=== PATIENT | female | born 1940 | race Caucasian/White ===

== ENCOUNTER 2020-09-01 09:44 | Outpatient (REF) | payer MEDICARE, OTHER, SELFPAY ==
[2020-09-01 10:15] LABS: MANUAL DIFF FLAG NO
[2020-09-01 10:22] LABS: Basophils Absolute Auto 0.1 X10*3/uL (0.0-0.2); Basophils Percent Auto 0.8 % (0-2); Eosinophils Absolute Auto 0.4 X10*3/uL (0.0-0.4); Eosinophils Percent Auto 5.5 % (0-4); Hematocrit 34.3 % (37-47); Hemoglobin 11.2 g/dl (12.0-16.0); Imm Gran Abs Auto 0.02 X10*3/uL (0.00-0.03); Imm Gran Pct Auto 0.3 % (0.0-0.4); Lymphocytes Absolute Auto 1.5 X10*3/uL (1.2-4.9); Lymphocytes Percent Auto 22.4 % (20-40); Mean Corpuscular HGB Conc 32.7 g/dl (31.0-35.0); Mean Corpuscular Hemoglobin 27.2 pg (27.0-33.0); Mean Corpuscular Volume 83.3 fL (80-98); Mean Platelet Volume 8.4 fL (9.4-12.3); Monocytes Absolute Auto 0.5 X10*3/uL (0.1-1.2); Monocytes Percent Auto 7.4 % (2-11); Neutrophils Absolute Auto 4.2 X10*3/uL (2.0-8.3); Neutrophils Percent Auto 63.6 % (45-73); Platelet Count 355 X10*3/uL (160-400); Red Blood Count 4.12 X10*6/uL (4.20-5.50); Red Cell Distribution Width 15.2 % (11.0-16.0); White Blood Count 6.6 X10*3/uL (4.8-10.8)
[2020-09-01 11:02] LABS: Alanine Aminotransferase 15 U/L (0-31); Albumin Level 4.1 g/dL (3.5-5.0); Alkaline Phosphatase 86 U/L (39-117); Anion Gap 11 (12-20); Aspartate Amino Transferase 22 U/L (5-31); Bilirubin Total 0.4 mg/dL (0.0-1.0); Blood Urea Nitrogen 10 mg/dL (9-16); Calcium 9.4 mg/dL (8.4-10.2); Carbon Dioxide 28 mmol/L (22-29); Chloride 104 mmol/L (96-108); Cholesterol 226 mg/dL; Estimated Glomerular Filt Rate > 60; Glucose Random 94 mg/dL (60-115); HDL Cholesterol 83 mg/dL; LDL Cholesterol Calculated 129 mg/dl; Potassium 4.4 mmol/L (3.3-5.1); Sodium 139 mmol/L (135-145); Total Protein 7.1 g/dL (6.5-8.0); Triglycerides 72 mg/dL
[2020-09-01 11:25] LABS: Free T4 (Free Thyroxine) 1.38 ng/dL (0.71-1.85); Thyroid Stimulating Hormone 0.22 uIU/mL (0.32-4.0); Vitamin D 25-OH Total 29.5 ng/mL (>30)
[2020-09-01 11:35] LABS: Vitamin B12 409 pg/mL (200-900)
== END 2020-09-01 09:45 | disposition home or self-care (01) ==
LOC: HO.LAB 09:44
PROVIDERS: PCP Internal Medicine; Visit Provider Internal Medicine
DX: E78.00 Pure hypercholesterolemia, unspecified (principal); E03.9 Hypothyroidism, unspecified; E53.8 Deficiency of other specified B group vitamins
CPT/HCPCS: 36415; 80053; 80061; 82306; 82607; 82746; 84439; 84443; 85025

== ENCOUNTER 2020-09-12 13:00 | Outpatient (REF) | payer MEDICARE, OTHER, SELFPAY ==
--- NOTE | ~2020-09-12 | XR_ITS ---
EXAMINATION: XR CHEST CLINICAL INFORMATION: Bronchiectasis. COMPARISON: None TECHNIQUE: 2 views of the chest were obtained. FINDINGS: The lungs are well-expanded and clear of acute pneumonic process. There is patchy linear scarring in the right middle lobe. There is bilateral apical pleural thickening and parenchymal scarring. Heart size and pulmonary vascularity is normal. There is mild dextroscoliosis. XR/XR chest 2V IMPRESSION: Unremarkable chest exam. No change in mild dextroscoliosis of dorsal spine.
== END 2020-09-12 13:01 | disposition home or self-care (01) ==
LOC: HO.XRAY 13:00
PROVIDERS: PCP Internal Medicine; Visit Provider Internal Medicine
DX: J47.9 Bronchiectasis, uncomplicated (principal)
CPT/HCPCS: 71046

== ENCOUNTER 2020-09-16 10:59 | Outpatient (REF) | payer MEDICARE, OTHER, SELFPAY ==
--- NOTE | ~2020-09-16 | MM_ITS ---
EXAMINATION: MM SCREENING DIGITAL BREAST TOMOSYNTHESIS, BILATERAL CLINICAL INFORMATION: Screening. Asymptomatic. The lifetime risk of breast cancer based on the Tyrer-Cuzick Model is 2%. COMPARISON: Mammography: 05/04/2019, 04/03/2018, 02/21/2017, 01/02/2016, 11/22/2014, 10/05/2013 TECHNIQUE: Digital breast tomosynthesis is performed in both the craniocaudal and mediolateral oblique views along with computer-aided detection (CAD). Synthesized 2D images are generated from the tomosynthesis. FINDINGS: There are scattered areas of fibroglandular density (ACR BI-RADS breast composition Category b). The right breast shows no developing density or interval mass or architectural abnormality. There are scattered bilateral benign predominantly dermal calcifications as well as some arterial calcifications again seen. The left MLO view has nodular asymmetry mid breast along posterior nipple line, possibly shifting fibroglandular tissue, more conspicuous on current exam. There is some chronic minor asymmetry mid outer left breast on CC view similar to prior studies which may represent the same area. Patient will be recalled for additional imaging. Remainder of left breast unremarkable. MM/MM tomosynthesis screening BI IMPRESSION: 1. Left: Asymmetric density mid breast on MLO view. 2. Right: No mammographic evidence of malignancy. ASSESSMENT: BI-RADS 0: Incomplete - Need Additional Imaging Evaluation RECOMMENDATION: 1. Additional views of the left breast (3D spot MLO; 3D ML; 3D rolled CC). 2. Targeted ultrasound if warranted after review of the additional views. 3. Radiology department staff will contact the patient for additional imaging. This patient's information was entered into a reminder system with a target due date for their next mammogram.
== END 2020-09-16 11:00 | disposition home or self-care (01) ==
LOC: HO.MAMMO 10:59
PROVIDERS: PCP Internal Medicine; Visit Provider Internal Medicine
DX: Z12.31 Encounter for screening mammogram for malignant neoplasm of breast (principal)
CPT/HCPCS: 77063; 77067

== ENCOUNTER 2020-10-06 13:29 | Outpatient (REF) | payer MEDICARE, OTHER, SELFPAY ==
--- NOTE | ~2020-10-06 | MM_ITS ---
EXAMINATION: MM DIAGNOSTIC DIGITAL BREAST TOMOSYNTHESIS, LEFT CLINICAL INFORMATION: Recall from screening for small asymmetric density MLO view near posterior nipple line. No known family history breast cancer. TC score 2%. COMPARISON: Mammography: 09/16/2020, 05/04/2019, 04/03/2018, 02/21/2017, 01/02/2016 TECHNIQUE: Digital breast tomosynthesis is performed. 2D images are generated from the tomosynthesis. The following views are obtained: Rolled CC x2, ML, spot MLO x2. FINDINGS: There are scattered areas of fibroglandular density (ACR BI-RADS breast composition Category b). The additional views show no persistent asymmetric density. There is no mass or architectural abnormality. Results are discussed with the patient at time of visit. MM/MM tomosynthesis added views L IMPRESSION: Additional views show no persistent asymmetric density. No significant changes from prior exams. ASSESSMENT: BI-RADS 2: Benign RECOMMENDATION: Routine annual mammography screening. This patient's information was entered into a reminder system with a target due date for their next mammogram.
== END 2020-10-06 13:30 | disposition home or self-care (01) ==
LOC: HO.MAMMO 13:29
PROVIDERS: Visit Provider Internal Medicine
DX: N64.89 Other specified disorders of breast (principal)
CPT/HCPCS: 77061; 77065

== ENCOUNTER → 2020-10-12 10:46 | Outpatient (BNVA) | payer MEDICARE, OTHER, SELFPAY | PROVIDERS: PCP Internal Medicine; Visit Provider Internal Medicine | DX: J47.9 Bronchiectasis, uncomplicated (principal); J44.9 Chronic obstructive pulmonary disease, unspecified | CPT/HCPCS: 99212 ==

== ENCOUNTER 2020-11-17 11:06 | Outpatient (REF) | payer MEDICARE, OTHER, SELFPAY ==
[2020-11-17 12:35] LABS: Free T4 (Free Thyroxine) 1.56 ng/dL (0.71-1.85); Thyroid Stimulating Hormone 0.04 uIU/mL (0.32-4.0)
== END 2020-11-17 11:07 | disposition home or self-care (01) ==
LOC: HO.LAB 11:06
PROVIDERS: PCP Internal Medicine; Visit Provider Internal Medicine
DX: E03.9 Hypothyroidism, unspecified (principal)
CPT/HCPCS: 36415; 84439; 84443

== ENCOUNTER 2020-12-08 13:28 | Outpatient (REF) | payer MEDICARE, OTHER, SELFPAY ==
--- NOTE | ~2020-12-08 | MM_ITS ---
EXAMINATION: BONE DENSITOMETRY CLINICAL INDICATION: Other specified disorders of bone density and structure. COMPARISON: Baseline BD dated 01/08/2008. TECHNIQUE: Using a amSTATZ DXA System (software version: 13.1) manufactured by [employer], dual-energy x-ray absorptiometry was performed of the lumbar spine and left hip. The images are of good technical quality. Summary results are attached. FINDINGS: AP SPINE L1-L4: There is levo curvature lumbar spine and associated multilevel degenerative changes which may cause overestimation of the lumbar bone mineral density. Current: BMD 1.010 g/cm2, Z-score 0.6, T-score -1.4, osteopenia, 8.4% increase from baseline (<5% change is not significant). Baseline: BMD 0.932 g/cm2. LEFT FEMUR, NECK: Current: BMD 0.629 g/cm2, Z-score -0.7, T-score -2.9, osteoporosis. Baseline: BMD 0.810 g/cm2. LEFT FEMUR, TOTAL: Current: BMD 0.665 g/cm2, Z-score -0.6, T-score -2.7, osteoporosis, 27.0% decrease from baseline (<5% change is not significant). Baseline: BMD 0.911 g/cm2. IDENTIFIED RISK FACTORS: Height loss, menopause, hysterectomy, bilateral oophorectomy. HISTORY OF FRACTURE: None listed. MEDICATIONS: Calcium supplements or multivitamin, vitamin D. MM/XR DEXA axial skeleton IMPRESSION: 1. DIAGNOSIS: Osteoporosis based on the lowest T-score value of -2.9 in the femoral neck applying World Health Organization criteria. 2. 10-YEAR FRACTURE RISK PREDICTION, FRAX: Major osteoporotic fracture (clinical spine, forearm, hip or shoulder) 23.1%. Hip fracture 9.5%. 3. Treatment Recommendations: NOF guidelines recommend consideration for treatment in postmenopausal women and men age 50 and older presenting with the following: -A hip or vertebral (clinical or morphometric) fracture. -T-score less than or equal to -2.5 at the femoral neck or spine after appropriate evaluation to exclude secondary causes. -Low bone mass at the hip or spine and a 10-year fracture probability by FRAX of greater than or equal to 3% for hip fracture or greater than or equal to 20% for major osteoporotic fracture based on the [place] adapted WHO algorithm. 4. Other Recommendations: All treatment decisions require clinical judgment and consideration of individual patient factors, including patient preferences, comorbidities, previous drug use, risk factors not captured in the FRAX model (e.g. frailty, falls, vitamin D deficiency, increased bone turnover, interval significant decline in bone density) and possible under or overestimation of fracture risk by FRAX. Additional medical evaluation for secondary cause of low bone mineral density may be appropriate. FUTURE SCAN RECOMMENDATION: People with diagnosed cases of osteoporosis or at high risk for fracture should have regular bone mineral density tests. For patients eligible for Medicare, routine testing is allowed once every 2 years. The testing frequency can be increased to one year for patients who have rapidly progressing disease, those who are receiving or discontinuing medical therapy to restore bone mass, or have additional risk factors.
== END 2020-12-08 13:29 | disposition home or self-care (01) ==
LOC: HO.MAMMO 13:28
PROVIDERS: Visit Provider Internal Medicine
DX: M85.80 Other specified disorders of bone density and structure, unspecified site (principal); Z78.0 Asymptomatic menopausal state; R29.890 Loss of height; Z90.710 Acquired absence of both cervix and uterus; Z90.722 Acquired absence of ovaries, bilateral
CPT/HCPCS: 77080

== ENCOUNTER 2020-12-23 16:24 | Emergency (ER) | payer MEDICARE, OTHER, SELFPAY ==
--- NOTE | ~2020-12-23 | CT_ITS ---
EXAMINATION: CT ANGIOGRAM OF THE CHEST WITH AND WITHOUT CONTRAST (CT PULMONARY ANGIOGRAM FOR PE) CLINICAL INFORMATION: Reason for Exam pt c ongoing sob and dry cough hx of uterine cancer ? pe COMPARISON: CT chest October 04, 2015 TECHNIQUE: Prior to contrast administration, noncontrast localization images were obtained. Subsequently, multidetector volumetric imaging was performed from the thoracic inlet to below the diaphragms following the administration of 57 mL Omnipaque 350 intravenous contrast. No contrast reaction reported Sagittal, coronal, and MIP oblique sagittal reformatted images were obtained on the CT workstation, uploaded to PACS, and reviewed. This CT examination was performed using dose optimization techniques as appropriate, variously including the following: *Automated exposure control *Adjustment of mA and/or kV according to patient size (this includes techniques or standardized protocols for targeted exams where dose is matched to indication/reason for exam; i.e. extremities or head) *Use of iterative reconstruction technique Total exam dose-length product 194 mGy-cm FINDINGS: QUALITY OF STUDY/CONTRAST BOLUS: Satisfactory. PULMONARY ARTERIES: No central or segmental pulmonary emboli. THORACIC AORTA: No aneurysm or dissection. LUNG: There is bronchiectasis at the medial right middle lobe. There is patchy parenchymal airspace opacities at the medial segment of right middle lobe related to the bronchiectasis. Airspace opacities in the right middle lobe are more extensive on the current study than the prior CAT scan of October 04, 2015 Minor bronchiectasis in the lingula. Small groundglass airspace opacity at the posterior left lower lobe. This is smaller than a previously seen airspace opacity in this region on the CAT scan of October 04, 2015. PLEURA: No pleural effusion or pneumothorax. MEDIASTINUM: Normal heart size. No pericardial effusion. No hilar or mediastinal lymphadenopathy. No evidence of septal bowing or right heart strain. CHEST WALL/AXILLA: No axillary or internal mammary lymphadenopathy. OSSEOUS STRUCTURES: No acute or suspicious osseous abnormality. UPPER ABDOMEN: Hypodensity in the left renal pelvis could be due to parapelvic cysts versus hydronephrosis. This is similar to CAT scan of the chest October 04, 2015. No reflux of contrast into the hepatic veins to suggest elevated right heart pressures. CT/CT angio chest PE protocol IMPRESSION: 1. No evidence of pulmonary embolism. 2. Bronchiectasis of middle lobe and lingula. Patchy parenchymal airspace disease in the right middle lobe associated with bronchiectasis. This parenchymal airspace opacity is chronic. There is slightly worse than the prior study of October 04, 2015. VTE: negative
--- NOTE | ~2020-12-23 | US_ITS ---
EXAMINATION: US EXTRACRANIAL CAROTID DUPLEX, BILATERAL CLINICAL INFORMATION: 80-year-old female with history of uterine carcinoma, dizziness and headache. Evaluate carotid circulation. COMPARISON: None TECHNIQUE: Real-time ultrasound and Doppler techniques (integrating B-mode 2-D vascular images, Doppler spectral analysis and color-flow Doppler imaging) were utilized to interrogate the extracranial carotid arteries, the vertebral arteries and proximal subclavian arteries bilaterally. The degree of stenosis is determined by criteria similar to NASCET. FINDINGS: Right Side: No significant findings. No appreciable atherosclerotic plaque in the bifurcation or proximal ICA region. The common carotid artery PSV proximally is 69 cm/s and distally 53 cm/s. The proximal internal carotid artery velocities are 47 cm/s systolic and 13 cm/s diastolic. The proximal external carotid artery PSV is 56 cm/s. The vertebral artery shows normal antegrade flow, peak velocity of 48 cm/s. The subclavian artery waveforms are normal. Left Side: No significant findings. No appreciable atherosclerotic plaque in the bifurcation or proximal ICA region. The common carotid artery PSV proximally is 60 cm/s and distally 46 cm/s. The proximal internal carotid artery velocities are 40 cm/s systolic and 15 cm/s diastolic. The proximal external carotid artery PSV is 36 cm/s. The vertebral artery normal antegrade flow, peak velocity of 37 cm/s. The subclavian artery waveforms are normal. US/US carotid duplex BI IMPRESSION: Normal antegrade flow is detected within the lateral carotid and vertebral arteries. No evidence of a hemodynamically significant stenosis.
[2020-12-23 16:42] VITALS: BP 175/95; PULSE 85; RESP 16; TEMP 35.9; O2SAT 98; BMI 23.6
[2020-12-23 16:53] LABS: MANUAL DIFF FLAG NO
[2020-12-23 17:00] LABS: Basophils Absolute Auto 0.1 X10*3/uL (0.0-0.2); Basophils Percent Auto 0.6 % (0-2); Eosinophils Absolute Auto 0.3 X10*3/uL (0.0-0.4); Hematocrit 32.2 % (37-47); Hemoglobin 10.7 g/dl (12.0-16.0); Imm Gran Abs Auto 0.03 X10*3/uL (0.00-0.03); Imm Gran Pct Auto 0.4 % (0.0-0.4); Lymphocytes Absolute Auto 1.9 X10*3/uL (1.2-4.9); Lymphocytes Percent Auto 23.9 % (20-40); Mean Corpuscular HGB Conc 33.2 g/dl (31.0-35.0); Mean Corpuscular Hemoglobin 27.2 pg (27.0-33.0); Mean Corpuscular Volume 81.9 fL (80-98); Mean Platelet Volume 8.3 fL (9.4-12.3); Monocytes Absolute Auto 0.6 X10*3/uL (0.1-1.2); Monocytes Percent Auto 6.8 % (2-11); Neutrophils Absolute Auto 5.2 X10*3/uL (2.0-8.3); Neutrophils Percent Auto 64.3 % (45-73); Platelet Count 336 X10*3/uL (160-400); Red Blood Count 3.93 X10*6/uL (4.20-5.50); Red Cell Distribution Width 14.7 % (11.0-16.0); White Blood Count 8.1 X10*3/uL (4.8-10.8)
[2020-12-23 17:23] LABS: COVID-19 Test Negative (Negative); IDNOW Serial# 08D9AD1C
[2020-12-23 17:39] LABS: Troponin-I High Sensitivity < 3.5 ng/L (<3.5-17.0)
[2020-12-23 17:41] LABS: Alanine Aminotransferase 13 U/L (0-31); Albumin Level 4.1 g/dL (3.5-5.0); Alkaline Phosphatase 78 U/L (39-117); Anion Gap 13 (12-20); Aspartate Amino Transferase 21 U/L (5-31); Bilirubin Total 0.3 mg/dL (0.0-1.0); Blood Urea Nitrogen 12 mg/dL (9-16); Calcium 9.4 mg/dL (8.4-10.2); Carbon Dioxide 22 mmol/L (22-29); Chloride 102 mmol/L (96-108); Creatinine Clr Calc Pharmacy 49.4; Estimated Glomerular Filt Rate > 60; Glucose Random 90 mg/dL (60-115); Potassium 4.4 mmol/L (3.3-5.1); Sodium 133 mmol/L (135-145); Total Protein 6.8 g/dL (6.5-8.0)
[2020-12-23 19:04] VITALS: BP 187/87; PULSE 59; RESP 12; TEMP 36.6; O2SAT 96
[2020-12-23 20:23] LABS: B Type Natriuretic Peptide 35 pg/mL (<100)
[2020-12-23] MEDS: iohexoL 350 MG/ML 100 ML INFUS..BTL IV (20:50)
--- NOTE | 2020-12-23 21:19 | ED.GENADULT ---
HPI - General Adult General Chief complaint: General Medical Stated complaint: sob, headache Time Seen by Provider: 12/23/20 18:59 Source: patient and family (Son and [id number] at bedside) Mode of arrival: ambulatory Limitations: no limitations History of Present Illness HPI narrative: 80-year-old female with history of hypothyroidism, hypercholesterolemia, pernicious anemia on B12 shots, bronchiectasis /COPD being followed by Dr. Rm and Dr. Villeda presenting to the ED with complaints of acute on chronic shortness of breath with associated chest tightness and a nonproductive cough over the past few days worse today. Reports that she normally always has a cough and shortness of breath although within the past week it has been worse with associated chest tightness. She reports that Dr. Rm center in for a CT scan of her chest to evaluate for pneumonia or any other acute processes. She also reports that he scheduled her a carotid bilateral ultrasound and she reported that he asked her to ask us to obtain the carotid bilateral ultrasound while she was here in the emergency department. She is currently on ProAir for her bronchiectasis and mild obstructive problem. She denies any fevers, chills, dizziness, nausea/vomiting, dyspnea on exertion, orthopnea, edema, abdominal pain, back pain, lower extremity edema, calf tenderness, palpitations, recent travel or sick contacts or any other symptoms complaints or concerns at this time. Related Data Home Medications Medication Instructions Recorded Confirmed albuterol sulfate 90 mcg/actuation 2 puff INHALATION Q4-6H PRN 04/28/20 12/01/20 aerosol inhaler (ProAir HFA) calcium citrate 315 mg 1 tab PO BID 04/28/20 12/01/20 calcium-vitamin D3 6.25 mcg (250 unit) tablet (Citracal + Vitamin D Maximum) fluticasone propionate 50 2 spray INTRANASAL DAILY 04/28/20 12/01/20 mcg/actuation nasal spray,suspension levothyroxine 150 mcg tablet See Rx Instructions PO .COMPLEX 11/17/20 12/01/20 (Synthroid) Previous Rx's Medication Instructions Recorded cyanocobalamin (vitamin B-12) 1,000 mcg IM Q4W 90 Days #3 vial 05/18/20 1,000 mcg/mL injection solution doxycycline hyclate 100 mg tablet 100 mg PO BID 10 Days #20 tab 07/30/21 guaifenesin 100 mg/5 mL oral liquid 200 mg PO Q4H PRN #473 ml 12/23/20 lorazepam 1 mg tablet (Ativan) 0.5 mg PO TID PRN #10 tab 12/23/20 Allergies Allergy/AdvReac Type Severity Reaction Status Date / Time codeine [CODEINE] Allergy Unknown GI UPSET Verified 12/01/20 08:39 levofloxacin [From LEVAQUIN] Allergy Unknown STOMACH Verified 12/01/20 08:39 UPSET pneumococcal vaccine Allergy Unknown unknown Verified 12/01/20 08:39 shellfish derived Allergy Unknown RASH Verified 12/01/20 08:39 [SHELLFISH DERIVED] Review of Systems Review of Systems: Constitutional : No Weight loss, No Fever, No Chills, No Night Sweats, No Fatigue, No Malaise ENT/Mouth : No Hearing loss, No Ear Pain, No Nasal Congestion, No Sinus Pain, No Hoarseness, No sore throat, No Rhinorrhea, No Swallowing Difficulty Eyes: No Eye Pain, No Swelling, No Redness, No Foreign Body, No Discharge, No Vision Changes Cardiovascular : Positive chest tightness with shortness of breath, no Dyspnea on Exertion, No Orthopnea, No Edema, No extremity swelling, No Palpitations Respiratory : Positive Cough, No Sputum, No Wheezing Gastrointestinal : No Nausea, No Vomiting, No Diarrhea, No abdominal Pain, NoHematochezia, No Melena Genitourinary : No irregular bleeding, No Dysuria, No Urinary Frequency, No Hematuria,No Urinary Incontinence, No Urgency, No Flank Pain, No Urinary Flow Changes, NoHesitancy Musculoskeletal : No joint pain, No Myalgias, No Joint Swelling Skin : No Skin Lesions, No rash Neuro : No Weakness, No Numbness, No Paresthesias, No Loss of Consciousness, NoDizziness, No Headache Psych : No Anxiety/Panic, No Depression, No SI/HI/AH/VH Heme/Lymph: No Bruising, No Bleeding,No Lymphadenopathy Endocrine : No Polyuria, No Polydipsia, No Temperature Intolerance Yes all other systems are reviewed and are negative [facility] Past Medical History Attestation statement: The following information was validated with the patient. Medical History Bronchiectasis COPD (chronic obstructive pulmonary disease) Hypercholesterolemia Hypothyroid Lumbar degenerative disc disease Peripheral neuropathy Pernicious anemia Pulmonary nodule Uterine cancer Vitamin D deficiency Surgical History History of appendectomy History of lumpectomy of right breast History of total abdominal hysterectomy and bilateral salpingo-oophorectomy Family History Family History Father CVD (cardiovascular disease) Mother Cancer Social History Social History Alcohol intake: current Alcohol intake frequency: holidays/special occasions only Patient Tobacco Use Status: Never used Tobacco Advance Directives: No Advance Directives Information Provided: Yes Physical Exam Vital Signs: Vital Signs: Last Vital Signs Temp 97.8 F 12/23/20 19:04 Pulse 59 12/23/20 19:04 Resp 12 12/23/20 19:04 BP 187/87 H 12/23/20 19:04 Pulse Ox 96 12/23/20 19:04 Body Mass Index 23.6 vital signs have been reviewed as normal and appeared to be correct. Blood pressure hypertensive 175/95 Heart rate normal. Respiration rate normal. Temperature normal. Oxygen saturation normal. Appearance: Alert. Oriented X3. No acute distress. Head: Normal external exam. Normocephalic. Atraumatic. Eyes: PERRLA. EOMI. Conjunctiva and sclera normal. Eyelids normal. ENT: EAC normal. TM's Normal. Pharynx normal. Uvula midline. Moist mucous membranes. No trismus noted. No drooling noted. No muffled voice noted. Neck: Normal inspection. Neck supple. FROM. No adenopathy. Thyroid Normal. No meningeal signs. No neck mass noted. CVS: Normal heart rate and rhythm. Heart sound normal. Pulses normal throughout. No murmurs/rales/gallops. Respiratory: No respiratory distress. Painless inspiration. Breath sounds normal. No wheezes/rales/rhonchi noted. Chest nontender. No accessory muscle usage noted or decreased air movement noted. Abdomen: Soft and nontender. Bowel sounds normal in all 4 quadrants. No distention noted. No organomegaly noted. No visible injury noted. Back: Full range of motion noted. No rashes/lesion/induration/fluctuance or signs of infection noted. Skin: Skin warm and dry. Normal skin color. Normal skin turgor. No rashes/lesions/lacerations noted. Extremities: No lower extremity edema. No calf tenderness is noted. exhibit normal range of motion. Extremities nontender. Neuro: Oriented X 3. No motor deficit. No sensory deficit. Reflexes normal. Normal steady gait. No focal neuro deficits noted. Vascular: + radial pulses/+ 2 distal pedal pulses/+2 dorsalis pedis b/l. Normal cap refill. No cyanosis noted to upper extremity nails and lower extremity toes nails. Course Course Course Narrative: 80-year-old female with history of hypothyroidism, hypercholesterolemia, pernicious anemia on B12 shots, bronchiectasis /COPD being followed by Dr. Rm and Dr. Villeda presenting to the ED with complaints of acute on chronic shortness of breath with associated chest tightness and a nonproductive cough over the past few days worse today. Reports that she normally always has a cough and shortness of breath although within the past week it has been worse with associated chest tightness. She reports that Dr. Rm center in for a CT scan of her chest to evaluate for pneumonia or any other acute processes. She also reports that he scheduled her a carotid bilateral ultrasound and she reported that he asked her to ask us to obtain the carotid bilateral ultrasound while she was here in the emergency department. She is currently on ProAir for her bronchiectasis and mild obstructive problem. Labs obtained in patient with a mild baseline anemia similar when compared to prior. Sodium 133. Otherwise all other labs within normal limits. Negative troponin. Negative COVID. For PE although revealed bronchiectasis of middle lobe no acute processes were noted. Bilateral carotid ultrasounds negative for any acute processes. Therefore I gave the patient and her daughter in-law copy of her results and instructed her to follow up with her doctor Dr. Rm and will DC home with a short course of anxiety medication per the daughter in laws request with cough medicine and antibiotics and instructions to return if any new or worsening symptoms. Patient and daughter at bedside understand and agreed this plan. Medical Decision Making Medical Records Medical records reviewed: Yes I reviewed the patient's medical records. Lab Data Lab results reviewed: Yes I reviewed the patient's lab results. Result diagrams: 12/23/20 16:47 12/23/20 16:47 Labs: Lab Results 12/23/20 12/23/2021 Range/Units 16:47 16:47 16:47 WBC 8.1 (4.8-10.8) X10*3/uL RBC 3.93 L (4.20-5.50) X10*6/uL Hgb 10.7 L (12.0-16.0) g/dl Hct 32.2 L (37-47) % MCV 81.9 (80-98) fL MCH 27.2 (27.0-33.0) pg MCHC 33.2 (31.0-35.0) g/dl RDW 14.7 (11.0-16.0) % Plt Count 336 (160-400) X10*3/uL MPV 8.3 L (9.4-12.3) fL Immature Gran % (Auto) 0.4 (0.0-0.4) % Neut % (Auto) 64.3 (45-73) % Lymph % (Auto) 23.9 (20-40) % [place] % (Auto) 6.8 (2-11) % Eos % (Auto) 4.0 (0-4) % Baso % (Auto) 0.6 (0-2) % Lymph # (Auto) 1.9 (1.2-4.9) X10*3/uL [place] # (Auto) 0.6 (0.1-1.2) X10*3/uL Eos # (Auto) 0.3 (0.0-0.4) X10*3/uL Baso # (Auto) 0.1 (0.0-0.2) X10*3/uL Abs Immat Gran (auto) 0.03 (0.00-0.03) X10*3/uL Absolute Neuts (auto) 5.2 (2.0-8.3) X10*3/uL Absolute Nucleated RBC 0.000 (0.0-0.012) X10*3/uL Nucleated RBC % (auto) 0.0 (0.0-0.2) /100WBC Sodium 133 L (135-145) mmol/L Potassium 4.4 (3.3-5.1) mmol/L Chloride 102 (96-108) mmol/L Carbon Dioxide 22 (22-29) mmol/L Anion Gap 13 (12-20) BUN 12 (9-16) mg/dL Creatinine 0.73 (0.5-1.4) mg/dL Estim Creat Clear Calc 49.4 Estimated GFR > 60 Random Glucose 90 (60-115) mg/dL Calcium 9.4 (8.4-10.2) mg/dL Total Bilirubin 0.3 (0.0-1.0) mg/dL AST 21 (5-31) U/L ALT 13 (0-31) U/L Alkaline Phosphatase 78 (39-117) U/L Troponin I High Sens (<3.5-17.0) ng/L B-Natriuretic Peptide (<100) pg/mL Total Protein 6.8 (6.5-8.0) g/dL Albumin 4.1 (3.5-5.0) g/dL COVID-19 (ALEJANDRA) Negative (Negative) COVID-19 Clin Com See Note 12/23/20 Range/Units 16:47 WBC (4.8-10.8) X10*3/uL RBC (4.20-5.50) X10*6/uL Hgb (12.0-16.0) g/dl Hct (37-47) % MCV (80-98) fL MCH (27.0-33.0) pg MCHC (31.0-35.0) g/dl RDW (11.0-16.0) % Plt Count (160-400) X10*3/uL MPV (9.4-12.3) fL Immature Gran % (Auto) (0.0-0.4) % Neut % (Auto) (45-73) % Lymph % (Auto) (20-40) % [place] % (Auto) (2-11) % Eos % (Auto) (0-4) % Baso % (Auto) (0-2) % Lymph # (Auto) (1.2-4.9) X10*3/uL [place] # (Auto) (0.1-1.2) X10*3/uL Eos # (Auto) (0.0-0.4) X10*3/uL Baso # (Auto) (0.0-0.2) X10*3/uL Abs Immat Gran (auto) (0.00-0.03) X10*3/uL Absolute Neuts (auto) (2.0-8.3) X10*3/uL Absolute Nucleated RBC (0.0-0.012) X10*3/uL Nucleated RBC % (auto) (0.0-0.2) /100WBC Sodium (135-145) mmol/L Potassium (3.3-5.1) mmol/L Chloride (96-108) mmol/L Carbon Dioxide (22-29) mmol/L Anion Gap (12-20) BUN (9-16) mg/dL Creatinine (0.5-1.4) mg/dL Estim Creat Clear Calc Estimated GFR Random Glucose (60-115) mg/dL Calcium (8.4-10.2) mg/dL Total Bilirubin (0.0-1.0) mg/dL AST (5-31) U/L ALT (0-31) U/L Alkaline Phosphatase (39-117) U/L Troponin I High Sens < 3.5 (<3.5-17.0) ng/L B-Natriuretic Peptide 35 (<100) pg/mL Total Protein (6.5-8.0) g/dL Albumin (3.5-5.0) g/dL COVID-19 (ALEJANDRA) (Negative) COVID-19 Clin Com Imaging Data Carotid duplex study: Attestation: I personally reviewed and interpreted this imaging study as follows: Radiologist's impression: FINDINGS: Right Side: No significant findings. No appreciable atherosclerotic plaque in the bifurcation or proximal ICA region. The common carotid artery PSV proximally is 69 cm/s and distally 53 cm/s. The proximal internal carotid artery velocities are 47 cm/s systolic and 13 cm/s diastolic. The proximal external carotid artery PSV is 56 cm/s. The vertebral artery shows normal antegrade flow, peak velocity of 48 cm/s. The subclavian artery waveforms are normal. Left Side: No significant findings. No appreciable atherosclerotic plaque in the bifurcation or proximal ICA region. The common carotid artery PSV proximally is 60 cm/s and distally 46 cm/s. The proximal internal carotid artery velocities are 40 cm/s systolic and 15 cm/s diastolic. The proximal external carotid artery PSV is 36 cm/s. The vertebral artery normal antegrade flow, peak velocity of 37 cm/s. The subclavian artery waveforms are normal. US/US carotid duplex BI IMPRESSION: Normal antegrade flow is detected within the lateral carotid and vertebral arteries. No evidence of a hemodynamically significant stenosis. CT of chest for PE: Attestation: I personally reviewed and interpreted this imaging study as follows: Radiologist's impression: FINDINGS: QUALITY OF STUDY/CONTRAST BOLUS: Satisfactory. PULMONARY ARTERIES: No central or segmental pulmonary emboli.? THORACIC AORTA: No aneurysm or dissection. LUNG: There is bronchiectasis at the medial right middle lobe. There is patchy parenchymal airspace opacities at the medial segment of right middle lobe related to the bronchiectasis. Airspace opacities in the right middle lobe are more extensive on the current study than the prior CAT scan of October 04, 2015 Minor bronchiectasis in the lingula. Small groundglass airspace opacity at the posterior left lower lobe. This is smaller than a previously seen airspace opacity in this region on the CAT scan of October 04, 2015. PLEURA: No pleural effusion or pneumothorax. MEDIASTINUM: Normal heart size.? No pericardial effusion.? No hilar or mediastinal lymphadenopathy.? No evidence of septal bowing or right heart strain. CHEST WALL/AXILLA: No axillary or internal mammary lymphadenopathy. OSSEOUS STRUCTURES: No acute or suspicious osseous abnormality.? UPPER ABDOMEN: Hypodensity in the left renal pelvis could be due to parapelvic cysts versus hydronephrosis. This is similar to CAT scan of the chest October 04, 2015.? No reflux of contrast into the hepatic veins to suggest elevated right heart pressures. CT/CT angio chest PE protocol IMPRESSION: ? 1. No evidence of pulmonary embolism. 2. Bronchiectasis of middle lobe and lingula. Patchy parenchymal airspace disease in the right middle lobe associated with bronchiectasis. This parenchymal airspace opacity is chronic. There is slightly worse than the prior study of October 04, 2015. ? VTE: negative Critical Care Time Critical Care Time Critical Care Time: Yes Total Critical Care Time: 60 Attestation: I personally attest to this time spent taking care of the patient Discharge Plan Discharge Clinical Impression: Bronchiectasis Patient Disposition: Home, Self-Care Instructions: Bronchiectasis (ED) Prescriptions: New lorazepam [Ativan] 1 mg tablet 0.5 mg PO TID PRN (Reason: anxiety) Qty: 10 RF: 0 doxycycline hyclate 100 mg tablet 100 mg PO BID 10 Days Qty: 20 RF: 0 guaifenesin 100 mg/5 mL liquid 200 mg PO Q4H PRN (Reason: cough) Qty: 473 RF: 0 No Action cyanocobalamin (vitamin B-12) 1,000 mcg/mL solution 1,000 mcg IM Q4W 90 Days Qty: 3 RF: 3 levothyroxine [Synthroid] 150 mcg tablet See Rx Instructions PO .COMPLEX RF: 0 fluticasone propionate 50 mcg/actuation spray,suspension 2 spray intranasal DAILY RF: 0 calcium citrate-vitamin D3 [Citracal + D Maximum] 315 mg-6.25 mcg (250 unit) tablet 1 tab PO BID RF: 0 albuterol sulfate [ProAir HFA] 90 mcg/actuation HFA aerosol inhaler 2 puff inhalation Q4-6H PRNRF: 0 Referrals: Po,Feli Woods MD [Primary Care Provider] - 2 days Print Language: Guine[place]
== END 2020-12-23 23:41 | disposition home or self-care (01) ==
PROVIDERS: Physician Assistant Medical; Emergency Provider Emergency Medicine Emergency Medical Services; PCP Internal Medicine
DX: J47.9 Bronchiectasis, uncomplicated (principal); R07.9 Chest pain, unspecified; R06.02 Shortness of breath; R42 Dizziness and giddiness; R51.9 Headache, unspecified; Z20.822 Contact with and (suspected) exposure to COVID-19; F41.9 Anxiety disorder, unspecified; J44.9 Chronic obstructive pulmonary disease, unspecified; Z85.42 Personal history of malignant neoplasm of other parts of uterus
CPT/HCPCS: 36415; 71275; 80053; 83880; 84484; 85025; 87635; 93880; 99284; 99291; Q9967

== ENCOUNTER 2021-01-27 11:16 | Outpatient (REF) | payer MEDICARE, OTHER, SELFPAY ==
--- NOTE | ~2021-01-27 | XR_ITS ---
EXAMINATION: XR SINUSES CLINICAL INFORMATION: Chronic sinusitis COMPARISON: Sinus radiographs 01/20/2020 TECHNIQUE: 3 views of the sinuses were obtained. FINDINGS: Paranasal sinuses appear clear without air-fluid levels. No fractures are identified. No radiodense foreign bodies. XR/XR sinus <3V IMPRESSION: Unremarkable examination.
== END 2021-01-27 11:17 | disposition home or self-care (01) ==
LOC: HO.XRAY 11:16
PROVIDERS: PCP Internal Medicine; Visit Provider Internal Medicine
DX: J32.9 Chronic sinusitis, unspecified (principal)
CPT/HCPCS: 70210

== ENCOUNTER 2021-02-14 13:24 | Outpatient (REF) | payer MEDICARE, OTHER, SELFPAY ==
[2021-02-14 13:58] LABS: MANUAL DIFF FLAG NO
[2021-02-14 14:04] LABS: Basophils Absolute Auto 0.1 X10*3/uL (0.0-0.2); Basophils Percent Auto 0.9 % (0-2); Eosinophils Absolute Auto 0.6 X10*3/uL (0.0-0.4); Eosinophils Percent Auto 7.4 % (0-4); Hematocrit 35.6 % (37-47); Hemoglobin 11.4 g/dl (12.0-16.0); Imm Gran Abs Auto 0.02 X10*3/uL (0.00-0.03); Imm Gran Pct Auto 0.2 % (0.0-0.4); Immature Retic Fraction 6.3 % (3.0-15.9); Lymphocytes Absolute Auto 1.4 X10*3/uL (1.2-4.9); Mean Corpuscular Hemoglobin 27.3 pg (27.0-33.0); Mean Corpuscular Volume 85.4 fL (80-98); Mean Platelet Volume 8.6 fL (9.4-12.3); Monocytes Absolute Auto 0.6 X10*3/uL (0.1-1.2); Monocytes Percent Auto 7.4 % (2-11); Neutrophils Absolute Auto 5.3 X10*3/uL (2.0-8.3); Neutrophils Percent Auto 66.1 % (45-73); Platelet Count 356 X10*3/uL (160-400); Red Blood Count 4.17 X10*6/uL (4.20-5.50); Red Cell Distribution Width 14.9 % (11.0-16.0); Retic HGB Equivalent 33.4 pg (30.0-35.0); Reticulocyte Percent 0.8 % (0.5-1.8); Reticulocytes Absolute 0.031 X10*6/uL (0.026-0.095)
[2021-02-14 14:36] LABS: Alanine Aminotransferase 22 U/L (0-31); Albumin Level 4.2 g/dL (3.5-5.0); Alkaline Phosphatase 88 U/L (39-117); Anion Gap 12 (12-20); Aspartate Amino Transferase 29 U/L (5-31); Bilirubin Total 0.3 mg/dL (0.0-1.0); Blood Urea Nitrogen 10 mg/dL (9-16); Carbon Dioxide 26 mmol/L (22-29); Chloride 104 mmol/L (96-108); Estimated Glomerular Filt Rate > 60; Glucose Random 91 mg/dL (60-115); Iron 51 mcg/dL (30-160); Percent Iron Saturation 12 % (15-50); Potassium 5.2 mmol/L (3.3-5.1); Sodium 137 mmol/L (135-145); Total Iron Binding Capacity 433 mcg/dL (228-428); Unsaturated Iron Binding 382 ug/dL
[2021-02-14 14:45] LABS: Erythrocyte Sedimentation Rate 23 MM/HR (0-20)
[2021-02-14 14:56] LABS: Ferritin 14 ng/mL (10-250); Free T4 (Free Thyroxine) 1.36 ng/dL (0.71-1.85); Thyroid Stimulating Hormone 0.06 uIU/mL (0.32-4.0)
[2021-02-14 15:10] LABS: Folate 6.6 ng/mL (> or = 4.0); Vitamin B12 333 pg/mL (200-900)
== END 2021-02-14 13:25 | disposition home or self-care (01) ==
LOC: HO.LAB 13:24
PROVIDERS: PCP Internal Medicine; Visit Provider Internal Medicine
DX: D51.0 Vitamin B12 deficiency anemia due to intrinsic factor deficiency (principal); R51.9 Headache, unspecified; E03.9 Hypothyroidism, unspecified
CPT/HCPCS: 36415; 80053; 82607; 82728; 82746; 83540; 84439; 84443; 85025; 85045; 85652

== ENCOUNTER 2021-02-16 13:49 | Outpatient (REF) | payer MEDICARE, OTHER, SELFPAY ==
--- NOTE | ~2021-02-16 | XR_ITS ---
EXAMINATION: XR SKULL CLINICAL INFORMATION: Acquired deformity of the head. COMPARISON: None TECHNIQUE: 4 views of the skull were obtained. FINDINGS: There is no visible calvarial abnormality or fracture. The paranasal sinuses and mastoid air cells are well-aerated. The soft tissues are normal. XR/XR skull <4V IMPRESSION: Unremarkable skull and 4 views.
== END 2021-02-16 13:50 | disposition home or self-care (01) ==
LOC: HO.XRAY 13:49
PROVIDERS: PCP Internal Medicine; Visit Provider Internal Medicine
DX: M95.2 Other acquired deformity of head (principal)
CPT/HCPCS: 70250

== ENCOUNTER 2021-04-14 14:56 | Outpatient (REF) | payer MEDICARE, OTHER, SELFPAY ==
[2021-04-14 15:57] LABS: Free T4 (Free Thyroxine) 1.25 ng/dL (0.71-1.85); Thyroid Stimulating Hormone 0.35 uIU/mL (0.32-4.0)
[2021-04-14 17:54] LABS: Appearance Urine CLEAR; Color Urine YELLOW; Glucose Urine UA NEG (NEG); Leukocyte Esterase Urine TRACE (NEG); Nitrite Urine NEG (NEG); PH 6.5 (5.0-8.0); Specific Gravity - Urine <= 1.005 (1.005-1.025); UACC Culture Trigger YES; Urine Blood NEG (NEG); Urine Ketones NEG (NEG); Urine Protein NEG (NEG-TRACE)
[2021-04-14 18:04] LABS: RBC Urine 0-2 /HPF (0); WBC Urine 0-2 /HPF (0-4)
[2021-04-14 18:05] LABS: Bacteria Urine TRACE /LPF; Squamous Epithelial Cell Urine TRACE /LPF
== END 2021-04-14 14:57 | disposition home or self-care (01) ==
LOC: HO.LAB 14:56
PROVIDERS: PCP Internal Medicine; Visit Provider Internal Medicine
DX: E03.9 Hypothyroidism, unspecified (principal)
CPT/HCPCS: 36415; 81001; 84439; 84443; 87086

== ENCOUNTER 2021-07-06 14:27 | Outpatient (REF) | payer MEDICARE, OTHER, SELFPAY ==
--- NOTE | ~2021-07-06 | XR_ITS ---
EXAMINATION: XR THORACIC SPINE CLINICAL INFORMATION: Unspecified chest pain COMPARISON: None TECHNIQUE: Frontal and lateral radiographs were obtained of the dorsal spine. FINDINGS: Thoracolumbar scoliosis is present, convex right at approximately T8-T9 and convex left at approximately L2. Vertebral body height is preserved. Multilevel mild spondylotic and degenerative changes are evident in the dorsal spine and in the lower cervical spine, extending from C3 through C7. There are no suspicious bone lesions. Mild generalized demineralization is noted. XR/XR thoracic spine 3V IMPRESSION: 1. Thoracolumbar scoliosis. 2. Degenerative changes in the cervical and thoracic spine commensurate with age. 3. Mild generalized demineralization. 4. No detected compression fracture deformity.
--- NOTE | ~2021-07-06 | XR_ITS ---
EXAMINATION: XR CHEST CLINICAL INFORMATION: Chest pain COMPARISON: Previous chest x-ray August 2020 and chest CTA 2020 TECHNIQUE: 2 views of the chest were obtained. FINDINGS: The cardiac and mediastinal contours are stable. There is right apical pleural thickening. There are increased markings in the right middle lobe that appear unchanged probably related to chronic bronchiectasis and consolidation. The lungs are otherwise clear. There is no pleural effusion or pneumothorax. There is a thoracolumbar scoliosis and degenerative changes of the spine. There is an old sternal fracture. XR/XR chest 2V IMPRESSION: Chronic bronchiectasis and consolidation in the right middle lobe unchanged from previous exams.
== END 2021-07-06 14:28 | disposition home or self-care (01) ==
LOC: HO.XRAY 14:27
PROVIDERS: PCP Internal Medicine; Visit Provider Internal Medicine
DX: R07.9 Chest pain, unspecified (principal); J43.1 Panlobular emphysema; J47.9 Bronchiectasis, uncomplicated
CPT/HCPCS: 71046; 72072; 99212

== ENCOUNTER 2021-08-16 12:10 | Outpatient (REF) | payer MEDICARE, OTHER, SELFPAY ==
--- NOTE | ~2021-08-16 | XR_ITS ---
EXAMINATION: XR SINUSES CLINICAL INFORMATION: Nasal congestion. COMPARISON: None TECHNIQUE: 3 views of the sinuses were obtained. FINDINGS: Paranasal sinuses appear clear without air-fluid levels. No fractures are identified. No radiodense foreign bodies. XR/XR sinus <3V IMPRESSION: Unremarkable sinus examination.
[2021-08-16 12:27] LABS: MANUAL DIFF FLAG NO
[2021-08-16 12:59] LABS: Basophils Absolute Auto 0.1 X10*3/uL (0.0-0.2); Basophils Percent Auto 0.6 % (0-2); Eosinophils Absolute Auto 0.4 X10*3/uL (0.0-0.4); Eosinophils Percent Auto 5.2 % (0-4); Hematocrit 35.1 % (37.0-47.0); Hemoglobin 11.1 g/dl (12.0-16.0); Imm Gran Abs Auto 0.02 X10*3/uL (0.00-0.03); Imm Gran Pct Auto 0.3 % (0.0-0.4); Lymphocytes Absolute Auto 1.3 X10*3/uL (1.2-4.9); Lymphocytes Percent Auto 16.5 % (20-40); Mean Corpuscular HGB Conc 31.6 g/dl (31.0-35.0); Mean Corpuscular Hemoglobin 26.6 pg (27.0-33.0); Mean Platelet Volume 8.6 fL (9.4-12.3); Monocytes Absolute Auto 0.6 X10*3/uL (0.1-1.2); Monocytes Percent Auto 7.3 % (2-11); Neutrophils Absolute Auto 5.6 x10*3/uL (2.0-8.3); Neutrophils Percent Auto 70.1 % (45-73); Platelet Count 375 X10*3/uL (160-400); Red Blood Count 4.18 X10*6/uL (4.20-5.50); Red Cell Distribution Width 15.4 % (11.0-16.0)
[2021-08-16 13:21] LABS: Erythrocyte Sedimentation Rate 10 MM/HR (0-20)
[2021-08-16 13:54] LABS: Alanine Aminotransferase 17 U/L (0-31); Albumin Level 4.1 g/dL (3.5-5.0); Alkaline Phosphatase 93 U/L (39-117); Anion Gap 15 (12-20); Aspartate Amino Transferase 25 U/L (5-31); Bilirubin Total 0.6 mg/dL (0.0-1.0); Blood Urea Nitrogen 9 mg/dL (9-16); C Reactive Protein 0.83 mg/dL (< or = 0.50); Calcium 9.8 mg/dL (8.4-10.2); Carbon Dioxide 25 mmol/L (22-29); Chloride 105 mmol/L (96-108); Estimated Glomerular Filt Rate > 60; Glucose Random 86 mg/dL (60-115); Potassium 4.7 mmol/L (3.3-5.1); Sodium 140 mmol/L (135-145); Total Protein 7.1 g/dL (6.5-8.0)
[2021-08-16 14:02] LABS: Free T4 (Free Thyroxine) 1.34 ng/dL (0.71-1.85); Thyroid Stimulating Hormone 0.19 uIU/mL (0.32-4.0)
[2021-08-16 14:18] LABS: Folate 10.2 ng/mL (> or = 4.0); Vitamin B12 316 pg/mL (200-900)
[2021-08-17 15:33] LABS: Vitamin D 25-OH Total 35.6 ng/mL (>30)
== END 2021-08-16 12:11 | disposition home or self-care (01) ==
LOC: HO.XRAY 12:10
PROVIDERS: PCP Internal Medicine; Visit Provider Internal Medicine
DX: R09.81 Nasal congestion (principal); E03.9 Hypothyroidism, unspecified; D51.0 Vitamin B12 deficiency anemia due to intrinsic factor deficiency; L21.9 Seborrheic dermatitis, unspecified; E78.00 Pure hypercholesterolemia, unspecified
CPT/HCPCS: 36415; 70210; 80053; 82306; 82607; 82746; 84439; 84443; 85025; 85652; 86140

== ENCOUNTER 2021-09-18 15:13 | Outpatient (REF) | payer MEDICARE, OTHER, SELFPAY ==
[2021-09-18 17:03] LABS: Cholesterol 228 mg/dL; HDL Cholesterol 83 mg/dL; LDL Cholesterol Calculated 126 mg/dl; Triglycerides 97 mg/dL
[2021-09-18 17:14] LABS: Free T4 (Free Thyroxine) 1.28 ng/dL (0.71-1.85); Thyroid Stimulating Hormone 0.46 uIU/mL (0.32-4.0)
[2021-09-18 17:25] LABS: Appearance Urine CLEAR; Color Urine YELLOW; Glucose Urine UA NEG (NEG); Leukocyte Esterase Urine NEG (NEG); Nitrite Urine NEG (NEG); Specific Gravity - Urine <= 1.005 (1.005-1.025); Urine Blood NEG (NEG); Urine Ketones NEG (NEG); Urine Protein NEG (NEG-TRACE)
== END 2021-09-18 15:14 | disposition home or self-care (01) ==
LOC: HO.LAB 15:13
PROVIDERS: PCP Internal Medicine; Visit Provider Internal Medicine
DX: E03.9 Hypothyroidism, unspecified (principal); E78.00 Pure hypercholesterolemia, unspecified; R30.0 Dysuria
CPT/HCPCS: 36415; 80061; 81003; 84439; 84443

== ENCOUNTER 2021-10-03 09:06 | Outpatient (REF) | payer MEDICARE, OTHER, SELFPAY ==
--- NOTE | ~2021-10-03 | CT_ITS ---
EXAMINATION: CT SINUS WITHOUT CONTRAST CLINICAL INFORMATION: Nasal congestion. COMPARISON: None TECHNIQUE: Axial 2 mm thin and reformatted 2 mm thin sagittal and coronal images of sinuses were obtained. This CT examination was performed using dose optimization techniques as appropriate, variously including the following: *Automated exposure control *Adjustment of mA and/or kV according to patient size (this includes techniques or standardized protocols for targeted exams where dose is matched to indication/reason for exam; i.e. extremities or head) *Use of iterative reconstruction technique DLP: 89 mGy-cm FINDINGS: FRONTAL SINUSES AND DRAINAGE PATHWAYS: Normal. MAXILLARY SINUSES AND DRAINAGE PATHWAYS: Normal. The infundibula are patent. ETHMOID SINUSES: Normal. The ethmoid roofs are symmetric, with olfactory fossa depth of 0.4 cm on the right and 0.4 cm on the left. SPHENOID SINUSES AND DRAINAGE PATHWAYS: There is mucoperiosteal thickening right sphenoid sinus. The sphenoid ostia are patent. The carotid canals are covered by bone. NASAL CAVITY/NASOPHARYNX: The nasal cavity is clear. There is no nasal septal deviation/spurring. The nasopharynx is symmetric. ADDITIONAL RELEVANT FINDINGS: No periapical disease is seen. The TMJs articulate normally. The orbits and skull base soft tissues are unremarkable. The middle ear cavities and mastoid air cells are clear. Limited evaluation demonstrates no acute intracranial findings. CT/CT sinus wo con IMPRESSION: Mild mucoperiosteal thickening right sinus. Rest of paranasal sinuses are well aerated and clear. The drainage pathways are widely patent.
== END 2021-10-03 09:07 | disposition home or self-care (01) ==
LOC: HO.CT 09:06
PROVIDERS: PCP Internal Medicine; Visit Provider Internal Medicine
DX: R09.81 Nasal congestion (principal)
CPT/HCPCS: 70486

== ENCOUNTER → 2021-10-31 13:28 | Outpatient (BNVA) | payer MEDICARE, OTHER, SELFPAY | PROVIDERS: PCP Internal Medicine; Visit Provider Internal Medicine | DX: J43.1 Panlobular emphysema (principal); R07.9 Chest pain, unspecified | CPT/HCPCS: 99212 ==

== ENCOUNTER 2021-11-29 10:45 | Outpatient (REF) | payer MEDICARE, OTHER, SELFPAY ==
[2021-11-29 10:55] LABS: MANUAL DIFF FLAG NO
[2021-11-29 11:57] LABS: Basophils Absolute Auto 0.1 X10*3/uL (0.0-0.2); Basophils Percent Auto 0.7 % (0-2); Eosinophils Absolute Auto 0.4 X10*3/uL (0.0-0.4); Eosinophils Percent Auto 5.8 % (0-4); Hematocrit 35.4 % (37.0-47.0); Hemoglobin 11.1 g/dl (12.0-16.0); Imm Gran Abs Auto 0.02 X10*3/uL (0.00-0.03); Imm Gran Pct Auto 0.3 % (0.0-0.4); Immature Retic Fraction 7.7 % (3.0-15.9); Lymphocytes Absolute Auto 1.6 X10*3/uL (1.2-4.9); Mean Corpuscular HGB Conc 31.4 g/dl (31.0-35.0); Mean Corpuscular Hemoglobin 26.1 pg (27.0-33.0); Mean Corpuscular Volume 83.3 fL (80.0-98.0); Mean Platelet Volume 8.8 fL (9.4-12.3); Monocytes Absolute Auto 0.6 X10*3/uL (0.1-1.2); Monocytes Percent Auto 8.9 % (2-11); Neutrophils Absolute Auto 4.4 x10*3/uL (2.0-8.3); Neutrophils Percent Auto 62.3 % (45-73); Platelet Count 389 X10*3/uL (160-400); Red Blood Count 4.25 X10*6/uL (4.20-5.50); Red Cell Distribution Width 15.4 % (11.0-16.0); Retic HGB Equivalent 32.5 pg (30.0-35.0); Reticulocyte Percent 0.8 % (0.5-1.8); Reticulocytes Absolute 0.033 X10*6/uL (0.026-0.095); White Blood Count 7.1 X10*3/uL (4.8-10.8)
[2021-11-29 12:36] LABS: Ferritin 10 ng/mL (10-250); Thyroid Stimulating Hormone 0.18 uIU/mL (0.32-4.0); Vitamin D 25-OH Total 33.8 ng/mL (>30)
[2021-11-29 12:55] LABS: Alanine Aminotransferase 15 U/L (0-31); Albumin Level 4.2 g/dL (3.5-5.0); Alkaline Phosphatase 86 U/L (39-117); Anion Gap 13 (12-20); Aspartate Amino Transferase 26 U/L (5-31); Bilirubin Total 0.4 mg/dL (0.0-1.0); Blood Urea Nitrogen 7 mg/dL (9-16); Calcium 9.3 mg/dL (8.4-10.2); Carbon Dioxide 24 mmol/L (22-29); Chloride 105 mmol/L (96-108); Cholesterol 226 mg/dL; Estimated Glomerular Filt Rate > 60; Glucose Random 89 mg/dL (60-115); HDL Cholesterol 84 mg/dL; Iron 29 mcg/dL (30-160); LDL Cholesterol Calculated 131 mg/dl; Percent Iron Saturation 7 % (15-50); Potassium 4.7 mmol/L (3.3-5.1); Sodium 137 mmol/L (135-145); Total Iron Binding Capacity 405 mcg/dL (228-428); Total Protein 7.1 g/dL (6.5-8.0); Triglycerides 58 mg/dL; Unsaturated Iron Binding 376 ug/dL
[2021-11-29 13:57] LABS: Folate 12.7 ng/mL (> or = 4.0); Vitamin B12 324 pg/mL (200-900)
== END 2021-11-29 10:46 | disposition home or self-care (01) ==
LOC: HO.LAB 10:45
PROVIDERS: PCP Internal Medicine; Visit Provider Internal Medicine
DX: E78.00 Pure hypercholesterolemia, unspecified (principal); E03.9 Hypothyroidism, unspecified; D64.9 Anemia, unspecified; M81.0 Age-related osteoporosis without current pathological fracture
CPT/HCPCS: 36415; 80053; 80061; 82306; 82607; 82728; 82746; 83540; 84439; 84443; 85025; 85045

== ENCOUNTER 2021-12-28 14:20 | Outpatient (REF) | payer MEDICARE, OTHER, SELFPAY ==
[2021-12-28 14:34] LABS: MANUAL DIFF FLAG NO
[2021-12-28 14:45] LABS: Basophils Absolute Auto 0.1 X10*3/uL (0.0-0.2); Basophils Percent Auto 0.8 % (0-2); Eosinophils Absolute Auto 0.5 X10*3/uL (0.0-0.4); Eosinophils Percent Auto 5.7 % (0-4); Hematocrit 35.4 % (37.0-47.0); Hemoglobin 11.3 g/dl (12.0-16.0); Imm Gran Abs Auto 0.03 X10*3/uL (0.00-0.03); Imm Gran Pct Auto 0.3 % (0.0-0.4); Lymphocytes Absolute Auto 1.8 X10*3/uL (1.2-4.9); Lymphocytes Percent Auto 21.3 % (20-40); Mean Corpuscular HGB Conc 31.9 g/dl (31.0-35.0); Mean Corpuscular Hemoglobin 26.6 pg (27.0-33.0); Mean Corpuscular Volume 83.3 fL (80.0-98.0); Mean Platelet Volume 8.4 fL (9.4-12.3); Monocytes Absolute Auto 0.6 X10*3/uL (0.1-1.2); Monocytes Percent Auto 6.7 % (2-11); Neutrophils Absolute Auto 5.6 x10*3/uL (2.0-8.3); Neutrophils Percent Auto 65.2 % (45-73); Platelet Count 366 X10*3/uL (160-400); Red Blood Count 4.25 X10*6/uL (4.20-5.50); Red Cell Distribution Width 16.1 % (11.0-16.0); Retic HGB Equivalent 35.4 pg (30.0-35.0); Reticulocytes Absolute 0.043 X10*6/uL (0.026-0.095); White Blood Count 8.7 X10*3/uL (4.8-10.8)
[2021-12-28 15:07] LABS: Iron 96 mcg/dL (30-160); Percent Iron Saturation 24 % (15-50); Total Iron Binding Capacity 401 mcg/dL (228-428); Unsaturated Iron Binding 305 ug/dL
[2021-12-28 15:28] LABS: Ferritin 21 ng/mL (10-250); Free T4 (Free Thyroxine) 1.47 ng/dL (0.71-1.85); Thyroid Stimulating Hormone 0.19 uIU/mL (0.32-4.0)
[2022-01-02 01:16] LABS: Zinc 67 mcg/dL (60-130)
== END 2021-12-28 14:21 | disposition home or self-care (01) ==
LOC: HO.LAB 14:20
PROVIDERS: PCP Internal Medicine; Visit Provider Internal Medicine
DX: D64.9 Anemia, unspecified (principal); E03.9 Hypothyroidism, unspecified; D51.0 Vitamin B12 deficiency anemia due to intrinsic factor deficiency
CPT/HCPCS: 36415; 82728; 83540; 84439; 84443; 84630; 85025; 85045

== ENCOUNTER 2022-01-03 12:06 | Outpatient (REF) | payer MEDICARE, OTHER, SELFPAY ==
--- NOTE | ~2022-01-03 | XR_ITS ---
EXAMINATION: XR CHEST CLINICAL INFORMATION: Bronchiectasis. COMPARISON: Chest x-ray 07/06/2021 TECHNIQUE: 2 views of the chest were obtained. FINDINGS: The lungs are well-expanded without acute pneumonic process. There is right apical pleural thickening. The heart size and pulmonary vascularity is normal. There is mild dextroscoliosis dorsal spine. No lytic or sclerotic process seen.. XR/XR chest 2V IMPRESSION: Right apical pleural thickening stable to previous study 07/06/2021.
== END 2022-01-03 12:07 | disposition home or self-care (01) ==
LOC: HO.XRAY 12:06
PROVIDERS: PCP Internal Medicine; Visit Provider Internal Medicine
DX: J47.9 Bronchiectasis, uncomplicated (principal)
CPT/HCPCS: 71046

== ENCOUNTER 2022-02-13 14:36 | Outpatient (REF) | payer MEDICARE, OTHER, SELFPAY ==
[2022-02-13 16:06] LABS: Free T4 (Free Thyroxine) 1.28 ng/dL (0.71-1.85); Thyroid Stimulating Hormone 0.85 uIU/mL (0.32-4.0)
[2022-02-13 16:19] LABS: Folate 10.6 ng/mL (> or = 4.0); Vitamin B12 370 pg/mL (200-900)
== END 2022-02-13 14:37 | disposition home or self-care (01) ==
LOC: HO.LAB 14:36
PROVIDERS: PCP Internal Medicine; Visit Provider Internal Medicine
DX: D51.0 Vitamin B12 deficiency anemia due to intrinsic factor deficiency (principal); E03.9 Hypothyroidism, unspecified
CPT/HCPCS: 36415; 82607; 82746; 84439; 84443

== ENCOUNTER 2022-02-23 15:09 | Outpatient (REF) | payer MEDICARE, OTHER, SELFPAY ==
[2022-02-23 15:50] LABS: Binax Internal Control QC Valid; Binax Now Covid-19 Ag Negative (Negative)
== END 2022-02-23 15:10 | disposition home or self-care (01) ==
LOC: HO.HMGCLDS 15:09
PROVIDERS: PCP Internal Medicine
DX: Z20.822 Contact with and (suspected) exposure to COVID-19 (principal); J06.9 Acute upper respiratory infection, unspecified
CPT/HCPCS: 87811; C9803

== ENCOUNTER 2022-03-20 13:20 | Outpatient (REF) | payer MEDICARE, OTHER, SELFPAY ==
--- NOTE | ~2022-03-20 | XR_ITS ---
EXAMINATION: XR CHEST CLINICAL INFORMATION: Shortness of breath COMPARISON: Previous chest x-ray most recent December [address] November 2020 TECHNIQUE: 2 views of the chest were obtained. FINDINGS: The cardiac and mediastinal contours are stable. There are increased markings at both lung bases questionable bronchiectasis and small infiltrates. There is right apical pleural thickening that is unchanged. There is no pleural effusion or pneumothorax. There is an old healed sternal fracture. There are degenerative changes of the spine. XR/XR chest 2V IMPRESSION: Increased markings at the lung bases questionable for bronchiectasis and small infiltrates. Some of these changes may be chronic.
== END 2022-03-20 13:21 | disposition home or self-care (01) ==
LOC: HO.XRAY 13:20
PROVIDERS: PCP Internal Medicine; Visit Provider Internal Medicine
DX: R06.02 Shortness of breath (principal)
CPT/HCPCS: 71046

== ENCOUNTER 2022-04-11 14:34 | Outpatient (REF) | payer MEDICARE, OTHER, SELFPAY ==
--- NOTE | ~2022-04-11 | XR_ITS ---
EXAMINATION: XR CHEST CLINICAL INFORMATION: Bronchiectasis COMPARISON: None TECHNIQUE: 2 views of the chest were obtained. FINDINGS: Lungs are well-expanded with patchy opacity right middle lobe consistent infiltrate. Rest lungs are clear there is mild right apical pleural thickening. No pleural effusion seen heart size and perivascular is normal. There is mild dextroscoliosis dorsal spine. XR/XR chest 2V IMPRESSION: Right middle lobe infiltrate. Right apical pleural thickening.
== END 2022-04-11 14:35 | disposition home or self-care (01) ==
LOC: HO.XRAY 14:34
PROVIDERS: PCP Internal Medicine; Visit Provider Internal Medicine
DX: J47.9 Bronchiectasis, uncomplicated (principal)
CPT/HCPCS: 71046

== ENCOUNTER 2022-04-27 13:57 | Outpatient (REF) | payer MEDICARE, OTHER, SELFPAY ==
--- NOTE | ~2022-04-27 | XR_ITS ---
EXAMINATION: XR CHEST CLINICAL INFORMATION: Pneumonia COMPARISON: 04/11/2022 TECHNIQUE: 2 views of the chest were obtained. FINDINGS: Improving aeration within the middle lobe with minimal streaky opacity remaining. Left basilar streaky opacity unchanged, likely pleural-parenchymal scarring or subsegmental atelectasis. No pleural effusion or pneumothorax. Normal heart size and pulmonary vascularity. No acute osseous abnormalities. XR/XR chest 2V IMPRESSION: Improving aeration within the middle lobe with minimal streaky opacity remaining.
[2022-04-27 15:46] LABS: Free T4 (Free Thyroxine) 1.31 ng/dL (0.71-1.85); Thyroid Stimulating Hormone 2.32 uIU/mL (0.32-4.0)
== END 2022-04-27 13:58 | disposition home or self-care (01) ==
LOC: HO.LAB 13:57
PROVIDERS: PCP Internal Medicine; Visit Provider Internal Medicine
DX: E03.9 Hypothyroidism, unspecified (principal); J18.9 Pneumonia, unspecified organism
CPT/HCPCS: 36415; 71046; 84439; 84443

== ENCOUNTER 2022-05-29 10:28 | Outpatient (REF) | payer MEDICARE, OTHER, SELFPAY ==
--- NOTE | ~2022-05-29 | XR_ITS ---
EXAMINATION: XR CHEST CLINICAL INFORMATION: Pneumonia. COMPARISON: Chest radiograph 04/27/2022. TECHNIQUE: 2 views of the chest were obtained. FINDINGS: Stable appearance of the cardiomediastinal silhouette. Similar mild residual haziness in the right middle lobe when compared to 04/27/2022, decreased when compared to 04/11/2022. Stable subtle interstitial thickening in the inferior left lower lobe when compared to 04/27/2022 and 04/11/2022 but decreased when compared to 03/20/2022. No new focal airspace opacities. Unchanged right apical subpleural thickening across several prior studies. No pneumothorax or pleural effusion. No acute osseous abnormalities. XR/XR chest 2V IMPRESSION: 1. No new focal airspace opacities. 2. There continues to be residual haziness in the right middle lobe and interstitial opacities in the inferior left lower lobe, decreased however compared to examinations from March and February 2022. Continued follow-up is recommended to ensure resolution, also correlation with a chest CT could be obtained if not entirely resolve with time.
[2022-05-29 10:48] LABS: MANUAL DIFF FLAG NO
[2022-05-29 11:44] LABS: Basophils Absolute Auto 0.1 X10*3/uL (0.0-0.2); Basophils Percent Auto 0.7 % (0-2); Eosinophils Absolute Auto 0.4 X10*3/uL (0.0-0.4); Eosinophils Percent Auto 4.7 % (0-4); Hematocrit 36.1 % (37.0-47.0); Imm Gran Abs Auto 0.02 X10*3/uL (0.00-0.03); Imm Gran Pct Auto 0.2 % (0.0-0.4); Lymphocytes Absolute Auto 1.6 X10*3/uL (1.2-4.9); Lymphocytes Percent Auto 18.4 % (20-40); Mean Corpuscular HGB Conc 33.2 g/dl (31.0-35.0); Mean Corpuscular Hemoglobin 29.6 pg (27.0-33.0); Mean Corpuscular Volume 88.9 fL (80.0-98.0); Mean Platelet Volume 8.6 fL (9.4-12.3); Monocytes Absolute Auto 0.6 X10*3/uL (0.1-1.2); Monocytes Percent Auto 7.2 % (2-11); Neutrophils Absolute Auto 5.9 x10*3/uL (2.0-8.3); Neutrophils Percent Auto 68.8 % (45-73); Platelet Count 371 X10*3/uL (160-400); Red Blood Count 4.06 X10*6/uL (4.20-5.50); Red Cell Distribution Width 14.4 % (11.0-16.0); White Blood Count 8.6 X10*3/uL (4.8-10.8)
[2022-05-29 13:15] LABS: Alanine Aminotransferase 16 U/L (0-31); Albumin Level 4.1 g/dL (3.5-5.0); Alkaline Phosphatase 95 U/L (39-117); Anion Gap 11 (12-20); Aspartate Amino Transferase 27 U/L (5-31); Bilirubin Total 0.4 mg/dL (0.0-1.0); Blood Urea Nitrogen 8 mg/dL (9-16); Calcium 9.7 mg/dL (8.4-10.2); Carbon Dioxide 27 mmol/L (22-29); Chloride 103 mmol/L (96-108); Estimated Glomerular Filt Rate > 60; Glucose Random 87 mg/dL (60-115); Potassium 4.8 mmol/L (3.3-5.1); Sodium 136 mmol/L (135-145); Total Protein 6.9 g/dL (6.5-8.0)
[2022-05-29 13:40] LABS: Free T4 (Free Thyroxine) 1.24 ng/dL (0.71-1.85); Thyroid Stimulating Hormone 3.53 uIU/mL (0.32-4.0)
== END 2022-05-29 10:29 | disposition home or self-care (01) ==
LOC: HO.LAB 10:28
PROVIDERS: PCP Internal Medicine; Visit Provider Internal Medicine
DX: J18.9 Pneumonia, unspecified organism (principal)
CPT/HCPCS: 36415; 71046; 80053; 84439; 84443; 85025

== ENCOUNTER 2022-06-12 14:02 | Outpatient (REF) | payer MEDICARE, OTHER, SELFPAY ==
[2022-06-12 16:47] LABS: Blood Urea Nitrogen 10 mg/dL (9-16); Estimated Glomerular Filt Rate > 60
[2022-06-12 17:02] LABS: Free T4 (Free Thyroxine) 1.13 ng/dL (0.71-1.85)
== END 2022-06-12 14:03 | disposition home or self-care (01) ==
LOC: HO.LAB 14:02
PROVIDERS: PCP Internal Medicine; Visit Provider Internal Medicine
DX: J18.9 Pneumonia, unspecified organism (principal)
CPT/HCPCS: 36415; 82565; 84439; 84520

== ENCOUNTER 2022-06-18 15:07 | Outpatient (REF) | payer MEDICARE, OTHER, SELFPAY ==
--- NOTE | ~2022-06-18 | CT_ITS ---
EXAMINATION: CT CHEST WITH CONTRAST CLINICAL INFORMATION: Pneumonia. COMPARISON: Chest x-ray 05/29/2022. TECHNIQUE: Multidetector volumetric CT imaging of the chest was obtained after the administration of 50 mL of Omnipaque 350 intravenous contrast without immediate adverse reactions. Axial MIP volume rendering provided. Sagittal and coronal reformatted images were obtained. This CT examination was performed using dose optimization techniques as appropriate, variously including the following: *Automated exposure control *Adjustment of mA and/or kV according to patient size (this includes techniques or standardized protocols for targeted exams where dose is matched to indication/reason for exam; i.e. extremities or head) *Use of iterative reconstruction technique DLP: 98 mGy-cm. FINDINGS: WHITE SHOE RAGGER: 98. LUNGS: The lungs are well-expanded with patchy air opacity left lower lobe anterobasal segment, lingula and right middle lobe with mild bronchiectasis and air bronchograms in the right middle lobe. There is a small 7 mm nodule left lower lobe anterobasal segment image 173/7. There is a patchy opacity seen right lower lobe as well. There are 2 mm subpleural nodules right lower lobe axial image 137/7, 3 mm nodule left lower lobe axial image 176/7. 1 mm calcification is seen in the right lower lobe. MEDIASTINUM: Heart size and great vessels are normal caliber. Thyroid lobes are symmetrical and normal. Central trachea and the bronchi are widely patent. There are punctate lymph node calcifications right suprahilar region. No abnormal size mediastinal or hilar lymph nodes visualized. There is no pericardial effusion. No coronary artery calcifications visualized. Small to moderate-sized hiatal hernia. PLEURA: There is no pleural effusion. No pleural mass or thickening. AXILLA: No lymphadenopathy. UPPER ABDOMEN: Visualized liver, spleen, pancreas and bilateral adrenal glands are unremarkable. OSSEOUS STRUCTURES: No aggressive lytic or sclerotic process seen. There is a T9-T10 posterior calcified disc/enthesophyte complex. Degenerative disc changes with sclerosis seen at C5-C6 and C6-C7 disc levels. There is deformity of mid sternum likely from old healed fracture. CT/CT chest w IV con IMPRESSION: Right middle lobe, lingular and anterior basal left lower lobe chronic infiltrates/atelectasis with bronchiectasis. Some patchy infiltrate is also seen in the posterior segment of right lower lobe. A few scattered pulmonary nodules and a calcification as described above. The largest nodule is 7 mm. Recommend follow-up chest CT in 3-6 months. Fleischner guidelines were followed.
[2022-06-18] MEDS: iohexoL 350 MG/ML 100 ML INFUS..BTL IV (15:42)
== END 2022-06-18 15:08 | disposition home or self-care (01) ==
LOC: HO.CT 15:07
PROVIDERS: PCP Internal Medicine; Visit Provider Internal Medicine
DX: J18.9 Pneumonia, unspecified organism (principal)
CPT/HCPCS: 71260; Q9967

== ENCOUNTER 2022-08-30 13:46 | Outpatient (REF) | payer MEDICARE, OTHER, SELFPAY ==
--- NOTE | ~2022-08-30 | XR_ITS ---
EXAMINATION: XR CHEST CLINICAL INFORMATION: J18.9 - Pneumonia, unspecified organism COMPARISON: Chest radiographs 05/29/2022, 04/27/2022, CT chest 06/18/2022, 12/23/2020 TECHNIQUE: 2 views of the chest were obtained. FINDINGS: Cardiopulmonary appearance appears similar to prior imaging. Again, there is stable patchy opacity coarsening bronchovascular markings anterior medial right middle lobe. There is stable pleural-parenchymal scarring right apex and some accentuated subpleural reticular markings left base. No interval airspace consolidation or groundglass opacity or air bronchograms. No effusion. The heart is normal in size. The vascularity is normal. The hilar and mediastinal contours and bony structures are similar to prior studies. XR/XR chest 2V IMPRESSION: No significant changes in cardiopulmonary appearance from prior study.
== END 2022-08-30 13:47 | disposition home or self-care (01) ==
LOC: HO.XRAY 13:46
PROVIDERS: PCP Internal Medicine; Visit Provider Internal Medicine
DX: J18.9 Pneumonia, unspecified organism (principal)
CPT/HCPCS: 71046

== ENCOUNTER 2022-09-14 11:08 | Outpatient (REF) | payer MEDICARE, OTHER, SELFPAY ==
--- NOTE | ~2022-09-14 | XR_ITS ---
EXAMINATION: XR ABDOMEN COMPLETE CLINICAL INDICATION: Left lower quadrant pain COMPARISON: None available. TECHNIQUE: 2 of the abdomen. FINDINGS: There are no dilated loops of bowel or air-fluid levels to suggest obstruction. There is no free air. No suspicious calcifications. Atherosclerotic disease. Scoliosis and degenerative changes of the spine. XR/XR abdomen 3V IMPRESSION: Unremarkable examination.
[2022-09-14 12:23] LABS: Hematocrit 39.3 % (37.0-47.0); Hemoglobin 12.5 g/dl (12.0-16.0); Mean Corpuscular HGB Conc 31.8 g/dl (31.0-35.0); Mean Corpuscular Hemoglobin 28.3 pg (27.0-33.0); Mean Corpuscular Volume 89.1 fL (80.0-98.0); Mean Platelet Volume 8.7 fL (9.4-12.3); Platelet Count 441 X10*3/uL (160-400); Red Blood Count 4.41 X10*6/uL (4.20-5.50); Red Cell Distribution Width 13.4 % (11.0-16.0); White Blood Count 13.1 X10*3/uL (4.8-10.8)
[2022-09-14 12:26] LABS: Appearance Urine Clear; Color Urine Yellow; Glucose Urine UA Negative (Negative); Leukocyte Esterase Urine Trace (Negative); Nitrite Urine Negative (Negative); Specific Gravity - Urine <= 1.005 (1.005-1.025); UMIC TRIGGER UACC YES; Urine Blood Negative (Negative); Urine Ketones Negative (Negative); Urine Protein Negative (Neg-Trace)
[2022-09-14 12:31] LABS: Bacteria Urine None Seen (None Seen); Hyaline Casts Urine 0-2 /LPF (0-2); RBC Urine 0-2 /HPF (0-2); Squamous Epithelial Cell Urine 0-2 /HPF (0-2); WBC Urine 0-5 /HPF (0-5)
[2022-09-14 12:53] LABS: Alanine Aminotransferase 11 U/L (0-31); Albumin Level 4.4 g/dL (3.5-5.0); Alkaline Phosphatase 80 U/L (39-117); Anion Gap 14 (12-20); Aspartate Amino Transferase 18 U/L (5-31); Bilirubin Direct 0.2 mg/dL (0.0-0.5); Bilirubin Total 0.6 mg/dL (0.0-1.0); Blood Urea Nitrogen 9 mg/dL (9-16); Calcium 9.8 mg/dL (8.4-10.2); Carbon Dioxide 26 mmol/L (22-29); Chloride 100 mmol/L (96-108); Estimated Glomerular Filt Rate > 60; Glucose Random 79 mg/dL (60-115); Potassium 4.6 mmol/L (3.3-5.1); Sodium 135 mmol/L (135-145); Total Protein 7.1 g/dL (6.5-8.0)
== END 2022-09-14 11:09 | disposition home or self-care (01) ==
LOC: HO.XRAY 11:08
PROVIDERS: PCP Internal Medicine; Visit Provider Physician Assistant
DX: R10.32 Left lower quadrant pain (principal); J18.9 Pneumonia, unspecified organism
CPT/HCPCS: 36415; 74021; 80048; 80076; 81001; 85027

== ENCOUNTER 2022-12-06 09:59 | Outpatient (AMB) | payer MEDICARE, OTHER, SELFPAY ==
[2022-12-06 10:04] VITALS: BP 122/88; PULSE 63; O2SAT 98; BMI 21.9
--- NOTE | 2022-12-06 10:04 | AM.OFFVISMDC ---
Intake Vital Signs 12/06/22 10:04 Height 5 ft 2 in Weight 120 lb BMI 21.9 BP 122/88 Blood Pressure Location Lt brachial Position Sitting Pulse 63 Pulse Source Pulse Oximeter Temp Source Skin Pulse Oximetry (%) 98 Oxygen Delivery Method Room Air Intake Visit Reasons: SAWV Allergies codeine [CODEINE] Allergy (Unknown, Verified 12/06/22 10:20) GI UPSET levofloxacin [From LEVAQUIN] Allergy (Unknown, Verified 12/06/22 10:20) STOMACH UPSET pneumococcal vaccine Allergy (Unknown, Verified 12/06/22 10:20) unknown shellfish derived [SHELLFISH DERIVED] Allergy (Unknown, Verified 12/06/22 10:20) RASH Medication List - Last Reconciled 12/06/22 by ARON Laboy albuterol sulfate 90 mcg/actuation (ProAir HFA) 2 puffs inhalation Q4-6H PRN amitriptyline 10 mg PO BEDTIME benzonatate 200 mg PO TID PRN bisacodyl (Dulcolax (bisacodyl)) 5 mg PO BEDTIME 2 days budesonide-formoterol 160-4.5 mcg/actuation (Symbicort) 2 puffs inhalation Q12H calcium citrate-vitamin D3 315 mg-6.25 mcg (250 unit) (Citracal + Vitamin D Maximum) 1 tab PO BID clotrimazole-betamethasone 1-0.05 % 1 appl topical BID 2 weeks cyanocobalamin (vitamin B-12) 1,000 mcg IM Q4W 90 days fexofenadine ([facility]) 180 mg PO DAILY guaifenesin ER (Mucinex) 600 mg PO BID 6 days iron,carbonyl-vitamin C 65 mg iron- 125 mg (Vitron-C) 1 tab PO BID lorazepam (Ativan) 0.5 mg (1/2 x 1 mg) PO TID PRN Synthroid (levothyroxine) 100 mcg PO DAILY 90 days NS Fall Risk Assessment Fall risk assessment: No Falls in past year Date Fall Risk Assessed: 12/06/22 HPI SAWV HPI Details Patient is an 82-year-old female who presents today for subsequent wellness visit. Patient of Dr. Rm. Today we discussed patient's need for mammogram and bone density screening. Patient would like to hold off on tetanus vaccine. [place] of care was reviewed with the patient and she was provided with a screening schedule. Patient has a healthcare proxy in place, she was encouraged to provide office with a copy, and she was provided with a MOLST form. [facility] Medical History Bronchiectasis Chest pain COPD (chronic obstructive pulmonary disease) Hypercholesterolemia Hypothyroid Lumbar degenerative disc disease Peripheral neuropathy Pernicious anemia Pulmonary nodule Uterine cancer Viral upper respiratory tract infection with cough Vitamin D deficiency Surgical History History of appendectomy History of lumpectomy of right breast History of total abdominal hysterectomy and bilateral salpingo-oophorectomy Family History Father CVD (cardiovascular disease) Mother Cancer Social History Housing: House Alcohol intake: never Patient Tobacco Use Status: Never used Tobacco e-Cigarette/Vaping Use: Never Used Second Hand Smoke Exposure: No service: No Current occupational status: unemployed Cognitive needs: No Hearing needs: No Vision needs: Yes (reading glasses) Questionnaire Medicare Wellness Checkup What is your age?: 80 or older What gender do you identify with?: female During the past 4 weeks, how much have you been bothered by emotional problems such as feeling anxious, depressed, irritable, sad or downhearted, and blue?: not at all During the past 4 weeks, has your physical & emotional health limited your social activities with family, friends, neighbors, or groups?: not at all During the past 4 weeks, how much bodily pain have you generally had?: no pain During the past 4 weeks, was someone available to help you if you needed & wanted help?: yes, as much as I wanted During the past 4 weeks, what was the hardest physical activity you could do for at least 2 minutes?: light Can you get to places out of walking distance without help? (For eg., can you travel alone on buses, taxis or drive your car?): Yes Can you go shopping for groceries or clothes without someone's help?: Yes Can you prepare your own meals?: Yes Can you do your housework without help?: Yes Because of any health problems, do you need the help of another person with your personal care needs such as eating, bathing, dressing or getting around the house?: No Can you handle your own money without help?: Yes During the past 4 weeks, how would you rate your health in general?: fair During the past 4 weeks how have things been going for you?: good & bad parts about equal Are you having difficulties driving your car?: no Do you always fasten your seat belt when you are in a car?: yes, usually During past 4 weeks, have you been bothered by the following: never: Falling or dizzy when standing up, Sexual problems?, Trouble eating well?, Teeth or denture problems? and Problems using the telephone? and seldom: Tiredness or fatigue? Have you fallen 2 or more times in the past year?: No Are you afraid of falling?: No Are you a smoker?: no During the past 4 weeks, how many drinks of wine, beer, or other alcoholic beverages did you have?: no alcohol at all Do you exercise for about 20 minutes 3 or more times a week?: yes, some of the time (has been feeling weak ) Have you been given information to help with the following?: yes: Hazards in your house that might hurt you? and yes: Keeping track of your medications? How often do you have trouble taking medicines the way you have been told to take them?: I always take medicine as prescribed What is your race?: White Mini Mental State Exam (MMSE) Orientation What is the (year) (season) (date) (day) (month)?: year, season, date, day and month Score Score: 5 Activity of Daily Living Bathing - sponge bath, tub bath or shower: receives no assistance (gets in/out by self, if usual bathing means Dressing - getting clothes from closets & drawers, including inner/outer garments & fasteners.: gets clothes & gets completely dressed without help Toileting - going to the 'toilet room' for urine/bowel elimination & cleaning self/arranging clothes: goes to toilet room, cleans self, arranges clothes without help Transfer: moves in & out of bed and chair without help (may use support object) Continence: controls urination/bowel movements completely by self Feeding: feeds self without help Total Score: 0 Information obtained from: patient Using telephone: independent Traveling: independent Shopping: independent Preparing meals: independent Housework: independent Taking medicine: independent Managing money: independent PHQ-9 Over the last 2 weeks, how often have you been bothered by any of the following problems? 1. Little interest or pleasure in doing things: not at all 2. Feeling down, depressed, or hopeless: not at all 3. Trouble falling or staying asleep, or sleeping too much: not at all 4. Feeling tired or having little energy: not at all 5. Poor appetite or overeating: not at all 6. Feeling bad about yourself - or that you are a failure or have let yourself or your family down: not at all 7. Trouble concentrating on things, such as reading the newspaper or watching television: not at all 8. Moving or speaking so slowly that other people could have noticed. Or the opposite - being so fidgety or restless that you have been moving around a lot more than usual: not at all 9. Thoughts that you would be better off or of hurting yourself in some way: not at all Total score: 0 Depression Screening Interpretation: Negative 76693 - PHQ-9 Billing: Yes Source: Developed by Drs. Lobo Lopez, Nima Serrano and colleagues, with an educational kourtney from [employer]. DANIEL-7 AMB Questionnaire DANIEL-7 Date DANIEL - 7 assessed: 12/06/22 Feeling nervous, anxious, or on edge: 0 = Not at all Not being able to stop or control worryin = Not at all Worrying too much about different things: 0 = Not at all Trouble relaxin = Not at all Being so restless that it is hard to sit still: 0 = Not at all Becoming easily annoyed or irritable: 0 = Not at all Feeling afraid as if something awful might happen: 0 = Not at all Total DANIEL-7 score (0-4 normal; 5-9 mild; 10-14 moderate; 15-21 severe): 0 Source: Developed by Drs. Lobo Lopez, Nima Serrano and colleagues, with an educational kourtney from [employer]. DANIEL-7 Assessment Billing DANIEL-7 Assessment Tool: DANIEL-7 Assessment 65345 AUDIT C Alcohol Use Questionnaire (AUDIT-C) 1. How often do you have a drink containing alcohol?: Never 3. How often do you have six or more drinks on one occasion?: Never Total Score: 0 Score Reviewed/Action Taken: No Thrive Questionnaire Date Thrive assessed: 07/09/22 Physical Exam Vital Signs: Last Vital Signs Pulse 63 12/06/22 10:04 BP 122/88 12/06/22 10:04 Pulse Ox 98 12/06/22 10:04 Oxygen Delivery Method Room Air 12/06/22 10:04 BMI result Body Mass Index 21.9 Const General: cooperative and no acute distress Orientation/consciousness: patient oriented x3 HEENT Other: Whisper test: fail Neuro Other: Balance: Normal Get up and walk: unable to Romberg: negative Tandem gait: able to General: patient oriented x3 Assessment & Plan Assessment & Plan (1) Screening for breast cancer: Code(s): Z12.39 - Encounter for other screening for malignant neoplasm of breast (2) Post-menopausal: Code(s): Z78.0 - Asymptomatic menopausal state (3) Encounter for subsequent annual wellness visit (AWV) in Medicare patient: Code(s): Z00.00 - Encounter for general adult medical examination without abnormal findings (4) COPD (chronic obstructive pulmonary disease): Comment: HAS VERY MILD DEGREE OF OBSTRUCTIVE AIRWAY DISORDER, PER LAST PFT IN 2009. DISCUSSED ABOUT HAVING A NEW PFT BUT USUAL SHE SAYS , NO FOR REPEAT PFT . CLINICALLY SHE HAS VERY MILD OBSTRUCTIVE AIRWAY DISORDER. TX : PROAIR 1 OR 2 PUFFS Q.6 HOURS P.R.N.. MAY USE MUCINEX 400 MG BID PRN , IF SHE FEELS THAT THERE IS SOME MUCUS DEEP IN CHEST Code(s): J44.9 - Chronic obstructive pulmonary disease, unspecified Qualifiers: COPD type: emphysema Emphysema type: panlobular Qualified Code(s): J43.1 - Panlobular emphysema Plan: Continue current treatment Continue to follow-up with Dr. Villeda (5) Bronchiectasis: Comment: MILD, CHRONIC BRONCHIECTASIS IN RT MIDDLE LOBE AND LINGULA . MAY NEED A COURSE OF Z-BATSHEVA , PRN FOR RESP. INFECTION . Code(s): J47.9 - Bronchiectasis, uncomplicated Qualifiers: Bronchiectasis type: uncomplicated Qualified Code(s): J47.9 - Bronchiectasis, uncomplicated Plan: Same as above (6) Hypercholesterolemia: Code(s): E78.00 - Pure hypercholesterolemia, unspecified Plan: Low-cholesterol diet (7) Hypothyroid: Code(s): E03.9 - Hypothyroidism, unspecified Qualifiers: Hypothyroidism type: acquired Qualified Code(s): E03.9 - Hypothyroidism, unspecified Plan: On levothyroxine 100 mcg daily Orders: Orders XR DEXA axial skeleton Today Z78.0 - Asymptomatic menopausal state MM tomosynthesis screening BI Today Z12.31 - Encounter for screening mammogram for malignant neoplasm of breast, Z12.39 - Encounter for other screening for malignant neoplasm of breast Quality Reporting (2019) Fall Risk Screening ([facility] 139) Last assessed Fall Risk: 12/06/22 Fall risk assessment: No Falls in past year Depression/Bipolar (159/160/161/177) PHQ-9: Total score: 0 Coding Level of Care Code Medicare Subsequent (G0439) Diagnoses Screening for breast cancer Z12.39 Post-menopausal Z78.0 Encounter for subsequent annual wellness visit (AWV) in Medicare patient Z00.00 COPD (chronic obstructive pulmonary disease) J43.1 COPD type: emphysema Emphysema type: panlobular Bronchiectasis J47.9 Bronchiectasis type: uncomplicated Hypercholesterolemia E78.00 Hypothyroid E03.9 Hypothyroidism type: acquired CPT Codes Advance Care Planning - Time spent: 1-15 minutes, not on file ([id number]) Additional Codes DANIEL-7 Assessment Billing - DANIEL-7 Assessment Tool: DANIEL-7 Assessment [id number] ([id number]) Advance Care Planning Advance Care Planning discussion: Exists, not on file Date of discussion: 12/06/22 Who was present: pt and care center manager Forms completed: None Time spent: 1-15 minutes, not on file Actual minutes spent: 3 Did not discuss due to Cultural/Spiritual beliefs: No
== END 2022-12-06 10:43 | disposition home or self-care (01) ==
PROVIDERS: Visit Provider Nurse Practitioner Family
DX: Z00.00 Encounter for general adult medical examination without abnormal findings (principal); J43.1 Panlobular emphysema; J47.9 Bronchiectasis, uncomplicated; E03.9 Hypothyroidism, unspecified; Z12.39 Encounter for other screening for malignant neoplasm of breast; Z78.0 Asymptomatic menopausal state; E78.00 Pure hypercholesterolemia, unspecified; Z71.89 Other specified counseling
CPT/HCPCS: 1124F; G0439

== ENCOUNTER 2022-12-06 10:58 | Outpatient (REF) | payer MEDICARE, OTHER, SELFPAY ==
--- NOTE | ~2022-12-06 | XR_ITS ---
EXAMINATION: XR CHEST CLINICAL INFORMATION: Bronchiectasis, uncomplicated. COMPARISON: Chest radiograph 08/30/2022, CT chest 06/18/2022. TECHNIQUE: 2 views of the chest were obtained. FINDINGS: Heart and pulmonary vessels appear normal. There is no evidence of CHF. Right apical pleural-parenchymal scarring is seen. Increased lung markings along the right heart border and in the lingula represent the bronchiectatic changes better seen on the 06/18/2022 CT scan. Rounded opacity in the left costophrenic angle laterally is unchanged from the prior CT scan (prior CT 7:173) and may represent fluid-filled bronchus. No acute consolidations or pleural effusions are seen. XR/XR chest 2V IMPRESSION: No acute intrathoracic disease. Chronic findings, as described above.
[2022-12-06 11:22] LABS: MANUAL DIFF FLAG NO
[2022-12-06 12:08] LABS: Basophils Absolute Auto 0.1 X10*3/uL (0.0-0.2); Basophils Percent Auto 0.7 % (0-2); Eosinophils Absolute Auto 0.3 X10*3/uL (0.0-0.4); Hematocrit 36.1 % (37.0-47.0); Hemoglobin 11.7 g/dl (12.0-16.0); Imm Gran Abs Auto 0.03 X10*3/uL (0.00-0.03); Imm Gran Pct Auto 0.4 % (0.0-0.4); Immature Retic Fraction 2.8 % (3.0-15.9); Lymphocytes Absolute Auto 1.2 X10*3/uL (1.2-4.9); Lymphocytes Percent Auto 16.1 % (20-40); Mean Corpuscular HGB Conc 32.4 g/dl (31.0-35.0); Mean Corpuscular Hemoglobin 28.4 pg (27.0-33.0); Mean Corpuscular Volume 87.6 fL (80.0-98.0); Mean Platelet Volume 8.6 fL (9.4-12.3); Monocytes Absolute Auto 0.6 X10*3/uL (0.1-1.2); Monocytes Percent Auto 7.9 % (2-11); Neutrophils Absolute Auto 5.2 x10*3/uL (2.0-8.3); Neutrophils Percent Auto 70.9 % (45-73); Platelet Count 361 X10*3/uL (160-400); Red Blood Count 4.12 X10*6/uL (4.20-5.50); Red Cell Distribution Width 13.8 % (11.0-16.0); Retic HGB Equivalent 33.8 pg (30.0-35.0); Reticulocyte Percent 0.6 % (0.5-1.8); Reticulocytes Absolute 0.026 X10*6/uL (0.026-0.095); White Blood Count 7.3 X10*3/uL (4.8-10.8)
[2022-12-06 12:53] LABS: Cholesterol 224 mg/dL; HDL Cholesterol 70 mg/dL; Iron 63 mcg/dL (30-160); LDL Cholesterol Calculated 138 mg/dl; Percent Iron Saturation 21 % (15-50); Total Iron Binding Capacity 294 mcg/dL (228-428); Triglycerides 81 mg/dL; Unsaturated Iron Binding 231 ug/dL
[2022-12-06 13:01] LABS: Ferritin 24 ng/mL (10-250); Free T4 (Free Thyroxine) 1.35 ng/dL (0.71-1.85); Thyroid Stimulating Hormone 0.11 uIU/mL (0.32-4.0)
[2022-12-06 13:06] LABS: Folate 7.5 ng/mL (> or = 4.0); Vitamin B12 437 pg/mL (200-900)
== END 2022-12-06 10:59 | disposition home or self-care (01) ==
LOC: HO.LAB 10:58
PROVIDERS: PCP Internal Medicine; Visit Provider Internal Medicine
DX: E03.9 Hypothyroidism, unspecified (principal); E78.00 Pure hypercholesterolemia, unspecified; J47.9 Bronchiectasis, uncomplicated; D64.9 Anemia, unspecified
CPT/HCPCS: 36415; 71046; 80061; 82306; 82607; 82728; 82746; 83540; 84439; 84443; 85025; 85045

== ENCOUNTER 2022-12-11 12:32 | Outpatient (AMB) | payer MEDICARE, OTHER, SELFPAY ==
--- NOTE | 2022-12-11 12:37 | MHC.PC.OV ---
Vital Signs 12/11/22 12:38 Height 5 ft 2 in Weight 121 lb BMI 22.1 BP 140/78 H Blood Pressure Location Lt brachial Position Sitting Pulse 77 Pulse Source Pulse Oximeter Pulse Oximetry (%) 98 Oxygen Delivery Method Room Air Intake Visit Reasons: COPD Allergies codeine [CODEINE] Allergy (Unknown, Verified 12/11/22 12:41) GI UPSET levofloxacin [From LEVAQUIN] Allergy (Unknown, Verified 12/11/22 12:41) STOMACH UPSET pneumococcal vaccine Allergy (Unknown, Verified 12/11/22 12:41) unknown shellfish derived [SHELLFISH DERIVED] Allergy (Unknown, Verified 12/11/22 12:41) RASH Tobacco use date assessed: 10/08/22 Fall risk assessment: No Falls in past year Last assessed Fall Risk: 12/11/22 Dental Screening Dental Screen Date: 12/11/22 Did you have a dental visit in the last 12 months?: Yes Did you have a dental problem in the last 6 months where you did not have access to dental care?: No Was dental information given to patient?: Patient has dentist HPI COPD HPI Details 82-year-old female with history of bronchiectasis pernicious anemia hypercholesterolemia hypothyroidism last seen in September 2022 patient was advised blood work. Patient was seen by the nurse practitioner for annual visit in November 2022 bone density in mammogram requested. Patient is feeling better now 2 months ago - was feeling sick (fuzzy) now better. [facility] Medical History (Updated 12/11/22 @ 12:49 by Feli Rm MD) Breast asymmetry Bronchiectasis Chest pain Colonoscopy refused COPD (chronic obstructive pulmonary disease) Encounter for subsequent annual wellness visit (AWV) in Medicare patient Headache Hypercholesterolemia Hypothyroid Lumbar degenerative disc disease Peripheral neuropathy Pernicious anemia Pneumonia Post-menopausal Pulmonary nodule Recurrent sinus infections Screening for breast cancer SOB (shortness of breath) Uterine cancer Viral upper respiratory tract infection with cough Vitamin D deficiency Surgical History History of appendectomy History of lumpectomy of right breast History of total abdominal hysterectomy and bilateral salpingo-oophorectomy Family History Father CVD (cardiovascular disease) Mother Cancer Social History Housing: House Alcohol intake: never Patient Tobacco Use Status: Never used Tobacco e-Cigarette/Vaping Use: Never Used Second Hand Smoke Exposure: No service: No Current occupational status: unemployed Cognitive needs: No Hearing needs: No Vision needs: Yes (reading glasses) Questionnaire PHQ-9 Over the last 2 weeks, how often have you been bothered by any of the following problems? 1. Little interest or pleasure in doing things: not at all 2. Feeling down, depressed, or hopeless: not at all 3. Trouble falling or staying asleep, or sleeping too much: not at all 4. Feeling tired or having little energy: not at all 5. Poor appetite or overeating: not at all 6. Feeling bad about yourself - or that you are a failure or have let yourself or your family down: not at all 7. Trouble concentrating on things, such as reading the newspaper or watching television: not at all 8. Moving or speaking so slowly that other people could have noticed. Or the opposite - being so fidgety or restless that you have been moving around a lot more than usual: not at all 9. Thoughts that you would be better off or of hurting yourself in some way: not at all Total score: 0 Depression Screening Interpretation: Negative [id number] - PHQ-9 Billing: Yes Source: Developed by Drs. Lobo Lopez, Nima Serrano and colleagues, with an educational kourtney from [employer]. Thrive Questionnaire Date Thrive assessed: 07/09/22 AUDIT C Alcohol Use Questionnaire (AUDIT-C) 1. How often do you have a drink containing alcohol?: Never 3. How often do you have six or more drinks on one occasion?: Never Total Score: 0 Score Reviewed/Action Taken: No DANIEL-7 AMB Questionnaire DANIEL-7 Date DANIEL - 7 assessed: 12/06/22 Source: Developed by Drs. Lobo Lopez, Nima Serrano and colleagues, with an educational kourtney from [employer]. Physical exam (Primary Care) Vital Signs: Oxygen Delivery Method Room Air 12/11/22 12:38 Tobacco/Smoking Status: Tobacco use Status Tobacco use date assessed 10/08/22 10/08/22 10:10 Patient Tobacco Use Status Never used Tobacco 10/08/22 10:10 e-Cigarette/Vaping Use Never Used 10/08/22 10:10 Depression Screening Interpretation: Negative Thrive Assessment: Date of Thrive Assessment Date Thrive assessed 07/09/22 12/06/22 10:14 Const General: alert; No acute distress Eyes Conjunctivae: conjunctivae normal Resp Auscultation: clear to auscultation bilaterally Cardio Rate: regular rate Rhythm: regular rhythm GI Inspection: Yes normal to inspection Extrem General: Yes normal to inspection and No edema Assessment and Plan Assessment & Plan (1) COPD (chronic obstructive pulmonary disease): Comment: HAS VERY MILD DEGREE OF OBSTRUCTIVE AIRWAY DISORDER, PER LAST PFT IN 2009. DISCUSSED ABOUT HAVING A NEW PFT BUT USUAL SHE SAYS , NO FOR REPEAT PFT . CLINICALLY SHE HAS VERY MILD OBSTRUCTIVE AIRWAY DISORDER. TX : PROAIR 1 OR 2 PUFFS Q.6 HOURS P.R.N.. MAY USE MUCINEX 400 MG BID PRN , IF SHE FEELS THAT THERE IS SOME MUCUS DEEP IN CHEST Code(s): J44.9 - Chronic obstructive pulmonary disease, unspecified Qualifiers: COPD type: emphysema Emphysema type: panlobular Qualified Code(s): J43.1 - Panlobular emphysema Plan: Continue with present inhalers (2) Bronchiectasis: Comment: MILD, CHRONIC BRONCHIECTASIS IN RT MIDDLE LOBE AND LINGULA . MAY NEED A COURSE OF Z-BATSHEVA , PRN FOR RESP. INFECTION . Code(s): J47.9 - Bronchiectasis, uncomplicated Qualifiers: Bronchiectasis type: uncomplicated Qualified Code(s): J47.9 - Bronchiectasis, uncomplicated Plan: Continue with present medication and treat p.r.n. (3) Pernicious anemia: Code(s): D51.0 - Vitamin B12 deficiency anemia due to intrinsic factor deficiency Plan: Continue with vitamin B12 injections (4) Hypercholesterolemia: Code(s): E78.00 - Pure hypercholesterolemia, unspecified Plan: Avoid fried foods, chicken skin, eggs, butter margarine, pastries and meat. Be it pork or beef they have a lot of cholesterol LDL goal of less than 130 and triglyceride of less than 150 (5) Hypothyroid: Code(s): E03.9 - Hypothyroidism, unspecified Qualifiers: Hypothyroidism type: acquired Qualified Code(s): E03.9 - Hypothyroidism, unspecified Plan: Continue with thyroid medication (6) Generalized anxiety disorder: Code(s): F41.1 - Generalized anxiety disorder Plan: Continue with therapy. (7) Osteoporosis: Comment: November 2020 Code(s): M81.0 - Age-related osteoporosis without current pathological fracture Orders: Orders XR DEXA axial skeleton Today M81.0 - Age-related osteoporosis without current pathological fracture Complete Blood Count Auto Diff 6 Weeks D51.0 - Vitamin B12 deficiency anemia due to intrinsic factor deficiency Coding Level of Care Code Est Pt Level 4 (40735) Diagnoses COPD (chronic obstructive pulmonary disease) J43.1 COPD type: emphysema Emphysema type: panlobular Bronchiectasis J47.9 Bronchiectasis type: uncomplicated Pernicious anemia D51.0 Hypercholesterolemia E78.00 Hypothyroid E03.9 Hypothyroidism type: acquired Generalized anxiety disorder F41.1 Osteoporosis M81.0
[2022-12-11 12:38] VITALS: BP 140/78; PULSE 77; O2SAT 98; BMI 22.1
== END 2022-12-11 13:37 | disposition home or self-care (01) ==
PROVIDERS: Visit Provider Internal Medicine
DX: J43.1 Panlobular emphysema (principal); J47.9 Bronchiectasis, uncomplicated; F41.1 Generalized anxiety disorder; E03.9 Hypothyroidism, unspecified; D51.0 Vitamin B12 deficiency anemia due to intrinsic factor deficiency; E78.00 Pure hypercholesterolemia, unspecified; M81.0 Age-related osteoporosis without current pathological fracture
CPT/HCPCS: 99214

== ENCOUNTER 2022-12-28 13:25 | Outpatient (AMB) | payer MEDICARE, OTHER, SELFPAY ==
--- NOTE | 2022-12-28 13:28 | AM.OFFVISNUR ---
Intake Intake Visit Reasons: B12 Allergies codeine [CODEINE] Allergy (Unknown, Verified 12/11/22 12:41) GI UPSET levofloxacin [From LEVAQUIN] Allergy (Unknown, Verified 12/11/22 12:41) STOMACH UPSET pneumococcal vaccine Allergy (Unknown, Verified 12/11/22 12:41) unknown shellfish derived [SHELLFISH DERIVED] Allergy (Unknown, Verified 12/11/22 12:41) RASH Office Meds cyanocobalamin (vitamin B-12) Performing Provider: Feli Rm MD Administered by: Aileen Kwon RN on 12/28/22 13:37 Dose Route Admin Location Lot Number Expiration Date [facility] [employer] 1,000 mcg IM left deltoid [id number] 05/25/25 [id number] [place] Coding Diagnoses Assessment & Plan Assessment & Plan Orders: Orders AMB Vitamin B12 Injection Patient Supplied Today E53.8 - Deficiency of other specified B group vitamins
== END 2022-12-28 13:35 | disposition home or self-care (01) ==
PROVIDERS: PCP Internal Medicine; Visit Provider Internal Medicine
DX: E53.8 Deficiency of other specified B group vitamins (principal)
CPT/HCPCS: 96372; J3420

== ENCOUNTER → 2023-01-01 14:30 | Outpatient (BNV) | payer MEDICARE, OTHER, SELFPAY | PROVIDERS: PCP Internal Medicine; Visit Provider Radiology Diagnostic Radiology | DX: M81.0 Age-related osteoporosis without current pathological fracture (principal) | CPT/HCPCS: 77080 ==

== ENCOUNTER 2023-01-01 14:39 | Outpatient (REF) | payer MEDICARE, OTHER, SELFPAY ==
--- NOTE | ~2023-01-01 | MM_ITS ---
EXAMINATION: BONE DENSITOMETRY CLINICAL INDICATION: Osteoporosis. COMPARISON: Previous BD dated 12/08/2020 and baseline BD dated 01/08/2008. TECHNIQUE: Using a fluid Operations DXA System (software version: 13.1) manufactured by [employer], dual-energy x-ray absorptiometry was performed of the lumbar spine and left hip. The images are of good technical quality. Summary results are attached. FINDINGS: LEFT FEMUR, NECK: Current: BMD 0.554 g/cm2, Z-score -1.0, T-score -3.5, osteoporosis. Prior: BMD 0.629 g/cm2. Baseline: BMD 0.810 g/cm2. LEFT FEMUR, TOTAL: Current: BMD 0.584 g/cm2, Z-score -1.0, T-score -3.4, osteoporosis, 12.2% decrease from previous, 35.9% decrease from baseline (<5% change is not significant). Prior: BMD 0.665 g/cm2. Baseline: BMD 0.911 g/cm2. AP SPINE L1-L4: Current: BMD 0.816 g/cm2, Z-score -0.8, T-score -3.0, osteoporosis, 19.2% decrease from previous, 12.4% decrease from baseline (<5% change is not significant). Prior: BMD 1.010 g/cm2. Baseline: BMD 0.932 g/cm2. IDENTIFIED RISK FACTORS: Menopause, height loss, hysterectomy, bilateral oophorectomy. HISTORY OF FRACTURE: None listed. MEDICATIONS: Calcium, vitamin D. MM/XR DEXA axial skeleton IMPRESSION: 1. DIAGNOSIS: Osteoporosis based on the lowest T-score value of -3.5 in the lumbar spine applying World Health Organization criteria. 2. 10-YEAR FRACTURE RISK PREDICTION, FRAX: According to the guidelines, FRAX calculation should only be performed on patients in the osteopenia bone density category. Therefore, FRAX was not performed on this patient. 3. Treatment Recommendations: NOF guidelines recommend consideration for treatment in postmenopausal women and men age 50 and older presenting with the following: -A hip or vertebral (clinical or morphometric) fracture. -T-score less than or equal to -2.5 at the femoral neck or spine after appropriate evaluation to exclude secondary causes. -Low bone mass at the hip or spine and a 10-year fracture probability by FRAX of greater than or equal to 3% for hip fracture or greater than or equal to 20% for major osteoporotic fracture based on the [place] adapted WHO algorithm. 4. Other Recommendations: All treatment decisions require clinical judgment and consideration of individual patient factors, including patient preferences, comorbidities, previous drug use, risk factors not captured in the FRAX model (e.g. frailty, falls, vitamin D deficiency, increased bone turnover, interval significant decline in bone density) and possible under or overestimation of fracture risk by FRAX. Additional medical evaluation for secondary cause of low bone mineral density may be appropriate. FUTURE SCAN RECOMMENDATION: People with diagnosed cases of osteoporosis or at high risk for fracture should have regular bone mineral density tests. For patients eligible for Medicare, routine testing is allowed once every 2 years. The testing frequency can be increased to one year for patients who have rapidly progressing disease, those who are receiving or discontinuing medical therapy to restore bone mass, or have additional risk factors.
== END 2023-01-01 14:40 | disposition home or self-care (01) ==
LOC: HO.MAMMO 14:39
PROVIDERS: PCP Internal Medicine; Visit Provider Internal Medicine
DX: Z13.820 Encounter for screening for osteoporosis (principal); Z78.0 Asymptomatic menopausal state; M81.0 Age-related osteoporosis without current pathological fracture
CPT/HCPCS: 77080

== ENCOUNTER 2023-01-24 13:49 | Outpatient (REF) | payer MEDICARE, OTHER, SELFPAY ==
--- NOTE | ~2023-01-24 | XR_ITS ---
EXAMINATION: XR CHEST CLINICAL INFORMATION: Panlobular emphysema COMPARISON: 12/06/2022 and previous; chest CT 06/18/2022 TECHNIQUE: 2 views of the chest were obtained. FINDINGS: The chest is mildly distorted by thoracolumbar scoliosis. The lungs are well expanded and clear of acute opacity. Mild chronic reticulonodular opacity in the medial right lower lung and lateral left lung base appear unchanged. There is no active pleural disease. The mediastinum is stable. There is no vascular congestion. XR/XR chest 2V IMPRESSION: Mild stable chronic opacities in the lower lungs. No acute abnormality or significant change.
== END 2023-01-24 13:50 | disposition home or self-care (01) ==
LOC: HO.XRAY 13:49
PROVIDERS: PCP Internal Medicine; Visit Provider Internal Medicine
DX: J43.1 Panlobular emphysema (principal)
CPT/HCPCS: 71046

== ENCOUNTER 2023-01-29 13:04 | Outpatient (AMB) | payer MEDICARE, OTHER, SELFPAY ==
--- NOTE | 2023-01-29 13:12 | AM.OFFVISNUR ---
Intake Intake Visit Reasons: B-12 Allergies codeine [CODEINE] Allergy (Unknown, Verified 12/11/22 12:41) GI UPSET levofloxacin [From LEVAQUIN] Allergy (Unknown, Verified 12/11/22 12:41) STOMACH UPSET pneumococcal vaccine Allergy (Unknown, Verified 12/11/22 12:41) unknown shellfish derived [SHELLFISH DERIVED] Allergy (Unknown, Verified 12/11/22 12:41) RASH Office Meds cyanocobalamin (vitamin B-12) Performing Provider: Feli Rm MD Administered by: Edita Cha RN on 01/29/23 13:12 Dose Route Admin Location Lot Number Expiration Date [facility] Emt/Dispatcher 1,000 mcg IM left deltoid [id number] 02/24/24 50286-427-65 JOSIAS PHARMACEUT Coding Diagnoses Assessment & Plan Assessment & Plan Orders: Orders AMB Vitamin B12 Injection Patient Supplied Today E53.8 - Deficiency of other specified B group vitamins
== END 2023-01-29 13:18 | disposition home or self-care (01) ==
PROVIDERS: PCP Internal Medicine; Visit Provider Internal Medicine
DX: E53.8 Deficiency of other specified B group vitamins (principal)
CPT/HCPCS: 96372; J3420

== ENCOUNTER 2023-02-27 12:49 | Outpatient (AMB) | payer MEDICARE, OTHER, SELFPAY ==
--- NOTE | 2023-02-27 12:59 | AM.OFFVISNUR ---
Intake Intake Visit Reasons: B-12 Allergies codeine [CODEINE] Allergy (Unknown, Verified 12/11/22 12:41) GI UPSET levofloxacin [From LEVAQUIN] Allergy (Unknown, Verified 12/11/22 12:41) STOMACH UPSET pneumococcal vaccine Allergy (Unknown, Verified 12/11/22 12:41) unknown shellfish derived [SHELLFISH DERIVED] Allergy (Unknown, Verified 12/11/22 12:41) RASH Coding Assessment & Plan Assessment & Plan Orders: Orders AMB Vitamin B12 Injection Patient Supplied Today D51.9 - Vitamin B12 deficiency anemia, unspecified Medications: New cyanocobalamin (vitamin B-12) 1,000 mcg IM ONCE 1 mL 0RF D51.9 - Vitamin B12 deficiency anemia, unspecified
--- NOTE | 2023-02-27 13:06 | AM.OFFVISNUR ---
Intake Intake Visit Reasons: B-12 Allergies codeine [CODEINE] Allergy (Unknown, Verified 12/11/22 12:41) GI UPSET levofloxacin [From LEVAQUIN] Allergy (Unknown, Verified 12/11/22 12:41) STOMACH UPSET pneumococcal vaccine Allergy (Unknown, Verified 12/11/22 12:41) unknown shellfish derived [SHELLFISH DERIVED] Allergy (Unknown, Verified 12/11/22 12:41) RASH Office Meds cyanocobalamin (vitamin B-12) 1,000 mcg/mL injection solution Performing Provider: Feli Rm MD Performing Location: [facility] Administered by: Aileen Kwon RN on 02/27/23 13:06 Dose Route Admin Location Dispensed Lot Number Expiration Date [facility] Evs Attendant 1,000 mcg IM left deltoid 1 mL [id number] 01/28/24 33551-707-51 JOSIAS PHARMACEUT Coding Assessment & Plan Assessment & Plan Orders: Orders AMB Vitamin B12 Injection Patient Supplied Today D51.9 - Vitamin B12 deficiency anemia, unspecified
== END 2023-02-27 13:13 | disposition home or self-care (01) ==
PROVIDERS: PCP Internal Medicine; Visit Provider Internal Medicine
DX: D51.9 Vitamin B12 deficiency anemia, unspecified (principal)
CPT/HCPCS: 96372; J3420

== ENCOUNTER 2023-02-27 13:21 | Outpatient (REF) | payer MEDICARE, OTHER, SELFPAY ==
[2023-02-27 13:37] LABS: MANUAL DIFF FLAG NO
[2023-02-27 13:50] LABS: Basophils Absolute Auto 0.1 X10*3/uL (0.0-0.2); Basophils Percent Auto 0.6 % (0-2); Eosinophils Absolute Auto 0.2 X10*3/uL (0.0-0.4); Eosinophils Percent Auto 2.7 % (0-4); Hematocrit 35.7 % (37.0-47.0); Hemoglobin 11.7 g/dl (12.0-16.0); Imm Gran Abs Auto 0.03 X10*3/uL (0.00-0.03); Imm Gran Pct Auto 0.4 % (0.0-0.4); Lymphocytes Absolute Auto 1.3 X10*3/uL (1.2-4.9); Lymphocytes Percent Auto 15.7 % (20-40); Mean Corpuscular HGB Conc 32.8 g/dl (31.0-35.0); Mean Corpuscular Volume 88.4 fL (80.0-98.0); Mean Platelet Volume 8.4 fL (9.4-12.3); Monocytes Absolute Auto 0.5 X10*3/uL (0.1-1.2); Monocytes Percent Auto 6.5 % (2-11); Neutrophils Absolute Auto 6.2 x10*3/uL (2.0-8.3); Neutrophils Percent Auto 74.1 % (45-73); Platelet Count 392 X10*3/uL (160-400); Red Blood Count 4.04 X10*6/uL (4.20-5.50); Red Cell Distribution Width 13.9 % (11.0-16.0); White Blood Count 8.4 X10*3/uL (4.8-10.8)
[2023-02-27 14:51] LABS: Free T4 (Free Thyroxine) 1.16 ng/dL (0.71-1.85); Thyroid Stimulating Hormone 0.39 uIU/mL (0.32-4.0)
== END 2023-02-27 13:22 | disposition home or self-care (01) ==
LOC: HO.LAB 13:21
PROVIDERS: PCP Internal Medicine; Visit Provider Internal Medicine
DX: D51.0 Vitamin B12 deficiency anemia due to intrinsic factor deficiency (principal); E03.9 Hypothyroidism, unspecified
CPT/HCPCS: 36415; 84439; 84443; 85025

== ENCOUNTER 2023-03-22 12:59 | Outpatient (AMB) | payer MEDICARE, OTHER, SELFPAY ==
--- NOTE | 2023-03-22 12:59 | A.OFFPC_ITS ---
Vital Signs 03/22/23 13:00 Height 5 ft 2 in Weight 52.617 kg BMI 21.2 BP 144/88 H Blood Pressure Location Lt brachial Position Sitting Pulse 74 Pulse Source Pulse Oximeter Pulse Oximetry (%) 95 Oxygen Delivery Method Room Air Intake Visit Reasons: 3 month f/u Allergies codeine [CODEINE] Allergy (Unknown, Verified 03/22/23 13:00) GI UPSET levofloxacin [From LEVAQUIN] Allergy (Unknown, Verified 03/22/23 13:00) STOMACH UPSET pneumococcal vaccine Allergy (Unknown, Verified 03/22/23 13:00) unknown shellfish derived [SHELLFISH DERIVED] Allergy (Unknown, Verified 03/22/23 13:00) RASH Tobacco use date assessed: 10/08/22 Fall risk assessment: No Falls in past year Last assessed Fall Risk: 03/22/23 Dental Screening Dental Screen Date: 03/22/23 Did you have a dental visit in the last 12 months?: Yes Did you have a dental problem in the last 6 months where you did not have access to dental care?: No Was dental information given to patient?: Patient has dentist HPI 3 month f/u HPI Details 82-year-old female with a 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 Noted weight loss. Complete blood work was done in November 2022 mild abnormality in the TSH repeat test is normal [facility] Medical History (Updated 03/22/23 @ 13:12 by Feli Rm MD) Screening for breast cancer Post-menopausal Pneumonia Viral upper respiratory tract infection with cough Encounter for subsequent annual wellness visit (AWV) in Medicare patient Chest pain SOB (shortness of breath) Headache Colonoscopy refused COPD (chronic obstructive pulmonary disease) Recurrent sinus infections Breast asymmetry Uterine cancer Bronchiectasis Pernicious anemia Peripheral neuropathy Lumbar degenerative disc disease Hypercholesterolemia Vitamin D deficiency Pulmonary nodule Hypothyroid Surgical History History of total abdominal hysterectomy and bilateral salpingo-oophorectomy History of lumpectomy of right breast History of appendectomy Family History Father CVD (cardiovascular disease) Mother Cancer Social History Housing: House Alcohol intake: never Patient Tobacco Use Status: Never used Tobacco e-Cigarette/Vaping Use: Never Used Second Hand Smoke Exposure: No service: No Current occupational status: unemployed Cognitive needs: No Hearing needs: No Vision needs: Yes (reading glasses) Questionnaire PHQ-9 Over the last 2 weeks, how often have you been bothered by any of the following problems? 1. Little interest or pleasure in doing things: not at all 2. Feeling down, depressed, or hopeless: not at all 3. Trouble falling or staying asleep, or sleeping too much: not at all 4. Feeling tired or having little energy: not at all 5. Poor appetite or overeating: not at all 6. Feeling bad about yourself - or that you are a failure or have let yourself or your family down: not at all 7. Trouble concentrating on things, such as reading the newspaper or watching television: not at all 8. Moving or speaking so slowly that other people could have noticed. Or the opposite - being so fidgety or restless that you have been moving around a lot more than usual: not at all 9. Thoughts that you would be better off or of hurting yourself in some way: not at all Total score: 0 Depression Screening Interpretation: Negative Depression Screening Done: Yes 51877 - PHQ-9 Billing: Yes Source: Developed by Drs. Lobo Lopez, Nima Serrano and colleagues, with an educational kourtney from [employer]. Thrive Questionnaire Date Thrive assessed: 07/09/22 AUDIT C Alcohol Use Questionnaire (AUDIT-C) 1. How often do you have a drink containing alcohol?: Never 3. How often do you have six or more drinks on one occasion?: Never Total Score: 0 Score Reviewed/Action Taken: No DANIEL-7 AMB Questionnaire DANIEL-7 Date DANIEL - 7 assessed: 12/06/22 Source: Developed by Drs. Lobo Lopez, Nima Serrano and colleagues, with an educational kourtney from [employer]. Physical exam (Primary Care) Vital Signs: Last Vital Signs Pulse 74 03/22/23 13:00 BP 144/88 H 03/22/23 13:00 Pulse Ox 95 03/22/23 13:00 Oxygen Delivery Method Room Air 03/22/23 13:00 BMI result Body Mass Index 21.2 Tobacco/Smoking Status: Tobacco use Status Tobacco use date assessed 10/08/22 03/22/23 13:03 Patient Tobacco Use Status Never used Tobacco 03/22/23 13:03 e-Cigarette/Vaping Use Never Used 03/22/23 13:03 PHQ-9: PHQ-9 Score PHQ-9: Total score 0 03/22/23 13:12 Depression Screening Interpretation: Negative Thrive Assessment: Date of Thrive Assessment Date Thrive assessed 07/09/22 03/22/23 13:03 Const General: alert; No acute distress Eyes Conjunctivae: conjunctivae normal Resp Auscultation: clear to auscultation bilaterally Cardio Rate: regular rate Rhythm: regular rhythm GI Inspection: Yes normal to inspection Extrem General: Yes normal to inspection and No edema Office Procedures Flu Questionnaire Does the patient have a severe egg allergy?: No Does the patient have severe life threatening allergies?: No Does the patient have a fever or illness today?: No Has the patient ever had Guillain-[place] Syndrome?: No Has the patient ever had any past reaction to a flu shot?: No Immunizations flu vacc [id number] 6mos up(PF) 60 mcg(15 mcgx4)/0.5 mL IM syringe Performing Provider: Feli Rm MD Performing Location: [facility] Administered by: Laurita Almonte CMA on 03/22/23 13:26 Dose Route Admin Location Dispensed Lot Number Expiration Date [facility] Mechanism Inspector 0.5 mL IM Left Deltoid 0.5 mL [id number] 11/24/23 25886-951-61 Collarity VIS Given Date VIS Provided VIS Publication Date 03/22/23 Single Vaccine 20 Eligibility Eligibility Date Funding Source Not [facility] Eligible 03/22/23 Private Assessment and Plan Assessment & Plan (1) Blood pressure elevated without history of HTN: Code(s): R03.0 - Elevated blood-pressure reading, without diagnosis of hypertension Plan: Continue to monitor (2) Osteoporosis: Comment: November Code(s): M81.0 - Age-related osteoporosis without current pathological fracture Plan: Discussed about calcium and vitamin and medications that since went in the bone (3) COPD (chronic obstructive pulmonary disease): Comment: HAS VERY MILD DEGREE OF OBSTRUCTIVE AIRWAY DISORDER, PER LAST PFT IN 2009. DISCUSSED ABOUT HAVING A NEW PFT BUT USUAL SHE SAYS , NO FOR REPEAT PFT . CLINICALLY SHE HAS VERY MILD OBSTRUCTIVE AIRWAY DISORDER. TX : PROAIR 1 OR 2 PUFFS Q.6 HOURS P.R.N.. MAY USE MUCINEX 400 MG BID PRN , IF SHE FEELS THAT THERE IS SOME MUCUS DEEP IN CHEST Code(s): J44.9 - Chronic obstructive pulmonary disease, unspecified Qualifiers: COPD type: emphysema Emphysema type: panlobular Qualified Code(s): J43.1 - Panlobular emphysema Plan: Continue with a inhaler (4) Bronchiectasis: Comment: MILD, CHRONIC BRONCHIECTASIS IN RT MIDDLE LOBE AND LINGULA . MAY NEED A COURSE OF Z-BATSHEVA , PRN FOR RESP. INFECTION . Code(s): J47.9 - Bronchiectasis, uncomplicated Qualifiers: Bronchiectasis type: uncomplicated Qualified Code(s): J47.9 - Bronchiectasis, uncomplicated Plan: Continue to monitor (5) Pernicious anemia: Code(s): D51.0 - Vitamin B12 deficiency anemia due to intrinsic factor deficiency Plan: Continuing with vitamin B12 injection (6) Hypercholesterolemia: Code(s): E78.00 - Pure hypercholesterolemia, unspecified Plan: Avoid fried foods, chicken skin, eggs, butter margarine, pastries and meat. Be it pork or beef they have a lot of cholesterol LDL goal of less than 130 and LDL goal of less than 150 (7) Hypothyroid: Code(s): E03.9 - Hypothyroidism, unspecified Qualifiers: Hypothyroidism type: acquired Qualified Code(s): E03.9 - Hypothyroidism, unspecified Plan: Continue with thyroid medication 100 mcg once a day Orders: Orders Influenza [id number] Immunization Today Z23 - Encounter for immunization Coding Level of Care Code Est Pt Level 4 (15759) Diagnoses Blood pressure elevated without history of HTN R03.0 Osteoporosis M81.0 Panlobular emphysema J43.1 COPD type: emphysema Emphysema type: panlobular Bronchiectasis without complication J47.9 Bronchiectasis type: uncomplicated Pernicious anemia D51.0 Hypercholesterolemia E78.00 Acquired hypothyroidism E03.9 Hypothyroidism type: acquired
[2023-03-22 13:00] VITALS: BP 144/88; PULSE 74; O2SAT 95; BMI 21.2
== END 2023-03-22 13:36 | disposition home or self-care (01) ==
PROVIDERS: PCP Internal Medicine; Visit Provider Internal Medicine
DX: R03.0 Elevated blood-pressure reading, without diagnosis of hypertension (principal); M81.0 Age-related osteoporosis without current pathological fracture; J43.1 Panlobular emphysema; J47.9 Bronchiectasis, uncomplicated; D51.0 Vitamin B12 deficiency anemia due to intrinsic factor deficiency; E78.00 Pure hypercholesterolemia, unspecified; E03.9 Hypothyroidism, unspecified; Z23 Encounter for immunization
CPT/HCPCS: 90471; 90686; 99214

== ENCOUNTER 2023-04-01 13:28 | Outpatient (AMB) | payer MEDICARE, OTHER, SELFPAY ==
--- NOTE | 2023-04-01 13:38 | AM.OFFVISNUR ---
Intake Intake Visit Reasons: B-12 Allergies codeine [CODEINE] Allergy (Unknown, Verified 03/22/23 13:00) GI UPSET levofloxacin [From LEVAQUIN] Allergy (Unknown, Verified 03/22/23 13:00) STOMACH UPSET pneumococcal vaccine Allergy (Unknown, Verified 03/22/23 13:00) unknown shellfish derived [SHELLFISH DERIVED] Allergy (Unknown, Verified 03/22/23 13:00) RASH Office Meds cyanocobalamin (vitamin B-12) 1,000 mcg/mL injection solution Performing Provider: Feli Rm MD Performing Location: [facility] Administered by: Aileen Kwon RN on 04/01/23 13:38 Dose Route Admin Location Dispensed Lot Number Expiration Date [facility] Manager Military 1,000 mcg IM 1 mL [id number] 02/24/24 04632-179-50 JOSIAS PHARMACEUT Coding Assessment & Plan Assessment & Plan Orders: Orders AMB Vitamin B12 Injection Patient Supplied Today D51.9 - Vitamin B12 deficiency anemia, unspecified
== END 2023-04-01 13:38 | disposition home or self-care (01) ==
PROVIDERS: PCP Internal Medicine; Visit Provider Internal Medicine
DX: D51.9 Vitamin B12 deficiency anemia, unspecified (principal)
CPT/HCPCS: 96372; J3420

== ENCOUNTER 2023-05-02 13:16 | Outpatient (AMB) | payer MEDICARE, OTHER, SELFPAY ==
--- NOTE | 2023-05-02 13:18 | AM.OFFVISNUR ---
Intake Intake Visit Reasons: vitamin B12 injection Allergies codeine [CODEINE] Allergy (Unknown, Verified 03/22/23 13:00) GI UPSET levofloxacin [From LEVAQUIN] Allergy (Unknown, Verified 03/22/23 13:00) STOMACH UPSET pneumococcal vaccine Allergy (Unknown, Verified 03/22/23 13:00) unknown shellfish derived [SHELLFISH DERIVED] Allergy (Unknown, Verified 03/22/23 13:00) RASH Office Meds cyanocobalamin (vitamin B-12) 1,000 mcg/mL injection solution Performing Provider: Feli Rm MD Performing Location: [facility] Administered by: Aileen Kwon RN on 05/02/23 13:24 Dose Route Admin Location Dispensed Lot Number Expiration Date [facility] Administrative Program Specialist 1,000 mcg IM left deltoid 1 mL [id number] 11/23/24 02898-468-96 JOSIAS PHARMACEUT Coding Assessment & Plan Assessment & Plan Orders: Orders AMB Vitamin B12 Injection Patient Supplied Today D51.9 - Vitamin B12 deficiency anemia, unspecified
== END 2023-05-02 13:25 | disposition home or self-care (01) ==
PROVIDERS: PCP Internal Medicine; Visit Provider Internal Medicine
DX: D51.9 Vitamin B12 deficiency anemia, unspecified (principal)
CPT/HCPCS: 96372; J3420

== ENCOUNTER 2023-05-31 13:22 | Outpatient (AMB) | payer MEDICARE, OTHER, SELFPAY ==
--- NOTE | 2023-05-31 13:38 | AM.OFFVISNUR ---
Intake Intake Visit Reasons: B12 Allergies codeine [CODEINE] Allergy (Unknown, Verified 03/22/23 13:00) GI UPSET levofloxacin [From LEVAQUIN] Allergy (Unknown, Verified 03/22/23 13:00) STOMACH UPSET pneumococcal vaccine Allergy (Unknown, Verified 03/22/23 13:00) unknown shellfish derived [SHELLFISH DERIVED] Allergy (Unknown, Verified 03/22/23 13:00) RASH Office Meds cyanocobalamin (vitamin B-12) 1,000 mcg/mL injection solution Performing Provider: Feli Rm MD Performing Location: [facility] Administered by: Edita Cha RN on 05/31/23 13:38 Dose Route Admin Location Dispensed Lot Number Expiration Date [facility] Drawer Maker 1,000 mcg IM left deltoid 1 mL [id number] 11/23/24 10531-318-05 JOSIAS PHARMACEUT Coding Assessment & Plan Assessment & Plan Orders: Orders AMB Vitamin B12 Injection Patient Supplied Today E53.8 - Deficiency of other specified B group vitamins
== END 2023-05-31 13:36 | disposition home or self-care (01) ==
PROVIDERS: PCP Internal Medicine; Visit Provider Internal Medicine
DX: E53.8 Deficiency of other specified B group vitamins (principal)
CPT/HCPCS: 96372; J3420

== ENCOUNTER 2023-07-01 13:29 | Outpatient (AMB) | payer MEDICARE, OTHER, SELFPAY ==
--- NOTE | 2023-07-01 13:38 | AM.OFFVISNUR ---
Intake Intake Visit Reasons: b12 Allergies codeine [CODEINE] Allergy (Unknown, Verified 03/22/23 13:00) GI UPSET levofloxacin [From LEVAQUIN] Allergy (Unknown, Verified 03/22/23 13:00) STOMACH UPSET pneumococcal vaccine Allergy (Unknown, Verified 03/22/23 13:00) unknown shellfish derived [SHELLFISH DERIVED] Allergy (Unknown, Verified 03/22/23 13:00) RASH Office Meds cyanocobalamin (vitamin B-12) 1,000 mcg/mL injection solution Performing Provider: Feli mR MD Performing Location: [facility] Administered by: Edita Cha RN on 07/01/23 13:38 Dose Route Admin Location Dispensed Lot Number Expiration Date [facility] Proposal Manager Writer 1,000 mcg IM left deltoid 1 mL [id number] 11/23/24 57196-864-05 JOSIAS PHARMACEUT Coding Assessment & Plan Assessment & Plan Orders: Orders AMB Vitamin B12 Injection Patient Supplied Today E53.8 - Deficiency of other specified B group vitamins
== END 2023-07-01 13:50 | disposition home or self-care (01) ==
PROVIDERS: PCP Internal Medicine; Visit Provider Internal Medicine
DX: E53.8 Deficiency of other specified B group vitamins (principal)
CPT/HCPCS: 96372; J3420

== ENCOUNTER 2023-07-19 15:50 | Outpatient (AMB) | payer MEDICARE, OTHER, SELFPAY ==
[2023-07-19 15:54] VITALS: BP 142/86; PULSE 61; O2SAT 96; BMI 21.4
--- NOTE | 2023-07-19 15:54 | MHC.PC.OV ---
Vital Signs 07/19/23 15:54 Height 5 ft 2 in Weight 117 lb 0.6 oz BMI 21.4 BP 142/86 H Blood Pressure Location Lt brachial Position Sitting Pulse 61 Pulse Source Pulse Oximeter Pulse Oximetry (%) 96 Oxygen Delivery Method Room Air Intake Visit Reasons: 3 month follow up Intake Note: Patient is here to follow up on 3 months Certified Medical Technician Assistant Required: No Allergies codeine [CODEINE] Allergy (Unknown, Verified 07/19/23 16:00) GI UPSET levofloxacin [From LEVAQUIN] Allergy (Unknown, Verified 07/19/23 16:00) STOMACH UPSET pneumococcal vaccine Allergy (Unknown, Verified 07/19/23 16:00) unknown shellfish derived [SHELLFISH DERIVED] Allergy (Unknown, Verified 07/19/23 16:00) RASH Medication List - Last Reconciled 07/19/23 by Feli Rm MD albuterol sulfate 90 mcg/actuation (ProAir HFA) 2 puffs inhalation Q4-6H PRN amitriptyline 10 mg PO BEDTIME azithromycin (Zithromax) For 250 mg dose pack: take 500 mg today (day 1), then 250 mg for 4 days (days 2-5) PO bisacodyl (Dulcolax (bisacodyl)) 5 mg PO BEDTIME 2 days budesonide-formoterol 160-4.5 mcg/actuation (Symbicort) 2 puffs inhalation Q12H calcium citrate-vitamin D3 315 mg-6.25 mcg (250 unit) (Citracal + Vitamin D Maximum) 1 tab PO BID clotrimazole-betamethasone 1-0.05 % 1 appl topical BID 2 weeks cyanocobalamin (vitamin B-12) 1,000 mcg IM Q4W 90 days fexofenadine ([facility]) 180 mg PO DAILY iron,carbonyl-vitamin C 65 mg iron- 125 mg (Vitron-C) 1 tab PO BID lorazepam (Ativan) 0.5 mg (1/2 x 1 mg) PO TID PRN Synthroid (levothyroxine) 100 mcg PO DAILY 90 days NS Tobacco use date assessed: 07/19/23 Fall risk assessment: No Falls in past year Last assessed Fall Risk: 07/19/23 Dental Screening Dental Screen Date: 07/19/23 HPI 3 month follow up HPI Details 82-year-old female with a history of bronchiectasis COPD osteoporosis pernicious anemia with hypercholesterolemia and hypothyroid last seen in February 2023. Patient's bone density is up-to-date December 2022.. feels sick this time, no fevers, this has been going on for 1 week. , mild sore throat, no nasal congestion , no ear pain. [facility] Medical History (Updated 03/22/23 @ 13:12 by Feli Rm MD) Screening for breast cancer Post-menopausal Pneumonia Viral upper respiratory tract infection with cough Encounter for subsequent annual wellness visit (AWV) in Medicare patient Chest pain SOB (shortness of breath) Headache Colonoscopy refused COPD (chronic obstructive pulmonary disease) Recurrent sinus infections Breast asymmetry Uterine cancer Bronchiectasis Pernicious anemia Peripheral neuropathy Lumbar degenerative disc disease Hypercholesterolemia Vitamin D deficiency Pulmonary nodule Hypothyroid Surgical History History of total abdominal hysterectomy and bilateral salpingo-oophorectomy History of lumpectomy of right breast History of appendectomy Family History Father CVD (cardiovascular disease) Mother Cancer Social History Housing: House Alcohol intake: never Patient Tobacco Use Status: Never used Tobacco e-Cigarette/Vaping Use: Never Used Second Hand Smoke Exposure: No service: No Current occupational status: unemployed Cognitive needs: No Hearing needs: No Vision needs: Yes (reading glasses) Questionnaire PHQ-9 Over the last 2 weeks, how often have you been bothered by any of the following problems? 1. Little interest or pleasure in doing things: not at all 2. Feeling down, depressed, or hopeless: not at all 3. Trouble falling or staying asleep, or sleeping too much: not at all 4. Feeling tired or having little energy: not at all 5. Poor appetite or overeating: not at all 6. Feeling bad about yourself - or that you are a failure or have let yourself or your family down: not at all 7. Trouble concentrating on things, such as reading the newspaper or watching television: not at all 8. Moving or speaking so slowly that other people could have noticed. Or the opposite - being so fidgety or restless that you have been moving around a lot more than usual: not at all 9. Thoughts that you would be better off or of hurting yourself in some way: not at all Total score: 0 Depression Screening Interpretation: Negative Depression Screening Done: Yes 63750 - PHQ-9 Billing: Yes Source: Developed by Drs. Lobo Lopez, Lucie Mckinley, Nima Holland and colleagues, with an educational kourtney from [employer]. Thrive Questionnaire Date Thrive assessed: 07/19/23 AUDIT C Alcohol Use Questionnaire (AUDIT-C) 1. How often do you have a drink containing alcohol?: Never 3. How often do you have six or more drinks on one occasion?: Never Total Score: 0 Score Reviewed/Action Taken: No DANIEL-7 AMB Questionnaire DANIEL-7 Date DANIEL - 7 assessed: 07/19/23 Source: Developed by Drs. Lobo Lopez, Lucie Mckinley, Nima Holland and colleagues, with an educational kourtney from [employer]. Physical exam (Primary Care) Vital Signs: Last Vital Signs Pulse 61 07/19/23 15:54 BP 142/86 H 07/19/23 15:54 Pulse Ox 96 07/19/23 15:54 Oxygen Delivery Method Room Air 07/19/23 15:54 BMI result Body Mass Index 21.4 Tobacco/Smoking Status: Tobacco use Status Tobacco use date assessed 07/19/23 07/19/23 15:55 Patient Tobacco Use Status Never used Tobacco 07/19/23 15:55 e-Cigarette/Vaping Use Never Used 07/19/23 15:55 PHQ-9: PHQ-9 Score PHQ-9: Total score 0 07/19/23 15:55 Depression Screening Interpretation: Negative Thrive Assessment: Date of Thrive Assessment Date Thrive assessed 07/19/23 07/19/23 15:55 Const General: alert; No acute distress Eyes Conjunctivae: conjunctivae normal Resp Auscultation: clear to auscultation bilaterally Cardio Rate: regular rate Rhythm: regular rhythm GI Inspection: Yes normal to inspection Extrem General: Yes normal to inspection and No edema Assessment and Plan Assessment & Plan (1) Hypothyroid: Code(s): E03.9 - Hypothyroidism, unspecified Qualifiers: Hypothyroidism type: acquired Qualified Code(s): E03.9 - Hypothyroidism, unspecified Plan: Continue with present thyroid medication 100 mcg once a day (2) Hypercholesterolemia: Code(s): E78.00 - Pure hypercholesterolemia, unspecified Plan: Avoid fried foods, chicken skin, eggs, butter margarine, pastries and meat. Be it pork or beef they have a lot of cholesterol LDL goal of less than 130 and triglyceride of less than 150 diet controlled (3) Pernicious anemia: Code(s): D51.0 - Vitamin B12 deficiency anemia due to intrinsic factor deficiency Plan: Patient comes in for vitamin B12 injections (4) Bronchiectasis: Comment: MILD, CHRONIC BRONCHIECTASIS IN RT MIDDLE LOBE AND LINGULA . MAY NEED A COURSE OF Z-BATSHEVA , PRN FOR RESP. INFECTION . Code(s): J47.9 - Bronchiectasis, uncomplicated Qualifiers: Bronchiectasis type: uncomplicated Qualified Code(s): J47.9 - Bronchiectasis, uncomplicated Plan: Continue with the inhalers Symbicort and albuterol (5) COPD (chronic obstructive pulmonary disease): Comment: HAS VERY MILD DEGREE OF OBSTRUCTIVE AIRWAY DISORDER, PER LAST PFT IN 2009. DISCUSSED ABOUT HAVING A NEW PFT BUT USUAL SHE SAYS , NO FOR REPEAT PFT . CLINICALLY SHE HAS VERY MILD OBSTRUCTIVE AIRWAY DISORDER. TX : PROAIR 1 OR 2 PUFFS Q.6 HOURS P.R.N.. MAY USE MUCINEX 400 MG BID PRN , IF SHE FEELS THAT THERE IS SOME MUCUS DEEP IN CHEST Code(s): J44.9 - Chronic obstructive pulmonary disease, unspecified Qualifiers: COPD type: emphysema Emphysema type: panlobular Qualified Code(s): J43.1 - Panlobular emphysema Plan: Continue with the inhalers albuterol and Symbicort. (6) Generalized anxiety disorder: Code(s): F41.1 - Generalized anxiety disorder Plan: Continue with amitriptyline and lorazepam as needed. Orders: Orders Free T4 (Free Thyroxine) 4 Months E78.00 - Pure hypercholesterolemia, unspecified Lipid Panel 4 Months E78.00 - Pure hypercholesterolemia, unspecified Vitamin B12 and Folate 4 Months E78.00 - Pure hypercholesterolemia, unspecified Thyroid Stimulating Hormone 4 Months E78.00 - Pure hypercholesterolemia, unspecified Complete Blood Count Auto Diff 4 Months E78.00 - Pure hypercholesterolemia, unspecified Comprehensive Met. Panel 4 Months E78.00 - Pure hypercholesterolemia, unspecified Vitamin D 25-OH Total 4 Months E78.00 - Pure hypercholesterolemia, unspecified Medications: New azithromycin (Zithromax) For 250 mg dose pack: take 500 mg today (day 1), then 250 mg for 4 days (days 2-5) PO 6 tabs 0RF J47.9 - Bronchiectasis, uncomplicated Coding Level of Care Code Est Pt Level 4 (48174) Diagnoses Acquired hypothyroidism E03.9 Hypothyroidism type: acquired Hypercholesterolemia E78.00 Pernicious anemia D51.0 Bronchiectasis without complication J47.9 Bronchiectasis type: uncomplicated Panlobular emphysema J43.1 COPD type: emphysema Emphysema type: panlobular Generalized anxiety disorder F41.1
== END 2023-07-19 16:31 | disposition home or self-care (01) ==
LOC: HO.HMGH 15:52
PROVIDERS: PCP Internal Medicine; Visit Provider Internal Medicine
DX: E03.9 Hypothyroidism, unspecified (principal); J47.9 Bronchiectasis, uncomplicated; J43.1 Panlobular emphysema; D51.0 Vitamin B12 deficiency anemia due to intrinsic factor deficiency; E78.00 Pure hypercholesterolemia, unspecified; F41.1 Generalized anxiety disorder
CPT/HCPCS: 99214

== ENCOUNTER 2023-08-01 13:29 | Outpatient (AMB) | payer MEDICARE, OTHER, SELFPAY ==
--- NOTE | 2023-08-01 13:40 | AM.OFFVISNUR ---
Intake Intake Visit Reasons: b-12 Allergies codeine [CODEINE] Allergy (Unknown, Verified 07/19/23 16:00) GI UPSET levofloxacin [From LEVAQUIN] Allergy (Unknown, Verified 07/19/23 16:00) STOMACH UPSET pneumococcal vaccine Allergy (Unknown, Verified 07/19/23 16:00) unknown shellfish derived [SHELLFISH DERIVED] Allergy (Unknown, Verified 07/19/23 16:00) RASH Office Meds cyanocobalamin (vitamin B-12) 1,000 mcg/mL injection solution Performing Provider: Feli Rm MD Performing Location: [facility] Administered by: Carlo Martinez RN on 08/01/23 13:35 Dose Route Admin Location Dispensed Lot Number Expiration Date [facility] Consulting Technical Director 1,000 mcg IM left deltoid 1 mL [id number] 11/24/24 [id number] JOSIAS PHARMACEUT Comments: patient consented for b12 injection and tolerated well. Coding Assessment & Plan Assessment & Plan Orders: Orders AMB Vitamin B12 Injection Patient Supplied Today E53.8 - Deficiency of other specified B group vitamins
== END 2023-08-01 13:39 | disposition home or self-care (01) ==
PROVIDERS: PCP Internal Medicine; Visit Provider Internal Medicine
DX: E53.8 Deficiency of other specified B group vitamins (principal)
CPT/HCPCS: 96372; J3420

== ENCOUNTER 2023-08-09 08:24 | Outpatient (AMB) | payer MEDICARE, OTHER, SELFPAY ==
[2023-08-09 08:26] VITALS: BP 154/98; PULSE 84; O2SAT 95; BMI 21.2
--- NOTE | 2023-08-09 08:26 | MHC.PC.OV ---
Vital Signs 08/09/23 08:26 Height 5 ft 2 in Weight 116 lb BMI 21.2 BP 154/98 H Blood Pressure Location Lt brachial Position Sitting Pulse 84 Pulse Source Pulse Oximeter Pulse Oximetry (%) 95 Oxygen Delivery Method Room Air Intake Visit Reasons: Per Dr Rm Allergies codeine [CODEINE] Allergy (Unknown, Verified 08/09/23 08:27) GI UPSET levofloxacin [From LEVAQUIN] Allergy (Unknown, Verified 08/09/23 08:27) STOMACH UPSET pneumococcal vaccine Allergy (Unknown, Verified 08/09/23 08:27) unknown shellfish derived [SHELLFISH DERIVED] Allergy (Unknown, Verified 08/09/23 08:27) RASH Tobacco use date assessed: 07/19/23 Fall risk assessment: No Falls in past year Dental Screening Dental Screen Date: 08/09/23 Did you have a dental visit in the last 12 months?: Yes Did you have a dental problem in the last 6 months where you did not have access to dental care?: No Was dental information given to patient?: Patient has dentist HPI Per Dr Rm HPI Details 82-year-old female with bronchiectasis COPD generalized anxiety disorder hypothyroidism hypercholesterolemia and pernicious anemia last seen in June 2023 through Telehealth. Patient comes in for follow-up. Bone density up-to-date. has been prescrtibed antibiotic recently but states 1/2 better but for the BP states high number advised blood pressure medication but patient was hesitant [facility] Medical History (Updated 08/09/23 @ 08:48 by Feli Rm MD) Screening for breast cancer Post-menopausal Pneumonia Viral upper respiratory tract infection with cough Encounter for subsequent annual wellness visit (AWV) in Medicare patient Chest pain SOB (shortness of breath) Headache Colonoscopy refused COPD (chronic obstructive pulmonary disease) Recurrent sinus infections Breast asymmetry Uterine cancer Bronchiectasis Pernicious anemia Peripheral neuropathy Lumbar degenerative disc disease Hypercholesterolemia Vitamin D deficiency Pulmonary nodule Hypothyroid Surgical History History of total abdominal hysterectomy and bilateral salpingo-oophorectomy History of lumpectomy of right breast History of appendectomy Family History Father CVD (cardiovascular disease) Mother Cancer Social History Housing: House Alcohol intake: never Patient Tobacco Use Status: Never used Tobacco e-Cigarette/Vaping Use: Never Used Second Hand Smoke Exposure: No service: No Current occupational status: unemployed Cognitive needs: No Hearing needs: No Vision needs: Yes (reading glasses) Questionnaire PHQ-9 Over the last 2 weeks, how often have you been bothered by any of the following problems? 1. Little interest or pleasure in doing things: not at all 2. Feeling down, depressed, or hopeless: not at all 3. Trouble falling or staying asleep, or sleeping too much: not at all 4. Feeling tired or having little energy: not at all 5. Poor appetite or overeating: not at all 6. Feeling bad about yourself - or that you are a failure or have let yourself or your family down: not at all 7. Trouble concentrating on things, such as reading the newspaper or watching television: not at all 8. Moving or speaking so slowly that other people could have noticed. Or the opposite - being so fidgety or restless that you have been moving around a lot more than usual: not at all 9. Thoughts that you would be better off or of hurting yourself in some way: not at all Total score: 0 Depression Screening Interpretation: Negative Depression Screening Done: Yes 02334 - PHQ-9 Billing: Yes Source: Developed by Drs. Lobo Lopez, Lucie Mckinley, Nima Holland and colleagues, with an educational kourtney from [employer]. Thrive Questionnaire Date Thrive assessed: 07/19/23 AUDIT C Alcohol Use Questionnaire (AUDIT-C) 1. How often do you have a drink containing alcohol?: Never 3. How often do you have six or more drinks on one occasion?: Never Total Score: 0 Score Reviewed/Action Taken: No DANIEL-7 AMB Questionnaire DANIEL-7 Date DANIEL - 7 assessed: 07/19/23 Source: Developed by Drs. Lobo Lopez, Nima Serrano and colleagues, with an educational kourtney from [employer]. Physical exam (Primary Care) Vital Signs: Last Vital Signs Pulse 84 08/09/23 08:26 BP 154/98 H 08/09/23 08:26 Pulse Ox 95 08/09/23 08:26 Oxygen Delivery Method Room Air 08/09/23 08:26 BMI result Body Mass Index 21.2 Tobacco/Smoking Status: Tobacco use Status Tobacco use date assessed 07/19/23 08/09/23 08:26 Patient Tobacco Use Status Never used Tobacco 08/09/23 08:26 e-Cigarette/Vaping Use Never Used 08/09/23 08:26 PHQ-9: PHQ-9 Score PHQ-9: Total score 0 08/09/23 08:39 Depression Screening Interpretation: Negative Thrive Assessment: Date of Thrive Assessment Date Thrive assessed 07/19/23 08/09/23 08:26 Const General: alert; No acute distress Eyes Conjunctivae: conjunctivae normal Resp Auscultation: clear to auscultation bilaterally Cardio Rate: regular rate Rhythm: regular rhythm GI Inspection: Yes normal to inspection Extrem General: Yes normal to inspection and No edema Assessment and Plan Assessment & Plan (1) Bronchiectasis: Comment: MILD, CHRONIC BRONCHIECTASIS IN RT MIDDLE LOBE AND [place]A . MAY NEED A COURSE OF Z-BATSHEVA , PRN FOR RESP. INFECTION . Code(s): J47.9 - Bronchiectasis, uncomplicated Qualifiers: Bronchiectasis type: uncomplicated Qualified Code(s): J47.9 - Bronchiectasis, uncomplicated Plan: Patient has been treated with a couple of antibiotics already and not feeling better. Will do chest x-ray as well as blood work. (2) Hypercholesterolemia: Code(s): E78.00 - Pure hypercholesterolemia, unspecified Plan: Avoid fried foods, chicken skin, eggs, butter margarine, pastries and meat. Be it pork or beef they have a lot of cholesterol LDL goal of less than 130 and triglyceride of less than 150 (3) Pernicious anemia: Code(s): D51.0 - Vitamin B12 deficiency anemia due to intrinsic factor deficiency Plan: Patient continues to receive the vitamin B12 (4) COPD (chronic obstructive pulmonary disease): Comment: HAS VERY MILD DEGREE OF OBSTRUCTIVE AIRWAY DISORDER, PER LAST PFT IN 2009. DISCUSSED ABOUT HAVING A NEW PFT BUT USUAL SHE SAYS , NO FOR REPEAT PFT . CLINICALLY SHE HAS VERY MILD OBSTRUCTIVE AIRWAY DISORDER. TX : PROAIR 1 OR 2 PUFFS Q.6 HOURS P.R.N.. MAY USE MUCINEX 400 MG BID PRN , IF SHE FEELS THAT THERE IS SOME MUCUS DEEP IN CHEST Code(s): J44.9 - Chronic obstructive pulmonary disease, unspecified Qualifiers: COPD type: emphysema Emphysema type: panlobular Qualified Code(s): J43.1 - Panlobular emphysema Plan: Continue with the inhaler Symbicort and albuterol (5) Generalized anxiety disorder: Code(s): F41.1 - Generalized anxiety disorder Plan: Continue with present medication (6) Blood pressure elevated without history of HTN: Code(s): R03.0 - Elevated blood-pressure reading, without diagnosis of hypertension Plan: Advised to continue monitoring blood pressure. (7) Hypothyroid: Code(s): E03.9 - Hypothyroidism, unspecified Qualifiers: Hypothyroidism type: acquired Qualified Code(s): E03.9 - Hypothyroidism, unspecified Plan: February 2023 last test (8) Hypertension: Code(s): I10 - Essential (primary) hypertension Plan: PAtient is hesitant with BP med so advised to monitor the BP Orders: Orders XR chest 2V Today J47.9 - Bronchiectasis, uncomplicated Complete Blood Count Auto Diff Today J47.9 - Bronchiectasis, uncomplicated Free T4 (Free Thyroxine) Today J47.9 - Bronchiectasis, uncomplicated Vitamin B12 and Folate Today J47.9 - Bronchiectasis, uncomplicated UA CC w/rflx Micro + Cult Today J47.9 - Bronchiectasis, uncomplicated, R30.0 - Dysuria Comprehensive Met. Panel Today J47.9 - Bronchiectasis, uncomplicated Thyroid Stimulating Hormone Today J47.9 - Bronchiectasis, uncomplicated Ferritin Today J47.9 - Bronchiectasis, uncomplicated IRON PROFILE Today J47.9 - Bronchiectasis, uncomplicated Reticulocyte Count Today J47.9 - Bronchiectasis, uncomplicated Coding Level of Care Code Est Pt Level 4 (07162) Diagnoses Bronchiectasis without complication J47.9 Bronchiectasis type: uncomplicated Hypercholesterolemia E78.00 Pernicious anemia D51.0 Panlobular emphysema J43.1 COPD type: emphysema Emphysema type: panlobular Generalized anxiety disorder F41.1 Blood pressure elevated without history of HTN R03.0 Acquired hypothyroidism E03.9 Hypothyroidism type: acquired Hypertension I10
== END 2023-08-09 09:46 | disposition home or self-care (01) ==
PROVIDERS: PCP Internal Medicine; Visit Provider Internal Medicine
DX: J47.9 Bronchiectasis, uncomplicated (principal); E78.00 Pure hypercholesterolemia, unspecified; D51.0 Vitamin B12 deficiency anemia due to intrinsic factor deficiency; J43.1 Panlobular emphysema; F41.1 Generalized anxiety disorder; R03.0 Elevated blood-pressure reading, without diagnosis of hypertension; E03.9 Hypothyroidism, unspecified; I10 Essential (primary) hypertension; R30.0 Dysuria
CPT/HCPCS: 81003; 99214

== ENCOUNTER 2023-08-09 09:05 | Outpatient (REF) | payer MEDICARE, OTHER, SELFPAY ==
--- NOTE | ~2023-08-09 | XR_ITS ---
EXAMINATION: XR CHEST CLINICAL INFORMATION: Bronchiectasis, uncomplicated. COMPARISON: 01/24/2023 and 12/06/2022 chest radiographs. TECHNIQUE: 2 views of the chest were obtained. FINDINGS: Dextroscoliosis of the thoracic spine with multilevel degenerative changes. Redemonstration of right apical pleural thickening. Lungs are well expanded. Redemonstration of mild chronic reticular nodular opacities predominantly in the medial lower right lung and lower left lung. Stable cardiomediastinal silhouette. Mild degenerative changes in the thoracic spine. No significant pleural effusion. XR/XR chest 2V IMPRESSION: Redemonstration of chronic reticular nodular opacities predominantly in the medial lower right lung and lower left lung.
[2023-08-09 09:32] LABS: MANUAL DIFF FLAG NO
[2023-08-09 10:05] LABS: Basophils Percent Auto 0.5 % (0-2); Eosinophils Absolute Auto 0.3 X10*3/uL (0.0-0.4); Eosinophils Percent Auto 3.3 % (0-4); Hematocrit 37.7 % (37.0-47.0); Hemoglobin 12.3 g/dl (12.0-16.0); Imm Gran Abs Auto 0.03 X10*3/uL (0.00-0.03); Imm Gran Pct Auto 0.4 % (0.0-0.4); Immature Retic Fraction 3.4 % (3.0-15.9); Lymphocytes Absolute Auto 1.2 X10*3/uL (1.2-4.9); Lymphocytes Percent Auto 15.2 % (20-40); Mean Corpuscular HGB Conc 32.6 g/dl (31.0-35.0); Mean Corpuscular Hemoglobin 27.7 pg (27.0-33.0); Mean Corpuscular Volume 84.9 fL (80.0-98.0); Mean Platelet Volume 8.5 fL (9.4-12.3); Monocytes Absolute Auto 0.6 X10*3/uL (0.1-1.2); Monocytes Percent Auto 7.4 % (2-11); Neutrophils Absolute Auto 5.9 x10*3/uL (2.0-8.3); Neutrophils Percent Auto 73.2 % (45-73); Platelet Count 381 X10*3/uL (160-400); Red Blood Count 4.44 X10*6/uL (4.20-5.50); Red Cell Distribution Width 14.9 % (11.0-16.0); Retic HGB Equivalent 33.3 pg (30.0-35.0); Reticulocyte Percent 0.7 % (0.5-1.8); Reticulocytes Absolute 0.031 X10*6/uL (0.026-0.095)
[2023-08-09 10:48] LABS: Alanine Aminotransferase 12 U/L (0-31); Alkaline Phosphatase 95 U/L (39-117); Anion Gap 13 (12-20); Aspartate Amino Transferase 21 U/L (5-31); Bilirubin Total 0.6 mg/dL (0.0-1.0); Blood Urea Nitrogen 14 mg/dL (9-16); Calcium 9.7 mg/dL (8.4-10.2); Carbon Dioxide 26 mmol/L (22-29); Chloride 103 mmol/L (96-108); Estimated Glomerular Filt Rate > 60; Glucose Random 91 mg/dL (60-115); Iron 114 mcg/dL (30-160); Percent Iron Saturation 39 % (15-50); Potassium 4.7 mmol/L (3.3-5.1); Sodium 137 mmol/L (135-145); Total Iron Binding Capacity 295 mcg/dL (228-428); Total Protein 7.3 g/dL (6.5-8.0); Unsaturated Iron Binding 181 ug/dL
[2023-08-09 11:08] LABS: Ferritin 28 ng/mL (10-250); Free T4 (Free Thyroxine) 1.36 ng/dL (0.71-1.85); Thyroid Stimulating Hormone 1.08 uIU/mL (0.32-4.0)
[2023-08-09 11:13] LABS: Folate 7.6 ng/mL (> or = 4.0); Vitamin B12 838 pg/mL (200-900)
[2023-08-09 17:12] LABS: Appearance Urine Clear; Color Urine Yellow; Glucose Urine UA Negative (Negative); Leukocyte Esterase Urine Large (3+) (Negative); Nitrite Urine Negative (Negative); Specific Gravity - Urine 1.015 (1.005-1.025); UMIC TRIGGER UACC YES; Urine Blood Negative (Negative); Urine Ketones Negative (Negative); Urine Protein Negative (Neg-Trace)
[2023-08-09 17:37] LABS: Bacteria Urine 1+ (None Seen); Hyaline Casts Urine 0-2 /LPF (0-2); RBC Urine 0-2 /HPF (0-2); UACC Culture Trigger YES; WBC Urine 21-50 /HPF (0-5)
== END 2023-08-09 09:06 | disposition home or self-care (01) ==
LOC: HO.XRAY 09:05
PROVIDERS: PCP Internal Medicine; Visit Provider Internal Medicine
DX: J47.9 Bronchiectasis, uncomplicated (principal); R30.0 Dysuria
CPT/HCPCS: 36415; 71046; 80053; 81001; 82607; 82728; 82746; 83540; 84439; 84443; 85025; 85045; 87086

== ENCOUNTER 2023-09-02 13:24 | Outpatient (AMB) | payer MEDICARE, OTHER, SELFPAY ==
--- NOTE | 2023-09-02 13:52 | AM.OFFVISNUR ---
Intake Intake Visit Reasons: B12 Shot Allergies codeine [CODEINE] Allergy (Unknown, Verified 08/09/23 08:27) GI UPSET levofloxacin [From LEVAQUIN] Allergy (Unknown, Verified 08/09/23 08:27) STOMACH UPSET pneumococcal vaccine Allergy (Unknown, Verified 08/09/23 08:27) unknown shellfish derived [SHELLFISH DERIVED] Allergy (Unknown, Verified 08/09/23 08:27) RASH Office Meds cyanocobalamin (vitamin B-12) 1,000 mcg/mL injection solution Performing Provider: Feli Rm MD Performing Location: [facility] Administered by: Carlo Martinez RN on 09/02/23 13:50 Dose Route Admin Location Dispensed Lot Number Expiration Date [facility] [employer] 1,000 mcg IM left deltoid 1 mL [id number] 11/24/24 [id number] JOSIAS PHARMACEUT Comments: consented for b12 and tolerated well. Coding Assessment & Plan Assessment & Plan Orders: Orders AMB Vitamin B12 Injection Patient Supplied Today E53.8 - Deficiency of other specified B group vitamins Medications: New cyanocobalamin (vitamin B-12) 1,000 mcg IM ONCE 1 mL 0RF E53.8 - Deficiency of other specified B group vitamins
== END 2023-09-02 13:52 | disposition home or self-care (01) ==
PROVIDERS: PCP Internal Medicine; Visit Provider Internal Medicine
DX: E53.8 Deficiency of other specified B group vitamins (principal)
CPT/HCPCS: 96372; J3420

== ENCOUNTER 2023-09-06 14:09 | Outpatient (AMB) | payer MEDICARE, OTHER, SELFPAY ==
[2023-09-06 14:13] VITALS: BP 144/76; PULSE 58; O2SAT 98; BMI 21.6
--- NOTE | 2023-09-06 14:13 | A.OFFPC_ITS ---
Vital Signs 09/06/23 14:13 Height 5 ft 2 in Weight 118 lb 0.2 oz BMI 21.6 BP 144/76 H Blood Pressure Location Lt brachial Position Sitting Pulse 58 Pulse Source Pulse Oximeter Pulse Oximetry (%) 98 Oxygen Delivery Method Room Air Intake Visit Reasons: Chest Pain, SOB Intake Note: pt states chest pain and SOB [id number] Allergies codeine [CODEINE] Allergy (Unknown, Verified 09/06/23 14:19) GI UPSET levofloxacin [From LEVAQUIN] Allergy (Unknown, Verified 09/06/23 14:19) STOMACH UPSET pneumococcal vaccine Allergy (Unknown, Verified 09/06/23 14:19) unknown shellfish derived [SHELLFISH DERIVED] Allergy (Unknown, Verified 09/06/23 14:19) RASH Medication List - Last Reconciled 09/06/23 by Feli Rm MD albuterol sulfate 90 mcg/actuation (ProAir HFA) 2 puffs inhalation Q4-6H PRN amitriptyline 10 mg PO BEDTIME bisacodyl (Dulcolax (bisacodyl)) 5 mg PO BEDTIME 2 days budesonide-formoterol 160-4.5 mcg/actuation (Symbicort) 2 puffs inhalation Q12H calcium citrate-vitamin D3 315 mg-6.25 mcg (250 unit) (Citracal + Vitamin D Maximum) 1 tab PO BID clotrimazole-betamethasone 1-0.05 % 1 appl topical BID 2 weeks cyanocobalamin (vitamin B-12) 1,000 mcg IM Q4W 90 days fexofenadine ([facility]) 180 mg PO DAILY iron,carbonyl-vitamin C 65 mg iron- 125 mg (Vitron-C) 1 tab PO BID lorazepam (Ativan) 0.5 mg (1/2 x 1 mg) PO TID PRN Synthroid (levothyroxine) 100 mcg PO DAILY 90 days NS Tobacco use date assessed: 09/06/23 Fall risk assessment: No Falls in past year Last assessed Fall Risk: 09/06/23 Dental Screening Dental Screen Date: 08/09/23 HPI Chest Pain, SOB HPI Details 82-year-old female with a history of bro nchiectasis hypercholesterolemia hypothyroid hypertension COPD generalized anxiety disorder last seen in July 2023. Concern about the elevated blood pressure. check BP st home states good. cough - having problem. chest pain same as pressing - discussed about cardiac pain [facility] Medical History (Updated 09/06/23 @ 14:31 by Feli Rm MD) Blood pressure elevated without history of HTN Screening for breast cancer Post-menopausal Pneumonia Viral upper respiratory tract infection with cough Encounter for subsequent annual wellness visit (AWV) in Medicare patient Chest pain SOB (shortness of breath) Headache Colonoscopy refused COPD (chronic obstructive pulmonary disease) Recurrent sinus infections Breast asymmetry Uterine cancer Bronchiectasis Pernicious anemia Peripheral neuropathy Lumbar degenerative disc disease Hypercholesterolemia Vitamin D deficiency Pulmonary nodule Hypothyroid Surgical History History of total abdominal hysterectomy and bilateral salpingo-oophorectomy History of lumpectomy of right breast History of appendectomy Family History Father CVD (cardiovascular disease) Mother Cancer Social History Housing: House Alcohol intake: never Patient Tobacco Use Status: Never used Tobacco e-Cigarette/Vaping Use: Never Used Second Hand Smoke Exposure: No service: No Current occupational status: unemployed Cognitive needs: No Hearing needs: No Vision needs: Yes (reading glasses) Questionnaire Thrive Questionnaire Date Thrive assessed: 07/19/23 AUDIT C Alcohol Use Questionnaire (AUDIT-C) 1. How often do you have a drink containing alcohol?: Never 3. How often do you have six or more drinks on one occasion?: Never Total Score: 0 Score Reviewed/Action Taken: No DANIEL-7 AMB Questionnaire DANIEL-7 Date DANIEL - 7 assessed: 07/19/23 Source: Developed by Drs. Lobo Lopez, Lucie Mckinley, Nima Holland and colleagues, with an educational kourtney from [employer]. Physical exam (Primary Care) Vital Signs: Last Vital Signs Pulse 58 09/06/23 14:13 BP 144/76 H 09/06/23 14:13 Pulse Ox 98 09/06/23 14:13 Oxygen Delivery Method Room Air 09/06/23 14:13 BMI result Body Mass Index 21.6 Tobacco/Smoking Status: Tobacco use Status Tobacco use date assessed 09/06/23 09/06/23 14:23 Patient Tobacco Use Status Never used Tobacco 09/06/23 14:15 e-Cigarette/Vaping Use Never Used 09/06/23 14:15 Thrive Assessment: Date of Thrive Assessment Date Thrive assessed 07/19/23 09/06/23 14:15 Const General: alert; No acute distress Eyes Conjunctivae: conjunctivae normal Resp Auscultation: clear to auscultation bilaterally Cardio Rate: regular rate Rhythm: regular rhythm GI Inspection: Yes normal to inspection Extrem General: Yes normal to inspection and No edema Assessment and Plan Assessment & Plan (1) Hypertension: Code(s): I10 - Essential (primary) hypertension Plan: Continue to monitor blood pressure, declined medication (2) Bronchiectasis: Comment: MILD, CHRONIC BRONCHIECTASIS IN RT MIDDLE LOBE AND LINGULA . MAY NEED A COURSE OF Z-BATSHEVA , PRN FOR RESP. INFECTION . Code(s): J47.9 - Bronchiectasis, uncomplicated Qualifiers: Bronchiectasis type: uncomplicated Qualified Code(s): J47.9 - Bronchiectasis, uncomplicated Plan: stable right now (3) Costochondritis: Code(s): M94.0 - Chondrocostal junction syndrome [Tietze] Plan: reasurance (4) Hypothyroid: Code(s): E03.9 - Hypothyroidism, unspecified Qualifiers: Hypothyroidism type: acquired Qualified Code(s): E03.9 - Hypothyroidism, unspecified Plan: continue with med Orders: Orders Free T4 (Free Thyroxine) 3 Months E03.9 - Hypothyroidism, unspecified Thyroid Stimulating Hormone 3 Months E03.9 - Hypothyroidism, unspecified Vitamin B12 and Folate 3 Months E03.9 - Hypothyroidism, unspecified Complete Blood Count Auto Diff 3 Months E03.9 - Hypothyroidism, unspecified Comprehensive Met. Panel 3 Months E03.9 - Hypothyroidism, unspecified Lipid Panel 3 Months E03.9 - Hypothyroidism, unspecified, E78.00 - Pure hypercholesterolemia, unspecified Vitamin D 25-OH Total 3 Months E03.9 - Hypothyroidism, unspecified Medications: Refilled Synthroid (levothyroxine) 100 mcg PO DAILY 90 days 90 tabs 2RF NS Coding Level of Care Code Est Pt Level 4 (77683) Diagnoses Hypertension I10 Bronchiectasis without complication J47.9 Bronchiectasis type: uncomplicated Costochondritis M94.0 Acquired hypothyroidism E03.9 Hypothyroidism type: acquired
== END 2023-09-06 16:23 | disposition home or self-care (01) ==
PROVIDERS: PCP Internal Medicine; Visit Provider Internal Medicine
DX: I10 Essential (primary) hypertension (principal); J47.9 Bronchiectasis, uncomplicated; M94.0 Chondrocostal junction syndrome [Tietze]; E03.9 Hypothyroidism, unspecified
CPT/HCPCS: 99214

== ENCOUNTER 2023-09-30 11:30 | Outpatient (AMB) | payer MEDICARE, OTHER, SELFPAY ==
--- NOTE | 2023-09-30 11:51 | AM.OFFVISNUR ---
Intake Intake Visit Reasons: b12 Allergies codeine [CODEINE] Allergy (Unknown, Verified 09/06/23 14:19) GI UPSET levofloxacin [From LEVAQUIN] Allergy (Unknown, Verified 09/06/23 14:19) STOMACH UPSET pneumococcal vaccine Allergy (Unknown, Verified 09/06/23 14:19) unknown shellfish derived [SHELLFISH DERIVED] Allergy (Unknown, Verified 09/06/23 14:19) RASH Office Meds cyanocobalamin (vitamin B-12) 1,000 mcg/mL injection solution Performing Provider: Feli Rm MD Performing Location: [facility] Administered by: Rena Plunkett RN on 09/30/23 11:57 Dose Route Admin Location Dispensed Lot Number Expiration Date 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
== END 2023-09-30 12:02 | disposition home or self-care (01) ==
LOC: HO.HMGH 11:30
PROVIDERS: PCP Internal Medicine; Visit Provider Internal Medicine
DX: E53.8 Deficiency of other specified B group vitamins (principal)
CPT/HCPCS: 96372; J3420

== ENCOUNTER 2023-10-08 16:33 | Outpatient (AMB) | payer MEDICARE, OTHER, SELFPAY ==
[2023-10-08 16:37] VITALS: BP 144/80; PULSE 71; O2SAT 96; BMI 21.8
--- NOTE | 2023-10-08 16:37 | MHC.PC.OV ---
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: No Allergies codeine [CODEINE] Allergy (Unknown, Verified 09/06/23 14:19) GI UPSET levofloxacin [From LEVAQUIN] Allergy (Unknown, Verified 09/06/23 14:19) STOMACH UPSET pneumococcal vaccine Allergy (Unknown, Verified 09/06/23 14:19) unknown shellfish derived [SHELLFISH DERIVED] Allergy (Unknown, Verified 09/06/23 14:19) RASH Medication List - Last Reconciled 10/08/23 by Feli Rm MD albuterol sulfate 90 mcg/actuation (ProAir HFA) 2 puffs inhalation Q4-6H PRN amitriptyline 10 mg PO BEDTIME azithromycin (Zithromax) For 250 mg dose pack: take 500 mg today (day 1), then 250 mg for 4 days (days 2-5) PO bisacodyl (Dulcolax (bisacodyl)) 5 mg PO BEDTIME 2 days budesonide-formoterol 160-4.5 mcg/actuation (Symbicort) 2 puffs inhalation Q12H calcium citrate-vitamin D3 315 mg-6.25 mcg (250 unit) (Citracal + Vitamin D Maximum) 1 tab PO BID clotrimazole-betamethasone 1-0.05 % 1 appl topical BID 2 weeks cyanocobalamin (vitamin B-12) 1,000 mcg IM Q4W 90 days fexofenadine ([facility]) 180 mg PO DAILY iron,carbonyl-vitamin C 65 mg iron- 125 mg (Vitron-C) 1 tab PO BID lorazepam (Ativan) 0.5 mg (1/2 x 1 mg) PO TID PRN Synthroid (levothyroxine) 100 mcg PO DAILY 90 days NS Tobacco use date assessed: 10/08/23 Fall risk assessment: No Falls in past year Dental Screening Dental Screen Date: 08/09/23 HPI Cold Symptoms, Weak, SOB HPI Details 83-year-old female with hypertension bronchiectasis hypothyroidism last seen in August 2023. woke this am congested and ould not breath takes matty everyday , chills, occ productive. BP has been 100- 138/ 70 and OH 60= Qd BP [facility] Medical History (Updated 09/06/23 @ 14:31 by Feli Rm MD) Blood pressure elevated without history of HTN Screening for breast cancer Post-menopausal Pneumonia Viral upper respiratory tract infection with cough Encounter for subsequent annual wellness visit (AWV) in Medicare patient Chest pain SOB (shortness of breath) Headache Colonoscopy refused COPD (chronic obstructive pulmonary disease) Recurrent sinus infections Breast asymmetry Uterine cancer Bronchiectasis Pernicious anemia Peripheral neuropathy Lumbar degenerative disc disease Hypercholesterolemia Vitamin D deficiency Pulmonary nodule Hypothyroid Surgical History History of total abdominal hysterectomy and bilateral salpingo-oophorectomy History of lumpectomy of right breast History of appendectomy Family History Father CVD (cardiovascular disease) Mother Cancer Social History Housing: House Alcohol intake: never Patient Tobacco Use Status: Never used Tobacco e-Cigarette/Vaping Use: Never Used Second Hand Smoke Exposure: No service: No Current occupational status: unemployed Cognitive needs: No Hearing needs: No Vision needs: Yes (reading glasses) Questionnaire Thrive Questionnaire Date Thrive assessed: 07/19/23 DANIEL-7 AMB Questionnaire DANIEL-7 Date DANIEL - 7 assessed: 07/19/23 Source: Developed by Drs. Lobo Lopez, Lucie Mckinley, Nima Holland and colleagues, with an educational kourtney from [employer]. Physical exam (Primary Care) Vital Signs: Last Vital Signs Pulse 71 10/08/23 16:37 BP 144/80 H 10/08/23 16:37 Pulse Ox 96 10/08/23 16:37 Oxygen Delivery Method Room Air 10/08/23 16:37 BMI result Body Mass Index 21.8 Tobacco/Smoking Status: Tobacco use Status Tobacco use date assessed 10/08/23 10/08/23 16:39 Patient Tobacco Use Status Never used Tobacco 10/08/23 16:37 e-Cigarette/Vaping Use Never Used 10/08/23 16:37 Thrive Assessment: Date of Thrive Assessment Date Thrive assessed 07/19/23 10/08/23 16:37 Const General: alert; No acute distress Eyes Conjunctivae: conjunctivae normal Resp Auscultation: clear to auscultation bilaterally Cardio Rate: regular rate Rhythm: regular rhythm GI Inspection: Yes normal to inspection Extrem General: Yes normal to inspection and No edema Assessment and Plan Assessment & Plan (1) COPD (chronic obstructive pulmonary disease): Comment: HAS VERY MILD DEGREE OF OBSTRUCTIVE AIRWAY DISORDER, PER LAST PFT IN 2009. DISCUSSED ABOUT HAVING A NEW PFT BUT USUAL SHE SAYS , NO FOR REPEAT PFT . CLINICALLY SHE HAS VERY MILD OBSTRUCTIVE AIRWAY DISORDER. TX : PROAIR 1 OR 2 PUFFS Q.6 HOURS P.R.N.. MAY USE MUCINEX 400 MG BID PRN , IF SHE FEELS THAT THERE IS SOME MUCUS DEEP IN CHEST Code(s): J44.9 - Chronic obstructive pulmonary disease, unspecified Qualifiers: COPD type: emphysema Emphysema type: panlobular Qualified Code(s): J43.1 - Panlobular emphysema Plan: continue with inhalers. (2) Bronchiectasis: Comment: MILD, CHRONIC BRONCHIECTASIS IN RT MIDDLE LOBE AND LINGULA . MAY NEED A COURSE OF Z-BATSHEVA , PRN FOR RESP. INFECTION . Code(s): J47.9 - Bronchiectasis, uncomplicated Qualifiers: Bronchiectasis type: uncomplicated Qualified Code(s): J47.9 - Bronchiectasis, uncomplicated Plan: Continue with the inhalers and discussed about rinsing mouth after using the Symbicort. Antibiotic prescription sent in (3) Hypertension: Code(s): I10 - Essential (primary) hypertension Plan: Patient presently has no blood pressure medication in the blood pressure at home has been good. Medications: New azithromycin (Zithromax) For 250 mg dose pack: take 500 mg today (day 1), then 250 mg for 4 days (days 2-5) PO 6 tabs 0RF J47.9 - Bronchiectasis, uncomplicated Coding Level of Care Code Est Pt Level 4 (71517) Diagnoses Panlobular emphysema J43.1 COPD type: emphysema Emphysema type: panlobular Bronchiectasis without complication J47.9 Bronchiectasis type: uncomplicated Hypertension I10
== END 2023-10-08 17:37 | disposition home or self-care (01) ==
PROVIDERS: PCP Internal Medicine; Visit Provider Internal Medicine
DX: J43.1 Panlobular emphysema (principal); J47.9 Bronchiectasis, uncomplicated; I10 Essential (primary) hypertension
CPT/HCPCS: 99214

== ENCOUNTER 2023-10-31 13:23 | Outpatient (AMB) | payer MEDICARE, OTHER, SELFPAY ==
--- NOTE | 2023-10-31 13:25 | AM.OFFVISNUR ---
Intake Intake Visit Reasons: b12 Allergies codeine [CODEINE] Allergy (Unknown, Verified 09/06/23 14:19) GI UPSET levofloxacin [From LEVAQUIN] Allergy (Unknown, Verified 09/06/23 14:19) STOMACH UPSET pneumococcal vaccine Allergy (Unknown, Verified 09/06/23 14:19) unknown shellfish derived [SHELLFISH DERIVED] Allergy (Unknown, Verified 09/06/23 14:19) RASH Office Meds cyanocobalamin (vitamin B-12) 1,000 mcg/mL injection solution Performing Provider: Feli Rm MD Performing Location: [facility] Administered by: Margareth Hallman RN on 10/31/23 13:25 Dose Route Admin Location Dispensed Lot Number Expiration Date NDC Customer Services Coordinator 1,000 mcg IM 1 mL [id number] 02/21/25 25852-991-58 [employer] Coding Assessment & Plan Assessment & Plan Orders: Orders AMB Vitamin B12 Injection Patient Supplied Today E53.8 - Deficiency of other specified B group vitamins Medications: New cyanocobalamin (vitamin B-12) 1,000 mcg IM ONCE 1 mL 0RF E53.8 - Deficiency of other specified B group vitamins
== END 2023-10-31 13:45 | disposition home or self-care (01) ==
PROVIDERS: PCP Internal Medicine; Visit Provider Internal Medicine
DX: E53.8 Deficiency of other specified B group vitamins (principal)
CPT/HCPCS: 96372; J3420

== ENCOUNTER 2023-11-29 13:14 | Outpatient (AMB) | payer MEDICARE, OTHER, SELFPAY ==
--- NOTE | 2023-11-29 13:36 | AM.OFFVISNUR ---
Intake Visit Reasons: b12 Allergies codeine [CODEINE] Allergy (Unknown, Verified 09/06/23 14:19) GI UPSET levofloxacin [From LEVAQUIN] Allergy (Unknown, Verified 09/06/23 14:19) STOMACH UPSET pneumococcal vaccine Allergy (Unknown, Verified 09/06/23 14:19) unknown shellfish derived [SHELLFISH DERIVED] Allergy (Unknown, Verified 09/06/23 14:19) RASH Office Meds cyanocobalamin (vitamin B-12) 1,000 mcg/mL injection solution Performing Provider: Feli Rm MD Performing Location: [facility] Administered by: Margareth Hallman RN on 11/29/23 13:36 Dose Route Admin Location Dispensed Lot Number Expiration Date ND Import Manager 1,000 mcg IM left arm 1 mL [id number] 01/21/25 40888-897-16 [employer] Assessment & Plan Assessment & Plan Orders: Orders AMB Vitamin B12 Injection Patient Supplied Today E53.8 - Deficiency of other specified B group vitamins Medications: New cyanocobalamin (vitamin B-12) 1,000 mcg IM ONCE 1 mL 0RF E53.8 - Deficiency of other specified B group vitamins
== END 2023-11-29 13:38 | disposition home or self-care (01) ==
PROVIDERS: PCP Internal Medicine; Visit Provider Internal Medicine
DX: E53.8 Deficiency of other specified B group vitamins (principal)
CPT/HCPCS: 96372; J3420

== ENCOUNTER 2023-12-03 15:41 | Outpatient (AMB) | payer MEDICARE, OTHER, SELFPAY ==
[2023-12-03 15:44] VITALS: BP 150/80; PULSE 83; O2SAT 98; BMI 21.4
--- NOTE | 2023-12-03 15:44 | A.OFFPC_ITS ---
Vital Signs 12/03/23 15:44 Height 5 ft 2 in Weight 117 lb BMI 21.4 BP 150/80 H Blood Pressure Location Lt brachial Position Sitting Pulse 83 Pulse Source Pulse Oximeter Pulse Oximetry (%) 98 Oxygen Delivery Method Room Air Intake Visit Reasons: Cold Symptoms, difficulty Aerial Gunner: Not Required per policy Accompanied by: Self / Same As Patient Allergies codeine [CODEINE] Allergy (Unknown, Verified 12/03/23 15:45) GI UPSET levofloxacin [From LEVAQUIN] Allergy (Unknown, Verified 12/03/23 15:45) STOMACH UPSET pneumococcal vaccine Allergy (Unknown, Verified 12/03/23 15:45) unknown shellfish derived [SHELLFISH DERIVED] Allergy (Unknown, Verified 12/03/23 15:45) RASH Tobacco use date assessed: 10/08/23 Fall risk assessment: No Falls in past year Last assessed Fall Risk: 12/03/23 Dental Screening Dental Screen Date: 08/09/23 HPI Cold Symptoms, difficulty HPI Details 83-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 last week though allergies, sob, had intermittent fever [facility] Medical History (Updated 11/14/23 @ 01:32 by Feli Rm MD) Blood pressure elevated without history of HTN Screening for breast cancer Post-menopausal Pneumonia Viral upper respiratory tract infection with cough Encounter for subsequent annual wellness visit (AWV) in Medicare patient Chest pain SOB (shortness of breath) Headache Colonoscopy refused COPD (chronic obstructive pulmonary disease) Recurrent sinus infections Breast asymmetry Uterine cancer Bronchiectasis Pernicious anemia Peripheral neuropathy Lumbar degenerative disc disease Hypercholesterolemia Vitamin D deficiency Pulmonary nodule Hypothyroid Surgical History History of total abdominal hysterectomy and bilateral salpingo-oophorectomy History of lumpectomy of right breast History of appendectomy Family History Father CVD (cardiovascular disease) Mother Cancer Social History Housing: House Alcohol intake: never Patient Tobacco Use Status: Never used Tobacco e-Cigarette/Vaping Use: Never Used Second Hand Smoke Exposure: No service: No Current occupational status: unemployed Cognitive needs: No Hearing needs: No Vision needs: Yes (reading glasses) Questionnaire Thrive Questionnaire Date Thrive assessed: 07/19/23 DANIEL-7 AMB Questionnaire DANIEL-7 Date DANIEL - 7 assessed: 07/19/23 Source: Developed by Drs. Lobo Lopez, Lucie Mckinley, Nima Holland and colleagues, with an educational kourtney from [employer]. Physical exam (Primary Care) Vital Signs: Last Vital Signs Pulse 83 12/03/23 15:44 BP 150/80 H 12/03/23 15:44 Pulse Ox 98 12/03/23 15:44 Oxygen Delivery Method Room Air 12/03/23 15:44 BMI result Body Mass Index 21.4 Tobacco/Smoking Status: Tobacco use Status Tobacco use date assessed 10/08/23 12/03/23 15:50 Patient Tobacco Use Status Never used Tobacco 12/03/23 15:50 e-Cigarette/Vaping Use Never Used 12/03/23 15:50 Thrive Assessment: Date of Thrive Assessment Date Thrive assessed 07/19/23 12/03/23 15:50 Const General: alert; No acute distress Eyes Conjunctivae: conjunctivae normal Resp Auscultation: clear to auscultation bilaterally Cardio Rate: regular rate Rhythm: regular rhythm GI Inspection: Yes normal to inspection Extrem General: Yes normal to inspection and No edema Assessment and Plan Assessment & Plan (1) Bronchiectasis: Comment: MILD, CHRONIC BRONCHIECTASIS IN RT MIDDLE LOBE AND LINGULA . MAY NEED A COURSE OF Z-BATSHEVA , PRN FOR RESP. INFECTION . Code(s): J47.9 - Bronchiectasis, uncomplicated Qualifiers: Bronchiectasis type: uncomplicated Qualified Code(s): J47.9 - Bronchiectasis, uncomplicated Plan: will send in Antibiotic (2) COPD (chronic obstructive pulmonary disease): Comment: HAS VERY MILD DEGREE OF OBSTRUCTIVE AIRWAY DISORDER, PER LAST PFT IN 2009. DISCUSSED ABOUT HAVING A NEW PFT BUT USUAL SHE SAYS , NO FOR REPEAT PFT . CLINICALLY SHE HAS VERY MILD OBSTRUCTIVE AIRWAY DISORDER. TX : PROAIR 1 OR 2 PUFFS Q.6 HOURS P.R.N.. MAY USE MUCINEX 400 MG BID PRN , IF SHE FEELS THAT THERE IS SOME MUCUS DEEP IN CHEST Code(s): J44.9 - Chronic obstructive pulmonary disease, unspecified Qualifiers: COPD type: emphysema Emphysema type: panlobular Qualified Code(s): J43.1 - Panlobular emphysema Plan: Continue with the inhaler albuterol and Symbicort Medications: New azithromycin (Zithromax) For 250 mg dose pack: take 500 mg today (day 1), then 250 mg for 4 days (days 2-5) PO 6 tabs 0RF J47.9 - Bronchiectasis, uncomplicated Coding Level of Care Code Est Pt Level 3 (17599) Diagnoses Bronchiectasis without complication J47.9 Bronchiectasis type: uncomplicated Panlobular emphysema J43.1 COPD type: emphysema Emphysema type: panlobular
== END 2023-12-03 16:39 | disposition home or self-care (01) ==
LOC: HO.HMGH 15:42
PROVIDERS: PCP Internal Medicine; Visit Provider Internal Medicine
DX: J47.9 Bronchiectasis, uncomplicated (principal); J43.1 Panlobular emphysema
CPT/HCPCS: 99213

== ENCOUNTER 2023-12-16 16:37 | Outpatient (REF) | payer MEDICARE, OTHER, SELFPAY ==
--- NOTE | ~2023-12-16 | XR_ITS ---
EXAMINATION: XR chest 2V CLINICAL INFORMATION: Reason for Exam J43.1 - Panlobular emphysema COMPARISON: Prior chest x-ray August 09, 2023 TECHNIQUE: XR chest 2V, 2 Views Lungs and Yara: Crowding of lung markings at lung bases right more than left might be chronic or recurrent mild interstitial infiltrate. Also stable bilateral apical pleural-based opacities and pleural capping thickening unchanged. No new acute lobar consolidation or failure. Pleura: Normal. Costophrenic angles are sharp. No pneumothorax. Heart: The heart is normal in size. Mediastinum: The mediastinum is within normal limits.. Bones: There is severe levoscoliosis of the thoracolumbar spine and mild dextroscoliosis of dorsal spine. XR/XR chest 2V IMPRESSION: * Crowding of lung markings at lung bases right more than left might be chronic or recurrent mild interstitial infiltrate. * Stable bilateral apical pleural-based opacities and pleural capping thickening unchanged. * Severe levoscoliosis lumbar spine.
== END 2023-12-16 16:38 | disposition home or self-care (01) ==
LOC: HO.XRAY 16:37
PROVIDERS: PCP Internal Medicine; Visit Provider Internal Medicine
DX: J43.1 Panlobular emphysema (principal)
CPT/HCPCS: 71046

== ENCOUNTER 2023-12-30 13:23 | Outpatient (AMB) | payer MEDICARE, OTHER, SELFPAY ==
--- NOTE | 2023-12-30 13:54 | AM.OFFVISNUR ---
Intake Visit Reasons: b12 Allergies codeine [CODEINE] Allergy (Unknown, Verified 12/03/23 15:45) GI UPSET levofloxacin [From LEVAQUIN] Allergy (Unknown, Verified 12/03/23 15:45) STOMACH UPSET pneumococcal vaccine Allergy (Unknown, Verified 12/03/23 15:45) unknown shellfish derived [SHELLFISH DERIVED] Allergy (Unknown, Verified 12/03/23 15:45) RASH Office Meds cyanocobalamin (vitamin B-12) 1,000 mcg/mL injection solution Performing Provider: Feli Rm MD Performing Location: [facility] Administered by: Edita Cha RN on 12/30/23 13:54 Dose Route Admin Location Dispensed Lot Number Expiration Date [facility] Technology Program Manager 1,000 mcg IM left deltoid 1 mL [id number] 02/23/25 50119-080-28 [employer] Assessment & Plan Assessment & Plan Orders: Orders AMB Vitamin B12 Injection Patient Supplied Today E53.8 - Deficiency of other specified B group vitamins Medications: New cyanocobalamin (vitamin B-12) 1,000 mcg IM ONCE 1 mL 0RF E53.8 - Deficiency of other specified B group vitamins
== END 2023-12-30 13:55 | disposition home or self-care (01) ==
PROVIDERS: PCP Internal Medicine; Visit Provider Internal Medicine
DX: E53.8 Deficiency of other specified B group vitamins (principal)
CPT/HCPCS: 96372; J3420

== ENCOUNTER 2023-12-30 13:57 | Outpatient (REF) | payer MEDICARE, OTHER, SELFPAY ==
--- NOTE | ~2023-12-30 | XR_ITS ---
EXAMINATION: XR CHEST 2 VIEWS CLINICAL INFORMATION: Cough. COMPARISON: CT chest dated 06/18/2022; chest radiograph dated 12/14/2023. TECHNIQUE: Frontal and lateral views of the chest were obtained. FINDINGS: The heart, great vessels, pulmonary vasculature and mediastinum are normal. There is mild hyperinflation. The lungs show no focal infiltrate, effusion or pneumothorax. There is minimal chronic lingular scar/subsegmental atelectasis. There is no acute osseous abnormality. There is a marked thoracic levoscoliosis. XR/XR chest 2V IMPRESSION: No active cardiopulmonary disease. There is no infiltrate or congestive heart failure. Minimal chronic lingular scar/subsegmental atelectasis is seen.
== END 2023-12-30 13:58 | disposition home or self-care (01) ==
LOC: HO.XRAY 13:57
PROVIDERS: PCP Internal Medicine; Visit Provider Internal Medicine
DX: R05.9 Cough, unspecified (principal)
CPT/HCPCS: 71046

== ENCOUNTER 2024-01-29 13:14 | Outpatient (AMB) | payer MEDICARE, OTHER, SELFPAY ==
--- NOTE | 2024-01-29 13:19 | AM.OFFVISNUR ---
Intake Visit Reasons: B-12 shot Allergies codeine [CODEINE] Allergy (Unknown, Verified 12/03/23 15:45) GI UPSET levofloxacin [From LEVAQUIN] Allergy (Unknown, Verified 12/03/23 15:45) STOMACH UPSET pneumococcal vaccine Allergy (Unknown, Verified 12/03/23 15:45) unknown shellfish derived [SHELLFISH DERIVED] Allergy (Unknown, Verified 12/03/23 15:45) RASH Office Meds cyanocobalamin (vitamin B-12) 1,000 mcg/mL injection solution Performing Provider: Feli Rm MD Performing Location: [facility] Administered by: Rena Plunkett RN on 01/29/24 13:19 Dose Route Admin Location Dispensed Lot Number Expiration Date ND Flanger 1,000 mcg IM 1 mL [id number] 02/23/25 86566-512-38 [employer] Assessment & Plan Assessment & Plan Orders: Orders AMB Vitamin B12 Injection Patient Supplied Today E53.8 - Deficiency of other specified B group vitamins Medications: New cyanocobalamin (vitamin B-12) 1,000 mcg IM ONCE 1 mL 0RF E53.8 - Deficiency of other specified B group vitamins
== END 2024-01-29 13:27 | disposition home or self-care (01) ==
PROVIDERS: PCP Internal Medicine; Visit Provider Internal Medicine
DX: E53.8 Deficiency of other specified B group vitamins (principal)
CPT/HCPCS: 96372; J3420

== ENCOUNTER 2024-02-17 10:48 | Outpatient (AMB) | payer MEDICARE, OTHER, SELFPAY ==
[2024-02-17 10:51] VITALS: BP 158/84; PULSE 62; O2SAT 97; BMI 20.3
--- NOTE | 2024-02-17 10:51 | A.OFFPC_ITS ---
Vital Signs 02/17/24 10:51 Height 5 ft 2 in Weight 111 lb 2 oz BMI 20.3 BP 158/84 H Blood Pressure Location Lt brachial Position Sitting Pulse 62 Pulse Source Pulse Oximeter Pulse Oximetry (%) 97 Oxygen Delivery Method Room Air Intake Visit Reasons: Feeling sick Statistical Developer Required: No Accompanied by: daughter in law Allergies codeine [CODEINE] Allergy (Unknown, Verified 02/17/24 10:53) GI UPSET levofloxacin [From LEVAQUIN] Allergy (Unknown, Verified 02/17/24 10:53) STOMACH UPSET pneumococcal vaccine Allergy (Unknown, Verified 02/17/24 10:53) unknown shellfish derived [SHELLFISH DERIVED] Allergy (Unknown, Verified 02/17/24 10:53) RASH Tobacco use date assessed: 10/08/23 Fall risk assessment: No Falls in past year Last assessed Fall Risk: 02/17/24 Dental Screening Dental Screen Date: 02/17/24 Did you have a dental visit in the last 12 months?: No Did you have a dental problem in the last 6 months where you did not have access to dental care?: No Was dental information given to patient?: Patient has dentist HPI Feeling sick HPI Details 83-year-old female with a history of hyp othyroidism, hypertension, hypercholesterolemia bronchiectasis COPD generalized anxiety disorder coming in for an acute problem. Patient's bone density last done in 01/13/2023. Patient has pernicious anemia and gets vitamin B12 injections monthly. 10 days ago woke up felt weak and nausea and coughing. did call here and antibiotic sent felt better but now still having problem . no sore throat, , chills, no increase of sob, PFSH Medical History (Updated 11/14/23 @ 01:32 by Feli Rm MD) Blood pressure elevated without history of HTN Screening for breast cancer Post-menopausal Pneumonia Viral upper respiratory tract infection with cough Encounter for subsequent annual wellness visit (AWV) in Medicare patient Chest pain SOB (shortness of breath) Headache Colonoscopy refused COPD (chronic obstructive pulmonary disease) Recurrent sinus infections Breast asymmetry Uterine cancer Bronchiectasis Pernicious anemia Peripheral neuropathy Lumbar degenerative disc disease Hypercholesterolemia Vitamin D deficiency Pulmonary nodule Hypothyroid Surgical History History of total abdominal hysterectomy and bilateral salpingo-oophorectomy History of lumpectomy of right breast History of appendectomy Family History Father CVD (cardiovascular disease) Mother Cancer Social History Housing: House Alcohol intake: never Patient Tobacco Use Status: Never used Tobacco e-Cigarette/Vaping Use: Never Used Second Hand Smoke Exposure: No service: No Current occupational status: unemployed Cognitive needs: No Hearing needs: No Vision needs: Yes (reading glasses) Questionnaire Thrive Questionnaire Date Thrive assessed: 07/19/23 DANIEL-7 AMB Questionnaire DANIEL-7 Date DANIEL - 7 assessed: 07/19/23 Source: Developed by Drs. Lobo Lopez, Lucie Mckinley, Nima Holland and colleagues, with an educational kourtney from [employer] Physical exam (Primary Care) BMI result Body Mass Index 20.3 Tobacco/Smoking Status: Tobacco use Status Tobacco use date assessed 10/08/23 12/03/23 15:50 Patient Tobacco Use Status Never used Tobacco 12/03/23 15:50 e-Cigarette/Vaping Use Never Used 12/03/23 15:50 Thrive Assessment: Date of Thrive Assessment Date Thrive assessed 07/19/23 12/03/23 15:50 Const General: alert; No acute distress Eyes Conjunctivae: conjunctivae normal Resp Auscultation: clear to auscultation bilaterally Cardio Rate: regular rate Rhythm: regular rhythm GI Inspection: Yes normal to inspection Extrem General: Yes normal to inspection and No edema Assessment and Plan Assessment & Plan (1) Hypertension: Code(s): I10 - Essential (primary) hypertension Plan: PAtient states BP at home is normal (2) Bronchiectasis: Comment: MILD, CHRONIC BRONCHIECTASIS IN RT MIDDLE LOBE AND LINGULA . MAY NEED A COURSE OF Z-BATSHEVA , PRN FOR RESP. INFECTION . Code(s): J47.9 - Bronchiectasis, uncomplicated Qualifiers: Bronchiectasis type: uncomplicated Qualified Code(s): J47.9 - Bronchiectasis, uncomplicated Plan: work up advised as the patient has had the zithromax 1 week ago and not feeling well still. (3) COPD (chronic obstructive pulmonary disease): Comment: HAS VERY MILD DEGREE OF OBSTRUCTIVE AIRWAY DISORDER, PER LAST PFT IN 2009. DISCUSSED ABOUT HAVING A NEW PFT BUT USUAL SHE SAYS , NO FOR REPEAT PFT . CLINICALLY SHE HAS VERY MILD OBSTRUCTIVE AIRWAY DISORDER. TX : PROAIR 1 OR 2 PUFFS Q.6 HOURS P.R.N.. MAY USE MUCINEX 400 MG BID PRN , IF SHE FEELS THAT THERE IS SOME MUCUS DEEP IN CHEST Code(s): J44.9 - Chronic obstructive pulmonary disease, unspecified Qualifiers: COPD type: emphysema Emphysema type: panlobular Qualified Code(s): J43.1 - Panlobular emphysema Plan: Patient is on albuterol inhaler as well as Symbicort. (4) Hypothyroid: Code(s): E03.9 - Hypothyroidism, unspecified Qualifiers: Hypothyroidism type: acquired Qualified Code(s): E03.9 - Hypothyroidism, unspecified Plan: On Synthroid 100 mcg once a day (5) Hypercholesterolemia: Code(s): E78.00 - Pure hypercholesterolemia, unspecified Plan: Avoid fried foods, chicken skin, eggs, butter margarine, pastries and meat. Be it pork or beef they have a lot of cholesterol last blood work was done in November 2022 patient is reminded about blood work (6) B12 deficiency: Code(s): E53.8 - Deficiency of other specified B group vitamins Plan: Patient receives vitamin B12 intramuscular once a month Orders: Orders SARS-CoV2/FLU/RSV Today J43.1 - Panlobular emphysema XR chest 2V Today J47.9 - Bronchiectasis, uncomplicated Coding Level of Care Code Est Pt Level 4 (39575) Diagnoses Hypertension I10 Bronchiectasis without complication J47.9 Bronchiectasis type: uncomplicated Panlobular emphysema J43.1 COPD type: emphysema Emphysema type: panlobular Acquired hypothyroidism E03.9 Hypothyroidism type: acquired Hypercholesterolemia E78.00 B12 deficiency E53.8
== END 2024-02-17 11:25 | disposition home or self-care (01) ==
PROVIDERS: PCP Internal Medicine; Visit Provider Internal Medicine
DX: I10 Essential (primary) hypertension (principal); J47.9 Bronchiectasis, uncomplicated; J43.1 Panlobular emphysema; E03.9 Hypothyroidism, unspecified; E78.00 Pure hypercholesterolemia, unspecified; E53.8 Deficiency of other specified B group vitamins

== ENCOUNTER 2024-02-17 10:48 | Outpatient (REF) | payer MEDICARE, OTHER, SELFPAY ==
--- NOTE | ~2024-02-17 | XR_ITS ---
EXAMINATION: XR CHEST 2 VIEWS CLINICAL INFORMATION: Bronchiectasis. COMPARISON: Chest radiograph dated 12/30/2023. TECHNIQUE: Frontal and lateral views of the chest were obtained. FINDINGS: The heart, great vessels, pulmonary vasculature and mediastinum are normal. There is mild hyperinflation. The lungs show no focal infiltrate, effusion or pneumothorax. There is stable minimal lingular scar/subsegmental atelectasis. There is biapical pleural thickening. There is no acute osseous abnormality. There is a marked thoracic dextroscoliosis. XR/XR chest 2V IMPRESSION: 1. No focal infiltrate or congestive heart failure is seen. 2. There is minimal chronic lingular scar/subsegmental atelectasis. Electronically signed by: Ronaldo Osorio MD 02/17/2024 04:05 PM EDT
[2024-02-17 12:01] LABS: MANUAL DIFF FLAG NO
[2024-02-17 12:30] LABS: Basophils Absolute Auto 0.1 X10*3/uL (0.0-0.2); Basophils Percent Auto 0.6 % (0-2); Eosinophils Absolute Auto 0.3 X10*3/uL (0.0-0.4); Eosinophils Percent Auto 3.6 % (0-4); Hematocrit 35.4 % (37.0-47.0); Hemoglobin 11.8 g/dl (12.0-16.0); Imm Gran Abs Auto 0.03 X10*3/uL (0.00-0.03); Imm Gran Pct Auto 0.4 % (0.0-0.4); Lymphocytes Absolute Auto 1.3 X10*3/uL (1.2-4.9); Lymphocytes Percent Auto 16.1 % (20-40); Mean Corpuscular HGB Conc 33.3 g/dl (31.0-35.0); Mean Corpuscular Hemoglobin 28.4 pg (27.0-33.0); Mean Corpuscular Volume 85.1 fL (80.0-98.0); Mean Platelet Volume 8.5 fL (9.4-12.3); Monocytes Absolute Auto 0.6 X10*3/uL (0.1-1.2); Monocytes Percent Auto 8.3 % (2-11); Neutrophils Absolute Auto 5.5 x10*3/uL (2.0-8.3); Platelet Count 363 X10*3/uL (160-400); Red Blood Count 4.16 X10*6/uL (4.20-5.50); Red Cell Distribution Width 14.4 % (11.0-16.0); White Blood Count 7.8 X10*3/uL (4.8-10.8)
[2024-02-17 12:47] LABS: Influenza A PCR NEGATIVE (Negative); Influenza B PCR NEGATIVE (Negative); Resp Syncy Virus RNA Qual PCR NEGATIVE (Negative); SARS COV2 PCR INHOUSE NEGATIVE (Negative)
[2024-02-17 12:54] LABS: Appearance Urine Clear; Color Urine Yellow; Glucose Urine UA Negative (Negative); Leukocyte Esterase Urine Moderate (2+) (Negative); Nitrite Urine Negative (Negative); PH 6.5 (5.0-9.0); UMIC TRIGGER UACC YES; Urine Blood Negative (Negative); Urine Ketones Negative (Negative); Urine Protein Negative (Neg-Trace)
[2024-02-17 13:04] LABS: Bacteria Urine 1+ (None Seen); Hyaline Casts Urine 0-2 /LPF (0-2); RBC Urine 0-2 /HPF (0-2); UACC Culture Trigger YES
[2024-02-17 13:07] LABS: Alanine Aminotransferase 10 U/L (0-31); Albumin Level 4.1 g/dL (3.5-5.0); Alkaline Phosphatase 82 U/L (39-117); Anion Gap 12 (12-20); Aspartate Amino Transferase 19 U/L (5-31); Bilirubin Total 0.4 mg/dL (0.0-1.0); Blood Urea Nitrogen 7 mg/dL (9-16); Calcium 9.7 mg/dL (8.4-10.2); Carbon Dioxide 27 mmol/L (22-29); Chloride 104 mmol/L (96-108); Cholesterol 211 mg/dL (<200); Estimated Glomerular Filt Rate > 60; Glucose Random 90 mg/dL (60-115); HDL Cholesterol 75 mg/dL (>40); LDL Cholesterol Calculated 122 mg/dL (<100); Potassium 4.3 mmol/L (3.3-5.1); Sodium 139 mmol/L (135-145); Total Protein 7.3 g/dL (6.5-8.0); Triglycerides 72 mg/dL (<150)
[2024-02-17 13:25] LABS: Free T4 (Free Thyroxine) 1.49 ng/dL (0.71-1.85); Vitamin D 25-OH Total 39.5 ng/mL (>30)
[2024-02-17 13:31] LABS: Folate 7.4 ng/mL (> or = 4.0); Vitamin B12 554 pg/mL (200-900)
== END 2024-02-17 10:49 | disposition home or self-care (01) ==
LOC: HO.XRAY 10:48
PROVIDERS: PCP Internal Medicine; Visit Provider Internal Medicine
DX: I10 Essential (primary) hypertension (principal); J47.9 Bronchiectasis, uncomplicated; J43.1 Panlobular emphysema; E03.9 Hypothyroidism, unspecified; E78.00 Pure hypercholesterolemia, unspecified; E53.8 Deficiency of other specified B group vitamins; Z79.899 Other long term (current) drug therapy
CPT/HCPCS: 0241U; 71046; 80053; 80061; 81001; 82306; 82607; 82746; 84439; 84443; 85025; 87086; 99212

== ENCOUNTER 2024-03-02 13:24 | Outpatient (AMB) | payer MEDICARE, OTHER, SELFPAY ==
--- NOTE | 2024-03-02 13:47 | AM.OFFVISNUR ---
Intake Visit Reasons: B12 shot Allergies codeine [CODEINE] Allergy (Unknown, Verified 02/17/24 10:53) GI UPSET levofloxacin [From LEVAQUIN] Allergy (Unknown, Verified 02/17/24 10:53) STOMACH UPSET pneumococcal vaccine Allergy (Unknown, Verified 02/17/24 10:53) unknown shellfish derived [SHELLFISH DERIVED] Allergy (Unknown, Verified 02/17/24 10:53) RASH Office Meds cyanocobalamin (vitamin B-12) 1,000 mcg/mL injection solution Performing Provider: Feli Rm MD [facility] [place] [facility] Administered by: Gabi Atkins LPN on 03/02/24 13:47 Dose Route Admin Location Dispensed Lot Number Expiration Date [facility] [place] Immersion Metal Cleaner 1,000 mcg IM left deltoid 1 mL [id number] 01/23/25 84852-367-31 [employer]OSIAS [employer]ARMACEUT Assessment & Plan Assessment & Plan Orders: Orders AMB Vitamin B12 Injection Patient Supplied Today E53.8 - Deficiency of other specified B group vitamins Medications: New cyanocobalamin (vitamin B-12) 1,000 mcg IM ONCE 1 mL 0RF E53.8 - Deficiency of other specified B group vitamins
== END 2024-03-02 13:31 | disposition home or self-care (01) ==
PROVIDERS: PCP Internal Medicine; Visit Provider Internal Medicine
DX: E53.8 Deficiency of other specified B group vitamins (principal)
CPT/HCPCS: J3420

== ENCOUNTER → 2024-03-02 13:24 | Outpatient (BNVA) | payer MEDICARE, OTHER, SELFPAY | PROVIDERS: PCP Internal Medicine; Visit Provider Internal Medicine | DX: E53.8 Deficiency of other specified B group vitamins (principal) | CPT/HCPCS: 96372 ==

== ENCOUNTER 2024-03-11 09:44 | Outpatient (REF) | payer MEDICARE, OTHER, SELFPAY ==
--- NOTE | ~2024-03-11 | XR_ITS ---
EXAMINATION: XR CHEST CLINICAL INFORMATION: Bronchiectasis. COMPARISON: Chest x-ray dated February 17, 2024. Chest CT dated June 18, 2022. TECHNIQUE: PA and lateral views of the chest were obtained. FINDINGS: Bibasilar bronchiectasis with superimposed patchy density suggesting fibrotic streaks and/or infiltrates, right worse than left, grossly similar compared with August 30, 2022. No effusion or pneumothorax identified. Mild biapical fibrotic changes. Heart normal in size. S-shaped scoliosis, convex to the right in the thorax. XR/XR chest 2V IMPRESSION: Findings as above. Electronically signed by: Costa Marina MD 03/11/2024 03:51 PM EDT
--- NOTE | 2024-03-11 10:42 | ECG_ITS ---
Test Reason : I43.1 Blood Pressure : / mmHG Vent. Rate : 059 BPM Atrial Rate : 059 BPM P-R Int : 146 ms QRS Dur : 080 ms QT Int : 404 ms P-R-T Axes : 070 015 050 degrees QTc Int : 399 ms Sinus bradycardia Nonspecific ST abnormality Abnormal ECG When compared with ECG of 04-OCT-2015 21:07, No significant changes seen Referred By: Feli Rm Electronically Signed By:ARSALAN RAMIREZ
[2024-03-11 12:15] LABS: Appearance Urine Clear; Color Urine Yellow; Glucose Urine UA Negative (Negative); Leukocyte Esterase Urine Small (1+) (Negative); Nitrite Urine Negative (Negative); Specific Gravity - Urine 1.015 (1.005-1.025); UMIC TRIGGER UACC YES; Urine Blood Negative (Negative); Urine Ketones Negative (Negative); Urine Protein Negative (Neg-Trace)
[2024-03-11 12:29] LABS: Bacteria Urine Trace (None Seen); Hyaline Casts Urine 0-2 /LPF (0-2); RBC Urine 0-2 /HPF (0-2); UACC Culture Trigger YES
[2024-03-11 13:00] LABS: Free T4 (Free Thyroxine) 1.46 ng/dL (0.71-1.85); Thyroid Stimulating Hormone 0.19 uIU/mL (0.32-4.0)
== END 2024-03-11 09:45 | disposition home or self-care (01) ==
LOC: HO.LAB 09:44
PROVIDERS: PCP Internal Medicine; Visit Provider Internal Medicine
DX: J43.1 Panlobular emphysema (principal); J47.9 Bronchiectasis, uncomplicated; E03.9 Hypothyroidism, unspecified; R10.13 Epigastric pain; N39.0 Urinary tract infection, site not specified
CPT/HCPCS: 0241U; 71046; 81001; 81003; 84439; 84443; 87086; 93005; 99212

== ENCOUNTER 2024-03-11 09:44 | Outpatient (AMB) | payer MEDICARE, OTHER, SELFPAY ==
[2024-03-11 09:45] VITALS: BP 154/82; PULSE 62; O2SAT 97; BMI 20.8
--- NOTE | 2024-03-11 09:45 | A.OFFPC_ITS ---
Vital Signs 03/11/24 09:45 Height 5 ft 2 in Weight 114 lb BMI 20.8 BP 154/82 H Blood Pressure Location Lt brachial Position Sitting Pulse 62 Pulse Source Pulse Oximeter Pulse Oximetry (%) 97 Oxygen Delivery Method Room Air Intake Visit Reasons: Abdomen Xray Request Jackhammer Splitter Operator Required: No Allergies codeine [CODEINE] Allergy (Unknown, Verified 03/11/24 09:49) GI UPSET levofloxacin [From LEVAQUIN] Allergy (Unknown, Verified 03/11/24 09:49) STOMACH UPSET pneumococcal vaccine Allergy (Unknown, Verified 03/11/24 09:49) unknown shellfish derived [SHELLFISH DERIVED] Allergy (Unknown, Verified 03/11/24 09:49) RASH Tobacco use date assessed: 10/08/23 Fall risk assessment: No Falls in past year Last assessed Fall Risk: 03/11/24 Dental Screening Dental Screen Date: 02/17/24 HPI Abdomen Xray Request HPI Details 83-year-old female with a history of bro nchiectasis hypertension COPD hypothyroid hypercholesterolemia coming in for an acute problem last seen on the 16 of February. Patient called in recently because of a cough and was asking for a chest x-ray. Done February 16No focal infiltrate or congestive heart failure is seen. 2. There is minimal chronic lingular sca r/subsegmental atelectasis. Blood work was done showing mild anemia and low TSH. [facility] Medical History (Updated 03/11/24 @ 10:12 by Feli Rm MD) Blood pressure elevated without history of HTN Screening for breast cancer Post-menopausal Pneumonia Viral upper respiratory tract infection with cough Encounter for subsequent annual wellness visit (AWV) in Medicare patient Chest pain SOB (shortness of breath) Headache Colonoscopy refused COPD (chronic obstructive pulmonary disease) Recurrent sinus infections Breast asymmetry Uterine cancer Bronchiectasis Pernicious anemia Peripheral neuropathy Lumbar degenerative disc disease Hypercholesterolemia Vitamin D deficiency Pulmonary nodule Hypothyroid Surgical History History of total abdominal hysterectomy and bilateral salpingo-oophorectomy History of lumpectomy of right breast History of appendectomy Family History Father CVD (cardiovascular disease) Mother Cancer Social History Housing: House Alcohol intake: never Patient Tobacco Use Status: Never used Tobacco e-Cigarette/Vaping Use: Never Used Second Hand Smoke Exposure: No service: No Current occupational status: unemployed Cognitive needs: No Hearing needs: No Vision needs: Yes (reading glasses) Questionnaire Thrive Questionnaire Date Thrive assessed: 07/19/23 I am a: Patient What is your living situation today?: I have a steady place to live Within the past 12 months, did the food you bought not last and you didn't have the money to get more?: Never true Within the past 12 months, did you worry whether your food would run out before you got money to buy more?: Never true Do you have trouble paying for medicines?: No Do you have trouble getting transportation to medical appointments?: No Do you have trouble paying your heating and electricity bill?: No Do you have trouble taking care of your child, family member or friend?: No Do you have trouble with day-to-day activities such as bathing, preparing meals, shopping, managing finances, etc.?: No Are you currently unemployed and looking for a job?: Yes Are you interested in more education?: No Please select the resources that you would like help with: None Currently or been in a relationship where the following occur: No concerns reported THRIVE Score: 0 AUDIT C Alcohol Use Questionnaire (AUDIT-C) 1. How often do you have a drink containing alcohol?: Never 3. How often do you have six or more drinks on one occasion?: Never Total Score: 0 Score Reviewed/Action Taken: No DANIEL-7 AMB Questionnaire DANIEL-7 Date DANIEL - 7 assessed: 07/19/23 Source: Developed by Drs. Lobo Lopez, Lucie Mckinley, Nima Holland and colleagues, with an educational kourtney from [employer]. Physical exam (Primary Care) Vital Signs: Oxygen Delivery Method Room Air 03/11/24 09:45 BMI result Body Mass Index 20.8 Tobacco/Smoking Status: Tobacco use Status Tobacco use date assessed 10/08/23 03/11/24 09:46 Patient Tobacco Use Status Never used Tobacco 03/11/24 09:46 e-Cigarette/Vaping Use Never Used 03/11/24 09:46 Thrive Assessment: Date of Thrive Assessment Date Thrive assessed 07/19/23 03/11/24 09:46 Currently or been in a relationship where the following occur: No concerns reported Const General: alert; No acute distress Eyes Conjunctivae: conjunctivae normal Resp Auscultation: clear to auscultation bilaterally Cardio Rate: regular rate Rhythm: regular rhythm GI Other: Vague tenderness on the right upper quadrant left lower quadrant then left upper quadrant. But no rebound and no guarding noted. Soft Extrem General: Yes normal to inspection and No edema Coding Level of Care Code Est Pt Level 4 (51592) Diagnoses Panlobular emphysema J43.1 COPD type: emphysema Emphysema type: panlobular Bronchiectasis without complication J47.9 Bronchiectasis type: uncomplicated Acquired hypothyroidism E03.9 Hypothyroidism type: acquired Epigastric pain R10.13 Urinary tract infection without hematuria, site unspecified N39.0 Urinary tract infection type: site unspecified Hematuria presence: without hematuria Assessment & Plan Assessment & Plan (1) COPD (chronic obstructive pulmonary disease): Comment: HAS VERY MILD DEGREE OF OBSTRUCTIVE AIRWAY DISORDER, PER LAST PFT IN 2009. DISCUSSED ABOUT HAVING A NEW PFT BUT USUAL SHE SAYS , NO FOR REPEAT PFT . CLINICALLY SHE HAS VERY MILD OBSTRUCTIVE AIRWAY DISORDER. TX : PROAIR 1 OR 2 PUFFS Q.6 HOURS P.R.N.. MAY USE MUCINEX 400 MG BID PRN , IF SHE FEELS THAT THERE IS SOME MUCUS DEEP IN CHEST Code(s): J44.9 - Chronic obstructive pulmonary disease, unspecified Category: Medical Qualifiers: COPD type: emphysema Emphysema type: panlobular Qualified Code(s): J43.1 - Panlobular emphysema Plan: Presently to continue with albuterol inhaler and on Symbicort. (2) Bronchiectasis: Comment: MILD, CHRONIC BRONCHIECTASIS IN RT MIDDLE LOBE AND LINGULA . MAY NEED A COURSE OF Z-BATSHEVA , PRN FOR RESP. INFECTION . Code(s): J47.9 - Bronchiectasis, uncomplicated Category: Medical Qualifiers: Bronchiectasis type: uncomplicated Qualified Code(s): J47.9 - Bronchiectasis, uncomplicated Plan: Supportive treatment chest x-ray was negative (3) Hypothyroid: Code(s): E03.9 - Hypothyroidism, unspecified Category: Medical Qualifiers: Hypothyroidism type: acquired Qualified Code(s): E03.9 - Hypothyroidism, unspecified Plan: Clarified with the patient that on my does Synthroid has been decreased to 100 mcg and will need to retest TSH (4) Epigastric pain: Code(s): R10.13 - Epigastric pain Category: Medical Plan: Ordered for an ultrasound of the abdomen done (5) UTI (urinary tract infection): Code(s): N39.0 - Urinary tract infection, site not specified Category: Medical Qualifiers: Urinary tract infection type: site unspecified Hematuria presence: without hematuria Qualified Code(s): N39.0 - Urinary tract infection, site not specified Plan: Patient is requested to have another urinalysis. Orders: Orders US abdomen complete Today R10.13 - Epigastric pain, R79.89 - Other specified abnormal findings of blood chemistry ECG 12 lead EKG Today J43.1 - Panlobular emphysema UA CC w/rflx Micro + Cult Today N39.0 - Urinary tract infection, site not specified, R30.0 - Dysuria
== END 2024-03-11 10:13 | disposition home or self-care (01) ==
PROVIDERS: PCP Internal Medicine; Visit Provider Internal Medicine
DX: J43.1 Panlobular emphysema (principal); J47.9 Bronchiectasis, uncomplicated; E03.9 Hypothyroidism, unspecified; R10.13 Epigastric pain; N39.0 Urinary tract infection, site not specified

== ENCOUNTER → 2024-03-11 10:42 | Outpatient (BNV) | payer MEDICARE, OTHER, SELFPAY | PROVIDERS: PCP Internal Medicine; Visit Provider Internal Medicine | DX: R94.31 Abnormal electrocardiogram [ECG] [EKG] (principal) | CPT/HCPCS: 93010 ==

== ENCOUNTER 2024-03-19 10:05 | Outpatient (REF) | payer MEDICARE, OTHER, SELFPAY ==
--- NOTE | ~2024-03-19 | US_ITS ---
EXAMINATION: US ABDOMEN COMPLETE CLINICAL INFORMATION: Other specified abnormal findings of blood chemistry. COMPARISON: Ultrasound abdomen 09/12/2006. TECHNIQUE: Real-time imaging of the abdominal viscera. Technically difficult study secondary to body habitus. FINDINGS: PANCREAS: Not well visualized mostly obscured by bowel gas. ABDOMINAL AORTA: Visualized portion normal, not well seen segmentally obscured by bowel gas. INFERIOR VENA CAVA: Visualized portions are normal. LIVER: Normal. The liver is normal in size. The liver contour is normal. Parenchymal echogenicity is normal. No focal hepatic lesion. There is no intrahepatic biliary duct dilatation seen. GALLBLADDER: Normal. The gallbladder is physiologically distended without evidence of stones, sludge, polyps, wall thickening or pericholecystic fluid. COMMON BILE DUCT: Normal in caliber measuring 0.4 cm in diameter. RIGHT KIDNEY: Normal. No hydronephrosis. No renal calculi or focal parenchymal lesions. The kidney measures 8.0 cm in maximum dimension. LEFT KIDNEY: Normal. No hydronephrosis. No renal calculi or focal parenchymal lesions. The kidney measures 8.5 cm in maximum dimension. SPLEEN: The spleen measures 6.5 cm in maximum dimension. FREE FLUID: None. US/US abdomen complete IMPRESSION: 1. No ultrasound evidence of intra or extrahepatic biliary dilatation. 2. Pancreas not well visualized obscured by bowel gas. 3. Exam otherwise normal. Electronically signed by: Sy Barreto MD 04/12/2024 06:55 PM EST
== END 2024-03-19 10:06 | disposition home or self-care (01) ==
LOC: HO.US 10:05
PROVIDERS: PCP Internal Medicine; Visit Provider Internal Medicine
DX: R10.13 Epigastric pain (principal); R79.89 Other specified abnormal findings of blood chemistry
CPT/HCPCS: 76700

== ENCOUNTER 2024-03-30 13:28 | Outpatient (AMB) | payer MEDICARE, OTHER, SELFPAY ==
--- NOTE | 2024-03-30 13:38 | AM.OFFVISNUR ---
Intake Visit Reasons: B12 Shot Allergies codeine [CODEINE] Allergy (Unknown, Verified 03/11/24 09:49) GI UPSET levofloxacin [From LEVAQUIN] Allergy (Unknown, Verified 03/11/24 09:49) STOMACH UPSET pneumococcal vaccine Allergy (Unknown, Verified 03/11/24 09:49) unknown shellfish derived [SHELLFISH DERIVED] Allergy (Unknown, Verified 03/11/24 09:49) RASH Office Meds cyanocobalamin (vitamin B-12) 1,000 mcg/mL injection solution Performing Provider: Feli Rm MD [facility] [place] [facility] Administered by: Gabi Atkins LPN on 03/30/24 13:38 Dose Route Admin Location Dispensed Lot Number Expiration Date [facility] Portfolio Lead 1,000 mcg IM left deltoid 1 mL [id number] 02/23/25 89347-149-66 [employer] Assessment & Plan Assessment & Plan Orders: Orders AMB Vitamin B12 Injection Practice Supplied Today D51.0 - Vitamin B12 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
== END 2024-03-30 13:36 | disposition home or self-care (01) ==
LOC: HO.HMCH 13:28
PROVIDERS: PCP Internal Medicine; Visit Provider Internal Medicine
DX: D51.0 Vitamin B12 deficiency anemia due to intrinsic factor deficiency (principal)

== ENCOUNTER → 2024-03-30 13:28 | Outpatient (BNVA) | payer MEDICARE, OTHER, SELFPAY | PROVIDERS: PCP Internal Medicine; Visit Provider Internal Medicine | DX: D51.0 Vitamin B12 deficiency anemia due to intrinsic factor deficiency (principal) | CPT/HCPCS: 96372; J3420 ==

== ENCOUNTER → 2024-04-03 14:10 | Outpatient (AMB) | payer MEDICARE, OTHER, SELFPAY ==
--- NOTE | 2024-04-03 14:12 | MHC.PC.OV ---
Intake Visit Reasons: Per Dr Rm Allergies codeine [CODEINE] Allergy (Unknown, Verified 04/03/24 14:12) GI UPSET levofloxacin [From LEVAQUIN] Allergy (Unknown, Verified 04/03/24 14:12) STOMACH UPSET pneumococcal vaccine Allergy (Unknown, Verified 04/03/24 14:12) unknown shellfish derived [SHELLFISH DERIVED] Allergy (Unknown, Verified 04/03/24 14:12) RASH Tobacco use date assessed: 10/08/23 Fall risk assessment: No Falls in past year Last assessed Fall Risk: 04/03/24 Dental Screening Dental Screen Date: 02/17/[address] Rm HPI Details 83-year-old female with bronchiectasis hypothyroid hypercholesterolemia COPD calling in through Telehealth. [facility] Medical History (Updated 03/11/24 @ 10:12 by Feli Rm MD) Blood pressure elevated without history of HTN Screening for breast cancer Post-menopausal Pneumonia Viral upper respiratory tract infection with cough Encounter for subsequent annual wellness visit (AWV) in Medicare patient Chest pain SOB (shortness of breath) Headache Colonoscopy refused COPD (chronic obstructive pulmonary disease) Recurrent sinus infections Breast asymmetry Uterine cancer Bronchiectasis Pernicious anemia Peripheral neuropathy Lumbar degenerative disc disease Hypercholesterolemia Vitamin D deficiency Pulmonary nodule Hypothyroid Surgical History History of total abdominal hysterectomy and bilateral salpingo-oophorectomy History of lumpectomy of right breast History of appendectomy Family History Father CVD (cardiovascular disease) Mother Cancer Social History Housing: House Alcohol intake: never Patient Tobacco Use Status: Never used Tobacco Tobacco use type: Cigarette e-Cigarette/Vaping Use: Never Used Second Hand Smoke Exposure: No service: No Current occupational status: unemployed Cognitive needs: No Hearing needs: No Vision needs: Yes (reading glasses) Questionnaire Thrive Questionnaire Date Thrive assessed: 07/19/23 DANIEL-7 AMB Questionnaire DANIEL-7 Date DANIEL - 7 assessed: 07/19/23 Source: Developed by Drs. Lobo Lopez, Lucie Mckinley, Nima Holland and colleagues, with an educational kourtney from [employer]. Physical exam (Primary Care) Tobacco/Smoking Status: Tobacco use Status Tobacco use date assessed 10/08/23 04/03/24 14:13 Patient Tobacco Use Status Never used Tobacco 04/03/24 14:13 Tobacco use type Cigarette 04/03/24 14:13 e-Cigarette/Vaping Use Never Used 04/03/24 14:13 Thrive Assessment: Date of Thrive Assessment Date Thrive assessed 07/19/23 04/03/24 14:13 Telehealth Telehealth Location of provider rendering services: practice address Location of patient: address on file Patient Identification confirmed using: Name, : Yes Telehealth method: voice only Patient verbally consented to treatment: Yes Patient verbally consented to billing insurance company: Yes Patient informed of any privacy concerns related to visit: Yes Minutes spent on Phone/Video with Pt.: 15 Coding Level of Care Code Tele Est Pt Level 3 (86794) Diagnoses Bronchiectasis without complication J47.9 Bronchiectasis type: uncomplicated Assessment & Plan Assessment & Plan (1) Bronchiectasis: Comment: MILD, CHRONIC BRONCHIECTASIS IN RT MIDDLE LOBE AND LINGULA . MAY NEED A COURSE OF Z-BATSHEVA , PRN FOR RESP. INFECTION . Code(s): J47.9 - Bronchiectasis, uncomplicated Category: Medical Qualifiers: Bronchiectasis type: uncomplicated Qualified Code(s): J47.9 - Bronchiectasis, uncomplicated Plan: Patient declines wanting to see pulmonary. coughing spell again and asking for the antibiotic. Prescription sent patient also feels tight and would want to have steroids. Medications: New prednisone 10 mg PO DAILY 7 tabs 0RF J47.9 - Bronchiectasis, uncomplicated Refilled azithromycin (Zithromax) For 250 mg dose pack: take 500 mg today (day 1), then 250 mg for 4 days (days 2-5) PO 6 tabs 0RF J47.9 - Bronchiectasis, uncomplicated
== END ==
LOC: HO.HMCH 14:10
PROVIDERS: PCP Internal Medicine; Visit Provider Internal Medicine
DX: J47.9 Bronchiectasis, uncomplicated (principal)

== ENCOUNTER → 2024-04-03 14:10 | Outpatient (BNVA) | payer MEDICARE, OTHER, SELFPAY | PROVIDERS: PCP Internal Medicine; Visit Provider Internal Medicine ==

== ENCOUNTER 2024-04-17 15:18 | Outpatient (AMB) | payer MEDICARE, OTHER, SELFPAY ==
--- NOTE | 2024-04-17 15:30 | MHC.PC.OV ---
Vital Signs 04/17/24 15:31 Height 5 ft 2 in Weight 113 lb 8 oz BMI 20.8 BP 138/72 Blood Pressure Location Lt brachial Position Sitting Pulse 68 Pulse Source Pulse Oximeter Pulse Oximetry (%) 97 Oxygen Delivery Method Room Air Intake Visit Reasons: Memory Clinic Notes Intake Note: Patient is here to follow up on Memory Clinic. [employer] Required: No Traveling Electrician: Not Required per policy Accompanied by: Self / Same As Patient Allergies codeine [CODEINE] Allergy (Unknown, Verified 04/17/24 15:31) GI UPSET levofloxacin [From LEVAQUIN] Allergy (Unknown, Verified 04/17/24 15:31) STOMACH UPSET pneumococcal vaccine Allergy (Unknown, Verified 04/17/24 15:31) unknown shellfish derived [SHELLFISH DERIVED] Allergy (Unknown, Verified 04/17/24 15:31) RASH Tobacco use date assessed: 04/17/24 Fall risk assessment: No Falls in past year Last assessed Fall Risk: 04/17/24 Dental Screening Dental Screen Date: 02/17/24 HPI Memory Clinic Notes HPI Details 83-year-old female with a history of hypothyroid, hypercholesterolemia bronchiectasis with COPD lumbar degenerative disc disease generalized anxiety disorder hypertension coming in for follow-up. Last spoken with through Telehealth in 04/15/2024. Concern about cognitive impairment and is here for follow-up. Referral to neuropsychiatric clinic has been done. complains of having confusion and reasons that she is sick at that time but family is concerned [facility] Medical History (Updated 04/09/24 @ 10:18 by Feli Rm MD) Blood pressure elevated without history of HTN Screening for breast cancer Post-menopausal Pneumonia Viral upper respiratory tract infection with cough Encounter for subsequent annual wellness visit (AWV) in Medicare patient Chest pain SOB (shortness of breath) Headache Colonoscopy refused COPD (chronic obstructive pulmonary disease) Recurrent sinus infections Breast asymmetry Uterine cancer Bronchiectasis Pernicious anemia Peripheral neuropathy Lumbar degenerative disc disease Hypercholesterolemia Vitamin D deficiency Pulmonary nodule Hypothyroid Surgical History History of total abdominal hysterectomy and bilateral salpingo-oophorectomy History of lumpectomy of right breast History of appendectomy Family History Father CVD (cardiovascular disease) Mother Cancer Social History Housing: House Alcohol intake: never Patient Tobacco Use Status: Never used Tobacco Tobacco use type: Cigarette e-Cigarette/Vaping Use: Never Used Second Hand Smoke Exposure: No service: No Current occupational status: unemployed Cognitive needs: No Hearing needs: No Vision needs: Yes (reading glasses) Questionnaire Thrive Questionnaire Date Thrive assessed: 07/19/23 Are you currently unemployed and looking for a job?: Yes DANIEL-7 AMB Questionnaire DANIEL-7 Date DANIEL - 7 assessed: 07/19/23 Source: Developed by Drs. Lobo Lopez, Lucie Mckinley, Nima Holland and colleagues, with an educational kourtney from [employer]. Physical exam (Primary Care) Vital Signs: Last Vital Signs Pulse 68 04/17/24 15:31 BP 138/72 04/17/24 15:31 Pulse Ox 97 04/17/24 15:31 Oxygen Delivery Method Room Air 04/17/24 15:31 BMI result Body Mass Index 20.8 Tobacco/Smoking Status: Tobacco use Status Tobacco use date assessed 04/17/24 04/17/24 15:36 Patient Tobacco Use Status Never used Tobacco 04/17/24 15:36 Tobacco use type Cigarette 04/17/24 15:36 e-Cigarette/Vaping Use Never Used 04/17/24 15:36 Thrive Assessment: Date of Thrive Assessment Date Thrive assessed 07/19/23 04/17/24 15:36 Coding Level of Care Code Est Pt Level 4 (47694) Diagnoses Cognitive impairment R41.89 Bronchiectasis without complication J47.9 Bronchiectasis type: uncomplicated Acquired hypothyroidism E03.9 Hypothyroidism type: acquired Assessment & Plan Assessment & Plan (1) Cognitive impairment: Code(s): R41.89 - Other symptoms and signs involving cognitive functions and awareness Category: Medical Plan: MMS done again today and - advised the need for formalized testing. memory clinic referral done. Advised patient to have the CT scan done then neurology referral also (2) Bronchiectasis: Comment: MILD, CHRONIC BRONCHIECTASIS IN RT MIDDLE LOBE AND LINGULA . MAY NEED A COURSE OF Z-BATSHEVA , PRN FOR RESP. INFECTION . Code(s): J47.9 - Bronchiectasis, uncomplicated Category: Medical Qualifiers: Bronchiectasis type: uncomplicated Qualified Code(s): J47.9 - Bronchiectasis, uncomplicated Plan: Presently stable continuing with inhalers as needed (3) Hypothyroid: Code(s): E03.9 - Hypothyroidism, unspecified Category: Medical Qualifiers: Hypothyroidism type: acquired Qualified Code(s): E03.9 - Hypothyroidism, unspecified Plan: Will need to retest as that TSH was very low the last time. Orders: Orders CT head/brain wo IV con Today R41.89 - Other symptoms and signs involving cognitive functions and awareness Complete Blood Count Auto Diff Today E03.9 - Hypothyroidism, unspecified Comprehensive Met. Panel Today E03.9 - Hypothyroidism, unspecified Free T4 (Free Thyroxine) Today E03.9 - Hypothyroidism, unspecified Thyroid Stimulating Hormone Today E03.9 - Hypothyroidism, unspecified Lipid Panel Today E03.9 - Hypothyroidism, unspecified, E78.00 - Pure hypercholesterolemia, unspecified Vitamin D 25-OH Total Today E03.9 - Hypothyroidism, unspecified Magnesium Today E03.9 - Hypothyroidism, unspecified Vitamin B12 and Folate Today E03.9 - Hypothyroidism, unspecified UA CC w/rflx Micro + Cult Today E03.9 - Hypothyroidism, unspecified, R30.0 - Dysuria Referrals Neurology Referral R41.89 - Other symptoms and signs involving cognitive functions and awareness
[2024-04-17 15:31] VITALS: BP 138/72; PULSE 68; O2SAT 97; BMI 20.8
== END 2024-04-17 16:02 | disposition home or self-care (01) ==
PROVIDERS: PCP Internal Medicine; Visit Provider Internal Medicine
DX: R41.89 Other symptoms and signs involving cognitive functions and awareness (principal); J47.9 Bronchiectasis, uncomplicated; E03.9 Hypothyroidism, unspecified

== ENCOUNTER → 2024-04-17 15:18 | Outpatient (BNVA) | payer MEDICARE, OTHER, SELFPAY | PROVIDERS: PCP Internal Medicine; Visit Provider Internal Medicine | DX: R41.89 Other symptoms and signs involving cognitive functions and awareness (principal) | CPT/HCPCS: 99212 ==

== ENCOUNTER 2024-04-21 16:00 | Outpatient (AMB) | payer MEDICARE, OTHER, SELFPAY ==
--- NOTE | 2024-04-21 16:00 | A.OFFPC_ITS ---
Intake Visit Reasons: Per Dr Rm Allergies codeine [CODEINE] Allergy (Unknown, Verified 04/21/24 16:00) GI UPSET levofloxacin [From LEVAQUIN] Allergy (Unknown, Verified 04/21/24 16:00) STOMACH UPSET pneumococcal vaccine Allergy (Unknown, Verified 04/21/24 16:00) unknown shellfish derived [SHELLFISH DERIVED] Allergy (Unknown, Verified 04/21/24 16:00) RASH Tobacco use date assessed: 04/17/24 Dental Screening Dental Screen Date: 02/17/[address] Rm HPI Details 83-year-old female with a history of hyp othyroid, hypercholesterolemia pernicious anemia bronchiectasis/COPD calling in through Telehealth. Last seen in April 17 2024 last antibiotic given was in April 03. Patient again continues to have a cough and with her bronchiectasis problem was offered doxycycline but she declined this and would like to have the Zithromax. Meanwhile patient is concerned because she has been referred to Neurology for a more formal testing of her memory. Explained to her twice that with her memory probably needs a formal testing. [facility] Medical History (Updated 04/09/24 @ 10:18 by Feli Rm MD) Blood pressure elevated without history of HTN Screening for breast cancer Post-menopausal Pneumonia Viral upper respiratory tract infection with cough Encounter for subsequent annual wellness visit (AWV) in Medicare patient Chest pain SOB (shortness of breath) Headache Colonoscopy refused COPD (chronic obstructive pulmonary disease) Recurrent sinus infections Breast asymmetry Uterine cancer Bronchiectasis Pernicious anemia Peripheral neuropathy Lumbar degenerative disc disease Hypercholesterolemia Vitamin D deficiency Pulmonary nodule Hypothyroid Surgical History History of total abdominal hysterectomy and bilateral salpingo-oophorectomy History of lumpectomy of right breast History of appendectomy Family History Father CVD (cardiovascular disease) Mother Cancer Social History Housing: House Alcohol intake: never Patient Tobacco Use Status: Never used Tobacco Tobacco use type: Cigarette e-Cigarette/Vaping Use: Never Used Second Hand Smoke Exposure: No service: No Current occupational status: unemployed Cognitive needs: No Hearing needs: No Vision needs: Yes (reading glasses) Questionnaire Thrive Questionnaire Date Thrive assessed: 07/19/23 DANIEL-7 AMB Questionnaire DANIEL-7 Date DANIEL - 7 assessed: 07/19/23 Source: Developed by Drs. Lobo Lopez, Lucie Mckinley, Nima Holland and colleagues, with an educational kourtney from [employer]. Physical exam (Primary Care) Tobacco/Smoking Status: Tobacco use Status Tobacco use date assessed 04/17/24 04/21/24 16:02 Patient Tobacco Use Status Never used Tobacco 04/21/24 16:02 Tobacco use type Cigarette 04/21/24 16:02 e-Cigarette/Vaping Use Never Used 04/21/24 16:02 Thrive Assessment: Date of Thrive Assessment Date Thrive assessed 07/19/23 04/21/24 16:02 Telehealth Telehealth Location of provider rendering services: practice address Location of patient: address on file Patient Identification confirmed using: Name, : Yes Telehealth method: voice only Patient verbally consented to treatment: Yes Patient verbally consented to billing insurance company: Yes Patient informed of any privacy concerns related to visit: Yes Minutes spent on Phone/Video with Pt.: 15 Coding Level of Care Code Tele Est Pt Level 3 (84278) Diagnoses Bronchiectasis without complication J47.9 Bronchiectasis type: uncomplicated Assessment & Plan Assessment & Plan (1) Bronchiectasis: Comment: MILD, CHRONIC BRONCHIECTASIS IN RT MIDDLE LOBE AND [place]A . MAY NEED A COURSE OF Z-BATSHEVA , PRN FOR RESP. INFECTION . Code(s): J47.9 - Bronchiectasis, uncomplicated Category: Medical Qualifiers: Bronchiectasis type: uncomplicated Qualified Code(s): J47.9 - Bronchiectasis, uncomplicated Plan: antibiotic zithromax is prescribed again- declined doxycycline Medications: Refilled azithromycin (Zithromax) For 250 mg dose pack: take 500 mg today (day 1), then 250 mg for 4 days (days 2-5) PO 6 tabs 0RF J47.9 - Bronchiectasis, uncomplicated
== END 2024-04-21 17:26 | disposition home or self-care (01) ==
LOC: HO.HMCH 16:00
PROVIDERS: PCP Internal Medicine; Visit Provider Internal Medicine
DX: J47.9 Bronchiectasis, uncomplicated (principal)

== ENCOUNTER 2024-04-27 13:20 | Outpatient (AMB) | payer MEDICARE, OTHER, SELFPAY ==
--- NOTE | 2024-04-27 13:36 | AM.OFFVISNUR ---
Intake Visit Reasons: b-12 Allergies codeine [CODEINE] Allergy (Unknown, Verified 04/21/24 16:00) GI UPSET levofloxacin [From LEVAQUIN] Allergy (Unknown, Verified 04/21/24 16:00) STOMACH UPSET pneumococcal vaccine Allergy (Unknown, Verified 04/21/24 16:00) unknown shellfish derived [SHELLFISH DERIVED] Allergy (Unknown, Verified 04/21/24 16:00) RASH Office Meds cyanocobalamin (vitamin B-12) 1,000 mcg/mL injection solution Performing Provider: Feli Rm MD [facility] [place] [facility] Administered by: Gabi Atkins LPN on 04/27/24 13:36 Dose Route Admin Location Dispensed Lot Number Expiration Date [facility] Mica Paster 1,000 mcg IM left deltoid 1 mL [id number] 10/23/25 63390-520-14 [employer] Assessment & Plan Assessment & Plan Orders: Orders AMB Vitamin B12 Injection Patient Supplied Today E53.8 - Deficiency of other specified B group vitamins Medications: New cyanocobalamin (vitamin B-12) 1,000 mcg IM ONCE 1 mL 0RF E53.8 - Deficiency of other specified B group vitamins
== END 2024-04-27 13:32 | disposition home or self-care (01) ==
LOC: HO.HMCH 13:20
PROVIDERS: PCP Internal Medicine; Visit Provider Internal Medicine
DX: E53.8 Deficiency of other specified B group vitamins (principal)

== ENCOUNTER → 2024-04-27 13:20 | Outpatient (BNVA) | payer MEDICARE, OTHER, SELFPAY | PROVIDERS: PCP Internal Medicine; Visit Provider Internal Medicine | DX: E53.8 Deficiency of other specified B group vitamins (principal) | CPT/HCPCS: 96372; J3420 ==

== ENCOUNTER 2024-05-08 13:52 | Outpatient (REF) | payer MEDICARE, OTHER, SELFPAY ==
--- NOTE | ~2024-05-08 | XR_ITS ---
EXAMINATION: XR CHEST CLINICAL INFORMATION: R05.9 - Cough, unspecified COMPARISON: Chest radiograph 03/11/2024, chest CT 06/18/2022 TECHNIQUE: PA and lateral views of the chest were obtained. FINDINGS: The lungs are hyperexpanded. Stable right perihilar bronchiectasis, similar to appearance on CT 06/18/2022. Right greater than left biapical pleural parenchymal scarring, as before. No dense focal consolidation, pleural effusion, pulmonary edema or pneumothorax. The cardiomediastinal silhouette is within normal limits for technique and unchanged. No acute osseous abnormality. S-shaped thoracic lumbar scoliosis again seen. XR/XR chest 2V IMPRESSION: 1. No acute pulmonary disease. 2. Stable right perihilar bronchiectasis, similar to appearance on CT 06/18/2022. Electronically signed by: Nany Tierney DO 05/08/2024 04:51 PM [facility]
== END 2024-05-08 13:53 | disposition home or self-care (01) ==
LOC: HO.XRAY 13:52
PROVIDERS: PCP Internal Medicine
DX: R05.9 Cough, unspecified (principal)
CPT/HCPCS: 71046

== ENCOUNTER 2024-05-11 09:45 | Outpatient (REF) | payer MEDICARE, OTHER, SELFPAY ==
[2024-05-11 10:04] LABS: MANUAL DIFF FLAG NO
[2024-05-11 10:42] LABS: Basophils Percent Auto 0.4 % (0-2); Eosinophils Absolute Auto 0.2 X10*3/uL (0.0-0.4); Hematocrit 35.9 % (37.0-47.0); Hemoglobin 11.9 g/dl (12.0-16.0); Imm Gran Abs Auto 0.03 X10*3/uL (0.00-0.03); Imm Gran Pct Auto 0.3 % (0.0-0.4); Lymphocytes Absolute Auto 1.3 X10*3/uL (1.2-4.9); Lymphocytes Percent Auto 13.6 % (20-40); Mean Corpuscular HGB Conc 33.1 g/dl (31.0-35.0); Mean Corpuscular Hemoglobin 28.6 pg (27.0-33.0); Mean Corpuscular Volume 86.3 fL (80.0-98.0); Mean Platelet Volume 8.3 fL (9.4-12.3); Monocytes Absolute Auto 0.7 X10*3/uL (0.1-1.2); Monocytes Percent Auto 7.3 % (2-11); Neutrophils Absolute Auto 7.2 x10*3/uL (2.0-8.3); Neutrophils Percent Auto 76.4 % (45-73); Platelet Count 455 X10*3/uL (160-400); Red Blood Count 4.16 X10*6/uL (4.20-5.50); Red Cell Distribution Width 13.8 % (11.0-16.0); White Blood Count 9.4 X10*3/uL (4.8-10.8)
[2024-05-11 11:55] LABS: Albumin Level 4.2 g/dL (3.5-5.0); Anion Gap 15 (12-20); Aspartate Amino Transferase 29 U/L (5-31); Bilirubin Total 0.4 mg/dL (0.0-1.0); Blood Urea Nitrogen 8 mg/dL (9-16); Calcium 9.6 mg/dL (8.4-10.2); Carbon Dioxide 25 mmol/L (22-29); Chloride 99 mmol/L (96-108); Cholesterol 202 mg/dL (<200); Estimated Glomerular Filt Rate > 60; Glucose Random 96 mg/dL (60-115); HDL Cholesterol 84 mg/dL (>40); LDL Cholesterol Calculated 104 mg/dL (<100); Magnesium 2.3 mg/dL (1.6-2.6); Potassium 4.6 mmol/L (3.3-5.1); Sodium 134 mmol/L (135-145); Total Protein 7.5 g/dL (6.5-8.0); Triglycerides 72 mg/dL (<150)
[2024-05-11 12:04] LABS: Alanine Aminotransferase 14 U/L (0-31); Alkaline Phosphatase 84 U/L (39-117)
[2024-05-11 12:09] LABS: Free T4 (Free Thyroxine) 1.32 ng/dL (0.71-1.85); Thyroid Stimulating Hormone 1.45 uIU/mL (0.32-4.0); Vitamin D 25-OH Total 42.6 ng/mL (>30)
[2024-05-11 12:13] LABS: Folate 11.1 ng/mL (> or = 4.0); Vitamin B12 503 pg/mL (200-900)
[2024-05-11 13:03] LABS: Appearance Urine Clear; Color Urine Yellow; Glucose Urine UA Negative (Negative); Leukocyte Esterase Urine Moderate (2+) (Negative); Nitrite Urine Negative (Negative); UMIC TRIGGER UACC YES; Urine Blood Negative (Negative); Urine Ketones Trace mg/dL (Negative); Urine Protein Negative (Neg-Trace)
[2024-05-11 13:10] LABS: Bacteria Urine 2+ (None Seen); Hyaline Casts Urine 0-2 /LPF (0-2); RBC Urine 0-2 /HPF (0-2); UACC Culture Trigger YES
== END 2024-05-11 09:46 | disposition home or self-care (01) ==
LOC: HO.LAB 09:45
PROVIDERS: PCP Internal Medicine; Visit Provider Internal Medicine
DX: E03.9 Hypothyroidism, unspecified (principal); E78.00 Pure hypercholesterolemia, unspecified; R30.0 Dysuria; J47.9 Bronchiectasis, uncomplicated
CPT/HCPCS: 36415; 80053; 80061; 81001; 81003; 82306; 82607; 82746; 83735; 84439; 84443; 85025; 87086

== ENCOUNTER 2024-05-29 12:46 | Outpatient (REF) | payer MEDICARE, OTHER, SELFPAY ==
--- NOTE | ~2024-05-29 | CT_ITS ---
CLINICAL HISTORY: R41.89 - Other symptoms and signs involving cognitive functions and awar... CT head without contrast. COMPARISON: CT head dated 12/02/19 at 11:47 EDT FINDINGS: Amount of layering fluid present within the sphenoid sinus. Mastoid air cells are clear. No calvarial fracture. Atherosclerotic intracranial vasculature. No evidence for mass or mass effect. No intracranial hemorrhage or abnormal extra-axial fluid collection. No CT evidence of acute infarct. The ventricles are proportional with the degree of mild to moderate global cerebral volume loss without evidence of hydrocephalus. Basilar cisterns are patent. There are periventricular areas of low attenuation compatible with mild white matter small vessel disease. Posterior fossa appears unremarkable. IMPRESSION: 1. No acute intracranial findings. This document has been electronically signed by: Ronnie Cheng MD on 05/29/2024 15:16:44
== END 2024-05-29 12:47 | disposition home or self-care (01) ==
LOC: HO.CT 12:46
PROVIDERS: PCP Internal Medicine; Visit Provider Internal Medicine
DX: R41.89 Other symptoms and signs involving cognitive functions and awareness (principal)
CPT/HCPCS: 70450

== ENCOUNTER → 2024-05-29 12:46 | Outpatient (BNV) | payer MEDICARE, OTHER, SELFPAY | PROVIDERS: PCP Internal Medicine; Visit Provider Radiology Diagnostic Radiology | DX: R41.89 Other symptoms and signs involving cognitive functions and awareness (principal) | CPT/HCPCS: 70450 ==

== ENCOUNTER 2024-06-01 13:14 | Outpatient (AMB) | payer MEDICARE, OTHER, SELFPAY ==
--- NOTE | 2024-06-01 14:02 | AM.OFFVISNUR ---
Intake Visit Reasons: B12 shot Allergies codeine [CODEINE] Allergy (Unknown, Verified 04/21/24 16:00) GI UPSET levofloxacin [From LEVAQUIN] Allergy (Unknown, Verified 04/21/24 16:00) STOMACH UPSET pneumococcal vaccine Allergy (Unknown, Verified 04/21/24 16:00) unknown shellfish derived [SHELLFISH DERIVED] Allergy (Unknown, Verified 04/21/24 16:00) RASH Office Meds cyanocobalamin (vitamin B-12) 1,000 mcg/mL injection solution Performing Provider: Feli Rm MD [facility] [place] [facility] [place] Administered by: Edita Cha RN on 06/01/24 14:02 Dose Route Admin Location Dispensed Lot Number Expiration Date [facility] [employer] 1,000 mcg IM left deltoid 1 mL [id number] 10/23/25 74452-808-91 [employer] Assessment & Plan Assessment & Plan Orders: Orders AMB Vitamin B12 Injection Patient Supplied Today E53.8 - Deficiency of other specified B group vitamins Medications: New cyanocobalamin (vitamin B-12) 1,000 mcg IM ONCE 1 mL 0RF E53.8 - Deficiency of other specified B group vitamins
== END 2024-06-01 14:05 | disposition home or self-care (01) ==
LOC: HO.HMCH 13:14
PROVIDERS: PCP Internal Medicine; Visit Provider Internal Medicine
DX: E53.8 Deficiency of other specified B group vitamins (principal)

== ENCOUNTER → 2024-06-01 13:14 | Outpatient (BNVA) | payer MEDICARE, OTHER, SELFPAY | PROVIDERS: PCP Internal Medicine; Visit Provider Internal Medicine | DX: E53.8 Deficiency of other specified B group vitamins (principal) | CPT/HCPCS: 96372; J3420 ==

== ENCOUNTER 2024-06-16 13:34 | Outpatient (AMB) | payer MEDICARE, OTHER, SELFPAY ==
--- NOTE | 2024-06-16 13:36 | A.OFFPC_ITS ---
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 Accompanied by: Son Allergies codeine [CODEINE] Allergy (Unknown, Verified 06/16/24 13:40) GI UPSET levofloxacin [From LEVAQUIN] Allergy (Unknown, Verified 06/16/24 13:40) STOMACH UPSET pneumococcal vaccine Allergy (Unknown, Verified 06/16/24 13:40) unknown shellfish derived [SHELLFISH DERIVED] Allergy (Unknown, Verified 06/16/24 13:40) RASH Tobacco use date assessed: 06/16/24 Dental Screening Dental Screen Date: 02/17/24 HPI Follow Up HPI Details The patient is an 83-year-old female presenting with concerns related to pulmonary health management and symptom management, including anxiety and neuropathic pain. She has a history of Chronic Obstructive Pulmonary Disease (COPD) and bronchiectasis, for which she has been receiving regular treatment. She reports persistent coughing and the production of phlegm, indicating her ongoing struggle with bronchiectasis. The patient expresses frustration with the regular need for antibiotics and has noted a previous shipping and receiving assistant visit in 2021 who indicated she would not require regular follow-ups. Lately, she has been experiencing increased difficulty with anxiety, for which she has been prescribed Escitalopram (Lexapro). This medication appears to have had a positive effect, aiding in managing the anxiety without contributing to depressive symptoms. However, she continues to suffer from neuropathic pain, particularly characterized by burning sensations in her legs and shoulders, a s ymptom that has recently recurred. The onset of recent symptoms aligns with the commencement of Escitalopram treatment about a week ago. The patient also reports difficulty sleeping, which has been a chronic issue. She requires inhalation therapy for breathing difficulties associated with her COPD. Previous chest x-rays have shown no signs of pneumonia, confirming bronchiectasis as the main pulmonary issue. She has received flu and pneumonia vaccinations, although has had side effects from the former. [facility], [facility] Medical History (Updated 06/12/24 @ 18:09 by Feli Rm MD) Blood pressure elevated without history of HTN Screening for breast cancer Post-menopausal Pneumonia Viral upper respiratory tract infection with cough Encounter for subsequent annual wellness visit (AWV) in Medicare patient Chest pain SOB (shortness of breath) Headache Colonoscopy refused COPD (chronic obstructive pulmonary disease) Recurrent sinus infections Breast asymmetry Uterine cancer Bronchiectasis Pernicious anemia Peripheral neuropathy Lumbar degenerative disc disease Hypercholesterolemia Vitamin D deficiency Pulmonary nodule Hypothyroid Surgical History History of total abdominal hysterectomy and bilateral salpingo-oophorectomy History of lumpectomy of right breast History of appendectomy Family History Father CVD (cardiovascular disease) Mother Cancer Social History Housing: House Alcohol intake: never Patient Tobacco Use Status: Never used Tobacco Tobacco use type: Cigarette e-Cigarette/Vaping Use: Never Used Second Hand Smoke Exposure: No service: No Current occupational status: unemployed Cognitive needs: No Hearing needs: No Vision needs: Yes (reading glasses) Questionnaire PHQ-9 Over the last 2 weeks, how often have you been bothered by any of the following problems? 1. Little interest or pleasure in doing things: not at all 2. Feeling down, depressed, or hopeless: not at all 3. Trouble falling or staying asleep, or sleeping too much: not at all 4. Feeling tired or having little energy: not at all 5. Poor appetite or overeating: not at all 6. Feeling bad about yourself - or that you are a failure or have let yourself or your family down: not at all 7. Trouble concentrating on things, such as reading the newspaper or watching television: not at all 8. Moving or speaking so slowly that other people could have noticed. Or the opposite - being so fidgety or restless that you have been moving around a lot more than usual: not at all 9. Thoughts that you would be better off or of hurting yourself in some way: not at all Total score: 0 Source: Developed by Drs. Lobo Lopez, Lucie Mckinley, Nima Holland and colleagues, with an educational kourtney from [employer]. Thrive Questionnaire Date Thrive assessed: 06/16/24 I am a: Patient What is your living situation today?: I have a steady place to live Within the past 12 months, did the food you bought not last and you didn't have the money to get more?: Never true Within the past 12 months, did you worry whether your food would run out before you got money to buy more?: Never true Do you have trouble paying for medicines?: No Do you have trouble getting transportation to medical appointments?: No Do you have trouble paying your heating and electricity bill?: No Do you have trouble taking care of your child, family member or friend?: No Do you have trouble with day-to-day activities such as bathing, preparing meals, shopping, managing finances, etc.?: No Are you currently unemployed and looking for a job?: No Are you interested in more education?: No Please select the resources that you would like help with: None Currently or been in a relationship where the following occur: No concerns reported THRIVE Score: 0 AUDIT C Alcohol Use Questionnaire (AUDIT-C) 1. How often do you have a drink containing alcohol?: Never Total Score: 0 Score Reviewed/Action Taken: No DANIEL-7 AMB Questionnaire DANIEL-7 Date DANIEL - 7 assessed: 06/16/24 Feeling nervous, anxious, or on edge: 1 = Several days Not being able to stop or control worryin = Not at all Worrying too much about different things: 0 = Not at all Trouble relaxin = Not at all Being so restless that it is hard to sit still: 0 = Not at all Becoming easily annoyed or irritable: 0 = Not at all Feeling afraid as if something awful might happen: 0 = Not at all Total DANIEL-7 score (0-4 normal; 5-9 mild; 10-14 moderate; 15-21 severe): 1 Source: Developed by Drs. Lobo Lopez, Lucie Mckinley, Nima Holland and colleagues, with an educational kourtney from [employer]. Physical exam (Primary Care) Vital Signs: Last Vital Signs Pulse 63 06/16/24 13:37 BP 140/80 H 06/16/24 13:37 Pulse Ox 99 06/16/24 13:37 Oxygen Delivery Method Room Air 06/16/24 13:37 BMI result Body Mass Index 20.7 Tobacco/Smoking Status: Tobacco use Status Tobacco use date assessed 06/16/24 06/16/24 13:43 Patient Tobacco Use Status Never used Tobacco 06/16/24 13:43 Tobacco use type Cigarette 06/16/24 13:43 e-Cigarette/Vaping Use Never Used 06/16/24 13:43 PHQ-9: PHQ-9 Score PHQ-9: Total score 0 06/16/24 13:43 Thrive Assessment: Date of Thrive Assessment Date Thrive assessed 06/16/24 06/16/24 13:43 Currently or been in a relationship where the following occur: No concerns reported Const General: alert; No acute distress Eyes Conjunctivae: conjunctivae normal Resp Auscultation: clear to auscultation bilaterally Cardio Rate: regular rate Rhythm: regular rhythm GI Inspection: Yes normal to inspection Extrem General: Yes normal to inspection and No edema Coding Level of Care Code Est Pt Level 4 (82999) Diagnoses Panlobular emphysema J43.1 COPD type: emphysema Emphysema type: panlobular Bronchiectasis without complication J47.9 Bronchiectasis type: uncomplicated Pernicious anemia D51.0 B12 deficiency E53.8 Acquired hypothyroidism E03.9 Hypothyroidism type: acquired Generalized anxiety disorder F41.1 Dementia with Lewy bodies G31.83; F02.80 Assessment & Plan Assessment & Plan (1) COPD (chronic obstructive pulmonary disease): Comment: HAS VERY MILD DEGREE OF OBSTRUCTIVE AIRWAY DISORDER, PER LAST PFT IN 2009. DISCUSSED ABOUT HAVING A NEW PFT BUT USUAL SHE SAYS , NO FOR REPEAT PFT . CLINICALLY SHE HAS VERY MILD OBSTRUCTIVE AIRWAY DISORDER. TX : PROAIR 1 OR 2 PUFFS Q.6 HOURS P.R.N.. MAY USE MUCINEX 400 MG BID PRN , IF SHE FEELS THAT THERE IS SOME MUCUS DEEP IN CHEST Code(s): J44.9 - Chronic obstructive pulmonary disease, unspecified Category: Medical Qualifiers: COPD type: emphysema Emphysema type: panlobular Qualified Code(s): J43.1 - Panlobular emphysema Plan: continue with the inhalers. Workup with Pulmonary revealed mild (2) Bronchiectasis: Comment: MILD, CHRONIC BRONCHIECTASIS IN RT MIDDLE LOBE AND LINGULA . MAY NEED A COURSE OF Z-BATSHEVA , PRN FOR RESP. INFECTION . Code(s): J47.9 - Bronchiectasis, uncomplicated Category: Medical Qualifiers: Bronchiectasis type: uncomplicated Qualified Code(s): J47.9 - Bronchiectasis, uncomplicated Plan: patient advised to follow up with Pulmonary (3) Pernicious anemia: Code(s): D51.0 - Vitamin B12 deficiency anemia due to intrinsic factor deficiency Category: Medical Plan: conitnue to monitor (4) B12 deficiency: Code(s): E53.8 - Deficiency of other specified B group vitamins Category: Medical (5) Hypothyroid: Code(s): E03.9 - Hypothyroidism, unspecified Category: Medical Qualifiers: Hypothyroidism type: acquired Qualified Code(s): E03.9 - Hypothyroidism, unspecified Plan: 04/2024 blood work (6) Generalized anxiety disorder: Code(s): F41.1 - Generalized anxiety disorder Category: Medical Plan: continue with med. placed on lexapro (7) Dementia with Lewy bodies: Comment: Dr. Badillo May 2024 Code(s): G31.83 - Neurocognitive disorder with Lewy bodies; F02.80 - Dementia in other diseases classified elsewhere, unspecified severity, without behavioral disturbance, psychotic disturbance, mood disturbance, and anxiety Category: Medical Plan: patient follow up with neurology Plan - Continue management of COPD with regular use of inhalers and adherence to pulmonary medication. - Recommend contacting a shipping and receiving assistant for another evaluation due to regular r espiratory symptoms and concerns about bronchiectasis management. - Continue Escitalopram for anxiety as patient reports improvement; refill as needed to ensure continued pragmatic management. - Monitor and assess neuropathic pain management; long-term pain management strategy to be evaluated. - Ensure fluid intake and encourage physical activity to help with respiratory symptoms. - Patient education on the importance of vaccination and ongoing preventative measures including avoiding exposure to respiratory viruses. - Reassess insomnia management strategies if symptoms persist or worsen. Orders: Referrals Pulmonology Referral J43.1 - Panlobular emphysema
[2024-06-16 13:37] VITALS: BP 140/80; PULSE 63; O2SAT 99; BMI 20.7
== END 2024-06-16 14:21 | disposition home or self-care (01) ==
PROVIDERS: PCP Internal Medicine; Visit Provider Internal Medicine
DX: J43.1 Panlobular emphysema (principal); J47.9 Bronchiectasis, uncomplicated; G31.83 Neurocognitive disorder with Lewy bodies; F02.80 Dementia in other diseases classified elsewhere, unspecified severity, without behavioral disturbance, psychotic disturbance, mood disturbance, and anxiety; D51.0 Vitamin B12 deficiency anemia due to intrinsic factor deficiency; E53.8 Deficiency of other specified B group vitamins; E03.9 Hypothyroidism, unspecified; F41.1 Generalized anxiety disorder

== ENCOUNTER → 2024-06-16 13:34 | Outpatient (BNVA) | payer MEDICARE, OTHER, SELFPAY | PROVIDERS: PCP Internal Medicine; Visit Provider Internal Medicine | DX: J43.1 Panlobular emphysema (principal); J47.9 Bronchiectasis, uncomplicated; D51.0 Vitamin B12 deficiency anemia due to intrinsic factor deficiency; E53.8 Deficiency of other specified B group vitamins; E03.9 Hypothyroidism, unspecified | CPT/HCPCS: 99212 ==

== ENCOUNTER 2024-06-29 13:39 | Outpatient (AMB) | payer MEDICARE, OTHER, SELFPAY ==
--- NOTE | 2024-06-29 13:57 | AM.OFFVISNUR ---
Intake Visit Reasons: B-12 shot Allergies codeine [CODEINE] Allergy (Unknown, Verified 06/16/24 13:40) GI UPSET levofloxacin [From LEVAQUIN] Allergy (Unknown, Verified 06/16/24 13:40) STOMACH UPSET pneumococcal vaccine Allergy (Unknown, Verified 06/16/24 13:40) unknown shellfish derived [SHELLFISH DERIVED] Allergy (Unknown, Verified 06/16/24 13:40) RASH Office Meds cyanocobalamin (vitamin B-12) 1,000 mcg/mL injection solution Performing Provider: Feli Rm MD [facility] Administered by: Edita Cha RN on 06/29/24 13:57 Dose Route Admin Location Dispensed Lot Number Expiration Date [facility] [employer] 1,000 mcg IM left deltoid 1 mL [id number] 10/23/25 61202-587-18 [employer] Assessment & Plan Assessment & Plan Orders: Orders AMB Vitamin B12 Injection Patient Supplied Today E53.8 - Deficiency of other specified B group vitamins Medications: New cyanocobalamin (vitamin B-12) 1,000 mcg IM ONCE 1 mL 0RF E53.8 - Deficiency of other specified B group vitamins Coding
== END 2024-06-29 13:59 | disposition home or self-care (01) ==
PROVIDERS: PCP Internal Medicine; Visit Provider Internal Medicine
DX: E53.8 Deficiency of other specified B group vitamins (principal)

== ENCOUNTER → 2024-06-29 13:39 | Outpatient (BNVA) | payer MEDICARE, OTHER, SELFPAY | PROVIDERS: PCP Internal Medicine; Visit Provider Internal Medicine | DX: E53.8 Deficiency of other specified B group vitamins (principal) | CPT/HCPCS: 96372; J3420 ==

== ENCOUNTER 2024-07-10 16:29 | Outpatient (AMB) | payer MEDICARE, OTHER, SELFPAY ==
--- NOTE | 2024-07-10 16:29 | MHC.PC.OV ---
Intake Visit Reasons: Feeling sick Allergies codeine [CODEINE] Allergy (Unknown, Verified 07/10/24 16:30) GI UPSET levofloxacin [From LEVAQUIN] Allergy (Unknown, Verified 07/10/24 16:30) STOMACH UPSET pneumococcal vaccine Allergy (Unknown, Verified 07/10/24 16:30) unknown shellfish derived [SHELLFISH DERIVED] Allergy (Unknown, Verified 07/10/24 16:30) RASH Tobacco use date assessed: 06/16/24 Fall risk assessment: No Falls in past year Last assessed Fall Risk: 07/10/24 Dental Screening Dental Screen Date: 07/10/24 Did you have a dental visit in the last 12 months?: Yes Did you have a dental problem in the last 6 months where you did not have access to dental care?: No Was dental information given to patient?: Patient has dentist HPI Feeling sick HPI Details Evelyn - change in number [id number] 1 day had chills, do not feel allergies sore throat, sob, The patient is an 83-year-old female presenting with a suspected Upper Respiratory Tract Infection. She reported the onset of symptoms as beginning yesterday, describing chills, fever, and sweating. The patient noted being unable to taste anything and a sore throat localized to the left side, as well as difficulty breathing. This occurred alongside confirmed dendencies to COPD, yet, she had her inhalation sprays available for usage. Additionally, she reported being soaked from night sweats and believes these symptoms are not related to allergies. There was reluctance to immediately engage in diagnostic testing or hospital admission but expressed interest in antibiotics first. - Constitutional: Reports chills, fever, and sweating. - Respiratory: Reports difficulty breathing, sore throat. - Gastrointestinal: Reports loss of taste. - General: Denies a suggestion of allergies contributing to current symptoms. [facility] Medical History (Updated 06/12/24 @ 18:09 by Feli Rm MD) Blood pressure elevated without history of HTN Screening for breast cancer Post-menopausal Pneumonia Viral upper respiratory tract infection with cough Encounter for subsequent annual wellness visit (AWV) in Medicare patient Chest pain SOB (shortness of breath) Headache Colonoscopy refused COPD (chronic obstructive pulmonary disease) Recurrent sinus infections Breast asymmetry Uterine cancer Bronchiectasis Pernicious anemia Peripheral neuropathy Lumbar degenerative disc disease Hypercholesterolemia Vitamin D deficiency Pulmonary nodule Hypothyroid Surgical History History of total abdominal hysterectomy and bilateral salpingo-oophorectomy History of lumpectomy of right breast History of appendectomy Family History Father CVD (cardiovascular disease) Mother Cancer Social History Housing: House Alcohol intake: never Patient Tobacco Use Status: Never used Tobacco Tobacco use type: Cigarette e-Cigarette/Vaping Use: Never Used Second Hand Smoke Exposure: No service: No Current occupational status: unemployed Cognitive needs: No Hearing needs: No Vision needs: Yes (reading glasses) Questionnaire PHQ-9 Over the last 2 weeks, how often have you been bothered by any of the following problems? 1. Little interest or pleasure in doing things: not at all 2. Feeling down, depressed, or hopeless: not at all 3. Trouble falling or staying asleep, or sleeping too much: not at all 4. Feeling tired or having little energy: not at all 5. Poor appetite or overeating: not at all 6. Feeling bad about yourself - or that you are a failure or have let yourself or your family down: not at all 7. Trouble concentrating on things, such as reading the newspaper or watching television: not at all 8. Moving or speaking so slowly that other people could have noticed. Or the opposite - being so fidgety or restless that you have been moving around a lot more than usual: not at all 9. Thoughts that you would be better off or of hurting yourself in some way: not at all Total score: 0 Depression Screening Interpretation: Negative Depression Screening Done: Yes 22417 - PHQ-9 Billing: Yes Source: Developed by Drs. Lobo Lopez, Lucie Mckinley, Nima Holland and colleagues, with an educational kourtney from [employer]. Thrive Questionnaire Date Thrive assessed: 06/16/24 AUDIT C Alcohol Use Questionnaire (AUDIT-C) 1. How often do you have a drink containing alcohol?: Never Total Score: 0 Score Reviewed/Action Taken: No DANIEL-7 AMB Questionnaire DANIEL-7 Date DANIEL - 7 assessed: 06/16/24 Source: Developed by Drs. Lobo Lopez, Lucie Mckinley, Nima Holland and colleagues, with an educational kourtney from [employer]. Physical exam (Primary Care) Tobacco/Smoking Status: Tobacco use Status Tobacco use date assessed 06/16/24 07/10/24 16:31 Patient Tobacco Use Status Never used Tobacco 07/10/24 16:31 Tobacco use type Cigarette 07/10/24 16:31 e-Cigarette/Vaping Use Never Used 07/10/24 16:31 PHQ-9: PHQ-9 Score PHQ-9: Total score 0 07/10/24 16:31 Depression Screening Interpretation: Negative Thrive Assessment: Date of Thrive Assessment Date Thrive assessed 06/16/24 07/10/24 16:31 Telehealth Telehealth Location of provider rendering services: practice address Location of patient: address on file Patient Identification confirmed using: Name, : Yes Telehealth method: voice only Patient verbally consented to treatment: Yes Patient verbally consented to billing insurance company: Yes Patient informed of any privacy concerns related to visit: Yes Minutes spent on Phone/Video with Pt.: 15 Coding Level of Care Code Tele Est Pt Level 3 (13804) Diagnoses Bronchiectasis without complication J47.9 Bronchiectasis type: uncomplicated Cough R05.9 Additional Codes PHQ-9 - 93657 - PHQ-9 Billing: Yes ([id number]) Assessment & Plan Assessment & Plan (1) Bronchiectasis: Comment: MILD, CHRONIC BRONCHIECTASIS IN RT MIDDLE LOBE AND [place]A . MAY NEED A COURSE OF Z-BATSHEVA , PRN FOR RESP. INFECTION . Code(s): J47.9 - Bronchiectasis, uncomplicated Category: Medical Qualifiers: Bronchiectasis type: uncomplicated Qualified Code(s): J47.9 - Bronchiectasis, uncomplicated (2) Cough: Code(s): R05.9 - Cough, unspecified Category: Medical Plan - Prescribe antibiotic therapy. - Advise swab testing for COVID-19, Influenza, and RSV if symptoms persist. - Recommend follow-up in two weeks or sooner if symptoms worsen. - No x-ray planned but to monitor symptoms in relation to COPD. During the consultation, the primary discussion centered around managing the current symptoms suggestive of an upper respiratory infection. The patient expressed reluctance to undergo immediate diagnostic testing, but I emphasized the necessity of obtaining a proper diagnosis to prevent misuse of antibiotics and the risk of resistance. We concluded with a plan to proceed with antibiotic treatment while scheduling a confirmatory diagnostic test at a convenient time. She agreed to proceed with the lab work at her earliest convenience, preferably over the upcoming weekend. Our dialogue emphasized the importance of revisiting diagnostics if symptomatic resolution does not occur post-antibiotic therapy. - Take prescribed antibiotics as directed. - Schedule and complete swab tests for COVID-19, Influenza, and RSV over the weekend. - Monitor symptoms closely; return to care if symptoms worsen or do not improve. - Contact caregiver or family for assistance if necessary. - Follow-up in two weeks or sooner for unresolved issues or additional consultation. Orders: Orders SARS-CoV2/FLU/RSV Today R05.9 - Cough, unspecified Medications: New amoxicillin 875 mg PO BID 14 tabs 0RF R05.9 - Cough, unspecified
--- OUTSIDE RECORDS SUMMARY | 2024-07-10 16:31 | XMS_ITS ---
Author Organization [facility] [place] Address [address] [place] [address] Care Team Providers Care Plate Preparer Name Role Phone Feli Rm Primary Care Provider Addie Martinez Unavailable [phone] Allergies Allergen (clinical drug ingredient) Drug/Non Drug Allergy documented on EMR Reaction Allergy Type Onset Date Status codeine Codeine sick Drug Allergy Active REASON FOR VISIT Painful nail(s) aggravated by shoes causing difficulty standing/walking Medications Medication SIG (Take, Route, Fr equency, Duration) Notes Start Date End Date Status Gabapentin PRN Not-Takin g Antibiotic Not-Takin g Voltaren 1 % as directed Externally 01/13/2024 Active Vitamin B-12 Active Synthroid 175 MCG 1 tablet every morni ng on an empty stomach Orally Once a day for 30 day(s) Active iron Active Citracal + D Active Social History Tobacco Use: Social History Observation Description Date Details (start date - stop date) Never Smoker NA - NA Tobacco Use/Smoking Question Answer Notes Are you a: nonsmoker Additional Findings: Tobacco Non-User Current no n-smoker Alcohol Screen Question Answer Notes Did you have a drink containing alcohol in the p ast year? No Points 0 Interpretation Negative Tobacco use other than smoking: Question Answer Notes Are you an other tobacco user? No Vital Signs Height 5 ft 2 in in 04/15/2024 Weight 114 lbs 04/15/2024 BMI 20.85 kg/m2 04/15/2024 Blood pressure systolic 120 mm Hg 04/15/20 24 Blood pressure diastolic 80 mm Hg 024 Procedures Procedure Date Ordered Date Performed Result Body Sit e 96715-LBWFWWO NAIL, 6 OR MORE 04/15/2024 N/A Encounters Encounter Location Date Provider Diagnosis [facility] [address] [place] [address] 04/15/2024 Addie Brizuela Onychomycosis B35.1 ; Pain in right toe(s) M79.674 and Pain in left toe(s) M79.675 Assessments Encounter Date Diagnosis (ICD Code) Assessment Notes Treatment Notes Treatment Clinical Notes Section Notes 04/15/2024 Onychomycosis (ICD-10 - B35.1) 04/15/2024 Pain in right toe(s) (ICD-10 - M79.674) 04/15/2024 Pain in left toe(s) (ICD-10 - M79.675) Plan Of Treatment Pending Test Test Name Order Date 77449-OFRQHPT NAIL, 6 OR MORE 04/15/2024 Next Appt Details Follow Up: 3 Months, Reason: Provider Name:Addie Yvonnejimbo royer, 09/03/2024 01:45:00 PM, [address] [place] [address], [id number], Procedure Notes * Category Sub-Category Detail Notes Debride Nail 6-10 Nail debridement Performance o f this nail treatment by a nonprofessional would put this patients foot and overall health at risk. Therefore, debridement to affected nail(s), as described in exam, was performed extensively to reduce/remove overall nail length, girth, thickness, subungual debris, and necrotic tissue, by manual and/or electrical means through the use of a nail nipper and/or dremel-type instrument lens grinder, to a more viable healthy nail plate or bed tissue 6-10. Silver nitrate used for any petechial bleeding as necessary. Definitive antifungal treatment options have been reviewed and discussed with the patient. The patient chooses, no pharmaceutical tx - 94694 Progress Notes * Tati CARVALHO ADOB: [birth year] (83 yo F)Acc No.[id number]:04/15/2024 Progress Note Patient:?Tati CARVALHO Provider:?Addie Brizuela DPM :1940???Age:83 Y???Sex:Female D ate:04/15/2024 Address:[address] [place] [id number] Pcp:Feli Rm Subjective: * Chief Complaints: * ???Painful nail(s) aggravate d by shoes causing difficulty standing/walking * HPI: ???Painful Nails:?Pt States Last PCP Visit:?Date:?03/27/2024 * Medical History:? * Surgical History:?hysterecto my 1997oral surgery 11/2013 * [place]ization/Major Diagno stic [place] [place]- Trouble breathing/pressure in head test done results pneumonia sinus infection 09/2020[facility]- pneumonia- given antiboitcs 2021 * Family History:?Mother: dece ased, diagnosed with Other malignant neoplasm of unspecified site.?Father: , stroke, diagnosed with Unspecified heart disease.? * Social History:?Tobacco Use:?Tobacco Use/Smoking?Are you a:?nonsmoker ?Additional Findings: Tobacco Non-User?Current non-smoker ?Tobacco use other than smoking?Are you an other tobacco user??No ???Drugs/Alcohol:?Drugs?Have you used drugs other than those for medical reasons in the past 12 months??No ?Alcohol Screen?Did you have a drink containing alcohol in the past year??No ?Points?0 ?Interpretation?Negative ???Miscellaneous:?Caffeine: yes, frequency:, 1-2 cups per day. ?Children: yes, 3. ?Exercise: no, walking, occasional. ?Marital status: . 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 * Medications:?TakingCitracal + D iron Synthroid 175 MCG Tablet 1 tablet every morning on an empty stomach Orally Once a day Vitamin B-12 Voltaren 1 % Gel as directed Externally Taking Citracal + D Taking iron Taking Synthroid 175 MCG Tablet 1 tablet every morning on an empty stomach Orally Once a day Taking Vitamin B-12 Taking Voltaren 1 % Gel as directed Externally Not-Taking/PRNAntibiotic Gabapentin , Notes to Pharmacist: PRNMedication List reviewed and reconciled with the patientNot-Taking/PRN Antibiotic Not-Taking/PRN Gabapentin , Notes to Pharmacist: PRNMedication List reviewed and reconciled with the patient * Allergies:?Codeine: sick - A llergyyes[Allergies Verified] Objective: * Vitals:?Ht: 5 ft 2 in, Wt:11 4, BMI: 20.85, Shoe size:9.5, BP:120/80mm Hg, Ht-cm: 157.48 cm, Wt-k.71 kg. * Examination: ???Nails: ?NAILS are:?Elongated, overgrown, dystrophic, lytic, greater than 3mm thick, discolored and friable with crumbly malodorous subungual debris, with pain on palpation, 1-5 Left foot, T6.? Assessment: * Assessment: 1.?Pain in right toe(s) - M7 9.674???2.?Onychomycosis - B35.1 (Primary)???3.?Pain in left toe(s) - M79.675??? Plan: * Treatment: * Procedures:?Debride Nail 6-10:?Nail debridement?Performance of this nail treatment by a nonprofessional would put this patients foot and overall health at risk. Therefore, debridement to affected nail(s), as described in exam, was performed extensively to reduce/remove overall nail length, girth, thickness, subungual debris, and necrotic tissue, by manual and/or electrical means through the use of a nail nipper and/or dremel-type instrument lens grinder, to a more viable healthy nail plate or bed tissue 6-10. Silver nitrate used for any petechial bleeding as necessary. Definitive antifungal treatment options have been reviewed and discussed with the patient. The patient chooses, no pharmaceutical tx - 48700.? * Procedure Codes:?08192 DEBRI DE NAIL, 6 OR MORE * Follow Up:?3 Months * Images: * Sign off status: Completed true * Provider:?Addie Brizuela DPM Date:?1 06/15/2023 Generated for Aaron craig/Niall/eTransmitting on:?07/10/2024 04:31 PM EST History and Physical Notes * HPI (History of Present Illness) Category Sub-Category Detail Notes Category Not es Painful Nails Pt States Last PCP Visit: Date:: 03/27/2024 Examination Category Sub-Category Detail Notes Category Not es Nails NAILS are: Elongated, overg rown, dystrophic, lytic, greater than 3mm thick, discolored and friable with crumbly malodorous subungual debris, with pain on palpation, 1-5 Left foot, T6
--- OUTSIDE RECORDS SUMMARY | 2024-07-10 16:31 | XMS_ITS ---
Author Organization [facility] Address [address] [place] [address] Care Team Providers Care Set O Type Operator Name Role Phone Feli Rm Primary Care Provider Addie Martinez Unavailable [phone] Pieter Riddle Unavailable [phone] Allergies Allergen (clinical drug ingredient) Drug/Non Drug Allergy documented on EMR Reaction Allergy Type Onset Date Status codeine Codeine sick Drug Allergy Active REASON FOR VISIT Painful thick toenails which are aggrevated by shoes and causes difficulty standing/walking Medications Medication SIG (Take, Route, Fr equency, Duration) Notes Start Date End Date Status Gabapentin PRN Not-Takin g Vitamin B-12 Active Antibiotic Not-Takin g Voltaren 1 % as directed Externally 01/13/2024 Active Synthroid 175 MCG 1 tablet every [...] Signs Height 5 ft 2 in in 01/13/2024 Weight 114 lbs 01/13/2024 BMI 20.85 kg/m2 01/13/2024 Blood pressure systolic 120 mm Hg 01/13/20 24 Blood pressure diastolic 80 mm Hg 024 Encounters Encounter Location Date Provider Diagnosis [facility] [address] [place] [address] 01/13/2024 Pieter Riddle Tinea unguium B35.1 ; Pain in right toe(s) M79.674 ; Pain in left toe(s) M79.675 ; Other viral warts B07.8 ; Pain in left foot M79.672 ; Pain in right foot M79.671 and Other hammer toe(s) (acquired), left foot M20.42 Assessments Encounter Date Diagnosis (ICD Code) Assessment Notes Treatment Notes Treatment Clinical Notes Section Notes 01/13/2024 Tinea unguium (ICD-10 - B35.1) 01/13/2024 Pain in right toe(s) (ICD-10 - M79.674) 01/13/2024 Pain in left toe(s) (ICD-10 - M79.675) 01/13/2024 Other viral warts (ICD-10 - B07.8) 01/13/2024 Pain in left foot (ICD-10 - M79.672) 01/13/2024 Pain in right foot (ICD-10 - M79.671) 01/13/2024 Other hammer toe(s) (acquired), left foot (ICD-10 - M20.42) Plan Of Treatment Medication Medication Name Sig Start Date Stop Date Notes Voltaren 1 % as directed Externally 01/13/2024 Next Appt Details Follow Up: 3 Months, 4 Month s, Reason: Provider Name:Addie linton, 09/03/2024 01:45:00 PM, [address] [place], [address], Procedure Notes * Category Sub-Category Detail Notes Debride Nails 1-5 Procedure: Nail debrideme nt performed extensively to reduce/remove overall nail length and girth, subungual debris, and necrotic tissue, by manual and electrical means by use of a nail nipper and/or dremel, to more viable healthy nail plate or bed tissue 1-5. Silver nitrate used for any petechial bleeding as necessary. Patient chooses, no pharmaceutical tx (00812) Progress Notes * Tati CARVALHO ADOB: [birth year] (83 yo F)Acc No.[id number]:01/13/2024 Progress Note Patient:Tati Fleming Provider:?Pieter Riddle DPM :1940???Age:83 Y???Sex:Female D ate:01/13/2024 Address:[address] [place], [place] [id number] Pcp:Feli Rm Subjective: * Chief Complaints: * ???Painful thick toenails wh ich are aggrevated by shoes and causes difficulty standing/walking * HPI: ???Painful Nails:?Pt States Last PCP Visit:?Date:?11/25/2023 ???Toe pain:?Nature:?aching, tenderness.?Location:?4th toe, Left foot, 2nd toe, Right foot, Great toe, B/L feet.?Duration:?several months.?Onset/Cause:?gradual.?Course:?progressive.?Aggravated by:?shoes, standing/walking.?Treatments:?bracing/splinting/padding.?Severity/Quality:?moderate.? * ROS:?General/Constitutional:?Nausea?denies.?Vomiting?denies.?Hunger Thirst?denies.?Loss appetite?denies.?Chills?denies.?Fatigue?denies.?Fever?denies.?Night Sweats?denies.?Unexplained weight loss?denies.?Unexplained weight gain?denies.?HEENTM:?Dentures?denies.?Dizziness?denies.?Glasses/contacts?denies.?Retinopathy?de nies.?Blurred/double vision?denies.?TMJ?denies.?Discharge/drainage?denies.?Implants?denies.?Sore throat?denies.?Dental implants?denies.?Hard of hearing ?denies.?Difficulty chewing/swallowing/speaking?denies.?Nose bleeds?denies.?Sore mouth?denies.?Respiratory:?On Oxygen?denies.?Pneumonia/pleurisy?admits.?Bronchitis?denies.?Emphysema?denies.?C oughing?denies.?Cough blood?denies.?Shortness of breath?denies.?Wheezing?denies.?Cardiovascular:?Pacemaker?denies.?MVP?denies.?WPW?denies.?CHF?denies.?Heart attack?denies.?Septal defect?denies.?Rapid beat?denies.?Chest pain ?denies.?Atrial Fib.?denies.?Murmur/Palpitations?denies.?Gastrointestinal:?Hemorrhoids?denies.?Stomach/Abdominal pain?denies.?Dark blood stool?denies.?Irritable bowel ?denies.?Constipation?denies.?Diarrhea?denies.?Hematology:?Swelling?denies.?Clots?denies.?Varicose Veins?denies.?Bruising?denies.?Bleeding problem?denies.?Genitourinary:?Blood urine?denies.?Frequent/Painfu/urination/bladder control?denies.?Kidney stones?denies.?Infection (UTI)?denies.?Nephropathy?denies.?sex trans dis (STD)?denies.?Prostate?denies.?Musculoskeletal:?Hammertoes?denies.?Bunions?denies.?Back Pain?denies.?Muscle Cramps/ Resting?denies.?Muscle cramps / walking?denies.?Generalized aches and pains?denies.?Weakness?denies.?Integ.:?He?denies.?Scars?denies.?Corns/calluses?denies.?Ingrown nails?denies.?Painful nails?denies.?Open Sores?denies.?Rashes?denies.?Neurologic:?Difficulty sleeping?denies.?Brain disorder?denies.?Numbness?denies.?Balance trouble?denies.?Confusion?denies.?Fainting/blackouts?denies.?Tingling?denies.?Tr emors?denies.? * Medical History:? * Surgical History:?hysterecto my 1997oral surgery 11/2013 * Hospitalization/Major Diagno stic Procedure:[place] [place] [place] Trouble breathing/pressure in head test done results [...] 1-2 cups per day. ?Children: yes, 3. ?no Exercise, walking, occasional. ?Marital status: . 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 * Medications:?TakingCitracal + D iron Synthroid 175 MCG Tablet 1 tablet every morning on an empty stomach Orally Once a dayVitamin B-12 Taking Citracal + D Taking iron Taking Synthroid 175 MCG Tablet 1 tablet every morning on an empty stomach Orally Once a dayTaking Vitamin B-12 Not-Taking/PRNAntibiotic Gabapentin , Notes: PRNMedication List reviewed and reconciled with the patientNot-Taking/PRN Antibiotic Not-Taking/PRN Gabapentin , Notes: PRNMedication List reviewed and reconciled with the patient * Allergies:?Codeine: sick - A llergyyes[Allergies Verified] Objective: * Vitals:?Ht: 5 ft 2 in, Wt:11 4, BMI:20.85, Shoe size:9.5, BP:120/80 mm Hg. * Examination: ???General Examination: ?GENERAL APPEARANCE:?pleasant, alert, well nourished, well developed, well hydrated, with good attention to hygene/body habitus, and in no acute distress.?ORIENTED:?person,place, and time.?Nails: ?NAILS are:? Elongated, overgrown, dystrophic, lytic, greater than 3mm thick, discolored and friable with crumbly malodorous subungual debris, with pain on palpation, 1-5 Left foot, T6 .?Neurological: ?SENSORY:?Neurological exam reveals intact sensorium, pain sensation normal, vibration sensation intact, pinprick sensation is normal in the lower extremities, Pt denies, anesthesia, burning, paresthesia, tingling, B/L.?BABINSKI REFLEX:?absent.?Vascular: ?DP PULSES:? 1/4, B/L.?PT PULSES:? 1/4, B/L.?HAIR GROWTH/TEXTURE/ELASTICITY/TURGOR:?normal, B/L.?PIGMENTATION:?normal, B/L.?EDEMA:?no edema, B/L.?TELANGECTASIA:?absent.?VARICOSITIES:?absent.?Dermatologic: ?SKIN FINDINGS:?Skin exam reveals Keratotic lesion(s) located at, Dorsal, Lateral, DIPJ, T9, PIPJ, T3, SUB MTH (s), 5, B/L, Medial, DIPJ, T6.?Orthopedic: ?MUSCLE STRENGTH:?5/5 all groups in a symmetrical fashion , B/L .?GAIT ABNORMALITY:?pronated, abducted, B/L .?DIGITAL DEFORMITIES:?Digital contracture, PIPJ, 2-5 B/L, incompl-reducable to push-up test, no over, nor underlapping.? Assessment: * Assessment: 1.?Tinea unguium - B35.1 (Pr imary)?2.?Pain in right toe(s) - M79.674?3.?Pain in left toe(s) - M79.675?4.?Other viral warts - B07.8?5.?Pain in left foot - M79.672?6.?Pain in right foot - M79.671?7.?Other hammer toe(s) (acquired), left foot - M20.42? Plan: * Treatment: * Procedures:?Debride Nails 1-5:?Procedure:?Nail debridement performed extensively to reduce/remove overall nail length and girth, subungual debris, and necrotic tissue, by manual and electrical means by use of a nail nipper and/or dremel, to more viable healthy nail plate or bed tissue 1-5. Silver nitrate used for any petechial bleeding as necessary. Patient chooses, no pharmaceutical tx (70634).? * Procedure Codes:?32522 TINO SALGADO, 1-5, Modifiers: XS * Preventive Medicine:? ??Counseling:?Discussion:?-13: Office or other outpatient visit for the evaluation and management of an established patient, which required a medically appropriate history and/or examination and LOW level of DECISION MAKING for: 1 STABLE ACUTE UNCOMPLICATED PROBLEM, 2 OR MORE MINOR PROBLEMS, OR 1 STABLE CHRONIC PROBLEM, THAT POSE(S) A LOW RISK FOR MORBIDITY/MORTALITY. The visit on the day of the encounter encompassed interpreting the data and educating the patient as to the nature of their condition, treatment options available according to their individual PMH, meds, allergies, and overall health/living conditions, as well as any potential risks or complications that may occur from a failure to adhere to, and participate in, the recommended course of therapy. The discussion included a complete verbal, and/or written explanation of the examination results, any x-rays taken, the proposed diagnosis, and outline of the treatment plan. A schedule for future care needs was also explained. The patient verbalized an understanding of the instructions at this time and agreed to be an active participant in their treatment. If the patient should think of any questions or concerns after the visit, I have encouraged the patient to call the office.? * Follow Up:?3 Months, 4 Month s * Images: * Sign off status: Completed true * Provider:?Pieter Riddle DPM Date:? 024 Generated for Aaron craig/Niall/Juddsmitting on:?07/10/2024 04:31 PM EST History and Physical Notes * HPI (History of Present Illness) Category Sub-Category Detail Notes Category Not es Toe pain Nature: aching, tenderness Location: 4th toe, Left foot, 2nd toe, Right foot, Great toe, B/L feet Duration: several months Onset/Cause: gradual Course: progressive Aggravated by: shoes, standing/walk ing Treatments: bracing/splinting/pa dding Severity/Quality: moderate Painful Nails Pt States Last PCP Visit: Date:: 11/25/2023 Examination Category Sub-Category Detail Notes Category Not [...] MTH (s), 5, B/L, Medial, DIPJ, T6 Orthopedic GAIT ABNORMALITY: pronated, abducted, B/L DIGITAL [...]
--- OUTSIDE RECORDS SUMMARY | 2024-07-10 16:32 | XMS_ITS ---
Author Organization [facility] Address [address] [place] [address] Care Team Providers Care Channel Marketing Coordinator Name Role Phone Feli Rm Primary Care Provider Addie Martinez Unavailable [phone] Pieter Riddle Unavailable [phone] REASON FOR VISIT Painful thick toenails which are aggrevated by shoes and causes difficulty standing/walking, Wart(s), PCP -04/18 Encounters Encounter Location Date Provider Diagnosis [facility] [address] [place] [address] 12/11/2023 Pieter Riddle Tinea unguium B35.1 ; [...] Follow Up: 3 Months, Reason: Provider Name:Addie linton, 09/03/2024 01:45:00 PM, [address] [place], [address], Procedure Notes * Category Sub-Category Detail Notes Wart Treatment Procedure Verrucae(s) were debrided to pin-point bleeding margins with sterile surgical blade (56440), silver nitrate chemocautery applied Debride Nails 1-5 Procedure: Nail debrideme nt performed extensively to reduce/remove overall nail length and girth, subungual debris, and necrotic tissue, by manual and electrical means by use of a nail nipper and/or dremel, to more viable healthy nail plate or bed tissue 1-5. Silver nitrate used for any petechial bleeding as necessary. Patient chooses, no pharmaceutical tx (82683) Progress Notes * Tati CARVALHO ADOB: [birth year] (83 yo F)Acc No.[id number]:12/11/2023 Progress Note Patient:?Tati CARVALHO Provider:?Pieter Riddle DPM :1940???Age:83 Y???Sex:Female D ate:12/11/2023 Address:[address] [place], [place] [id number] Pcp:Feli Rm Subjective: * Chief Complaints: * ???1. Painful thick toenails which are aggrevated by shoes and causes difficulty standing/walking. 2. Wart(s). 3. PCP -04/18. * HPI: ???Painful Nails:?Pt States Last PCP Visit:?Date:?03/27/2023 ???Toe pain:?Nature:?aching, tenderness.?Location:?4th toe, Left foot, 2nd toe, Right foot.?Duration:?several months.?Onset/Cause:?gradual.?Course:?progressive.?Aggravated by:?shoes, standing/walking.? * ROS:?General/Constitutional:?Nausea?denies.?Vomiting?denies.?Hunger Thirst?denies.?Loss appetite?denies.?Chills?denies.?Fatigue?denies.?Fever?denies.?Night Sweats?denies.?Unexplained weight loss?denies.?Unexplained weight gain?denies.?HEENTM:?Dentures?denies.?Dizziness?denies.?Glasses/contacts?denies.?Retinopathy?de nies.?Blurred/double vision?denies.?TMJ?denies.?Discharge/drainage?denies.?Implants?denies.?Sore throat?denies.?Dental implants?denies.?Hard of hearing ?denies.?Difficulty chewing/swallowing/speaking?denies.?Nose bleeds?denies.?Sore mouth?denies.?Respiratory:?On Oxygen?denies.?Pneumonia/pleurisy?admits.?Bronchitis?denies.?Emphysema?denies.?C oughing?denies.?Cough blood?denies.?Shortness of breath?denies.?Wheezing?denies.?Cardiovascular:?Pacemaker?denies.?MVP?denies.?WPW?denies.?CHF?denies.?Heart attack?denies.?Septal defect?denies.?Rapid beat?denies.?Chest pain ?denies.?Atrial Fib.?denies.?Murmur/Palpitations?denies.?Gastrointestinal:?Hemorrhoids?denies.?Stomach/Abdominal pain?denies.?Dark blood stool?denies.?Irritable bowel ?denies.?Constipation?denies.?Diarrhea?denies.?Hematology:?Swelling?denies.?Clots?denies.?Varicose Veins?denies.?Bruising?denies.?Bleeding problem?denies.?Genitourinary:?Blood urine?denies.?Frequent/Painfu/urination/bladder control?denies.?Kidney stones?denies.?Infection (UTI)?denies.?Nephropathy?denies.?sex trans dis (STD)?denies.?Prostate?denies.?Musculoskeletal:?Hammertoes?denies.?Bunions?denies.?Back Pain?denies.?Muscle Cramps/ Resting?denies.?Muscle cramps / walking?denies.?Generalized aches and pains?denies.?Weakness?denies.?Integ.:?He?denies.?Scars?denies.?Corns/calluses?denies.?Ingrown nails?denies.?Painful nails?denies.?Open Sores?denies.?Rashes?denies.?Neurologic:?Difficulty sleeping?denies.?Brain disorder?denies.?Numbness?denies.?Balance trouble?denies.?Confusion?denies.?Fainting/blackouts?denies.?Tingling?denies.?Tr emors?denies.? * Medical History:? Objective: * Vitals:? * Examination: ???General Examination: ?GENERAL APPEARANCE:?pleasant, alert, well nourished, well developed, well hydrated, with good attention to hygene/body habitus, and in no acute distress.?ORIENTED:?person,place, and time.?Nails: ?NAILS are:? Elongated, overgrown, dystrophic, lytic, greater than 3mm thick, discolored and friable with crumbly malodorous subungual debris, with pain on palpation, 1-5 Left foot, T6.?Neurological: ?SENSORY:?Neurological exam reveals intact sensorium, pain sensation normal, vibration sensation intact, pinprick sensation is normal in the lower extremities, Pt denies, anesthesia, burning, paresthesia, tingling, B/L.?BABINSKI REFLEX:?absent.?Vascular: ?DP PULSES (B):? /, B/L.?PT PULSES (B):? 05/30, B/L.?TROPHIC CONDITION-TEXTURE/ELASTICITY/TURGOR/HAIR GROWTH (B):?normal, B/L.?PIGMENTATION:?normal, B/L.?EDEMA (C):?no edema, B/L.?TELANGECTASIA:?absent.?VARICOSITIES:?absent.?Dermatologic: ?SKIN FINDINGS:?Skin exam reveals Keratotic lesion(s) located at, Dorsal, Lateral, DIPJ, T9, PIPJ, T3, SUB MTH (s), 5, B/L, Medial, DIPJ, T6.?VERRUCA:?Reveals a Single , multi-loculated , mosaically patterned, round, raised, flat-topped, petechial bleeding papulae(s), with cauliflower appearance and interrruption of skin lines, pain to lateral compression, and size estimated at __2-3__ mm diameter, plantar hallux left.?Orthopedic: ?MUSCLE STRENGTH:?5/5 all groups in a symmetrical fashion , B/L.?GAIT ABNORMALITY:?pronated, abducted, B/L.?DIGITAL DEFORMITIES:?Digital contracture, PIPJ, 2-5 B/L, incompl-reducable to push-up test, no over, nor underlapping.? Assessment: * Assessment: 1.?Tinea unguium - B35.1 (Pr imary)???2.?Pain in right toe(s) - M79.674???3.?Pain in left toe(s) - M79.675???4.?Other viral warts - B07.8???5.?Pain in left foot - M79.672???6.?Pain in right foot - M79.671???7.?Other hammer toe(s) (acquired), left foot - M20.42??? Plan: * Treatment: * Procedures:?Debride Nails 1-5:?Procedure:?Nail debridement performed extensively to reduce/remove overall nail length and girth, subungual debris, and necrotic tissue, by manual and electrical means by use of a nail nipper and/or dremel, to more viable healthy nail plate or bed tissue 1-5. Silver nitrate used for any petechial bleeding as necessary. Patient chooses, no pharmaceutical tx (47059).?Wart Treatment:?Procedure?Verrucae(s) were debrided to pin-point bleeding margins with sterile surgical blade (31420), silver nitrate chemocautery applied.? * Procedure Codes:?80098 DEBRI DE NAIL, 1-5, Modifiers: XS , 78893 Wart Destruction, 1-14, Modifiers: XS * Follow Up:?3 Months * Images: * The named appointment provid er may or may not be the originator of this progress note, and it is not deemed complete until electronically signed by the appointment provider. Sign off status: Pending * Provider:?Pieter Riddle DPM Date:? 024 Generated for Aaron craig/Niall/Brownitting on:?07/10/2024 04:31 PM EST History and Physical [...]
--- OUTSIDE RECORDS SUMMARY | 2024-07-10 16:32 | XMS_ITS | Patient Health Record ---
Author [facility] Address [address] [place] [address] Care Team Providers Care Refinery Operator Vapor Recovery Unit Name Role Phone Feli Rm Primary Care Provider Addie Martinez Unavailable [phone] Pieter Riddle Unavailable [phone] Allergies Allergen (clinical drug ingredient) Drug/Non Drug Allergy documented on EMR Reaction Allergy Type Onset Date Status codeine Codeine sick Drug Allergy Active Reason For Referral No Information Medications Medication SIG (Take, Route, Fr equency, Duration) Notes Start Date End Date Status Gabapentin PRN Not-Takin g Antibiotic Not-Takin g Voltaren 1 % as directed Externally 01/13/2024 Active Vitamin B-12 Active Synthroid 175 MCG 1 tablet every morni ng on an empty stomach Orally Once a day for 30 day(s) Active iron Active Citracal + D Active Immunizations Vaccine Route Administration Date Status Comme nts COVID-19 Pfizer BioNTech Vaccine Unknown 02/24/2021 Administered 1st 06/28/20 2nd 08/02/20 Influenza Unknown 01/25/2022 Administered Social History Tobacco Use: Social History Observation [...] Are you an other tobacco user? No Problems Problem Type SNOMED Code ICD Code Onset Dates Problem Status W/U Status Risk Notes Problem Viral wart (08268975) Other viral warts (B07.8) Active confirmed Problem Localized, primary osteoarthritis of the ankle and/or foot (342099496) Primary osteoarthrit is, right ankle and foot (M19.071) Active confirmed Problem Acquired hammer toe of right foot (9521139005891535) Other hammer toe(s) (acquired), right foot (M20.41) Active confirmed Problem Acquired hammer toe of left foot (2340659629334655) Other hammer toe(s) (acquired), left foot (M20.42) Active confirmed Vital Signs Blood pressure diastolic 80 mm Hg 04/15/2024 Height 5 ft 2 in in 04/15/2024 Blood pressure systolic 120 mm Hg 04/15/2024 Weight 114 lbs 04/15/2024 BMI 20.85 kg/m2 04/15/2024 Procedures Procedure Date Ordered Date Performed Result Body Sit e 13551-JRNJBNQ NAIL, 6 OR MORE 04/15/2024 N/A Encounters Encounter Location Date Provider Diagnosis [address] [address] 07/17/2023 Pieter Riddle Tinea unguium B35.1 ; Pain in right toe(s) M79.674 ; Pain in left toe(s) M79.675 ; Other viral warts B07.8 ; Pain in left foot M79.672 ; Pain in right foot M79.671 and Other hammer toe(s) (acquired), left foot M20.[address] [address] 01/13/2024 Pieter Riddle Tinea unguium B35.1 ; Pain in right toe(s) M79.674 ; Pain in left toe(s) M79.675 ; Other viral warts B07.8 ; Pain in left foot M79.672 ; Pain in right foot M79.671 and Other hammer toe(s) (acquired), left foot M20.[address] [address] 04/15/2024 Addie Brizuela Onychomycosis B35.1 ; Pain in right toe(s) M79.674 and Pain in left toe(s) M79.675 [facility] [address] [address] 10/14/2023 [facility] [address] [address] 11/11/2023 [facility] [address] [address] 12/10/2023 Pieter [place] Assessments Encounter Date Diagnosis (ICD Code) Assessment Notes Treatment Notes Treatment Clinical Notes Section Notes 07/17/2023 Tinea unguium (ICD-10 - B35.1) 01/13/2024 Tinea unguium (ICD-10 - B35.1) 01/13/2024 Pain in right toe(s) (ICD-10 - M79.674) 04/15/2024 Pain in right toe(s) (ICD-10 - M79.674) 04/15/2024 Onychomycosis (ICD-10 - B35.1) 01/13/2024 Pain in left toe(s) (ICD-10 - M79.675) 04/15/2024 Pain in left toe(s) (ICD-10 - M79.675) 07/17/2023 Pain in right toe(s) (ICD-10 - M79.674) 07/17/2023 Pain in left toe(s) (ICD-10 - M79.675) 01/13/2024 Other viral warts (ICD-10 - B07.8) 01/13/2024 Pain in left foot (ICD-10 - M79.672) 07/17/2023 Other viral warts (ICD-10 - B07.8) 07/17/2023 Pain in left foot (ICD-10 - M79.672) 01/13/2024 Pain in right foot (ICD-10 - M79.671) 01/13/2024 Other hammer toe(s) (acquired), left foot (ICD-10 - M20.42) 07/17/2023 Pain in right foot (ICD-10 - M79.671) 07/17/2023 Other hammer toe(s) (acquired), left foot (ICD-10 - M20.42) Plan Of Treatment Pending Test Test Name Order Date 75699-GJDEKFS NAIL, 6 OR MORE 04/15/2024 77901-ZXFDBBT NAIL, -03/10/2018 97921-IEANYLY NAIL, -03/25/2017 57864-ANCCMIK NAIL, -06/17/2017 17389-FYTNBUY NAIL, -09/23/2017 34838-IXABMXR NAIL, -12/11/2017 57875-THGBFOW NAIL, 05-3102/20/2016 19249-OUJTYRQ NAIL, 05-3108/15/2015 94980-AJMDZOA NAIL, 05-3111/14/2015 87384-WBIUAML NAIL, 05-3105/14/2016 14933-GCEGUWS NAIL, 05-3107/23/2016 32296-WJNDZOV NAIL, 05-3112/31/2016 92936-Rmtg Destruction, 06-0912/31/2016 32856-Osuu Destruction, 06-0907/23/2016 56151-Yfkb Destruction, 06-0905/14/2016 20570-Jwni Destruction, 06-0911/14/2015 52577-Uitm Destruction, 06-0907/26/2014 63497-Aeph Destruction, 06-0910/04/2014 71928-Egwf Destruction, 06-0912/13/2014 42652-Npkx Destruction, 06-0902/24/2015 91808-Xhok Destruction, 06-0905/16/2015 74507-Aoqk Destruction, 06-0908/15/2015 72848-Xbxq Destruction, 06-0902/05/2011 42464-Uhwt Destruction, 06-0907/09/2011 37758-Dazo Destruction, 06-0912/03/2011 39862-Kuze Destruction, 06-0908/11/2012 38166-Xcsp Destruction, 06-0902/09/2013 62370-Kdmn Destruction, 06-0910/08/2013 02558-Nlwg Destruction, 06-0903/04/2014 36143-Wdym Destruction, 06-0908/03/2013 41778-Gsps Destruction, 06-0905/10/2014 49287-Olva Destruction, 06-0902/20/2016 87406-Glrg Destruction, 06-0912/17/2013 85991-Yumc Destruction, -14 12/11/2017 90758-Qbiy Destruction, -14 09/23/2017 75898-Fybo Destruction, -14 06/17/2017 85665-Abml Destruction, -14 03/25/2017 00110-Bbqr Destruction, -14 03/10/2018 66158-Xkrn Destruction, 1-14 11/13/2012 26699-Jiuj Destruction, -05/15/2012 02240-Ttml Destruction, -05/04/2013 82847-Iykomafv Plate 02/05/2011 03019-Zkexmabd Plate 12/03/2011 84754-Ivoimigs Plate 07/09/2011 27157- Debride <25 sq cm 02/09/2013 76415- Debride <25 sq cm 08/11/2012 82371- Debride <25 sq cm 07/26/2014 50115- Debride <25 sq cm 10/08/2013 78922- Debride <25 sq cm 03/04/2014 25563- Debride <25 sq cm 05/10/2014 15781- Debride <25 sq cm 02/24/2015 08081- Debride <25 sq cm 12/13/2014 80409- Debride <25 sq cm 10/04/2014 41840- Debride <25 sq cm 12/17/2013 36616- Debride <25 sq cm 05/04/2013 86152- Debride <25 sq cm 05/15/2012 96830- Debride <25 sq cm 11/13/2012 Next Appt Details Provider Name:Addie Hadley royer, 09/03/2024 01:45:00 PM, [address] [place], [address], Insurance Providers Payer Name Payer Address Payer Phone Subscriber Number Group Number Insured Name Patient Relationship to Insured Coverage Start Date Coverage End Date Medicare National Govt [facility] [address] [place] [address] [id number] Maia Tati Self - patient is the insured [facility] [address] [place] [address] [id number] Tati Carvalho Self - patient is the insured Medical (General) History Medical History History ICD Code thyroid disorder measles anemia Perenial Pneumonia Lung condition Surgical History Surgery Date(Month/Year) hysterectomy 1996 oral surgery 11/2013 Hospitalization History Reason Date(Month/Year) [facility]- pneumonia- given antiboitcs 202 2 [facility]- Trouble breathing/press ure in head test done results pneumonia sinus infection 09/2020 [facility] for pneumonia 10/04/2015
== END 2024-07-10 17:41 | disposition home or self-care (01) ==
LOC: HO.HMCH 16:29
PROVIDERS: PCP Internal Medicine; Visit Provider Internal Medicine
DX: J47.9 Bronchiectasis, uncomplicated (principal); R05.9 Cough, unspecified

== ENCOUNTER → 2024-07-10 16:29 | Outpatient (BNVA) | payer MEDICARE, OTHER, SELFPAY | PROVIDERS: PCP Internal Medicine; Visit Provider Internal Medicine | DX: J47.9 Bronchiectasis, uncomplicated (principal); R05.9 Cough, unspecified | CPT/HCPCS: 96127 ==

== ENCOUNTER 2024-07-22 15:43 | Outpatient (AMB) | payer MEDICARE, OTHER, SELFPAY ==
[2024-07-22 15:50] VITALS: BP 142/84; PULSE 66; O2SAT 97; BMI 21.2
--- NOTE | 2024-07-22 15:50 | A.OFFVIS_ITS ---
Vital Signs 07/22/24 15:50 Height 5 ft 2 in Weight 115 lb 11.883 oz BMI 21.2 BP 142/84 H Blood Pressure Location Lt brachial Position Sitting Pulse 66 Pulse Source Pulse Oximeter Pulse Oximetry (%) 97 Oxygen Delivery Method Room Air Intake Visit Reasons: Emphysema Intake Note: pt is here for long over due follow up and states , she has some congestion, coughing with production with thick phlegm Tool Specialist Required: No Allergies codeine [CODEINE] Allergy (Unknown, Verified 07/23/24 09:08) GI UPSET levofloxacin [From LEVAQUIN] Allergy (Unknown, Verified 07/23/24 09:08) STOMACH UPSET pneumococcal vaccine Allergy (Unknown, Verified 07/23/24 09:08) unknown shellfish derived [SHELLFISH DERIVED] Allergy (Unknown, Verified 07/23/24 09:08) RASH Medication List - Last Reconciled 07/23/24 by Ashok Villeda MD albuterol sulfate 90 mcg/actuation (ProAir HFA) 2 puffs inhalation Q4-6H PRN amitriptyline 10 mg PO BEDTIME bisacodyl (Dulcolax (bisacodyl)) 5 mg PO BEDTIME 2 days calcium citrate-vitamin D3 315 mg-6.25 mcg (250 unit) (Citracal + Vitamin D Maximum) 1 tab PO BID clotrimazole-betamethasone 1-0.05 % 1 appl topical BID 2 weeks cyanocobalamin (vitamin B-12) 1,000 mcg IM Q4W 90 days escitalopram oxalate (Lexapro) 5 mg PO DAILY fexofenadine (Arielle Allergy) 180 mg PO DAILY gabapentin 100 mg PO BEDTIME iron,carbonyl-vitamin C 65 mg iron- 125 mg (Vitron-C) 1 tab PO BID loratadine (Allergy Relief (loratadine)) 10 mg PO DAILY lorazepam (Ativan) 0.5 mg (1/2 x 1 mg) PO TID PRN Synthroid (levothyroxine) 100 mcg PO DAILY 90 days NS Do you need a note to return to daycare/school/sports/work: No HPI HPI Emphysema: Details: Tati is 83 years old female, coming for follow-up after a long-time, her last visit was in October 2021. She has history of intermittent bouts of cough and feeling congested in the chest, without fevers or chills. Sometimes she. Does get it tight feeling in the chest When she was seen by me in 2020 due to 1022, her diagnosis was the a few patches of bronchiectasis in both lungs but especially in the right perihilar area, with only mild obstructive component. Because of bronchiectasis she is prone to have respiratory infections a few times during the year, and she has been treated with short courses of antibiotics such as Z-Iban. She has been on bronchodilator inhaler mostly ProAir to be use p.r.n.. Which she does not use on a regular basis. The patient was brought into the office, by her daughter, because patient becomes somewhat panicky, and each time she has feeling of chest congestion, she thinks she has pneumonia. Today Tati does not complain of much shortness of breath or wheezing. Again she expresses her concern that she gets pneumonia very often and she wants to be able to get antibiotic when she gets sick. As she has aged she has become somewhat frail and forgetful. She was recently seen by neurologist Dr. Badillo, and diagnosed to have dementia with some depression, he started her on escitalopram 5 mg a day, and she thinks that she is getting better. According to her daughter her anxiety is somewhat less than before. [facility] Medical History Blood pressure elevated without history of HTN Screening for breast cancer Post-menopausal Pneumonia Viral upper respiratory tract infection with cough Encounter for subsequent annual wellness visit (AWV) in Medicare patient Chest pain SOB (shortness of breath) Headache Colonoscopy refused COPD (chronic obstructive pulmonary disease) Recurrent sinus infections Breast asymmetry Uterine cancer Bronchiectasis Pernicious anemia Peripheral neuropathy Lumbar degenerative disc disease Hypercholesterolemia Vitamin D deficiency Pulmonary nodule Hypothyroid Surgical History History of total abdominal hysterectomy and bilateral salpingo-oophorectomy History of lumpectomy of right breast History of appendectomy Family History Father CVD (cardiovascular disease) Mother Cancer Social History Housing: House Alcohol intake: never Patient Tobacco Use Status: Never used Tobacco Tobacco use type: Cigarette e-Cigarette/Vaping Use: Never Used Second Hand Smoke Exposure: No service: No Current occupational status: unemployed Cognitive needs: No Hearing needs: No Vision needs: Yes (reading glasses) Review of Systems Const All systems reviewed & are unremarkable except as noted in HPI and below Eyes Reports no additional complaints ENT Reports no additional complaints Card Reports chest pain (It is very nonspecific and more like chest tightness .), Denies irregular heart rhythm and Denies leg edema Resp Reports as per HPI GI Reports no additional complaints Reports no additional complaints Musc Reports no additional complaints and Reports other (CHRONIC NONSPECIFIC DISCOMFORT IN THE RIGHT LOWER RIBCAGE) Skin/Breast Reports system reviewed and no additional complaints, except as documented Neuro Reports no additional complaints Endo Reports no additional complaints Aller/Immun Reports no additional complaints Physical Exam Vital Signs: Last Vital Signs Pulse 66 07/22/24 15:50 BP 142/84 H 07/22/24 15:50 Pulse Ox 97 07/22/24 15:50 Oxygen Delivery Method Room Air 07/22/24 15:50 BMI result Body Mass Index 21.2 Const General: comfortable, no acute distress, alert and awake Orientation/consciousness: patient oriented x3 HEENT Head: Yes normal to inspection General nose exam: No nasal polyps present and No nasal discharge present Face and sinus: Yes sinuses nontender Mouth: oropharynx normal Throat: Yes posterior oropharynx normal Eyes General: appearance normal, both eyes and all related structures Neck Neck: Yes normal visual inspection, Yes no lymphadenopathy, Yes trachea midline and Yes no JVD Thyroid: Thyroid normal Chest Chest palpation & inspection: normal inspection of the chest, normal palpation of entire chest wall and no tenderness Resp Other: Percussion note resonant, breath sounds are equal on both sides. No wheezes or rhonchi are heard. I did not hear any localized crepitations. Cardio Palpation: normal PMI Rate: regular rate Rhythm: regular rhythm Heart sounds: no gallops and no murmurs GI Palpation (GI): Soft to palpation, nontender, No hepatosplenomegaly present and no masses Auscultation: normal bowel sounds Back/Spine/Pelvis Cervical Spine: normal cervical lordosis Thoracic/Lumbar Spine: thoracic and lumbar spine normal to inspection and thoraco-lumbar ROM limited Skin General skin exam: no rashes or lesions noted Neuro General: patient oriented x3 and no focal motor deficits Cranial nerves: Yes CN's II-XII intact bilaterally Extrem General: Yes normal to inspection, Yes no clubbing, cyanosis or edema and Yes no calf tenderness Psych Appearance: grossly normal and well kempt Speech and movement: Normal speech and movement present Results Reviewed Results Reviewed: I reviewed previous chest x-rays and also CT scan of the chest on 06/18/2022, and explained to the patient and her daughter. Assessment & Plan Assessment & Plan (1) Bronchiectasis: Comment: MILD, CHRONIC BRONCHIECTASIS IN RT MIDDLE LOBE AND LINGULA ( DAIN ) . Code(s): J47.9 - Bronchiectasis, uncomplicated Category: Medical Qualifiers: Bronchiectasis type: uncomplicated Qualified Code(s): J47.9 - Bronchiectasis, uncomplicated Plan: MAY NEED A COURSE OF Z-IBAN , PRN FOR RESP. INFECTION . PATIENT IS QUITE CONCERNED AND AFRAID THAT EACH TIME SHE HAS SOME RESPIRATORY SYMPTOMS SHE GETS PNEUMONIA. AND TO ALLEVIATE HER ANXIETY IT MAY BE PRUDENT JUST TO GIVE HER A COURSE OF Z- IBAN IF SHE GETS SICK. (2) COPD (chronic obstructive pulmonary disease): Comment: HAS VERY MILD DEGREE OF OBSTRUCTIVE AIRWAY DISORDER, LAST PFT IN 2009, PATIENT HAS DECLINED TO HAVE ANY MORE PULMONARY FUNCTION TESTS. CLINICALLY SHE HAS VERY MILD OBSTRUCTIVE AIRWAY DISORDER. Code(s): J44.9 - Chronic obstructive pulmonary disease, unspecified Category: Medical Qualifiers: COPD type: emphysema Emphysema type: panlobular Qualified Code(s): J43.1 - Panlobular emphysema Plan: TX : PROAIR 1 OR 2 PUFFS Q.6 HOURS P.R.N.. MAY USE MUCINEX 400 MG BID PRN , IF SHE FEELS THAT THERE IS SOME MUCUS DEEP IN CHEST (3) Generalized anxiety disorder: Comment: NOTED ABOVE IN HPI SHE DOES HAVE ANXIETY SYNDROME AND RECENTLY DIAGNOSED TO HAVE MILD DEMENTIA. SHE HAS BEEN STARTED ON ESCITALOPRAM 5 MG A DAY AND SHE CLAIMS TO BE FEELING BETTER. Code(s): F41.1 - Generalized anxiety disorder Category: Medical Plan: CONTINUE TO TAKE ESCITALOPRAM 5 MG DAILY. Medications: Changed From albuterol sulfate 90 mcg/actuation (ProAir HFA) 2 puffs inhalation Q4-6H PRN 6.7 grams 5RF shortness of breath or wheezing To albuterol sulfate 90 mcg/actuation 2 puffs inhalation Q4-6H PRN 6.7 grams 3RF shortness of breath or wheezing Coding Level of Care Code Est Pt Level 3 (43916) Diagnoses Bronchiectasis without complication J47.9 Bronchiectasis type: uncomplicated Panlobular emphysema J43.1 COPD type: emphysema Emphysema type: panlobular Generalized anxiety disorder F41.1
--- OUTSIDE RECORDS SUMMARY | 2024-07-22 19:15 | XMS_ITS ---
Author Organization [facility] Address [address] [place] [address] Care Team Providers Care Lead Investigator Name Role Phone Feli Rm Primary Care Provider Addie Martinez Unavailable [phone] Pieter Riddle Unavailable [phone] REASON FOR VISIT Painful thick toenails which are aggrevated by shoes and causes difficulty standing/walking, Wart(s), PCP -04/18 Encounters Encounter Location Date Provider Diagnosis [facility] [address] [place] [address] 12/11/2023 Pieter Riddle Tinea unguium B35.1 ; [...] Provider Name:Addie linton, 09/03/2024 01:45:00 PM, [address] [place], [address], Procedure Notes * Category Sub-Category Detail Notes Wart Treatment Procedure Verrucae(s) were debrided to pin-point bleeding margins with sterile surgical blade (43604), silver nitrate chemocautery applied Debride Nails 1-5 Procedure: Nail debrideme nt performed extensively to reduce/remove overall nail length and girth, subungual debris, and necrotic tissue, by manual and electrical means by use of a nail nipper and/or dremel, to more viable healthy nail plate or bed tissue 1-5. Silver nitrate used for any petechial bleeding as necessary. Patient chooses, no pharmaceutical tx (56453) Progress Notes * Tati CARVALHO ADOB: [birth year] (83 yo F)Acc No.[id number]:12/11/2023 Progress Note Patient:?Tati CARVALHO Provider:?Pieter Riddle DPM :1940???Age:83 Y???Sex:Female D ate:12/11/2023 Address:[address] [place], [place] [address] Pcp:Feli Rm Subjective: * Chief Complaints: * [...] as necessary. Patient chooses, no pharmaceutical tx (74241).?Wart Treatment:?Procedure?Verrucae(s) were debrided to pin-point bleeding margins with sterile surgical blade (21927), silver nitrate chemocautery applied.? * Procedure Codes:?66296 DEBRI DE NAIL, 1-5, Modifiers: XS , 91894 Wart Destruction, 1-14, Modifiers: XS * Follow Up:?3 Months * Images: * The named appointment provid er may or may not be the originator of this progress note, and it is not deemed complete until electronically signed by the appointment provider. Sign off status: Pending * Provider:?Pieter Riddle DPM Date:? 024 Generated for Aaron craig/Niall/Brownitting on:?07/22/2024 07:15 PM EST History and Physical Notes * [...]
--- OUTSIDE RECORDS SUMMARY | 2024-07-22 19:15 | XMS_ITS ---
Author Organization [facility] ricky Treynor Address [address] [place] [address] Care Team Providers Care Rejoiner Name Role Phone Feli Rm Primary Care Provider Addie Martinez Unavailable [phone] Allergies Allergen (clinical drug ingredient) Drug/Non Drug [...] Ordered Date Performed Result Body Sit e 05607-KLTENIM NAIL, 6 OR MORE 04/15/2024 N/A Encounters Encounter Location Date Provider Diagnosis [facility] [place] [address] [place] [address] 04/15/2024 Addie Brizuela Onychomycosis B35.1 ; Pain in right toe(s) M79.674 and Pain in left toe(s) M79.675 Assessments Encounter Date Diagnosis (ICD Code) Assessment Notes Treatment Notes Treatment Clinical Notes Section Notes 04/15/2024 Onychomycosis (ICD-10 - B35.1) 04/15/2024 Pain in right toe(s) (ICD-10 - M79.674) 04/15/2024 Pain in left toe(s) (ICD-10 - M79.675) Plan Of Treatment Pending Test Test Name Order Date 93296-ODLCMYF NAIL, 6 OR MORE 04/15/2024 Next Appt Details Follow Up: 3 Months, Reason: Provider Name:Adide Yvonnejimbo royer, 09/03/2024 01:45:00 PM, [address] [place] [address], [phone], Procedure Notes * Category Sub-Category Detail Notes [...] use of a nail nipper and/or dremel-type automatic corn grinder operator, to a more viable healthy nail plate or bed tissue 6-10. Silver nitrate used for any petechial bleeding as necessary. Definitive antifungal treatment options have been reviewed and discussed with the patient. The patient chooses, no pharmaceutical tx - 91757 Progress Notes * Tati CARVALHO ADOB: [birth year] (83 yo F)Acc No.[id number]:04/15/2024 Progress Note Patient:?Tati CARVALHO Provider:?Addie Brizuela DPM :1940???Age:83 Y???Sex:Female D ate:04/15/2024 Address:[address] [place] [phone] Pcp:Feli Rm Subjective: * Chief Complaints: * ???Painful nail(s) aggravate d by shoes causing difficulty standing/walking * HPI: ???Painful Nails:?Pt States Last PCP Visit:?Date:?03/27/2024 * Medical History:? * Surgical History:?hysterecto my 1997oral surgery 11/2013 * Hospitalization/Major Diagno stic Procedure:?[facility] for pneumonia 10/04/2015C- Trouble breathing/pressure in head [...] walking, occasional. ?Marital status: . 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 * Medications:?TakingCitracal + D iron Synthroid [...] use of a nail nipper and/or dremel-type automatic corn grinder operator, to a more viable healthy nail plate or bed tissue 6-10. Silver nitrate used for any petechial bleeding as necessary. Definitive antifungal treatment options have been reviewed and discussed with the patient. The patient chooses, no pharmaceutical tx - 53098.? * Procedure Codes:?84028 DEBRI DE NAIL, 6 OR MORE * Follow Up:?3 Months * Images: * Sign off status: Completed true * Provider:?Addie Brizuela DPM Date:?1 06/15/2023 Generated for Aaron craig/Niall/eTransmitting on:?07/22/2024 07:14 PM EST History and Physical Notes * [...]
--- OUTSIDE RECORDS SUMMARY | 2024-07-22 19:15 | XMS_ITS ---
Author Organization [facility] Address [address] [place] [address] Care Team Providers Care Ip Litigation Paralegal Name Role Phone Feli Rm Primary Care Provider Addie Martinez Unavailable [phone] Pieter Riddle Unavailable [phone] Allergies Allergen (clinical drug ingredient) Drug/Non Drug [...] 024 Encounters Encounter Location Date Provider Diagnosis [facility] [address] [place] [address] 01/13/2024 Pieter Riddle Tinea unguium B35.1 ; [...] Provider Name:Addie linton, 09/03/2024 01:45:00 PM, [address] [place], [address], Procedure Notes * Category Sub-Category Detail Notes [...] as necessary. Patient chooses, no pharmaceutical tx (84424) Progress Notes * Tati CARVALHO ADOB: [birth year] (83 yo F)Acc No.[id number]:01/13/2024 Progress Note Patient:Tati Fleming Provider:?Pieter Riddle DPM :1940???Age:83 Y???Sex:Female D ate:01/13/2024 Address:[address] [place], [place] [address] Pcp:Feli Rm Subjective: * Chief Complaints: * [...] 1997oral surgery 11/2013 * Hospitalization/Major Diagno stic Procedure:?[facility] [place] for pneumonia 10/04/2015[facility] [place]- Trouble breathing/pressure in head test done results [...] walking, occasional. ?Marital status: . 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 * Medications:?TakingCitracal [...] as necessary. Patient chooses, no pharmaceutical tx (04321).? * Procedure Codes:?24293 TINO SALGADO, 1-5, Modifiers: XS * Preventive [...] DPM Date:? 024 Generated for Aaron craig/Niall/Juddsmitting on:?07/22/2024 07:14 PM EST History and Physical [...]
--- OUTSIDE RECORDS SUMMARY | 2024-07-22 19:15 | XMS_ITS | Patient Health Record ---
Author Organization [facility] Address [address] [place] [address] Care Team Providers Care Steward/Stewardess Lounge Name Role Phone Feli Rm Primary Care Provider Addie Martinez Unavailable [phone] Pieter Riddle Unavailable [phone] Allergies Allergen (clinical drug ingredient) Drug/Non Drug [...] W/U Status Risk Notes Problem Viral wart (75524962) Other viral warts (B07.8) Active confirmed Problem Localized, primary osteoarthritis of the ankle and/or foot (059313621) Primary osteoarthrit is, right ankle and foot (M19.071) Active confirmed Problem Acquired hammer toe of right foot (3398971116311775) Other hammer toe(s) (acquired), right foot (M20.41) Active confirmed Problem Acquired hammer toe of left foot (6430776186977020) Other hammer toe(s) (acquired), left foot (M20.42) Active confirmed Vital Signs Blood pressure diastolic 80 mm Hg 04/15/2024 Height 5 ft 2 in in 04/15/2024 Blood pressure systolic 120 mm Hg 04/15/2024 Weight 114 lbs 04/15/2024 BMI 20.85 kg/m2 04/15/2024 Procedures Procedure Date Ordered Date Performed Result Body Sit e 86494-UMPGLIM NAIL, 6 OR MORE 04/15/2024 N/A Encounters Encounter Location Date Provider Diagnosis [address] [address] 01/13/2024 Pieter Riddle Tinea unguium B35.1 ; Pain in right toe(s) M79.674 ; Pain in left toe(s) M79.675 ; Other viral warts B07.8 ; Pain in left foot M79.672 ; Pain in right foot M79.671 and Other hammer toe(s) (acquired), left foot M20.[address] [address] 04/15/2024 Addie Brizuela Onychomycosis B35.1 ; Pain in right toe(s) M79.674 and Pain in left toe(s) M79.[address] [address] 10/14/2023 Pieter Riddle [address] [address] 11/11/2023 Pieter Riddle [address] [address] 12/10/2023 Pieter Riddle Assessments Encounter Date Diagnosis (ICD Code) Assessment Notes Treatment Notes Treatment Clinical Notes Section Notes 01/13/2024 Tinea unguium (ICD-10 - B35.1) 01/13/2024 Pain in right toe(s) (ICD-10 - M79.674) 04/15/2024 Pain in right toe(s) (ICD-10 - M79.674) 04/15/2024 Onychomycosis (ICD-10 - B35.1) 04/15/2024 Pain in left toe(s) (ICD-10 - M79.675) 01/13/2024 Pain in left toe(s) (ICD-10 - M79.675) 01/13/2024 Other viral warts (ICD-10 - B07.8) 01/13/2024 Pain in left foot (ICD-10 - M79.672) 01/13/2024 Pain in right foot (ICD-10 - M79.671) 01/13/2024 Other hammer toe(s) (acquired), left foot (ICD-10 - M20.42) Plan Of Treatment Pending Test Test Name Order Date 03938-IYEKOLY NAIL, 6 OR MORE 04/15/2024 57272-CABAFMP NAIL, 1-5 03/10/2018 61854-LIWIASO NAIL, -02/20/2016 82499-MVERTZO NAIL, -05/14/2016 61016-VFBMXYT NAIL, -07/23/2016 66585-MELKSLB NAIL, -12/31/2016 66140-UTFCZIR NAIL, -03/25/2017 33233-AZXYCDR NAIL, -06/17/2017 12378-ZOBESBS NAIL, -09/23/2017 96114-GHSHSWQ NAIL, -12/11/2017 96685-SBSGLWT NAIL, -08/15/2015 20160-BCLSKEE NAIL, -11/14/2015 69064-Iaju Destruction, -11/14/2015 44980-Dcjb Destruction, -05/16/2015 24499-Drpt Destruction, -08/15/2015 04729-Pxhu Destruction, -12/13/2014 38351-Yzgt Destruction, -02/24/2015 38564-Wvdd Destruction, -12/17/2013 76267-Xxsq Destruction, -03/04/2014 39936-Quuy Destruction, 06-0905/10/2014 95154-Iavv Destruction, -07/26/2014 30714-Qjon Destruction, 06-0910/04/2014 51061-Ajnw Destruction, 06-0902/05/2011 91901-Cauj Destruction, 06-0907/09/2011 93074-Bnvr Destruction, 06-0912/03/2011 15159-Ybjv Destruction, 06-0905/15/2012 25595-Gauw Destruction, 06-0908/11/2012 60847-Ejpw Destruction, 06-0911/13/2012 21254-Qgdg Destruction, 06-0902/09/2013 72637-Ejlt Destruction, 06-0905/04/2013 97167-Zrif Destruction, 06-0908/03/2013 34941-Vpxh Destruction, 06-0910/08/2013 44974-Hfly Destruction, 06-0912/11/2017 28679-Ubjm Destruction, 06-0909/23/2017 74904-Dlta Destruction, 06-0906/17/2017 85464-Wfsf Destruction, 06-0903/25/2017 14358-Jnir Destruction, 06-0912/31/2016 83756-Cdop Destruction, 06-0907/23/2016 56320-Rmbz Destruction, 06-0905/14/2016 88807-Lpjg Destruction, 06-0902/20/2016 81582-Rsiu Destruction, 06-0903/10/2018 96562-Hgecydkr Plate 02/05/2011 25216-Fomaqlwe Plate 12/03/2011 44366-Rspvgkbc Plate 07/09/2011 33470- Debride <25 sq cm 05/15/2012 83324- Debride <25 sq cm 08/11/2012 18421- Debride <25 sq cm 11/13/2012 61368- Debride <25 sq cm 12/17/2013 75437- Debride <25 sq cm 10/08/2013 18136- Debride <25 sq cm 05/04/2013 71232- Debride <25 sq cm 02/09/2013 26936- Debride <25 sq cm 10/04/2014 46144- Debride <25 sq cm 07/26/2014 37084- Debride <25 sq cm 03/04/2014 37277- Debride <25 sq cm 05/10/2014 79791- Debride <25 sq cm 02/24/2015 43293- Debride <25 sq cm 12/13/2014 Next Appt Details Provider Name:Addie linton, 09/03/2024 01:45:00 PM, [address] [place], [address], Insurance Providers Payer Name Payer Address Payer Phone Subscriber Number Group Number Insured Name Patient Relationship to Insured Coverage Start Date Coverage End Date Medicare National Govt [facility] [address] [place] [address] [id number] Tati Carvalho Self - patient is the insured [address] [place] [address] [place] [phone] [id number] Tati Carvalho Self - patient is the [...]
== END 2024-07-22 16:25 | disposition home or self-care (01) ==
PROVIDERS: PCP Internal Medicine; Referring Provider Internal Medicine; Visit Provider Internal Medicine
DX: J47.9 Bronchiectasis, uncomplicated (principal); J43.1 Panlobular emphysema; F41.1 Generalized anxiety disorder
CPT/HCPCS: 99213

== ENCOUNTER → 2024-07-22 15:43 | Outpatient (BNVA) | payer MEDICARE, OTHER, SELFPAY | PROVIDERS: PCP Internal Medicine; Referring Provider Internal Medicine; Visit Provider Internal Medicine | DX: J47.9 Bronchiectasis, uncomplicated (principal); J43.1 Panlobular emphysema; F41.1 Generalized anxiety disorder; Z79.899 Other long term (current) drug therapy | CPT/HCPCS: 99212 ==

== ENCOUNTER 2024-07-24 13:31 | Outpatient (AMB) | payer MEDICARE, OTHER, SELFPAY ==
[2024-07-24 14:02] VITALS: BP 132/80; PULSE 66; O2SAT 97; BMI 21.1
--- NOTE | 2024-07-24 14:02 | MHC.PC.OV ---
Vital Signs 07/24/24 14:02 Height 5 ft 2 in Weight 115 lb 2 oz BMI 21.1 BP 132/80 Blood Pressure Location Lt brachial Position Sitting Pulse 66 Pulse Source Pulse Oximeter Pulse Oximetry (%) 97 Oxygen Delivery Method Room Air Intake Visit Reasons: 3mth f/u Processing Tech Required: No Accompanied by: Self / Same As Patient Allergies codeine [CODEINE] Allergy (Unknown, Verified 07/24/24 14:03) GI UPSET levofloxacin [From LEVAQUIN] Allergy (Unknown, Verified 07/24/24 14:03) STOMACH UPSET pneumococcal vaccine Allergy (Unknown, Verified 07/24/24 14:03) unknown shellfish derived [SHELLFISH DERIVED] Allergy (Unknown, Verified 07/24/24 14:03) RASH Tobacco use date assessed: 07/24/24 Fall risk assessment: No Falls in past year Last assessed Fall Risk: 07/24/24 Dental Screening Dental Screen Date: 07/24/24 Did you have a dental visit in the last 12 months?: Yes Did you have a dental problem in the last 6 months where you did not have access to dental care?: No Was dental information given to patient?: Patient has dentist HPI 3mth f/u HPI Details Sore throat 2 days fevers, PFSH Medical History (Updated 07/24/24 @ 14:19 by Feli Rm MD) Osteopenia Contact dermatitis and eczema Sinus congestion Costochondritis LLQ pain Dysuria Confusion Epigastric pain UTI (urinary tract infection) Cognitive impairment Cough Blood pressure elevated without history of HTN Screening for breast cancer Post-menopausal Pneumonia Viral upper respiratory tract infection with cough Encounter for subsequent annual wellness visit (AWV) in Medicare patient Chest pain SOB (shortness of breath) Headache Colonoscopy refused COPD (chronic obstructive pulmonary disease) Recurrent sinus infections Breast asymmetry Uterine cancer Bronchiectasis Pernicious anemia Peripheral neuropathy Lumbar degenerative disc disease Hypercholesterolemia Vitamin D deficiency Pulmonary nodule Hypothyroid Surgical History History of total abdominal hysterectomy and bilateral salpingo-oophorectomy History of lumpectomy of right breast History of appendectomy Family History Father CVD (cardiovascular disease) Mother Cancer Social History Housing: House Alcohol intake: never Patient Tobacco Use Status: Never used Tobacco Tobacco use type: Cigarette e-Cigarette/Vaping Use: Never Used Second Hand Smoke Exposure: No service: No Current occupational status: unemployed Cognitive needs: No Hearing needs: No Vision needs: Yes (reading glasses) Questionnaire PHQ-9 Over the last 2 weeks, how often have you been bothered by any of the following problems? 1. Little interest or pleasure in doing things: not at all 2. Feeling down, depressed, or hopeless: not at all 3. Trouble falling or staying asleep, or sleeping too much: not at all 4. Feeling tired or having little energy: not at all 5. Poor appetite or overeating: not at all 6. Feeling bad about yourself - or that you are a failure or have let yourself or your family down: not at all 7. Trouble concentrating on things, such as reading the newspaper or watching television: not at all 8. Moving or speaking so slowly that other people could have noticed. Or the opposite - being so fidgety or restless that you have been moving around a lot more than usual: not at all 9. Thoughts that you would be better off or of hurting yourself in some way: not at all Total score: 0 Depression Screening Interpretation: Negative Depression Screening Done: Yes 42048 - PHQ-9 Billing: Yes Source: Developed by Drs. Lobo Lopez, Lucie Mckinley, Nima Holland and colleagues, with an educational kourtney from [employer]. Thrive Questionnaire Date Thrive assessed: 07/24/24 I am a: Patient What is your living situation today?: I have a steady place to live Within the past 12 months, did the food you bought not last and you didn't have the money to get more?: Never true Within the past 12 months, did you worry whether your food would run out before you got money to buy more?: Never true Do you have trouble paying for medicines?: No Do you have trouble getting transportation to medical appointments?: No Do you have trouble paying your heating and electricity bill?: No Do you have trouble taking care of your child, family member or friend?: No Do you have trouble with day-to-day activities such as bathing, preparing meals, shopping, managing finances, etc.?: No Are you currently unemployed and looking for a job?: No Are you interested in more education?: No Please select the resources that you would like help with: None Currently or been in a relationship where the following occur: No concerns reported THRIVE Score: 0 AUDIT C Alcohol Use Questionnaire (AUDIT-C) 1. How often do you have a drink containing alcohol?: Never Total Score: 0 Score Reviewed/Action Taken: No DANIEL-7 AMB Questionnaire DANIEL-7 Date DANIEL - 7 assessed: 07/24/24 Feeling nervous, anxious, or on edge: 0 = Not at all Not being able to stop or control worryin = Not at all Worrying too much about different things: 0 = Not at all Trouble relaxin = Not at all Being so restless that it is hard to sit still: 0 = Not at all Becoming easily annoyed or irritable: 0 = Not at all Feeling afraid as if something awful might happen: 0 = Not at all Total DANIEL-7 score (0-4 normal; 5-9 mild; 10-14 moderate; 15-21 severe): 0 Source: Developed by Drs. Lobo Lopez, Lucie Mckinley, Nima Holland and colleagues, with an educational kourtney from [employer]. Physical exam (Primary Care) Vital Signs: Oxygen Delivery Method Room Air 07/24/24 14:02 Tobacco/Smoking Status: Tobacco use Status Tobacco use date assessed 06/16/24 07/10/24 16:31 Patient Tobacco Use Status Never used Tobacco 07/10/24 16:31 Tobacco use type Cigarette 07/10/24 16:31 e-Cigarette/Vaping Use Never Used 07/10/24 16:31 Depression Screening Interpretation: Negative Thrive Assessment: Date of Thrive Assessment Date Thrive assessed 06/16/24 07/10/24 16:31 Currently or been in a relationship where the following occur: No concerns reported Const General: alert; No acute distress Eyes Conjunctivae: conjunctivae normal Resp Auscultation: clear to auscultation bilaterally Cardio Rate: regular rate Rhythm: regular rhythm GI Inspection: Yes normal to inspection Extrem General: Yes normal to inspection and No edema Coding Level of Care Code Est Pt Level 4 (92039) Diagnoses Bronchiectasis without complication J47.9 Bronchiectasis type: uncomplicated Acquired hypothyroidism E03.9 Hypothyroidism type: acquired Panlobular emphysema J43.1 COPD type: emphysema Emphysema type: panlobular Generalized anxiety disorder F41.1 Dementia with Lewy bodies G31.83; F02.80 Constipation K59.00 B12 deficiency E53.8 Additional Codes PHQ-9 - 68364 - PHQ-9 Billing: Yes ([id number]) Assessment & Plan Assessment & Plan (1) Bronchiectasis: Comment: MILD, CHRONIC BRONCHIECTASIS IN RT MIDDLE LOBE AND LINGULA ( DAIN ) . Code(s): J47.9 - Bronchiectasis, uncomplicated Category: Medical Qualifiers: Bronchiectasis type: uncomplicated Qualified Code(s): J47.9 - Bronchiectasis, uncomplicated Plan: Patient has followed up with the pulmonary and has agreed with giving antibiotics p.r.n. for infection. (2) Hypothyroid: Code(s): E03.9 - Hypothyroidism, unspecified Category: Medical Qualifiers: Hypothyroidism type: acquired Qualified Code(s): E03.9 - Hypothyroidism, unspecified Plan: Continue with thyroid medication 05/15/2024 last blood work (3) COPD (chronic obstructive pulmonary disease): Comment: HAS VERY MILD DEGREE OF OBSTRUCTIVE AIRWAY DISORDER, LAST PFT IN 2009, PATIENT HAS DECLINED TO HAVE ANY MORE PULMONARY FUNCTION TESTS. CLINICALLY SHE HAS VERY MILD OBSTRUCTIVE AIRWAY DISORDER. Code(s): J44.9 - Chronic obstructive pulmonary disease, unspecified Category: Medical Qualifiers: COPD type: emphysema Emphysema type: panlobular Qualified Code(s): J43.1 - Panlobular emphysema Plan: On albuterol as needed (4) Generalized anxiety disorder: Comment: NOTED ABOVE IN HPI SHE DOES HAVE ANXIETY SYNDROME AND RECENTLY DIAGNOSED TO HAVE MILD DEMENTIA. SHE HAS BEEN STARTED ON ESCITALOPRAM 5 MG A DAY AND SHE CLAIMS TO BE FEELING BETTER. Code(s): F41.1 - Generalized anxiety disorder Category: Medical Plan: Continue with lorazepam as needed and Lexapro 5 mg once a day (5) Dementia with Lewy bodies: Comment: Dr. Badillo May 2024 Code(s): G31.83 - Neurocognitive disorder with Lewy bodies; F02.80 - Dementia in other diseases classified elsewhere, unspecified severity, without behavioral disturbance, psychotic disturbance, mood disturbance, and anxiety Category: Medical Plan: Conservative treatment (6) Constipation: Code(s): K59.00 - Constipation, unspecified Category: Medical Plan: Three rules for constipation 1. Diet need to have a high fiber diet less of meat 2. Increase oral fluids 3. Exercise will give the vitamin B12 injections today (7) B12 deficiency: Code(s): E53.8 - Deficiency of other specified B group vitamins Category: Medical Plan: Will have the injections today for vitamin B12 Plan History of Present Illness The patient is an 83-year-old female presenting for a follow-up on Chronic Obstructive Pulmonary Disease (COPD) and bronchiectasis. She presented initially with mild chronic bronchiectasis identified in the right middle lobe and lingula, and she continues to manage this condition with as-needed ProAir (albuterol). During this visit, she described experiencing periodic productive cough but denied recent infections or fevers. The patient has a background of generalized anxiety disorder treated with lorazepam and Lexapro, hypothyroidism, and hypercholesterolemia. Her last laboratory results from April 2024 indicated mild anemia and hyponatremia, with stable renal and liver function. Proactively she declined a pulmonary function test. In terms of gastrointestinal functions, she suffers from constipation, treated with the intermittent use of stool softeners. Her water intake averages 360 ounces daily, although she notes occasional urinary urgency. Health Maintenance - Continued use of thyroid medication - Albuterol as needed for COPD symptom relief - Lorazepam and Lexapro prescribed as needed for anxiety management - Recent lab workup in April 2024: mild anemia with normal renal and liver function - Recommendation to increase dietary fiber and fluid intake to alleviate constipation - Consider use of Senna and docusate for improved bowel movement regularity Social History - Current liquid intake includes approximately 360 ounces of water daily - Reports use of stool softeners for constipation management Review of Systems - Respiratory: Reports cough with expectoration, denies fever - Gastrointestinal: Reports intermittent constipation requiring stool softeners - Genitourinary: Notable for increased urinary frequency but no incontinence reported Physical Exam Results - Labs (April 2024): Mild anemia, mild hyponatremia, normal renal and liver function Plan Current treatments include maintaining ProAir for COPD and hypothyroidism medication. Anxiety is managed with as-needed lorazepam and Lexapro. We addressed constipation by recommending increased fluid and fiber intake and introducing Senna with docusate. The patient asked for an antibiotic prescription as a preventive measure against ear infections. therapy was reviewed with no changes recommended immediately, and anemia and hyponatremia levels will continue to be monitored. Patient was informed and verbally consented to the use of an ambient scribe for clinic note documentation during this visit. Discussion Notes I reviewed management plans for the patient's COPD and hypothyroidism, advising continuation of existing therapies. We discussed constipation interventions, including dietary modifications and potential use of Senna-docusate. No new lab tests were considered necessary at this time, but continued prudence is advised. We confirmed not initiating B12 therapy without indication from blood work. I consented her regarding the benefits of PRN antibiotics for ear infections and emphasized ongoing vigilance for anemia and hyponatremia. Instructions for potential bowel movement regulation were provided. Patient Instructions - Continue using ProAir as needed for COPD symptoms - Maintain thyroid medication as prescribed - Use lorazepam and Lexapro when necessary for anxiety - Increase dietary fiber and fluid intake - Take Senna and docusate as advised for constipation - Monitor symptoms of anxiety, anemia, and hyponatremia regularly - Seek assistance if symptoms worsen or if experiencing new symptoms Medications: New sennosides-docusate sodium 8.6-50 mg (Senna Plus) 2 tab-caps (2 x 8.6-50 mg) PO BEDTIME 60 caps 12RF K59.00 - Constipation, unspecified azithromycin (Zithromax) For 250 mg dose pack: take 500 mg today (day 1), then 250 mg for 4 days (days 2-5) PO 6 tabs 0RF J47.9 - Bronchiectasis, uncomplicated
--- OUTSIDE RECORDS SUMMARY | 2024-07-24 15:40 | XMS_ITS ---
Author Organization [facility] ricky [place] Address [address] [place] [address] Care Team Providers Care Fur Ironer Name Role Phone Feli Rm Primary Care Provider Addie Martinez Unavailable [phone] Allergies Allergen (clinical drug ingredient) Drug/Non Drug [...] Ordered Date Performed Result Body Sit e 25296-FPOZSIR NAIL, 6 OR MORE 04/15/2024 N/A Encounters Encounter Location Date Provider Diagnosis [facility] [place] [address] [place] [address] 04/15/2024 Addie Brizuela Onychomycosis B35.1 ; Pain in right toe(s) M79.674 and Pain in left toe(s) M79.675 Assessments Encounter Date Diagnosis (ICD Code) Assessment Notes Treatment Notes Treatment Clinical Notes Section Notes 04/15/2024 Onychomycosis (ICD-10 - B35.1) 04/15/2024 Pain in right toe(s) (ICD-10 - M79.674) 04/15/2024 Pain in left toe(s) (ICD-10 - M79.675) Plan Of Treatment Pending Test Test Name Order Date 21072-SDDEBHM NAIL, 6 OR MORE 04/15/2024 Next Appt Details Follow Up: 3 Months, Reason: Provider Name:Addie Yvonnejimbo royer, 09/03/2024 01:45:00 PM, [address] [place] [address], [phone], Procedure Notes * Category Sub-Category Detail Notes [...] use of a nail nipper and/or dremel-type watch parts grinder, to a more viable healthy nail plate or bed tissue 6-10. Silver nitrate used for any petechial bleeding as necessary. Definitive antifungal treatment options have been reviewed and discussed with the patient. The patient chooses, no pharmaceutical tx - 24987 Progress Notes * Tati CARVALHO ADOB: [birth year] (83 yo F)Acc No.[id number]:04/15/2024 Progress Note Patient:?Tati CARVALHO Provider:?Addie Brizuela DPM :1940???Age:83 Y???Sex:Female D ate:04/15/2024 Address:[address] [place] [id number] Pcp:Feli Rm Subjective: * Chief Complaints: * ???Painful nail(s) aggravate d by shoes causing difficulty standing/walking * HPI: ???Painful Nails:?Pt States Last PCP Visit:?Date:?03/27/2024 * Medical History:? * Surgical History:?hysterecto my 1997oral surgery 11/2013 * Hospitalization/Major Diagno stic Procedure:?[facility] for pneumonia 10/04/2015C- Trouble breathing/pressure in head [...] walking, occasional. ?Marital status: . 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 * Medications:?TakingCitracal + D iron Synthroid 175 [...] use of a nail nipper and/or dremel-type watch parts grinder, to a more viable healthy nail plate or bed tissue 6-10. Silver nitrate used for any petechial bleeding as necessary. Definitive antifungal treatment options have been reviewed and discussed with the patient. The patient chooses, no pharmaceutical tx - 50622.? * Procedure Codes:?73752 DEBRI DE NAIL, 6 OR MORE * Follow Up:?3 Months * Images: * Sign off status: Completed true * Provider:?Addie Brizuela DPM Date:?1 06/15/2023 Generated for Aaron craig/Niall/eTransmitting on:?07/24/2024 03:40 PM EST History and Physical Notes * [...]
--- OUTSIDE RECORDS SUMMARY | 2024-07-24 15:40 | XMS_ITS | Patient Health Record ---
[facility] [place] Address [address] [place] [address] Care Team Providers Care Steel Plate Printer Name Role Phone Feli Rm Primary Care Provider Addie Martinez Unavailable [phone] Pieter Riddle Unavailable [phone] Allergies Allergen (clinical drug ingredient) Drug/Non Drug [...] W/U Status Risk Notes Problem Viral wart (34650746) Other viral warts (B07.8) Active confirmed Problem Localized, primary osteoarthritis of the ankle and/or foot (215900702) Primary osteoarthrit is, right ankle and foot (M19.071) Active confirmed Problem Acquired hammer toe of right foot (0179214723783287) Other hammer toe(s) (acquired), right foot (M20.41) Active confirmed Problem Acquired hammer toe of left foot (4319545179827515) Other hammer toe(s) (acquired), left foot (M20.42) Active confirmed Vital Signs Blood pressure diastolic 80 mm Hg 04/15/2024 Height 5 ft 2 in in 04/15/2024 Blood pressure systolic 120 mm Hg 04/15/2024 Weight 114 lbs 04/15/2024 BMI 20.85 kg/m2 04/15/2024 Procedures Procedure Date Ordered Date Performed Result Body Sit e 32393-CLYKYAJ NAIL, 6 OR MORE 04/15/2024 N/A Encounters Encounter Location Date Provider Diagnosis [address] [address] 01/13/2024 Pieter Riddle Tinea unguium B35.1 ; Pain in right toe(s) M79.674 ; Pain in left toe(s) M79.675 ; Other viral warts B07.8 ; Pain in left foot M79.672 ; Pain in right foot M79.671 and Other hammer toe(s) (acquired), left foot M20.[address] [address] 04/15/2024 Addie Brizuela Onychomycosis B35.1 ; Pain in right toe(s) M79.674 and Pain in left toe(s) M79.[address] [address] 10/14/2023 Pieter Riddle [address] [address] 11/11/2023 Pieter Riddle [address] [address] 12/10/2023 Pieter Riddle Assessments Encounter Date Diagnosis [...] Treatment Pending Test Test Name Order Date 99399-AEVTBPX NAIL, 6 OR MORE 04/15/2024 53448-STHNYRP NAIL, 1-5 03/10/2018 94995-RCKQDHP NAIL, -02/20/2016 27417-NQGCWAF NAIL, -05/14/2016 08864-WHYXMFQ NAIL, -07/23/2016 63774-VBQCORN NAIL, -12/31/2016 88327-SLATAWE NAIL, -03/25/2017 05909-PIWAAAH NAIL, -06/17/2017 87603-QZUNOLO NAIL, -09/23/2017 25087-LQQCXNY NAIL, -12/11/2017 47515-PRBPWNH NAIL, -08/15/2015 48847-JKDHVBK NAIL, -11/14/2015 95220-Vkow Destruction, -11/14/2015 84287-Nxpj Destruction, -05/16/2015 24035-Ekis Destruction, -08/15/2015 88403-Gcmk Destruction, -12/13/2014 79971-Chqm Destruction, -02/24/2015 55391-Wsbt Destruction, -12/17/2013 79626-Toqi Destruction, -03/04/2014 94407-Czqi Destruction, 06-0905/10/2014 60950-Cetx Destruction, -07/26/2014 84302-Ruij Destruction, 06-0910/04/2014 70947-Fyqo Destruction, 06-0902/05/2011 27420-Wqyc Destruction, 06-0907/09/2011 36790-Ussk Destruction, 06-0912/03/2011 98245-Cjmn Destruction, 06-0905/15/2012 09204-Yrny Destruction, 06-0908/11/2012 42627-Scze Destruction, 06-0911/13/2012 54623-Fgwz Destruction, 06-0902/09/2013 13737-Zfcw Destruction, 06-0905/04/2013 66588-Swsk Destruction, 06-0908/03/2013 37110-Yowp Destruction, 06-0910/08/2013 90016-Ecgr Destruction, 06-0912/11/2017 69163-Fetm Destruction, 06-0909/23/2017 34140-Uiux Destruction, 06-0906/17/2017 67310-Akiv Destruction, 06-0903/25/2017 37276-Gbkf Destruction, 06-0912/31/2016 89685-Fviu Destruction, 06-0907/23/2016 69961-Mzjk Destruction, 06-0905/14/2016 45566-Owpx Destruction, 06-0902/20/2016 61913-Oelo Destruction, 06-0903/10/2018 46316-Bsbqslfl Plate 02/05/2011 93207-Psigaota Plate 12/03/2011 30535-Xfadmzwk Plate 07/09/2011 76467- Debride <25 sq cm 05/15/2012 28657- Debride <25 sq cm 08/11/2012 64752- Debride <25 sq cm 11/13/2012 24916- Debride <25 sq cm 12/17/2013 72269- Debride <25 sq cm 10/08/2013 07063- Debride <25 sq cm 05/04/2013 70728- Debride <25 sq cm 02/09/2013 79288- Debride <25 sq cm 10/04/2014 10833- Debride <25 sq cm 07/26/2014 93054- Debride <25 sq cm 03/04/2014 45460- Debride <25 sq cm 05/10/2014 85737- Debride <25 sq cm 02/24/2015 13050- Debride <25 sq cm 12/13/2014 Next Appt Details Provider Name:Addie linton, 09/03/2024 01:45:00 PM, [address] [place], [address], Insurance Providers Payer Name Payer Address Payer Phone Subscriber Number Group Number Insured Name Patient Relationship to Insured Coverage Start Date Coverage End Date Medicare National Govt [facility] [address] [place] [address] [id number] Tati Carvalho Self - patient is the insured [address] [employer] [place] [address] [place] [phone] [id number] Tati Carvalho Self - patient is the [...]
--- OUTSIDE RECORDS SUMMARY | 2024-07-24 15:40 | XMS_ITS ---
Author Organization [facility] Address [address] [place] [address] Care Team Providers Care Winderman Name Role Phone Feli Rm Primary Care Provider Addie Martinez Unavailable [phone] Pieter Riddle Unavailable [phone] Allergies Allergen (clinical drug ingredient) Drug/Non Drug [...] 024 Encounters Encounter Location Date Provider Diagnosis [facility] [address] [place] [address] 01/13/2024 Pieter Riddle Tinea unguium B35.1 ; [...] Provider Name:Addie linton, 09/03/2024 01:45:00 PM, [address] [place], [address], Procedure Notes * Category Sub-Category Detail Notes [...] as necessary. Patient chooses, no pharmaceutical tx (58645) Progress Notes * Tati CARVALHO ADOB: [birth year] (83 yo F)Acc No.[id number]:01/13/2024 Progress Note Patient:Tati Fleming Provider:?Pieter Riddle DPM :1940???Age:83 Y???Sex:Female D ate:01/13/2024 Address:[address] [place], [place] [phone] Pcp:Feli Rm Subjective: * Chief Complaints: * [...] 1997oral surgery 11/2013 * Hospitalization/Major Diagno stic Procedure:?[facility] for [place] [facility]- Trouble breathing/pressure in [...] occasional. ?Marital status: . 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 * Medications:?TakingCitracal + D iron [...] as necessary. Patient chooses, no pharmaceutical tx (39610).? * Procedure Codes:?98891 TINO SALAGDO, 1-5, Modifiers: XS * Preventive Medicine:? ??Counseling:?Discussion:?-13: [...] DPM Date:? 024 Generated for Aaron craig/Niall/Juddsmitting on:?07/24/2024 03:39 PM EST History and Physical Notes * [...]
--- OUTSIDE RECORDS SUMMARY | 2024-07-24 15:41 | XMS_ITS ---
Author Organization [facility] Address [address] [place] [address] Care Team Providers Care Medical Lab Scientist Name Role Phone Feli Rm Primary Care Provider Addie Martinez Unavailable [phone] Pieter Riddle Unavailable [phone] REASON FOR VISIT Painful thick toenails which are aggrevated by shoes and causes difficulty standing/walking, Wart(s), PCP -04/18 Encounters Encounter Location Date Provider Diagnosis [facility] [address] [place] [address] 12/11/2023 Pieter Riddle Tinea unguium B35.1 ; [...] Provider Name:Addie linton, 09/03/2024 01:45:00 PM, [address] [place], [address], Procedure Notes * Category Sub-Category Detail Notes Wart Treatment Procedure Verrucae(s) were debrided to pin-point bleeding margins with sterile surgical blade (67767), silver nitrate chemocautery applied Debride Nails 1-5 Procedure: Nail debrideme nt performed extensively to reduce/remove overall nail length and girth, subungual debris, and necrotic tissue, by manual and electrical means by use of a nail nipper and/or dremel, to more viable healthy nail plate or bed tissue 1-5. Silver nitrate used for any petechial bleeding as necessary. Patient chooses, no pharmaceutical tx (04955) Progress Notes * Tati CARVALHO ADOB: [birth year] (83 yo F)Acc No.[id number]:12/11/2023 Progress Note Patient:?Tati CARVALHO Provider:?Pieter Riddle DPM :1940???Age:83 Y???Sex:Female D ate:12/11/2023 Address:[address] [place], [place] [address] Pcp:Feli Rm Subjective: * Chief Complaints: * [...] as necessary. Patient chooses, no pharmaceutical tx (57014).?Wart Treatment:?Procedure?Verrucae(s) were debrided to pin-point bleeding margins with sterile surgical blade (50925), silver nitrate chemocautery applied.? * Procedure Codes:?81916 DEBRI DE NAIL, 1-5, Modifiers: XS , 62760 Wart Destruction, 1-14, Modifiers: XS * Follow Up:?3 Months * Images: * The named appointment provid er may or may not be the originator of this progress note, and it is not deemed complete until electronically signed by the appointment provider. Sign off status: Pending * Provider:?Pieter Riddle DPM Date:? 024 Generated for Aaron craig/Niall/Brownitting on:?07/24/2024 03:40 PM EST History and Physical [...]
== END 2024-07-24 14:35 | disposition home or self-care (01) ==
PROVIDERS: PCP Internal Medicine; Visit Provider Internal Medicine
DX: J47.9 Bronchiectasis, uncomplicated (principal); J43.1 Panlobular emphysema; G31.83 Neurocognitive disorder with Lewy bodies; F02.80 Dementia in other diseases classified elsewhere, unspecified severity, without behavioral disturbance, psychotic disturbance, mood disturbance, and anxiety; E03.9 Hypothyroidism, unspecified; F41.1 Generalized anxiety disorder; K59.00 Constipation, unspecified; E53.8 Deficiency of other specified B group vitamins

== ENCOUNTER → 2024-07-24 13:31 | Outpatient (BNVA) | payer MEDICARE, OTHER, SELFPAY | PROVIDERS: PCP Internal Medicine; Visit Provider Internal Medicine | DX: E53.8 Deficiency of other specified B group vitamins (principal); J47.9 Bronchiectasis, uncomplicated; E03.9 Hypothyroidism, unspecified; J43.1 Panlobular emphysema; F41.1 Generalized anxiety disorder; K59.00 Constipation, unspecified; G31.83 Neurocognitive disorder with Lewy bodies; F02.80 Dementia in other diseases classified elsewhere, unspecified severity, without behavioral disturbance, psychotic disturbance, mood disturbance, and anxiety | CPT/HCPCS: 96127; 96372; 99212; J3420 ==

== ENCOUNTER 2024-08-25 15:17 | Outpatient (AMB) | payer MEDICARE, OTHER, SELFPAY ==
--- NOTE | 2024-08-25 15:18 | MHC.PC.OV ---
Intake Visit Reasons: ? Pneumonia Allergies codeine [CODEINE] Allergy (Unknown, Verified 08/25/24 15:18) GI UPSET levofloxacin [From LEVAQUIN] Allergy (Unknown, Verified 08/25/24 15:18) STOMACH UPSET pneumococcal vaccine Allergy (Unknown, Verified 08/25/24 15:18) unknown shellfish derived [SHELLFISH DERIVED] Allergy (Unknown, Verified 08/25/24 15:18) RASH Medication List - Last Reconciled 08/25/24 by Feli Rm MD albuterol sulfate 90 mcg/actuation 2 puffs inhalation Q4-6H PRN amitriptyline 10 mg PO BEDTIME azithromycin (Zithromax) For 250 mg dose pack: take 500 mg today (day 1), then 250 mg for 4 days (days 2-5) PO bisacodyl (Dulcolax (bisacodyl)) 5 mg PO BEDTIME 2 days calcium citrate-vitamin D3 315 mg-6.25 mcg (250 unit) (Citracal + Vitamin D Maximum) 1 tab PO BID clotrimazole-betamethasone 1-0.05 % 1 appl topical BID 2 weeks cyanocobalamin (vitamin B-12) 1,000 mcg IM Q4W 90 days escitalopram oxalate (Lexapro) 5 mg PO DAILY fexofenadine (Arielle Allergy) 180 mg PO DAILY gabapentin 100 mg PO BEDTIME iron,carbonyl-vitamin C 65 mg iron- 125 mg (Vitron-C) 1 tab PO BID loratadine (Allergy Relief (loratadine)) 10 mg PO DAILY lorazepam (Ativan) 0.5 mg (1/2 x 1 mg) PO TID PRN sennosides-docusate sodium 8.6-50 mg (Senna Plus) 2 tab-caps (2 x 8.6-50 mg) PO BEDTIME Synthroid (levothyroxine) 100 mcg PO DAILY 90 days NS Tobacco use date assessed: 07/24/24 Fall risk assessment: No Falls in past year Last assessed Fall Risk: 08/25/24 Dental Screening Dental Screen Date: 07/24/24 HPI ? Pneumonia HPI Details complains of EDUARDO and congestion nose then to lungs, chills, , no diarrhea, PFSH Medical History (Updated 07/24/24 @ 14:19 by Feli Rm MD) Osteopenia Contact dermatitis and eczema Sinus congestion Costochondritis LLQ pain Dysuria Confusion Epigastric pain UTI (urinary tract infection) Cognitive impairment Cough Blood pressure elevated without history of HTN Screening for breast cancer Post-menopausal Pneumonia Viral upper respiratory tract infection with cough Encounter for subsequent annual wellness visit (AWV) in Medicare patient Chest pain SOB (shortness of breath) Headache Colonoscopy refused COPD (chronic obstructive pulmonary disease) Recurrent sinus infections Breast asymmetry Uterine cancer Bronchiectasis Pernicious anemia Peripheral neuropathy Lumbar degenerative disc disease Hypercholesterolemia Vitamin D deficiency Pulmonary nodule Hypothyroid Surgical History History of total abdominal hysterectomy and bilateral salpingo-oophorectomy History of lumpectomy of right breast History of appendectomy Family History Father CVD (cardiovascular disease) Mother Cancer Social History Housing: House Alcohol intake: never Patient Tobacco Use Status: Never used Tobacco Tobacco use type: Cigarette e-Cigarette/Vaping Use: Never Used Second Hand Smoke Exposure: No service: No Current occupational status: unemployed Cognitive needs: No Hearing needs: No Vision needs: Yes (reading glasses) Questionnaire Thrive Questionnaire Date Thrive assessed: 07/24/24 DANIEL-7 AMB Questionnaire DANIEL-7 Date DANIEL - 7 assessed: 07/24/24 Source: Developed by Drs. Lobo Lopez, Lucie Mckinley, Nima Holland and colleagues, with an educational kourtney from [employer]. Physical exam (Primary Care) Tobacco/Smoking Status: Tobacco use Status Tobacco use date assessed 07/24/24 08/25/24 15:18 Patient Tobacco Use Status Never used Tobacco 08/25/24 15:18 Tobacco use type Cigarette 08/25/24 15:18 e-Cigarette/Vaping Use Never Used 08/25/24 15:18 Thrive Assessment: Date of Thrive Assessment Date Thrive assessed 07/24/24 08/25/24 15:18 Telehealth Telehealth Location of provider rendering services: practice address Location of patient: address on file Patient Identification confirmed using: Name, : Yes Telehealth method: voice only Patient verbally consented to treatment: Yes Patient verbally consented to billing insurance company: Yes Patient informed of any privacy concerns related to visit: Yes Minutes spent on Phone/Video with Pt.: 15 Coding Level of Care Code Tele Est Pt Level 3 (07534) Diagnoses Bronchiectasis without complication J47.9 Bronchiectasis type: uncomplicated Assessment & Plan Assessment & Plan (1) Bronchiectasis: Comment: MILD, CHRONIC BRONCHIECTASIS IN RT MIDDLE LOBE AND LINGULA ( DAIN ) . Code(s): J47.9 - Bronchiectasis, uncomplicated Category: Medical Qualifiers: Bronchiectasis type: uncomplicated Qualified Code(s): J47.9 - Bronchiectasis, uncomplicated Plan History of Present Illness The patient is an 83-year-old female presenting with acute respiratory congestion and headache. She has a longstanding history of bronchiectasis and currently reports ongoing lung congestion and occasional low-grade fever. The congestion initially affected the sinuses but has since localized to the lungs. Headaches have been a recurrent issue, and the patient is seeking treatment, recalling efficacy with previous antibiotic use. Diarrhea is denied. Review of Systems - Constitutional: Denies diarrhea - Respiratory: Reports lung congestion; denies nasal congestion - Neurological: Reports headaches - Constitutional: Reports occasional low-grade fever Plan An antibiotic regimen of Zithromax will be initiated due to its past effectiveness in alleviating the patient's lung congestion. Care was taken to ensure the prescription is sent to the correct pharmacy. Monitoring for potential side effects, particularly gastrointestinal ones, should be considered given the patient's medical history and prior treatment response. Patient was informed and verbally consented to the use of an ambient scribe for clinic note documentation during this visit. Discussion Notes During our discussion, the patient confirmed episodes of lung congestion and headaches. We agreed to proceed with Zithromax, as it has worked well for her previously. We discussed the importance of correct pharmacy details to avoid prescription errors, and I clarified that the front office manages pharmacy information while I send direct prescriptions. The patient's concerns about communication with a previous staff member were acknowledged, but no specific plan regarding that aspect was established. Patient Instructions - Take Zithromax as prescribed for respiratory congestion - Ensure pharmacy details are correct; contact the office if needed - Stay hydrated by continuing with regular water intake - Report any unusual side effects or worsening of symptoms - Monitor for any recurrence of fever or persistent headaches - Follow up if symptoms persist or worsen Medications: Refilled azithromycin (Zithromax) For 250 mg dose pack: take 500 mg today (day 1), then 250 mg for 4 days (days 2-5) PO 6 tabs 0RF J47.9 - Bronchiectasis, uncomplicated
--- OUTSIDE RECORDS SUMMARY | 2024-08-25 18:08 | XMS_ITS | Patient Health Record ---
Author Organization [facility] Address [address] [place] [address] Care Team Providers Care Rail Car Maintenance Mechanic Name Role Phone Feli Rm Primary Care Provider Addie Martinez Unavailable [phone] Pieter Riddle Unavailable [phone] Allergies Allergen (clinical drug ingredient) Drug/Non Drug [...] Vaccine Route Administration Date Status Comme nts Influenza Unknown 01/25/2022 Administered COVID-19 Pfizer BioNTech Vaccine Unknown 02/24/2021 Administered 1st 06/28/20 2nd 08/02/20 Social History Tobacco Use: Social History Observation [...] W/U Status Risk Notes Problem Viral wart (94783534) Other viral warts (B07.8) Active confirmed Problem Localized, primary osteoarthritis of the ankle and/or foot (626950353) Primary osteoarthrit is, right ankle and foot (M19.071) Active confirmed Problem Acquired hammer toe of right foot (9712871471125434) Other hammer toe(s) (acquired), right foot (M20.41) Active confirmed Problem Acquired hammer toe of left foot (9324577094065001) Other hammer toe(s) (acquired), left foot (M20.42) Active confirmed Vital Signs Blood pressure diastolic 80 mm Hg 04/15/2024 Height 5 ft 2 in in 04/15/2024 Blood pressure systolic 120 mm Hg 04/15/2024 Weight 114 lbs 04/15/2024 BMI 20.85 kg/m2 04/15/2024 Procedures Procedure Date Ordered Date Performed Result Body Sit e 01881-MSQNEAB NAIL, 6 OR MORE 04/15/2024 N/A Encounters Encounter Location Date Provider Diagnosis [address] [address] [facility] [address] 11/11/[address] [address] 12/10/[address] [address] 01/13/2024 Pieter Riddle Tinea unguium B35.1 ; Pain in right toe(s) M79.674 ; Pain in left toe(s) M79.675 ; Other viral warts B07.8 ; Pain in left foot M79.672 ; Pain in right foot M79.671 and Other hammer toe(s) (acquired), left foot M20.[address] [address] 04/15/2024 Addie Brizuela Onychomycosis B35.1 ; Pain [...] Treatment Pending Test Test Name Order Date 74924-NJTQLDN NAIL, 6 OR MORE 04/15/2024 20311-YKHJHJZ NAIL, 1-5 09/23/2017 38110-ROFQBBC NAIL, -02/20/2016 99657-CKYBTSH NAIL, -5 05/14/2016 14354-RHBUMDN NAIL, -07/23/2016 44810-NBVQOGO NAIL, -12/31/2016 40441-HSGQDNW NAIL, -03/25/2017 27193-SHIHQHK NAIL, -06/17/2017 57748-YRWETVG NAIL, -12/11/2017 48928-DPVLXDQ NAIL, -03/10/2018 16744-EINWGBB NAIL, -5 08/15/2015 13463-NOORFPY NAIL, -11/14/2015 58203-Tlgo Destruction, -11/14/2015 84064-Aeyz Destruction, -14 05/16/2015 81610-Yoeq Destruction, -08/15/2015 67903-Ycme Destruction, -12/13/2014 67874-Slup Destruction, -02/24/2015 80206-Tslt Destruction, -12/17/2013 97190-Peby Destruction, 06-0903/04/2014 82866-Zuni Destruction, 06-0905/10/2014 78182-Pcuy Destruction, 06-0907/26/2014 31089-Haao Destruction, 06-0910/04/2014 10329-Gvtv Destruction, 06-0907/09/2011 15170-Rumh Destruction, 06-0912/03/2011 71060-Ibpa Destruction, 06-0905/15/2012 43578-Jyat Destruction, 06-0908/11/2012 09051-Mpoa Destruction, 06-0911/13/2012 58130-Qjly Destruction, 06-0902/09/2013 81012-Kbwi Destruction, 06-0905/04/2013 11864-Tvsd Destruction, 06-0908/03/2013 24025-Qlhy Destruction, 06-0910/08/2013 79821-Itey Destruction, 06-0903/10/2018 32336-Kqgf Destruction, 06-0912/11/2017 88301-Ovqv Destruction, 06-0906/17/2017 84558-Tacs Destruction, 06-0903/25/2017 24863-Pklj Destruction, 06-0912/31/2016 27990-Enfg Destruction, 06-0907/23/2016 34899-Ecwe Destruction, 06-0905/14/2016 02368-Cgdx Destruction, 06-0902/20/2016 62322-Uopg Destruction, 06-0909/23/2017 60186-Pfsm Destruction, -02/05/2011 33752-Uuhffytg Plate 02/05/2011 83961-Uiskvedm Plate 12/03/2011 79936-Ulgyeqqc Plate 07/09/2011 21119- Debride <25 sq cm 05/15/2012 86859- Debride <25 sq cm 08/11/2012 47930- Debride <25 sq cm 11/13/2012 96540- Debride <25 sq cm 12/17/2013 67695- Debride <25 sq cm 10/08/2013 93256- Debride <25 sq cm 05/04/2013 27584- Debride <25 sq cm 02/09/2013 97060- Debride <25 sq cm 10/04/2014 72779- Debride <25 sq cm 07/26/2014 84287- Debride <25 sq cm 03/04/2014 22916- Debride <25 sq cm 05/10/2014 92418- Debride <25 sq cm 02/24/2015 84048- Debride <25 sq cm 12/13/2014 Next Appt Details Provider Name:Addie linton, 09/03/2024 01:45:00 PM, [address] [place], [address], Insurance Providers Payer Name Payer Address Payer Phone Subscriber Number Group Number Insured Name Patient Relationship to Insured Coverage Start Date Coverage End Date Medicare National Govt [facility] [address] [place] [address] [id number] Tati Carvalho Self - patient is the insured [address] [place] [address] [place] [phone] [id number] Tati Carvalho Self - patient is the [...]
--- OUTSIDE RECORDS SUMMARY | 2024-08-25 18:08 | XMS_ITS ---
Author Organization [facility] Address [address] [place] [address] Care Team Providers Care Manufacturing Applications Engineer Name Role Phone Feli Rm Primary Care Provider Addie Martinez Unavailable [phone] Pieter Riddle Unavailable [phone] Allergies Allergen (clinical drug ingredient) Drug/Non Drug [...] 024 Encounters Encounter Location Date Provider Diagnosis [facility] [address] [place] [address] 01/13/2024 Pieter Riddle Tinea unguium B35.1 ; [...] Provider Name:Addie linton, 09/03/2024 01:45:00 PM, [address] [place], [address], Procedure Notes * Category Sub-Category Detail Notes [...] as necessary. Patient chooses, no pharmaceutical tx (42214) Progress Notes * Tati CARVALHO ADOB: [birth year] (83 yo F)Acc No.[id number]:01/13/2024 Progress Note Patient:Tati Fleming Provider:?Pieter Riddle DPM :1940???Age:83 Y???Sex:Female D ate:01/13/2024 Address:[address] [place], [place] [address] Pcp:Feli Rm Subjective: * Chief Complaints: * [...] 1997oral surgery 11/2013 * Hospitalization/Major Diagno stic Procedure:?[facility] for pneumonia 10/04/2015[facility]- Trouble breathing/pressure in head test done results [...] walking, occasional. ?Marital status: . 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 * Medications:?TakingCitracal + D iron Synthroid 175 [...] as necessary. Patient chooses, no pharmaceutical tx (39556).? * Procedure Codes:?70145 TINO SALGADO, 1-5, Modifiers: XS * Preventive [...] DPM Date:? 024 Generated for Aaron craig/Niall/Juddsmitting on:?08/25/2024 06:07 PM EDT History and Physical Notes * [...]
--- OUTSIDE RECORDS SUMMARY | 2024-08-25 18:08 | XMS_ITS ---
Author Organization [facility] Address [address] [place] [address] Care Team Providers Care Health And Safety Director Name Role Phone Feli Rm Primary Care Provider Addie Martinez Unavailable [phone] Pieter Riddle Unavailable [phone] REASON FOR VISIT Painful thick toenails which are aggrevated by shoes and causes difficulty standing/walking, Wart(s), PCP -04/18 Encounters Encounter Location Date Provider Diagnosis [facility] [address] [place] [address] 12/11/2023 Pieter Riddle Tinea unguium B35.1 ; [...] Provider Name:Addie linton, 09/03/2024 01:45:00 PM, [address] [place], [address], Procedure Notes * Category Sub-Category Detail Notes Wart Treatment Procedure Verrucae(s) were debrided to pin-point bleeding margins with sterile surgical blade (34583), silver nitrate chemocautery applied Debride Nails 1-5 Procedure: Nail debrideme nt performed extensively to reduce/remove overall nail length and girth, subungual debris, and necrotic tissue, by manual and electrical means by use of a nail nipper and/or dremel, to more viable healthy nail plate or bed tissue 1-5. Silver nitrate used for any petechial bleeding as necessary. Patient chooses, no pharmaceutical tx (61904) Progress Notes * Tati CARVALHO ADOB: [birth year] (83 yo F)Acc No.[id number]:12/11/2023 Progress Note Patient:?Tati CARVALHO Provider:?Pieter Riddle DPM :1940???Age:83 Y???Sex:Female D ate:12/11/2023 Address:[address] [place], [place] [address] Pcp:Feli Rm Subjective: * Chief Complaints: * [...] as necessary. Patient chooses, no pharmaceutical tx (27176).?Wart Treatment:?Procedure?Verrucae(s) were debrided to pin-point bleeding margins with sterile surgical blade (72979), silver nitrate chemocautery applied.? * Procedure Codes:?19979 DEBRI DE NAIL, 1-5, Modifiers: XS , 12204 Wart Destruction, 1-14, Modifiers: XS * Follow Up:?3 Months * Images: * The named appointment provid er may or may not be the originator of this progress note, and it is not deemed complete until electronically signed by the appointment provider. Sign off status: Pending * Provider:?Pieter Riddle DPM Date:? 024 Generated for Aaron craig/Niall/Juddsmitting on:?08/25/2024 06:08 PM EDT History and Physical Notes * [...]
--- OUTSIDE RECORDS SUMMARY | 2024-08-25 18:08 | XMS_ITS ---
Author Organization [facility] [place] Address [address] [place] [address] Care Team Providers Care Food Cooking Machine Operator Name Role Phone Feli Rm Primary Care Provider Addie Martinez Unavailable [phone] Allergies Allergen (clinical drug ingredient) Drug/Non Drug [...] Ordered Date Performed Result Body Sit e 28339-RISHMSF NAIL, 6 OR MORE 04/15/2024 N/A Encounters Encounter Location Date Provider Diagnosis [facility] [address] [place] [address] 04/15/2024 Addie Brizuela Onychomycosis B35.1 ; Pain in right toe(s) M79.674 and Pain in left toe(s) M79.675 Assessments Encounter Date Diagnosis (ICD Code) Assessment Notes Treatment Notes Treatment Clinical Notes Section Notes 04/15/2024 Onychomycosis (ICD-10 - B35.1) 04/15/2024 Pain in right toe(s) (ICD-10 - M79.674) 04/15/2024 Pain in left toe(s) (ICD-10 - M79.675) Plan Of Treatment Pending Test Test Name Order Date 26417-MFZDOZR NAIL, 6 OR MORE 04/15/2024 Next Appt Details Follow Up: 3 Months, Reason: Provider Name:Addie Yvonnejimbo royer, 09/03/2024 01:45:00 PM, [address] [place] [address], [address], Procedure Notes * Category Sub-Category Detail Notes [...] use of a nail nipper and/or dremel-type back grinder, to a more viable healthy nail plate or bed tissue 6-10. Silver nitrate used for any petechial bleeding as necessary. Definitive antifungal treatment options have been reviewed and discussed with the patient. The patient chooses, no pharmaceutical tx - 96254 Progress Notes * Tati CARVALHO ADOB: [birth year] (83 yo F)Acc No.[id number]:04/15/2024 Progress Note Patient:?Tati CARVALHO Provider:?Addie Brizuela DPM :1940???Age:83 Y???Sex:Female D ate:04/15/2024 Address:[address] [place] [address] Pcp:Feli Rm Subjective: * Chief Complaints: * ???Painful nail(s) aggravate d by shoes causing difficulty standing/walking * HPI: ???Painful Nails:?Pt States Last PCP Visit:?Date:?03/27/2024 * Medical History:? * Surgical History:?hysterecto my 1997oral surgery 11/2013 * Hospitalization/Major Diagno stic Procedure:?[facility] for pneumonia 10/04/2015[facility]- Trouble breathing/pressure in head [...] occasional. ?Marital status: . 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 * Medications:?TakingCitracal + D iron Synthroid [...] use of a nail nipper and/or dremel-type back grinder, to a more viable healthy nail plate or bed tissue 6-10. Silver nitrate used for any petechial bleeding as necessary. Definitive antifungal treatment options have been reviewed and discussed with the patient. The patient chooses, no pharmaceutical tx - 06280.? * Procedure Codes:?58866 DEBRI DE NAIL, 6 OR MORE * Follow Up:?3 Months * Images: * Sign off status: Completed true * Provider:?Addie Brizuela DPM Date:?1 06/15/2023 Generated for Aaron craig/Niall/eTransmitting on:?08/25/2024 06:07 PM EDT History and Physical [...]
== END 2024-08-25 17:53 | disposition home or self-care (01) ==
LOC: HO.HMCH 15:17
PROVIDERS: PCP Internal Medicine; Visit Provider Internal Medicine
DX: J47.9 Bronchiectasis, uncomplicated (principal)

== ENCOUNTER → 2024-08-25 15:17 | Outpatient (BNVA) | payer MEDICARE, OTHER, SELFPAY | PROVIDERS: PCP Internal Medicine; Visit Provider Internal Medicine ==

== ENCOUNTER 2024-08-31 11:41 | Outpatient (AMB) | payer MEDICARE, OTHER, SELFPAY ==
--- NOTE | 2024-08-31 11:49 | AM.OFFVISNUR ---
Intake Visit Reasons: b-12 shot Allergies codeine [CODEINE] Allergy (Unknown, Verified 08/25/24 15:18) GI UPSET levofloxacin [From LEVAQUIN] Allergy (Unknown, Verified 08/25/24 15:18) STOMACH UPSET pneumococcal vaccine Allergy (Unknown, Verified 08/25/24 15:18) unknown shellfish derived [SHELLFISH DERIVED] Allergy (Unknown, Verified 08/25/24 15:18) RASH Office Meds cyanocobalamin (vitamin B-12) 1,000 mcg/mL injection solution Performing Provider: Feli Rm MD Performing Location: [facility] Administered by: Rena Plunkett RN on 08/31/24 11:50 Dose Route Admin Location Dispensed Lot Number Expiration Date [place] Deputy Chief Sheriff 1,000 mcg IM 1 mL [id number] 04/25/25 72347-268-25 [employer]OSI[employer]ACE[employer] Assessment & Plan Assessment & Plan Orders: Orders AMB Vitamin B12 Injection Patient Supplied Today E53.8 - Deficiency of other specified B group vitamins Medications: New cyanocobalamin (vitamin B-12) 1,000 mcg IM ONCE 1 mL 0RF E53.8 - Deficiency of other specified B group vitamins Coding
--- OUTSIDE RECORDS SUMMARY | 2024-08-31 14:11 | XMS_ITS ---
Author Organization [facility] Address [address] [place] [address] Care Team Providers Care Meter Repairer Name Role Phone Feli Rm Primary Care Provider Addie Martinez Unavailable [phone] Pieter Riddle Unavailable [phone] REASON FOR VISIT Painful thick toenails which are aggrevated by shoes and causes difficulty standing/walking, Wart(s), PCP -04/18 Encounters Encounter Location Date Provider Diagnosis [facility] [address] [place] [address] 12/11/2023 Pieter Riddle Tinea unguium B35.1 ; [...] Provider Name:Addie linton, 09/03/2024 01:45:00 PM, [address] [place], [address], Procedure Notes * Category Sub-Category Detail Notes Wart Treatment Procedure Verrucae(s) were debrided to pin-point bleeding margins with sterile surgical blade (10326), silver nitrate chemocautery applied Debride Nails 1-5 Procedure: Nail debrideme nt performed extensively to reduce/remove overall nail length and girth, subungual debris, and necrotic tissue, by manual and electrical means by use of a nail nipper and/or dremel, to more viable healthy nail plate or bed tissue 1-5. Silver nitrate used for any petechial bleeding as necessary. Patient chooses, no pharmaceutical tx (52468) Progress Notes * Tati CARVALHO ADOB: [birth year] (83 yo F)Acc No.[id number]:12/11/2023 Progress Note Patient:?Tati CARVALHO Provider:?Pieter Riddle DPM :1940???Age:83 Y???Sex:Female D ate:12/11/2023 Address:[address] [place], [place] [address] Pcp:Feli Rm Subjective: * Chief Complaints: * [...] as necessary. Patient chooses, no pharmaceutical tx (64502).?Wart Treatment:?Procedure?Verrucae(s) were debrided to pin-point bleeding margins with sterile surgical blade (46584), silver nitrate chemocautery applied.? * Procedure Codes:?31774 DEBRI DE NAIL, 1-5, Modifiers: XS , 69026 Wart Destruction, 1-14, Modifiers: XS * Follow Up:?3 Months * Images: * The named appointment provid er may or may not be the originator of this progress note, and it is not deemed complete until electronically signed by the appointment provider. Sign off status: Pending * Provider:?Pieter Riddle DPM Date:? 024 Generated for Aaron craig/Niall/Brownitting on:?08/31/2024 02:11 PM EDT History and Physical Notes * [...]
--- OUTSIDE RECORDS SUMMARY | 2024-08-31 14:11 | XMS_ITS ---
Author Organization [facility] ricky [place] Address [address] [facility] [place] [address] Care Team Providers Care Supervisor Finishing Department Name Role Phone Feli Rm Primary Care Provider Addie Martinez Unavailable [phone] Allergies Allergen (clinical drug ingredient) Drug/Non Drug [...] Ordered Date Performed Result Body Sit e 47507-HGYXKAO NAIL, 6 OR MORE 04/15/2024 N/A Encounters Encounter Location Date Provider Diagnosis [facility] [place] [address] [place] [address] 04/15/2024 Addie Brizuela Onychomycosis B35.1 ; Pain in right toe(s) M79.674 and Pain in left toe(s) M79.675 Assessments Encounter Date Diagnosis (ICD Code) Assessment Notes Treatment Notes Treatment Clinical Notes Section Notes 04/15/2024 Onychomycosis (ICD-10 - B35.1) 04/15/2024 Pain in right toe(s) (ICD-10 - M79.674) 04/15/2024 Pain in left toe(s) (ICD-10 - M79.675) Plan Of Treatment Pending Test Test Name Order Date 16821-DOUKHTP NAIL, 6 OR MORE 04/15/2024 Next Appt Details Follow Up: 3 Months, Reason: Provider Name:Addie Yvonnejimbo royer, 09/03/2024 01:45:00 PM, [address] [place] [address], [phone], Procedure Notes * Category Sub-Category Detail Notes [...] use of a nail nipper and/or dremel-type roll contour grinder, to a more viable healthy nail plate or bed tissue 6-10. Silver nitrate used for any petechial bleeding as necessary. Definitive antifungal treatment options have been reviewed and discussed with the patient. The patient chooses, no pharmaceutical tx - 27804 Progress Notes * Tati CARVALHO ADOB: [birth year] (83 yo F)Acc No.[id number]:04/15/2024 Progress Note Patient:?Tati CARVALHO Provider:?Addie Brizuela DPM :1940???Age:83 Y???Sex:Female D ate:04/15/2024 Address:[address] [place] [phone] Pcp:Feli Rm Subjective: * Chief Complaints: * ???Painful nail(s) aggravate d by shoes causing difficulty standing/walking * HPI: ???Painful Nails:?Pt States Last PCP Visit:?Date:?03/27/2024 * Medical History:? * Surgical History:?hysterecto my 1997oral surgery 11/2013 * Hospitalization/Major Diagno stic Procedure:?[facility] for pneumonia 10/04/2015C- Trouble breathing/pressure in head [...] occasional. ?Marital status: . 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. * Medications:?TakingCitracal + D iron [...] use of a nail nipper and/or dremel-type roll contour grinder, to a more viable healthy nail plate or bed tissue 6-10. Silver nitrate used for any petechial bleeding as necessary. Definitive antifungal treatment options have been reviewed and discussed with the patient. The patient chooses, no pharmaceutical tx - 35861.? * Procedure Codes:?04180 DEBRI DE NAIL, 6 OR MORE * Follow Up:?3 Months * Images: * Sign off status: Completed true * Provider:?Addie Brizuela DPM Date:?1 06/15/2023 Generated for Aaron craig/Niall/eTransmitting on:?08/31/2024 02:11 PM EDT History and Physical [...]
--- OUTSIDE RECORDS SUMMARY | 2024-08-31 14:11 | XMS_ITS ---
Author Organization [facility] Address [address] [place] [address] Care Team Providers Care Computer Architect Name Role Phone Feli Rm Primary Care Provider Addie Martinez Unavailable [phone] Pieter Riddle Unavailable [phone] Allergies Allergen (clinical drug ingredient) Drug/Non Drug [...] 024 Encounters Encounter Location Date Provider Diagnosis [facility] [address] [place] [address] 01/13/2024 Pieter Riddle Tinea unguium B35.1 ; [...] Provider Name:Addie linton, 09/03/2024 01:45:00 PM, [address] [place], [address], Procedure Notes * Category Sub-Category Detail Notes [...] as necessary. Patient chooses, no pharmaceutical tx (22193) Progress Notes * Tati CARVALHO ADOB: [birth year] (83 yo F)Acc No.[id number]:01/13/2024 Progress Note Patient:Tati Fleming Provider:?Pieter Riddle DPM :1940???Age:83 Y???Sex:Female D ate:01/13/2024 Address:[address] [place], [place] [address] Pcp:Feli Rm Subjective: * Chief Complaints: * [...] 1997oral surgery 11/2013 * Hospitalization/Major Diagno stic Procedure:?[facility] [place] [place] for pneumonia 10/04/2015[facility] [place] [place]- Trouble breathing/pressure in head test done results [...] walking, occasional. ?Marital status: . 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 * Medications:?TakingCitracal + D iron Synthroid [...] as necessary. Patient chooses, no pharmaceutical tx (85879).? * Procedure Codes:?42884 TINO SALGADO, 1-5, Modifiers: XS * Preventive [...] DPM Date:? 024 Generated for Aaron craig/Niall/Juddsmitting on:?08/31/2024 02:11 PM EDT History and Physical [...]
--- OUTSIDE RECORDS SUMMARY | 2024-08-31 14:11 | XMS_ITS | Patient Health Record ---
Author Organization [facility] Address [address] [place] [address] Care Team Providers Care Garment Worker Name Role Phone Feli Rm Primary Care Provider Addie Martinez Unavailable [phone] Pieter Riddle Unavailable [phone] Allergies Allergen (clinical drug ingredient) Drug/Non Drug [...] W/U Status Risk Notes Problem Viral wart (60147530) Other viral warts (B07.8) Active confirmed Problem Localized, primary osteoarthritis of the ankle and/or foot (492657495) Primary osteoarthrit is, right ankle and foot (M19.071) Active confirmed Problem Acquired hammer toe of right foot (9158324083812579) Other hammer toe(s) (acquired), right foot (M20.41) Active confirmed Problem Acquired hammer toe of left foot (5263218753268373) Other hammer toe(s) (acquired), left foot (M20.42) Active confirmed Vital Signs Blood pressure diastolic 80 mm Hg 04/15/2024 Height 5 ft 2 in in 04/15/2024 Blood pressure systolic 120 mm Hg 04/15/2024 Weight 114 lbs 04/15/2024 BMI 20.85 kg/m2 04/15/2024 Procedures Procedure Date Ordered Date Performed Result Body Sit e 13668-HXQTGWC NAIL, 6 OR MORE 04/15/2024 N/A Encounters Encounter Location Date Provider Diagnosis [address] [address] 01/13/2024 Pieter Riddle Tinea unguium B35.1 ; Pain in right toe(s) M79.674 ; Pain in left toe(s) M79.675 ; Other viral warts B07.8 ; Pain in left foot M79.672 ; Pain in right foot M79.671 and Other hammer toe(s) (acquired), left foot M20.[address] [address] 04/15/2024 Addie Brizuela Onychomycosis B35.1 ; Pain in right toe(s) M79.674 and Pain in left toe(s) M79.[address] [address] 10/14/2023 Pieter Riddle [address] [address] 11/11/2023 Pieter Riddle [address] [address] 12/10/2023 Pieter Riddle Assessments Encounter Date Diagnosis [...] Treatment Pending Test Test Name Order Date 69798-KNMHQFC NAIL, 6 OR MORE 04/15/2024 87550-QIDESCX NAIL, 1-5 03/10/2018 69062-QMJZZHC NAIL, -02/20/2016 13648-RAFBVZC NAIL, -05/14/2016 94161-IUTVFNA NAIL, -07/23/2016 24523-YLUNTDW NAIL, -12/31/2016 53345-WLDKHHB NAIL, -03/25/2017 71550-IKNDQUU NAIL, -06/17/2017 48114-JCKBPHD NAIL, -09/23/2017 98062-UDIKOQR NAIL, -12/11/2017 11920-SRFQPII NAIL, -08/15/2015 19178-YUETGUU NAIL, -11/14/2015 63030-Xwrd Destruction, -11/14/2015 73550-Zoay Destruction, -05/16/2015 04989-Afnt Destruction, -08/15/2015 68465-Onfh Destruction, -12/13/2014 48582-Yjqo Destruction, -02/24/2015 28617-Troa Destruction, -12/17/2013 70707-Oghe Destruction, -03/04/2014 88143-Mkcw Destruction, 06-0905/10/2014 81084-Qzqe Destruction, -07/26/2014 20891-Neje Destruction, 06-0910/04/2014 15586-Tmmg Destruction, 06-0902/05/2011 15392-Jaxe Destruction, 06-0907/09/2011 91293-Vjzz Destruction, 06-0912/03/2011 65318-Hscy Destruction, 06-0905/15/2012 36211-Irvw Destruction, 06-0908/11/2012 93208-Cntv Destruction, 06-0911/13/2012 96597-Lfnk Destruction, 06-0902/09/2013 64962-Bfnm Destruction, 06-0905/04/2013 98955-Pbjn Destruction, 06-0908/03/2013 28517-Qnbd Destruction, 06-0910/08/2013 03381-Wnqg Destruction, 06-0912/11/2017 37041-Qeux Destruction, 06-0909/23/2017 99347-Juji Destruction, 06-0906/17/2017 18200-Lftv Destruction, 06-0903/25/2017 14011-Tvpp Destruction, 06-0912/31/2016 27685-Enva Destruction, 06-0907/23/2016 86004-Grid Destruction, 06-0905/14/2016 56279-Gksk Destruction, 06-0902/20/2016 77608-Hfcn Destruction, 06-0903/10/2018 52904-Wakevwld Plate 02/05/2011 93174-Xlkmqabd Plate 12/03/2011 06907-Zponqapx Plate 07/09/2011 03541- Debride <25 sq cm 05/15/2012 18480- Debride <25 sq cm 08/11/2012 56965- Debride <25 sq cm 11/13/2012 55086- Debride <25 sq cm 12/17/2013 91902- Debride <25 sq cm 10/08/2013 80977- Debride <25 sq cm 05/04/2013 36101- Debride <25 sq cm 02/09/2013 55914- Debride <25 sq cm 10/04/2014 91120- Debride <25 sq cm 07/26/2014 97943- Debride <25 sq cm 03/04/2014 59906- Debride <25 sq cm 05/10/2014 67590- Debride <25 sq cm 02/24/2015 88219- Debride <25 sq cm 12/13/2014 Next Appt Details Provider Name:Addie linton, 09/03/2024 01:45:00 PM, [address] [place], [address], Insurance Providers Payer Name Payer Address Payer Phone Subscriber Number Group Number Insured Name Patient Relationship to Insured Coverage Start Date Coverage End Date Medicare National Govt [facility] [address] [place] [address] [id number] Tati Carvalho Self - patient is the insured [address] [place] [phone] [id number] Tati Carvalho Self - patient is the [...]
== END 2024-08-31 12:00 | disposition home or self-care (01) ==
LOC: HO.HMCH 11:42
PROVIDERS: PCP Internal Medicine; Visit Provider Internal Medicine
DX: E53.8 Deficiency of other specified B group vitamins (principal)

== ENCOUNTER → 2024-08-31 11:41 | Outpatient (BNVA) | payer MEDICARE, OTHER, SELFPAY | PROVIDERS: PCP Internal Medicine; Visit Provider Internal Medicine | DX: E53.8 Deficiency of other specified B group vitamins (principal) | CPT/HCPCS: 96372; J3420 ==

== ENCOUNTER 2024-09-15 14:12 | Outpatient (AMB) | payer MEDICARE, OTHER, SELFPAY ==
--- NOTE | 2024-09-15 14:14 | A.OFFPC_ITS ---
Vital Signs 09/15/24 14:16 Height 5 ft 2 in Weight 114 lb 6 oz BMI 20.9 BP 110/66 Blood Pressure Location Lt brachial Position Sitting Pulse 77 Pulse Source Pulse Oximeter Temp 97.3 F Temp Source Temporal Artery Scan Pulse Oximetry (%) 96 Oxygen Delivery Method Room Air Intake Visit Reasons: Bronchiectasis Intake Note: Patient is here to follow up on Bronchiectasis. Special Education Educational Assistant Required: No Supervisor Brake Repair: Not Required per policy Accompanied by: Self / Same As Patient Allergies codeine [CODEINE] Allergy (Unknown, Verified 09/15/24 14:15) GI UPSET levofloxacin [From LEVAQUIN] Allergy (Unknown, Verified 09/15/24 14:15) STOMACH UPSET pneumococcal vaccine Allergy (Unknown, Verified 09/15/24 14:15) unknown shellfish derived [SHELLFISH DERIVED] Allergy (Unknown, Verified 09/15/24 14:15) RASH Medication List - Last Reconciled 09/15/24 by Feli Rm MD albuterol sulfate 90 mcg/actuation 2 puffs inhalation Q4-6H PRN amitriptyline 10 mg PO BEDTIME bisacodyl (Dulcolax (bisacodyl)) 5 mg PO BEDTIME 2 days calcium citrate-vitamin D3 315 mg-6.25 mcg (250 unit) (Citracal + Vitamin D Maximum) 1 tab PO BID clotrimazole-betamethasone 1-0.05 % 1 appl topical BID 2 weeks cyanocobalamin (vitamin B-12) 1,000 mcg IM Q4W 90 days escitalopram oxalate (Lexapro) 5 mg PO DAILY fexofenadine (Arielle Allergy) 180 mg PO DAILY gabapentin 100 mg PO BEDTIME iron,carbonyl-vitamin C 65 mg iron- 125 mg (Vitron-C) 1 tab PO BID loratadine (Allergy Relief (loratadine)) 10 mg PO DAILY lorazepam (Ativan) 0.5 mg (1/2 x 1 mg) PO TID PRN sennosides-docusate sodium 8.6-50 mg (Senna Plus) 2 tab-caps (2 x 8.6-50 mg) PO BEDTIME sulfamethoxazole-trimethoprim 800-160 mg (Bactrim DS) 1 tab PO BID Synthroid (levothyroxine) 100 mcg PO DAILY 90 days NS Tobacco use date assessed: 09/15/24 Fall risk assessment: No Falls in past year Last assessed Fall Risk: 09/15/24 Dental Screening Dental Screen Date: 07/24/24 [facility] Medical History (Updated 09/15/24 @ 17:43 by Feli Rm MD) UTI (urinary tract infection) Dysuria Osteopenia Contact dermatitis and eczema Sinus congestion Costochondritis LLQ pain Confusion Epigastric pain Cognitive impairment Cough Blood pressure elevated without history of HTN Screening for breast cancer Post-menopausal Pneumonia Viral upper respiratory tract infection with cough Encounter for subsequent annual wellness visit (AWV) in Medicare patient Chest pain SOB (shortness of breath) Headache Colonoscopy refused COPD (chronic obstructive pulmonary disease) Recurrent sinus infections Breast asymmetry Uterine cancer Bronchiectasis Pernicious anemia Peripheral neuropathy Lumbar degenerative disc disease Hypercholesterolemia Vitamin D deficiency Pulmonary nodule Hypothyroid Surgical History History of total abdominal hysterectomy and bilateral salpingo-oophorectomy History of lumpectomy of right breast History of appendectomy Family History Father CVD (cardiovascular disease) Mother Cancer Social History Housing: House Alcohol intake: never Patient Tobacco Use Status: Never used Tobacco Tobacco use type: Cigarette e-Cigarette/Vaping Use: Never Used Second Hand Smoke Exposure: No service: No Current occupational status: unemployed Cognitive needs: No Hearing needs: No Vision needs: Yes (reading glasses) Questionnaire Thrive Questionnaire Date Thrive assessed: 07/24/24 DANIEL-7 AMB Questionnaire DANIEL-7 Date DANIEL - 7 assessed: 07/24/24 Source: Developed by Drs. Lobo Lopez, Lucie Mckinley, Nima Holland and colleagues, with an educational kourtney from [employer]. Physical exam (Primary Care) Vital Signs: Last Vital Signs Temp 97.3 F 09/15/24 14:16 Pulse 77 09/15/24 14:16 BP 110/66 09/15/24 14:16 Pulse Ox 96 09/15/24 14:16 Oxygen Delivery Method Room Air 09/15/24 14:16 BMI result Body Mass Index 20.9 Tobacco/Smoking Status: Tobacco use Status Tobacco use date assessed 09/15/24 09/15/24 14:20 Patient Tobacco Use Status Never used Tobacco 09/15/24 14:20 Tobacco use type Cigarette 09/15/24 14:20 e-Cigarette/Vaping Use Never Used 09/15/24 14:20 Thrive Assessment: Date of Thrive Assessment Date Thrive assessed 07/24/24 09/15/24 14:20 Const General: alert; No acute distress Eyes Conjunctivae: conjunctivae normal Resp Auscultation: clear to auscultation bilaterally Cardio Rate: regular rate Rhythm: regular rhythm GI Inspection: Yes normal to inspection Extrem General: Yes normal to inspection and No edema Results AMB Urinalysis, Automated UA Leukoctes 125 Bart/uL Last Edit by Laurita Almonte CMA on 09/15/24 14: 42 UA Nitrite Negative Last Edit by Laurita Almonte CMA on 09/15/24 14:42 UA Urobilinogen 0.2 mg/dL Last Edit by Laurita Almonte CMA on 09/15/24 14:42 UA Protein 15 mg/dL Last Edit by Laurita Almonte CMA on 09/15/24 14:42 UA pH 6.0 Last Edit by Laurita Almonte CMA on 09/15/24 14:42 UA Blood 0 Moises/uL Last Edit by Laurita Almonte CMA on 09/15/24 14:42 UA Specific [place] 1.015 Last Edit by Laurita Almonte CMA on 09/15/24 14:42 UA Ketone Positive Last Edit by Laurita Almonte CMA on 09/15/24 14:42 UA Bilirubin 1 mg/dL Last Edit by Laurita Almonte CMA on 09/15/24 14:42 UA Glucose 0 mg/dL Last Edit by Laurita Almonte CMA on 09/15/24 14:42 Results Reviewed Results Reviewed: Laboratory Last Values Urine pH (Auto) 6.0 09/15/24 14:31 Specific [place] (Auto) 1.015 09/15/24 14:31 Urine Protein (Auto) 15 mg/dL 09/15/24 14:31 Glucose (UA)(Auto) 0 mg/dL 09/15/24 14:31 Urine Ketones (Auto) Positive 09/15/24 14:31 Urine Blood (Auto) 0 Moises/uL 09/15/24 14:31 Urine Nitrite (Auto) Negative 09/15/24 14:31 Urine Bilirubin (Auto) 1 mg/dL 09/15/24 14:31 Urine Urobilinogen (Auto) 0.2 mg/dL 09/15/24 14:31 Leukocyte Esterase (Auto) 125 Bart/uL 09/15/24 14:31 Coding Level of Care Code Est Pt Level 4 (71280) Diagnoses Bronchiectasis without complication J47.9 Bronchiectasis type: uncomplicated Panlobular emphysema J43.1 COPD type: emphysema Emphysema type: panlobular Dysuria R30.0 Urinary tract infection without hematuria, site unspecified N39.0 Urinary tract infection type: site unspecified Hematuria presence: without hematuria Assessment & Plan Assessment & Plan (1) Bronchiectasis: Comment: MILD, CHRONIC BRONCHIECTASIS IN RT MIDDLE LOBE AND LINGULA ( DAIN ) . Code(s): J47.9 - Bronchiectasis, uncomplicated Category: Medical Qualifiers: Bronchiectasis type: uncomplicated Qualified Code(s): J47.9 - Bronchiectasis, uncomplicated Plan: Patient continues to have recurrent infection and has been given antibiotics for this. (2) COPD (chronic obstructive pulmonary disease): Comment: HAS VERY MILD DEGREE OF OBSTRUCTIVE AIRWAY DISORDER, LAST PFT IN 2009, PATIENT HAS DECLINED TO HAVE ANY MORE PULMONARY FUNCTION TESTS. CLINICALLY SHE HAS VERY MILD OBSTRUCTIVE AIRWAY DISORDER. Code(s): J44.9 - Chronic obstructive pulmonary disease, unspecified Category: Medical Qualifiers: COPD type: emphysema Emphysema type: panlobular Qualified Code(s): J43.1 - Panlobular emphysema Plan: Continue with albuterol as needed (3) Dysuria: Code(s): R30.0 - Dysuria Category: Medical (4) UTI (urinary tract infection): Code(s): N39.0 - Urinary tract infection, site not specified Category: Medical Qualifiers: Urinary tract infection type: site unspecified Hematuria presence: without hematuria Qualified Code(s): N39.0 - Urinary tract infection, site not specified Plan History of Present Illness The patient is an 83-year-old female presenting with symptoms related to bronchiectasis and COPD. Her medical history includes recurrent respiratory infections requiring antibiotics, and she was last seen in a telehealth visit in August 2024 for bronchiectasis management. The patient complains of ongoing breathlessness and congestion, sometimes attributed to pneumonia, despite negative confirmation via imaging. Zetamax has been effective in managing her symptoms. She continues to exhibit dyspnea and cough with phlegm, typical of bronchiectasis. Additional symptoms include intermittent chest pain and tension- type headaches associated with poor sleep. A burning sensation during urination was noted, warranting further investigation with a urine test. Her condition includes a background history of hypothyroidism, hypercholesterolemia, pernicio us anemia, osteoporosis, generalized anxiety disorder, and dementia with Lewy bodies. Health Maintenance - Last bone density test conducted in December 2022 - Blood work completed in April 2024 indicating mild anemia, thrombocytosis, and mild hyponatremia - Monitoring of vitamin levels (B12, vitamin D) and thyroid function, all within normal limits - Discussion on sleep quality improvement Social History - Discussion revealing some concern regarding heart location and function, but no explicit social determinants were discussed related to housing, employment, family status, or education. Review of Systems - Respiratory: Reports dyspnea, congestion, phlegm production. - Neurological: Reports shooting pain across the forehead, tension headaches. - Genitourinary: Reports a burning sensation during urination. - General: Denies changes in vision since last testing. Physical Exam Results - Labs: Mild anemia, mild thrombocytosis, normal platelet count, normal white blood cell count, mild hyponatremia, normal renal function, normal blood sugar, normal blood cholesterol, B12, and vitamin D levels. Plan The management plan includes maintaining the current antibiotic, Zetamax, for bronchiectasis and COPD-related infections. A urine test is planned to investigate the burning sensation during urination. I advised the continuation of albuterol as needed for her respiratory symptoms. We will monitor her electrolyte levels, noting the mild hyponatremia. Sleep optimization strategies to manage her tension-type headaches were discussed. Current treatment for hypothyroidism, hypercholesterolemia, osteoporosis, and anxiety will remain unchanged. Future evaluation of cognitive function related to dementia with Lewy bodies is advised. Patient was informed and verbally consented to the use of an ambient scribe for clinic note documentation during this visit. Discussion Notes I discussed with the patient the importance of continuing her current antibiotic regimen with Zithromax for bronchiectasis and COPD management. We agreed to perform a urine test to address the reported urinary discomfort. The patient was instructed on the use of albuterol as needed for respiratory symptoms. We also discussed strategies to improve her sleep and subsequently reduce headaches. I explained the significance of maintaining a stable electrolyte balance and confirmed current medications for hypothyroidism, hypercholesterolemia, osteoporosis, and anxiety. Instructions were provided regarding follow-up care and the importance of monitoring changes in respiratory and cognitive symptoms. Patient Instructions - Continue takin Zithromax as prescribed for infections. - Use albuterol as needed for breathing difficulties. - Plan to have a urine test done today to investigate burning sensation. - Monitor your breathing and report any worsening symptoms. - Focus on improving sleep habits to help with headaches. - Follow up as directed for further evaluation of any progressing symptoms. Follow-up with urinalysis showing white blood cells in the urine. Called and discussed with the daughter that the antibiotic prescription get given needs to be change to the 1 that covers for urinary tract and pulmonary symptoms. Bactrim prescription sent in advised to increase oral fluid Orders: Orders Complete Blood Count Auto Diff Today R30.0 - Dysuria Free T4 (Free Thyroxine) Today R30.0 - Dysuria Lipid Panel Today E78.00 - Pure hypercholesterolemia, unspecified, R30.0 - Dysuria Vitamin B12 and Folate Today R30.0 - Dysuria Vitamin D 25-OH Total Today R30.0 - Dysuria Thyroid Stimulating Hormone Today R30.0 - Dysuria UA CC w/rflx Micro + Cult Today R30.0 - Dysuria AMB Urinalysis Automated Today R30.0 - Dysuria, Z13.9 - Encounter for screening, unspecified Comprehensive Met. Panel Today R30.0 - Dysuria Medications: New sulfamethoxazole-trimethoprim 800-160 mg (Bactrim DS) 1 tab PO BID 14 tabs 0RF N39.0 - Urinary tract infection, site not specified
[2024-09-15 14:16] VITALS: BP 110/66; PULSE 77; TEMP 36.3; O2SAT 96; BMI 20.9
--- OUTSIDE RECORDS SUMMARY | 2024-09-15 17:02 | XMS_ITS ---
Author Organization [facility] r[place] Address [address] [place] [address] Care Team Providers Care Manager Oracle Database Name Role Phone Feli Rm Primary Care Provider Addie Martinez Unavailable [phone] Allergies Allergen (clinical drug ingredient) Drug/Non Drug [...] Ordered Date Performed Result Body Sit e 04578-AZBMBAD NAIL, 6 OR MORE 04/15/2024 N/A Encounters Encounter Location Date Provider Diagnosis [facility] [place] [address] [place] [address] 04/15/2024 Addie Brizuela Onychomycosis B35.1 ; Pain in right toe(s) M79.674 and Pain in left toe(s) M79.675 Assessments Encounter Date Diagnosis (ICD Code) Assessment Notes Treatment Notes Treatment Clinical Notes Section Notes 04/15/2024 Onychomycosis (ICD-10 - B35.1) 04/15/2024 Pain in right toe(s) (ICD-10 - M79.674) 04/15/2024 Pain in left toe(s) (ICD-10 - M79.675) Plan Of Treatment Pending Test Test Name Order Date 96970-XHCPAID NAIL, 6 OR MORE 04/15/2024 Next Appt [...] use of a nail nipper and/or dremel-type sausage grinder, to a more viable healthy nail plate or bed tissue 6-10. Silver nitrate used for any petechial bleeding as necessary. Definitive antifungal treatment options have been reviewed and discussed with the patient. The patient chooses, no pharmaceutical tx - 02472 Progress Notes * Tati CARVALHO ADOB: [birth year] (83 yo F)Acc No.[id number]:04/15/2024 Progress Note Patient:?Tati CARVALHO Provider:?Addie Brizuela DPM :1940???Age:83 Y???Sex:Female D ate:04/15/2024 Address:[address] [place] [id number] Pcp:Feli Rm Subjective: * Chief Complaints: * ???Painful nail(s) aggravate d by shoes causing difficulty standing/walking * HPI: ???Painful Nails:?Pt States Last PCP Visit:?Date:?03/27/2024 * Medical History:? * Surgical History:?hysterecto my 1997oral surgery 11/2013 * [place]/Major Diagno stic [place] [place]- Trouble breathing/pressure in [...] walking, occasional. ?Marital status: . 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 * Medications:?TakingCitracal + D [...] use of a nail nipper and/or dremel-type sausage grinder, to a more viable healthy nail plate or bed tissue 6-10. Silver nitrate used for any petechial bleeding as necessary. Definitive antifungal treatment options have been reviewed and discussed with the patient. The patient chooses, no pharmaceutical tx - 43138.? * Procedure Codes:?68328 DEBRI DE NAIL, 6 OR MORE * Follow Up:?3 Months * Images: * Sign off status: Completed true * Provider:?Addie Brizuela DPM Date:?06/15/2023 Generated for Aaron craig/Niall/Carleen on:?09/15/2024 05:02 PM EDT History and Physical Notes * [...]
--- OUTSIDE RECORDS SUMMARY | 2024-09-15 17:03 | XMS_ITS ---
Author Organization [facility] Address [address] [place] [id number] Care Team Providers Care Laminate Floor Installer Name Role Phone Feli Rm Primary Care Provider Addie Martinez [phone] Medications Medication SIG (Take, Route, Fr equency, Duration) Notes Start Date End Date Status Synthroid 175 MCG 1 tablet every morni ng on an empty stomach Orally Once a day for 30 day(s) Active iron Active Vitamin B-12 Active Citracal + D Active Gabapentin PRN Not-Takin g Voltaren 1 % as directed Externally 01/13/2024 Active Antibiotic Not-Takin g Encounters Encounter Location Date Provider Diagnosis [address] [address] 09/03/2024 Addie Brizuela Plan Of Treatment No Information Progress Notes * Tati CARVALHO ADOB: [birth year] (83 yo F)Acc No.[id number]:09/03/2024 Progress Note Patient:?Tati CARVALHO Provider:?Addie Brizuela DPM :1940???Age:83 Y???Sex:Female D ate:09/03/2024 Address:[address] [place] [phone] Pcp:Feli Rm Subjective: * Chief Complaints: * ??? * Medical History:? * Medications:?Taking Citracal + D , Taking iron , Taking Synthroid 175 MCG Tablet 1 tablet every morning on an empty stomach Orally Once a day , Taking Vitamin B-12 , Taking Voltaren 1 % Gel as directed Externally , Not-Taking/PRN Antibiotic , Not-Taking/PRN Gabapentin , Notes to Pharmacist: PRN Objective: * Vitals:? Assessment: Plan: * Treatment: * Images: * The named appointment provid er may or may not be the originator of this progress note, and it is not deemed complete until electronically signed by the appointment provider. Sign off status: Pending * Provider:?Addie Brizuela DPM Date:?0 09/03/2024 Generated for Aaron craig/Niall/Brownitting on:?09/15/2024 05:02 PM EDT
--- OUTSIDE RECORDS SUMMARY | 2024-09-15 17:03 | XMS_ITS ---
Author Organization [facility] Address [address] [place] [address] Care Team Providers Care Communications Director Name Role Phone Feli Rm Primary Care Provider Addie Martinez [phone] REASON FOR VISIT No Show Encounters Encounter Location Date Provider Diagnosis [address] [address] 09/03/2024 Addie Brizuela Plan Of Treatment No Information Progress Notes * Tati CARVALHO ADOB: [birth year] (83 yo F)Acc No.[id number]:09/03/2024 Patient:?Tati CARVALHO :1940???Age:83 Y???Sex:Female Address:[address] [place] [address], [address] * true * Date:? Generated for Aaron craig/Niall/eTransmitting on:?09/15/2024 05:02 PM EDT
--- OUTSIDE RECORDS SUMMARY | 2024-09-15 17:03 | XMS_ITS | Patient Health Record ---
[facility] [place] Address [address] [place] [address] Care Team Providers Care Red Hat Linux Administrator Name Role Phone Feli Rm Primary Care Provider Addie Martinez Unavailable [phone] Pieter Riddle Unavailable [phone] Allergies Allergen (clinical drug ingredient) Drug/Non Drug [...] day for 30 day(s) Active iron Active Voltaren 1 % as directed Externally 01/13/2024 Active Vitamin B-12 Active Citracal + D Active Antibiotic Not-Takin g Gabapentin PRN Not-Takin g Immunizations Vaccine Route Administration Date Status Comme [...] W/U Status Risk Notes Problem Viral wart (55656261) Other viral warts (B07.8) Active confirmed Problem Localized, primary osteoarthritis of the ankle and/or foot (572829897) Primary osteoarthrit is, right ankle and foot (M19.071) Active confirmed Problem Acquired hammer toe of right foot (5849277978000341) Other hammer toe(s) (acquired), right foot (M20.41) Active confirmed Problem Acquired hammer toe of left foot (4740534427180702) Other hammer toe(s) (acquired), left foot (M20.42) Active confirmed Vital Signs Blood pressure diastolic 80 mm Hg 04/15/2024 Height 5 ft 2 in in 04/15/2024 Blood pressure systolic 120 mm Hg 04/15/2024 Weight 114 lbs 04/15/2024 BMI 20.85 kg/m2 04/15/2024 Procedures Procedure Date Ordered Date Performed Result Body Sit e 95835-QTZTAMS NAIL, 6 OR MORE 04/15/2024 N/A Encounters Encounter Location Date Provider Diagnosis [address] [address] 01/13/2024 Pieter Riddle Tinea unguium B35.1 ; Pain in right toe(s) M79.674 ; Pain in left toe(s) M79.675 ; Other viral warts B07.8 ; Pain in left foot M79.672 ; Pain in right foot M79.671 and Other hammer toe(s) (acquired), left foot M20.[address] [address] 04/15/2024 Addie Brizuela Onychomycosis B35.1 ; Pain in right toe(s) M79.674 and Pain in left toe(s) M79.[address] [address] 10/14/[address] [address] 11/11/[address] [address] 12/10/[address] [address] 09/03/2024 Addie Brizuela Assessments Encounter Date Diagnosis (ICD Code) Assessment [...] Treatment Pending Test Test Name Order Date 87937-XXLOGDP NAIL, 6 OR MORE 04/15/2024 70977-OPUNBSW NAIL, -03/10/2018 12547-GUUEYJB NAIL, -02/20/2016 66138-VWKILII NAIL, -05/14/2016 14446-EQHGIQQ NAIL, -07/23/2016 31489-OPBEZMD NAIL, -12/31/2016 28123-XXAJLEN NAIL, -03/25/2017 32288-PZWXJBI NAIL, -06/17/2017 00720-WJXASHF NAIL, -09/23/2017 37000-SCCODDS NAIL, -12/11/2017 92178-VUYDAFQ NAIL, -08/15/2015 49713-HOPTVQY NAIL, -11/14/2015 34381-Hhon Destruction, -11/14/2015 22679-Qhtg Destruction, -05/16/2015 69655-Xtzr Destruction, -08/15/2015 68377-Kptq Destruction, -12/13/2014 22132-Hqdm Destruction, 06-0902/24/2015 80611-Otjn Destruction, 06-0912/17/2013 68331-Pphu Destruction, 06-0903/04/2014 66448-Ubqq Destruction, 06-0905/10/2014 32430-Svpc Destruction, 06-0907/26/2014 04916-Iwqe Destruction, 06-0910/04/2014 19808-Egse Destruction, 06-0902/05/2011 58235-Flwr Destruction, 06-0907/09/2011 28780-Jqjx Destruction, 06-0912/03/2011 35873-Jjsq Destruction, 06-0905/15/2012 16664-Jinl Destruction, 06-0908/11/2012 93007-Gkkl Destruction, 06-0911/13/2012 55243-Xksm Destruction, 06-0902/09/2013 48928-Satj Destruction, 06-0905/04/2013 79246-Ittb Destruction, 06-0908/03/2013 27393-Xkcl Destruction, 06-0910/08/2013 50112-Gykn Destruction, 06-0912/11/2017 50208-Kojn Destruction, 06-0909/23/2017 41082-Noys Destruction, 06-0906/17/2017 74289-Qesq Destruction, 06-0903/25/2017 62698-Bobf Destruction, 06-0912/31/2016 84279-Qtxd Destruction, 06-0907/23/2016 45693-Ncqr Destruction, 06-0905/14/2016 94541-Wlpk Destruction, 06-0902/20/2016 05865-Zfpc Destruction, 06-0903/10/2018 74718-Fsghrzes Plate 02/05/2011 71611-Qltkegwg Plate 12/03/2011 56493-Qblwjhww Plate 07/09/2011 22424- Debride <25 sq cm 05/15/2012 81892- Debride <25 sq cm 08/11/2012 78598- Debride <25 sq cm 11/13/2012 38255- Debride <25 sq cm 12/17/2013 73093- Debride <25 sq cm 10/08/2013 95962- Debride <25 sq cm 05/04/2013 30507- Debride <25 sq cm 02/09/2013 44336- Debride <25 sq cm 10/04/2014 80490- Debride <25 sq cm 07/26/2014 38062- Debride <25 sq cm 03/04/2014 38467- Debride <25 sq cm 05/10/2014 10078- Debride <25 sq cm 02/24/2015 29817- Debride <25 sq cm 12/13/2014 Insurance Providers Payer Name Payer Address Payer Phone Subscriber Number Group Number Insured Name Patient Relationship to Insured Coverage Start Date Coverage End Date [employer] [address] [place] [address] [id number] Tati Carvalho Self - patient is the insured [address] [place] [address] [place] [address] [id number] Tati Carvalho Self - patient is the [...]
== END 2024-09-15 14:40 | disposition home or self-care (01) ==
LOC: HO.HMCH 14:13
PROVIDERS: PCP Internal Medicine; Visit Provider Internal Medicine
DX: J47.9 Bronchiectasis, uncomplicated (principal); J43.1 Panlobular emphysema; R30.0 Dysuria; N39.0 Urinary tract infection, site not specified; Z13.9 Encounter for screening, unspecified

== ENCOUNTER 2024-09-15 14:12 | Outpatient (REF) | payer MEDICARE, OTHER, SELFPAY ==
[2024-09-15 16:36] LABS: Appearance Urine Cloudy; Color Urine Dark Yellow; Glucose Urine UA Negative (Negative); Leukocyte Esterase Urine Large (3+) (Negative); Nitrite Urine Negative (Negative); UMIC TRIGGER UACC YES; Urine Blood Negative (Negative); Urine Ketones Trace mg/dL (Negative); Urine Protein Trace mg/dL (Neg-Trace)
[2024-09-15 17:01] LABS: Bacteria Urine 2+ (None Seen); Hyaline Casts Urine 0-2 /LPF (0-2); RBC Urine 0-2 /HPF (0-2); UACC Culture Trigger YES; WBC Urine 21-50 /HPF (0-5)
== END 2024-09-15 14:13 | disposition home or self-care (01) ==
LOC: HO.LNP 14:12
PROVIDERS: PCP Internal Medicine; Visit Provider Internal Medicine
DX: J47.9 Bronchiectasis, uncomplicated (principal); J43.1 Panlobular emphysema; R30.0 Dysuria; N39.0 Urinary tract infection, site not specified
CPT/HCPCS: 81001; 81003; 87086; 99212

== ENCOUNTER 2024-09-28 13:33 | Outpatient (REF) | payer MEDICARE, OTHER, SELFPAY ==
[2024-09-28 14:37] LABS: Appearance Urine Clear; Color Urine Yellow; Glucose Urine UA Negative (Negative); Leukocyte Esterase Urine Moderate (2+) (Negative); Nitrite Urine Negative (Negative); UMIC TRIGGER UACC YES; Urine Blood Negative (Negative); Urine Ketones Negative (Negative); Urine Protein Negative (Neg-Trace)
[2024-09-28 14:42] LABS: Bacteria Urine None Seen (None Seen); Hyaline Casts Urine 0-2 /LPF (0-2); RBC Urine 0-2 /HPF (0-2); Squamous Epithelial Cell Urine 0-2 /HPF (0-2); UACC Culture Trigger YES
== END 2024-09-28 13:34 | disposition home or self-care (01) ==
LOC: HO.LAB 13:33
PROVIDERS: PCP Internal Medicine; Visit Provider Internal Medicine
DX: R30.0 Dysuria (principal); E53.8 Deficiency of other specified B group vitamins
CPT/HCPCS: 81001; 87086; 96372; J3420

== ENCOUNTER 2024-09-28 13:33 | Outpatient (AMB) | payer MEDICARE, OTHER, SELFPAY ==
--- NOTE | 2024-09-28 13:35 | AM.OFFVISNUR ---
Intake Visit Reasons: b12 Allergies codeine [CODEINE] Allergy (Unknown, Verified 09/15/24 14:15) GI UPSET levofloxacin [From LEVAQUIN] Allergy (Unknown, Verified 09/15/24 14:15) STOMACH UPSET pneumococcal vaccine Allergy (Unknown, Verified 09/15/24 14:15) unknown shellfish derived [SHELLFISH DERIVED] Allergy (Unknown, Verified 09/15/24 14:15) RASH Office Meds cyanocobalamin (vitamin B-12) 1,000 mcg/mL injection solution Performing Provider: Feli Rm MD Performing Location: [facility] Administered by: Rena Plunkett RN on 09/28/24 13:35 Dose Route Admin Location Dispensed Lot Number Expiration Date [facility][NOTE 3] Student Success Advisor 1,000 mcg IM 1 mL [id number] 12/24/26 90587-692-65 Individual Digital Assessment & Plan Assessment & Plan Orders: Orders AMB Vitamin B12 Injection Patient Supplied Today E53.8 - Deficiency of other specified B group vitamins Medications: New cyanocobalamin (vitamin B-12) 1,000 mcg IM ONCE 1 mL 0RF E53.8 - Deficiency of other specified B group vitamins Coding
--- OUTSIDE RECORDS SUMMARY | 2024-09-28 15:03 | XMS_ITS | Patient Health Record ---
[facility] Address [address] [place] [address] Care Team Providers Care Product Applications Engineer Name Role Phone Feli Rm Primary Care Provider Addie Martinez Unavailable [phone] Pieter Riddle Unavailable [phone] Allergies Allergen (clinical drug ingredient) Drug/Non Drug [...] W/U Status Risk Notes Problem Viral wart (19874639) Other viral warts (B07.8) Active confirmed Problem Localized, primary osteoarthritis of the ankle and/or foot (689276268) Primary osteoarthrit is, right ankle and foot (M19.071) Active confirmed Problem Acquired hammer toe of right foot (4791019269358504) Other hammer toe(s) (acquired), right foot (M20.41) Active confirmed Problem Acquired hammer toe of left foot (9853532657135137) Other hammer toe(s) (acquired), left foot (M20.42) Active confirmed Vital Signs Blood pressure diastolic 80 mm Hg 04/15/2024 Height 5 ft 2 in in 04/15/2024 Blood pressure systolic 120 mm Hg 04/15/2024 Weight 114 lbs 04/15/2024 BMI 20.85 kg/m2 04/15/2024 Procedures Procedure Date Ordered Date Performed Result Body Sit e 90699-GISDJWE NAIL, 6 OR MORE 04/15/2024 N/A Encounters Encounter Location Date Provider Diagnosis [address] [address] 01/13/2024 Pieter Riddle Tinea unguium B35.1 ; Pain in right toe(s) M79.674 ; Pain in left toe(s) M79.675 ; Other viral warts B07.8 ; Pain in left foot M79.672 ; Pain in right foot M79.671 and Other hammer toe(s) (acquired), left foot M20.[address] [address] 04/15/2024 Addie Brizuela Onychomycosis B35.1 ; Pain in right toe(s) M79.674 and Pain in left toe(s) M79.[address] [address] 10/14/[address] [address] 11/11/[address] [address] 12/10/[address] [address] 09/03/2024 Addie Brizuela Assessments Encounter Date Diagnosis [...] Treatment Pending Test Test Name Order Date 49422-SENTXZI NAIL, 6 OR MORE 04/15/2024 70140-HWRFWHF NAIL, -03/10/2018 95298-KGLFDUR NAIL, -02/20/2016 28037-UXZALWM NAIL, -05/14/2016 92058-KTQDVPS NAIL, -07/23/2016 87186-GURUHHP NAIL, -12/31/2016 24197-UZWJXMZ NAIL, -03/25/2017 53007-AUQVMVQ NAIL, -06/17/2017 22562-ABAQSPB NAIL, -09/23/2017 70303-VKYNXUG NAIL, -12/11/2017 97737-JGIHUZC NAIL, -08/15/2015 42582-XOXFJFJ NAIL, -11/14/2015 13778-Yqay Destruction, -11/14/2015 20836-Nukq Destruction, -05/16/2015 63020-Fjfo Destruction, -08/15/2015 21937-Bbua Destruction, -12/13/2014 02507-Ynxi Destruction, 06-0902/24/2015 19615-Stxl Destruction, 06-0912/17/2013 26453-Twjg Destruction, 06-0903/04/2014 85784-Eecx Destruction, 06-0905/10/2014 42448-Uejf Destruction, 06-0907/26/2014 79813-Vooc Destruction, 06-0910/04/2014 58327-Wppf Destruction, 06-0902/05/2011 01376-Abdq Destruction, 06-0907/09/2011 27104-Qdzf Destruction, 06-0912/03/2011 06820-Aoqg Destruction, 06-0905/15/2012 84012-Iitb Destruction, 06-0908/11/2012 22695-Mjgd Destruction, 06-0911/13/2012 81547-Lubh Destruction, 06-0902/09/2013 31204-Soma Destruction, 06-0905/04/2013 93800-Qzih Destruction, 06-0908/03/2013 36208-Xxhp Destruction, 06-0910/08/2013 33844-Tyls Destruction, 06-0912/11/2017 59198-Kesa Destruction, 06-0909/23/2017 99799-Lpwb Destruction, 06-0906/17/2017 77443-Iypa Destruction, 06-0903/25/2017 22433-Opbi Destruction, 06-0912/31/2016 85149-Eunz Destruction, 06-0907/23/2016 48101-Hwrb Destruction, 06-0905/14/2016 60882-Svyv Destruction, 06-0902/20/2016 20546-Shxi Destruction, 06-0903/10/2018 40242-Bhjhkbni Plate 02/05/2011 79672-Sweweusp Plate 12/03/2011 46434-Ftdplcru Plate 07/09/2011 08655- Debride <25 sq cm 05/15/2012 17700- Debride <25 sq cm 08/11/2012 99261- Debride <25 sq cm 11/13/2012 60299- Debride <25 sq cm 12/17/2013 80854- Debride <25 sq cm 10/08/2013 31402- Debride <25 sq cm 05/04/2013 62055- Debride <25 sq cm 02/09/2013 59835- Debride <25 sq cm 10/04/2014 64189- Debride <25 sq cm 07/26/2014 01352- Debride <25 sq cm 03/04/2014 01513- Debride <25 sq cm 05/10/2014 62000- Debride <25 sq cm 02/24/2015 81827- Debride <25 sq cm 12/13/2014 Insurance Providers Payer Name Payer Address Payer Phone Subscriber Number Group Number Insured Name Patient Relationship to Insured Coverage Start Date Coverage End Date [employer] [address] [place] [address] [id number] Tati Carvalho Self - patient is the insured [address] [place] [employer] [address] [place] [id number] Tati Carvalho Self - patient is the [...]
--- OUTSIDE RECORDS SUMMARY | 2024-09-28 15:03 | XMS_ITS ---
Author Organization [facility] Address [address] [place] [address] Care Team Providers Care Service Administrator Name Role Phone Feli Rm Primary Care Provider Addie Martinez [phone] REASON FOR VISIT No Show Encounters Encounter Location Date Provider Diagnosis [address] [address] 09/03/2024 Addie Brizuela Plan Of Treatment No Information Progress Notes * Tati CARVALHO ADOB: [birth year] (83 yo F)Acc No.[id number]:09/03/2024 Patient:?Tati CARVALHO :1940???Age:83 Y???Sex:Female Address:[address] [place] [address], [address] * true * Date:? Generated for Aaron craig/Niall/eTransmitting on:?09/28/2024 03:03 PM EDT
--- OUTSIDE RECORDS SUMMARY | 2024-09-28 15:03 | XMS_ITS ---
Author Organization [facility] Address [address] [place] [address] Care Team Providers Care Box Hinge And Lock Attacher Name Role Phone Feli Rm Primary Care Provider Addie Martinez [phone] Medications Medication SIG (Take, Route, Fr equency, [...] g Encounters Encounter Location Date Provider Diagnosis [address] [address] 09/03/2024 Addie Brizuela Plan Of Treatment No Information Progress Notes * Tati CARVALHO ADOB: [birth year] (83 yo F)Acc No.[id number]:09/03/2024 Progress Note Patient:?Tati CARVALHO Provider:?Addie Brizuela DPM :1940???Age:83 Y???Sex:Female D ate:09/03/2024 Address:[address] [place] [id number] Pcp:Feli Rm Subjective: * Chief Complaints: * [...] DPM Date:?0 09/03/2024 Generated for Aaron craig/Niall/Brownitting on:?09/28/2024 03:03 PM EDT
--- OUTSIDE RECORDS SUMMARY | 2024-09-28 15:03 | XMS_ITS ---
Author Organization [facility] [place] Address [address] [facility] [place] [address] Care Team Providers Care Train Starter Name Role Phone Feli Rm Primary Care Provider Addie Martinez Unavailable [phone] Allergies Allergen (clinical drug ingredient) Drug/Non Drug [...] Ordered Date Performed Result Body Sit e 09623-DTIIBTH NAIL, 6 OR MORE 04/15/2024 N/A Encounters Encounter Location Date Provider Diagnosis [facility] [place] [address] [place] [address] 04/15/2024 Addie Brizuela Onychomycosis B35.1 ; Pain in right toe(s) M79.674 and Pain in left toe(s) M79.675 Assessments Encounter Date Diagnosis (ICD Code) Assessment Notes Treatment Notes Treatment Clinical Notes Section Notes 04/15/2024 Onychomycosis (ICD-10 - B35.1) 04/15/2024 Pain in right toe(s) (ICD-10 - M79.674) 04/15/2024 Pain in left toe(s) (ICD-10 - M79.675) Plan Of Treatment Pending Test Test Name Order Date 79190-CHDTZXP NAIL, 6 OR MORE 04/15/2024 Next Appt [...] use of a nail nipper and/or dremel-type jewel bearing grinder, to a more viable healthy nail plate or bed tissue 6-10. Silver nitrate used for any petechial bleeding as necessary. Definitive antifungal treatment options have been reviewed and discussed with the patient. The patient chooses, no pharmaceutical tx - [address]70 Progress Notes * Tati CARVALHO ADOB: [birth year] (83 yo F)Acc No.[id number]:04/15/2024 Progress Note Patient:?Tati CARVALHO Provider:?Addie Brizuela DPM :1940???Age:83 Y???Sex:Female D ate:04/15/2024 Address:[address] [place] [phone] Pcp:Feli Rm Subjective: * Chief Complaints: * ???Painful nail(s) aggravate d by shoes causing difficulty standing/walking * HPI: ???Painful Nails:?Pt States Last PCP Visit:?Date:?03/27/2024 * Medical History:? * Surgical History:?hysterecto my 1997oral surgery 11/2013 * Hospitalization/Major Diagno stic Procedure:?[facility] for pneumonia 10/04/2015C- Trouble [...] walking, occasional. ?Marital status: . 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 * Medications:?TakingCitracal + D iron Synthroid [...] use of a nail nipper and/or dremel-type jewel bearing grinder, to a more viable healthy nail plate or bed tissue 6-10. Silver nitrate used for any petechial bleeding as necessary. Definitive antifungal treatment options have been reviewed and discussed with the patient. The patient chooses, no pharmaceutical tx - 13136.? * Procedure Codes:?89486 DEBRI DE NAIL, 6 OR MORE * Follow Up:?3 Months * Images: * Sign off status: Completed true * Provider:?Addie Brizuela DPM Date:?06/15/2023 Generated for Aaron craig/Niall/Carleen on:?09/28/2024 03:03 PM EDT History and Physical Notes * [...]
== END 2024-09-28 13:50 | disposition home or self-care (01) ==
LOC: HO.HMCH 13:33
PROVIDERS: PCP Internal Medicine; Visit Provider Internal Medicine
DX: E53.8 Deficiency of other specified B group vitamins (principal)

== ENCOUNTER 2024-10-08 13:50 | Outpatient (AMB) | payer MEDICARE, OTHER, SELFPAY ==
[2024-10-08 13:52] VITALS: BP 144/80; PULSE 74; O2SAT 97; BMI 20.8
--- NOTE | 2024-10-08 13:52 | A.OFFPC_ITS ---
Vital Signs 10/08/24 13:52 Height 5 ft 2 in Weight 114 lb BMI 20.8 BP 144/80 H Blood Pressure Location Lt brachial Position Sitting Pulse 74 Pulse Source Pulse Oximeter Pulse Oximetry (%) 97 Oxygen Delivery Method Room Air Intake Visit Reasons: Bronchitis Allergies codeine [CODEINE] Allergy (Unknown, Verified 10/08/24 13:52) GI UPSET levofloxacin [From LEVAQUIN] Allergy (Unknown, Verified 10/08/24 13:52) STOMACH UPSET pneumococcal vaccine Allergy (Unknown, Verified 10/08/24 13:52) unknown shellfish derived [SHELLFISH DERIVED] Allergy (Unknown, Verified 10/08/24 13:52) RASH Medication List - Last Reconciled 10/08/24 by Feli Woods Po, albuterol sulfate 90 mcg/actuation 2 puffs inhalation Q4-6H PRN amitriptyline 10 mg PO BEDTIME bisacodyl (Dulcolax (bisacodyl)) 5 mg PO BEDTIME 2 days calcium citrate-vitamin D3 315 mg-6.25 mcg (250 unit) (Citracal + Vitamin D Maximum) 1 tab PO BID clotrimazole-betamethasone 1-0.05 % 1 appl topical BID 2 weeks cyanocobalamin (vitamin B-12) 1,000 mcg IM Q4W 90 days escitalopram oxalate (Lexapro) 5 mg PO DAILY fexofenadine (Arielle Allergy) 180 mg PO DAILY gabapentin 100 mg PO BEDTIME iron,carbonyl-vitamin C 65 mg iron- 125 mg (Vitron-C) 1 tab PO BID loratadine (Allergy Relief (loratadine)) 10 mg PO DAILY lorazepam (Ativan) 0.5 mg (1/2 x 1 mg) PO TID PRN sennosides-docusate sodium 8.6-50 mg (Senna Plus) 2 tab-caps (2 x 8.6-50 mg) PO BEDTIME sulfamethoxazole-trimethoprim 800-160 mg (Bactrim DS) 1 tab PO BID Synthroid (levothyroxine) 100 mcg PO DAILY 90 days NS Tobacco use date assessed: 09/15/24 Fall risk assessment: No Falls in past year Last assessed Fall Risk: 10/08/24 Dental Screening Dental Screen Date: 07/24/24 [facility] Medical History (Updated 09/15/24 @ 17:43 by Feli Rm MD) UTI (urinary tract infection) Dysuria Osteopenia Contact dermatitis and eczema Sinus congestion Costochondritis LLQ pain Confusion Epigastric pain Cognitive impairment Cough Blood pressure elevated without history of HTN Screening for breast cancer Post-menopausal Pneumonia Viral upper respiratory tract infection with cough Encounter for subsequent annual wellness visit (AWV) in Medicare patient Chest pain SOB (shortness of breath) Headache Colonoscopy refused COPD (chronic obstructive pulmonary disease) Recurrent sinus infections Breast asymmetry Uterine cancer Bronchiectasis Pernicious anemia Peripheral neuropathy Lumbar degenerative disc disease Hypercholesterolemia Vitamin D deficiency Pulmonary nodule Hypothyroid Surgical History History of total abdominal hysterectomy and bilateral salpingo-oophorectomy History of lumpectomy of right breast History of appendectomy Family History Father CVD (cardiovascular disease) Mother Cancer Social History Housing: House Alcohol intake: never Patient Tobacco Use Status: Never used Tobacco Tobacco use type: Cigarette e-Cigarette/Vaping Use: Never Used Second Hand Smoke Exposure: No service: No Current occupational status: unemployed Cognitive needs: No Hearing needs: No Vision needs: Yes (reading glasses) Questionnaire Thrive Questionnaire Date Thrive assessed: 07/24/24 DANIEL-7 AMB Questionnaire DANIEL-7 Date DANIEL - 7 assessed: 07/24/24 Source: Developed by Drs. Lobo Lopez, Lucie Mckinley, Nima Holland and colleagues, with an educational kourtney from [employer]. Physical exam (Primary Care) Vital Signs: Last Vital Signs Pulse 74 10/08/24 13:52 BP 144/80 H 10/08/24 13:52 Pulse Ox 97 10/08/24 13:52 Oxygen Delivery Method Room Air 10/08/24 13:52 BMI result Body Mass Index 20.8 Tobacco/Smoking Status: Tobacco use Status Tobacco use date assessed 09/15/24 10/08/24 13:53 Patient Tobacco Use Status Never used Tobacco 10/08/24 13:53 Tobacco use type Cigarette 10/08/24 13:53 e-Cigarette/Vaping Use Never Used 10/08/24 13:53 Thrive Assessment: Date of Thrive Assessment Date Thrive assessed 07/24/24 10/08/24 13:53 Const General: alert; No acute distress Eyes Conjunctivae: conjunctivae normal Resp Auscultation: clear to auscultation bilaterally Cardio Rate: regular rate Rhythm: regular rhythm GI Inspection: Yes normal to inspection Extrem General: Yes normal to inspection and No edema Results AMB Urinalysis, Automated UA Leukoctes 500 Bart/uL Last Edit by Laurita Almonte CMA on 10/08/24 15: 03 UA Nitrite Negative Last Edit by Laurita Almonte, [facility] on 10/08/24 15:03 UA Urobilinogen 0.2 mg/dL Last Edit by Laurita Almonte, [facility] on 10/08/24 1 5 :03 UA Protein 0 mg/dL Last Edit by Laurita Almonte, [facility] on 10/08/24 15:03 UA pH 7.0 Last Edit by Laurita Almonte, [facility] on 10/08/24 15:03 UA Blood 0 Moises/uL Last Edit by Laurita Almonte, [facility] on 10/08/24 15:03 UA Specific Boyd 1.005 Last Edit by Laurita Almonte, [facility] on 10/08/24 15:03 UA Ketone Negative Last Edit by Laurita Almonte, [facility] on 10/08/24 15:03 UA Bilirubin 0 mg/dL Last Edit by Laurita Almonte, [facility] on 10/08/24 15:03 UA Glucose 0 mg/dL Last Edit by Laurita Almonte, [facility] on 10/08/24 15:03 Results Reviewed Results Reviewed: Laboratory Last Values Urine pH (Auto) 7.0 10/08/24 15:02 Specific Boyd (Auto) 1.005 10/08/24 15:02 Urine Protein (Auto) 0 mg/dL 10/08/24 15:02 Glucose (UA)(Auto) 0 mg/dL 10/08/24 15:02 Urine Ketones (Auto) Negative 10/08/24 15:02 Urine Blood (Auto) 0 Moises/uL 10/08/24 15:02 Urine Nitrite (Auto) Negative 10/08/24 15:02 Urine Bilirubin (Auto) 0 mg/dL 10/08/24 15:02 Urine Urobilinogen (Auto) 0.2 mg/dL 10/08/24 15:02 Leukocyte Esterase (Auto) 500 Bart/uL 10/08/24 15:02 Coding Level of Care Code Est Pt Level 4 (37963) Diagnoses Bronchitis J40 Bronchiectasis without complication J47.9 Bronchiectasis type: uncomplicated Dementia with Lewy bodies G31.83; F02.80 Urinary tract infection without hematuria, site unspecified N39.0 Hematuria presence: without hematuria Urinary tract infection type: site unspecified Assessment & Plan Assessment & Plan (1) Bronchitis: Code(s): J40 - Bronchitis, not specified as acute or chronic (2) Bronchiectasis: Comment: MILD, CHRONIC BRONCHIECTASIS IN RT MIDDLE LOBE AND LINGULA ( DAIN ) . Code(s): J47.9 - Bronchiectasis, uncomplicated Category: Medical Qualifiers: Bronchiectasis type: uncomplicated Qualified Code(s): J47.9 - Bronchiectasis, uncomplicated Plan: Patient has followed up with Pulmonary before and has been taking antibiotics on exacerbations. (3) Dementia with Lewy bodies: Comment: Dr. Badillo May 2024 Code(s): G31.83 - Neurocognitive disorder with Lewy bodies; F02.80 - Dementia in other diseases classified elsewhere, unspecified severity, without behavioral disturbance, psychotic disturbance, mood disturbance, and anxiety Category: Medical Plan: Supportive treatment on Lexapro gabapentin lorazepam amitriptyline (4) UTI (urinary tract infection): Code(s): N39.0 - Urinary tract infection, site not specified Category: Medical Qualifiers: Hematuria presence: without hematuria Urinary tract infection type: site unspecified Qualified Code(s): N39.0 - Urinary tract infection, site not specified Plan History of Present Illness The patient is an 84-year-old female presenting with a follow-up for chronic conditions and evaluation of a urinary tract infection. She has a notable history of bronchiectasis and frequently requires antibiotics for COPD management, with the usage pattern contributing to concerns regarding antibiotic resistance. Her anxiety disorder exacerbates her symptoms and leads to regular medication requests. She reports dietary inadequacies with restricted intake, primarily consuming oatmeal, tomato soup, and cheese or peanut butter crackers, resulting from post-illness taste aversions. Recent blood work showed a hemoglobin level of 11.9 g/dL, indicating mild anemia, but other functions remain stable, including thyroid and kidney results. The patient recently encountered dysuria, linked to a confirmed urinary tract infection, previously treated with Nitrofurantoin, which requires further management due to unresolved symptoms. Health Maintenance - Reviewed blood work results from April 2024, which included satisfactory cholesterol management, stable kidney and thyroid function. - Discussed dietary needs and suggested increased intake of nutritious foods, particularly green leafy vegetables. - Recommended hydration to support urinary health. Social History - Diet: Limited nutritional intake focusing on oatmeal, tomato soup, and crackers due to developed aversions to meat and vegetables. - Functional status: Chronic conditions influence activities, exacerbated by anxiety. - Housing: Not specifically discussed, presumed stable. Review of Systems - General: Reports stable weight. - Cardiovascular: Denies any specific issues discussed. - Respiratory: Reports chronic respiratory issues managed with COPD treatment. - Gastrointestinal: Denies significant appetite due to dietary aversions. - Genitourinary: Reports burning sensation during urination. - Neurological: Reports periods of mental clarity; concerns of memory and cognitive issues due to dementia. - Psychiatric: Reports anxiety symptoms correlating with COPD. Physical Exam Results - Labs: Reported mild anemia with hemoglobin level of 11.9 g/dL. - Tests and Diagnostics: Positive urine test confirming a urinary tract infection. Plan The management plan includes rotating antibiotics for COPD-related issues to combat resistance, continuation of anxiety medications, and encouraging dietary changes to improve nutritional status. Bactrim is prescribed for the urinary tract infection, with instructions to ensure adequate hydration. Progress in her dementia care involves potential considerations for medication to slow cognitive decline, with emphasis on balanced nutrition to aid brain health. Patient was informed and verbally consented to the use of an ambient scribe for clinic note documentation during this visit. Discussion Notes I discussed the management plan for the patient's chronic conditions, including her bronchiectasis, strategic use of antibiotics for her COPD to prevent resistance, and continuation of anxiety medications. Nutritional improvement was highlighted, given her limited diet. We reviewed the current urinary tract infection, confirming the positive urine test result and the necessity of Bactrim treatment, along with hydration. I addressed dementia concerns, outlining potential medication benefits and risks, and urged dietary improvements for cognitive support. Follow-up plans include post-treatment urine checks to ensure infection clearance. Patient Instructions - Take Bactrim as prescribed, twice a day for five days. - Drink plenty of fluids to stay hydrated and support urinary health. - Continue with current medications and follow prescribed dosages. - Attempt to incorporate more variety into the diet, including green leafy vegetables and alternative protein and nutritional sources. - Follow up for further urine testing in a couple of weeks to confirm the infection has cleared. Orders: Orders AMB Urinalysis Automated Today N39.0 - Urinary tract infection, site not specified, Z13.9 - Encounter for screening, unspecified UA CC w/rflx Micro + Cult 2 Weeks N39.0 - Urinary tract infection, site not specified, R30.0 - Dysuria Medications: New sulfamethoxazole-trimethoprim 800-160 mg (Bactrim DS) 1 tab PO BID 10 tabs 0RF N39.0 - Urinary tract infection, site not specified
== END 2024-10-08 15:17 | disposition home or self-care (01) ==
LOC: HO.HMCH 13:50
PROVIDERS: PCP Internal Medicine; Visit Provider Internal Medicine
DX: J40 Bronchitis, not specified as acute or chronic (principal); J47.9 Bronchiectasis, uncomplicated; G31.83 Neurocognitive disorder with Lewy bodies; F02.80 Dementia in other diseases classified elsewhere, unspecified severity, without behavioral disturbance, psychotic disturbance, mood disturbance, and anxiety; N39.0 Urinary tract infection, site not specified; Z13.9 Encounter for screening, unspecified

== ENCOUNTER → 2024-10-08 13:50 | Outpatient (BNVA) | payer MEDICARE, OTHER, SELFPAY | PROVIDERS: PCP Internal Medicine; Visit Provider Internal Medicine | DX: J40 Bronchitis, not specified as acute or chronic (principal); J47.9 Bronchiectasis, uncomplicated; G31.83 Neurocognitive disorder with Lewy bodies; F02.80 Dementia in other diseases classified elsewhere, unspecified severity, without behavioral disturbance, psychotic disturbance, mood disturbance, and anxiety; N39.0 Urinary tract infection, site not specified | CPT/HCPCS: 81003; 99212 ==

== ENCOUNTER 2024-10-16 13:57 | Outpatient (AMB) | payer MEDICARE, OTHER, SELFPAY ==
--- NOTE | 2024-10-16 13:59 | MHC.PC.OV ---
Intake Visit Reasons: UTI/congested cough Major Donor Coordinator Required: No Information Interpreted: non-clinical & clinical Market Gardener: Not Required per policy Accompanied by: Self / Same As Patient Allergies codeine [CODEINE] Allergy (Unknown, Verified 10/16/24 14:08) GI UPSET levofloxacin [From LEVAQUIN] Allergy (Unknown, Verified 10/16/24 14:08) STOMACH UPSET pneumococcal vaccine Allergy (Unknown, Verified 10/16/24 14:08) unknown shellfish derived [SHELLFISH DERIVED] Allergy (Unknown, Verified 10/16/24 14:08) RASH Medication List - Last Reconciled 10/16/24 by Feli Woods Po, albuterol sulfate 90 mcg/actuation 2 puffs inhalation Q4-6H PRN amitriptyline 10 mg PO BEDTIME azithromycin (Zithromax) For 250 mg dose pack: take 500 mg today (day 1), then 250 mg for 4 days (days 2-5) PO bisacodyl (Dulcolax (bisacodyl)) 5 mg PO BEDTIME 2 days calcium citrate-vitamin D3 315 mg-6.25 mcg (250 unit) (Citracal + Vitamin D Maximum) 1 tab PO BID clotrimazole-betamethasone 1-0.05 % 1 appl topical BID 2 weeks cyanocobalamin (vitamin B-12) 1,000 mcg IM Q4W 90 days escitalopram oxalate (Lexapro) 5 mg PO DAILY fexofenadine (Arielle Allergy) 180 mg PO DAILY gabapentin 100 mg PO BEDTIME iron,carbonyl-vitamin C 65 mg iron- 125 mg (Vitron-C) 1 tab PO BID loratadine (Allergy Relief (loratadine)) 10 mg PO DAILY lorazepam (Ativan) 0.5 mg (1/2 x 1 mg) PO TID PRN sennosides-docusate sodium 8.6-50 mg (Senna Plus) 2 tab-caps (2 x 8.6-50 mg) PO BEDTIME Synthroid (levothyroxine) 100 mcg PO DAILY 90 days NS Tobacco use date assessed: 09/15/24 Fall risk assessment: No Falls in past year Last assessed Fall Risk: 10/16/24 Dental Screening Dental Screen Date: 07/24/24 HPI UTI/congested cough HPI Details EDUARDO , nausea, sore throat, on allergy med but states has not taking, no diarrhea. states not sob. [facility] Medical History (Updated 09/15/24 @ 17:43 by Feli Rm MD) UTI (urinary tract infection) Dysuria Osteopenia Contact dermatitis and eczema Sinus congestion Costochondritis LLQ pain Confusion Epigastric pain Cognitive impairment Cough Blood pressure elevated without history of HTN Screening for breast cancer Post-menopausal Pneumonia Viral upper respiratory tract infection with cough Encounter for subsequent annual wellness visit (AWV) in Medicare patient Chest pain SOB (shortness of breath) Headache Colonoscopy refused COPD (chronic obstructive pulmonary disease) Recurrent sinus infections Breast asymmetry Uterine cancer Bronchiectasis Pernicious anemia Peripheral neuropathy Lumbar degenerative disc disease Hypercholesterolemia Vitamin D deficiency Pulmonary nodule Hypothyroid Surgical History History of total abdominal hysterectomy and bilateral salpingo-oophorectomy History of lumpectomy of right breast History of appendectomy Family History Father CVD (cardiovascular disease) Mother Cancer Social History Housing: House Alcohol intake: never Patient Tobacco Use Status: Never used Tobacco Tobacco use type: Cigarette e-Cigarette/Vaping Use: Never Used Second Hand Smoke Exposure: No service: No Current occupational status: unemployed Cognitive needs: No Hearing needs: No Vision needs: Yes (reading glasses) Questionnaire Thrive Questionnaire Date Thrive assessed: 07/24/24 DANIEL-7 AMB Questionnaire DANIEL-7 Date DANIEL - 7 assessed: 07/24/24 Source: Developed by Drs. Lobo Lopez, Lucie Mckinley, Nima Holland and colleagues, with an educational kourtney from [employer]. Physical exam (Primary Care) Tobacco/Smoking Status: Tobacco use Status Tobacco use date assessed 09/15/24 10/16/24 14:00 Patient Tobacco Use Status Never used Tobacco 10/16/24 14:00 Tobacco use type Cigarette 10/16/24 14:00 e-Cigarette/Vaping Use Never Used 10/16/24 14:00 Thrive Assessment: Date of Thrive Assessment Date Thrive assessed 07/24/24 10/16/24 14:00 Telehealth Telehealth Telehealth Platform: Telephone Location of provider rendering services: practice address Location of patient: address on file Patient Identification confirmed using: Name, : Yes Telehealth method: voice only Patient verbally consented to treatment: Yes Patient verbally consented to billing insurance company: Yes Patient informed of any privacy concerns related to visit: Yes Minutes spent on Phone/Video with Pt.: 15 Coding Level of Care Code Tele Est Pt Level 3 (61376) Diagnoses Bronchiectasis without complication J47.9 Bronchiectasis type: uncomplicated Panlobular emphysema J43.1 COPD type: emphysema Emphysema type: panlobular Assessment & Plan Assessment & Plan (1) Bronchiectasis: Comment: MILD, CHRONIC BRONCHIECTASIS IN RT MIDDLE LOBE AND LINGULA ( DAIN ) . Code(s): J47.9 - Bronchiectasis, uncomplicated Category: Medical Qualifiers: Bronchiectasis type: uncomplicated Qualified Code(s): J47.9 - Bronchiectasis, uncomplicated Plan: advised to take allergy meds (2) COPD (chronic obstructive pulmonary disease): Comment: HAS VERY MILD DEGREE OF OBSTRUCTIVE AIRWAY DISORDER, LAST PFT IN 2009, PATIENT HAS DECLINED TO HAVE ANY MORE PULMONARY FUNCTION TESTS. CLINICALLY SHE HAS VERY MILD OBSTRUCTIVE AIRWAY DISORDER. Code(s): J44.9 - Chronic obstructive pulmonary disease, unspecified Category: Medical Qualifiers: COPD type: emphysema Emphysema type: panlobular Qualified Code(s): J43.1 - Panlobular emphysema Plan: continue with the inhaler use prn Plan History of Present Illness The patient is an 84-year-old female presenting with respiratory distress and a sore throat. She described her throat discomfort as scratchy, accompanied by general weakness but denied fever and diarrhea. She has a history of bronchiectasis and COPD and uses an inhaler sporadically, although she currently feels capable of breathing effectively. There was a conversation about allergy medication, specifically fexofenadine, which she was not actively taking despite having a prescription. The patient expressed concerns about her inability to eat as usual but did not identify any exacerbation of symptoms such as significant shortness of breath beyond occasional deep breaths. Review of Systems - General: Reports feeling weak; denies fever. - Respiratory: Reports respiratory discomfort; requires deep breaths at times. - Gastrointestinal: Reports sore throat; denies active diarrhea. - Neurological: Reports occasional headaches. - Allergic/Immunologic: Denies active use of prescribed allergy medication. Plan The patient will receive amoxicillin to target a possible bacterial etiology of her respiratory and throat symptoms. Allergy management will include ensuring adherence to fexofenadine as per her prescription. Medications will be sent to the pharmacy, and the patient will be advised to monitor her symptoms closely, particularly given her history of bronchiectasis and COPD, while keeping in contact regarding any changes in her condition. Patient was informed and verbally consented to the use of an ambient scribe for clinic note documentation during this visit. Discussion Notes During our discussion, I emphasized the potential bacterial nature of the patient's sore throat and respiratory distress, justifying the decision to prescribe amoxicillin. I clarified the importance of managing her allergy symptoms with fexofenadine and ensured that her medication requirements were clearly communicated to her pharmacy. Additionally, we briefly discussed her medication adherence, especially regarding her inhaler use for COPD, and the importance of carefully monitoring her symptoms. I addressed the need for adequate follow-up in case of symptom exacerbation and reiterated the plan for remote consultations if needed. Patient Instructions - Take the prescribed antibiotic,Zithromax, as directed to help with your sore throat and respiratory symptoms. - Begin or continue taking fexofenadine (Arielle) for allergy management as prescribed. - Monitor for any changes or worsening of symptoms, especially shortness of breath or fever, and notify me immediately if they occur. - Follow up with your pharmacy to machine pecan picker all prescribed medications. - Rest adequately and stay hydrated. Medications: New azithromycin (Zithromax) For 250 mg dose pack: take 500 mg today (day 1), then 250 mg for 4 days (days 2-5) PO 6 tabs 0RF J47.9 - Bronchiectasis, uncomplicated Refilled fexofenadine (Arielle Allergy) 180 mg PO DAILY 30 tabs 3RF J30.9 - Allergic rhinitis, unspecified Discontinued sulfamethoxazole-trimethoprim 800-160 mg (Bactrim DS) Discontinued Reason: Doctor's Order 1 tab PO BID 10 tabs 0RF N39.0 - Urinary tract infection, site not specified
--- OUTSIDE RECORDS SUMMARY | 2024-10-16 14:00 | XMS_ITS ---
Author Organization [facility] ricky [place] Address [address] [place] [address] Care Team Providers Care Photogrammetrist Name Role Phone Feli Rm Primary Care Provider Addie Martinez Unavailable [phone] Allergies Allergen (clinical drug ingredient) Drug/Non Drug [...] Ordered Date Performed Result Body Sit e 92627-LAQLYXF NAIL, 6 OR MORE 04/15/2024 N/A Encounters Encounter Location Date Provider Diagnosis [facility] [address] [place] [address] 04/15/2024 Addie Brizuela Onychomycosis B35.1 ; Pain in right toe(s) M79.674 and Pain in left toe(s) M79.675 Assessments Encounter Date Diagnosis (ICD Code) Assessment Notes Treatment Notes Treatment Clinical Notes Section Notes 04/15/2024 Onychomycosis (ICD-10 - B35.1) 04/15/2024 Pain in right toe(s) (ICD-10 - M79.674) 04/15/2024 Pain in left toe(s) (ICD-10 - M79.675) Plan Of Treatment Pending Test Test Name Order Date 15185-UPWPMLW NAIL, 6 OR MORE 04/15/2024 Next Appt [...] use of a nail nipper and/or dremel-type facing grinder, to a more viable healthy nail plate or bed tissue 6-10. Silver nitrate used for any petechial bleeding as necessary. Definitive antifungal treatment options have been reviewed and discussed with the patient. The patient chooses, no pharmaceutical tx - 69351 Progress Notes * Tati CARVALHO ADOB: [birth year] (83 yo F)Acc No.[id number]:04/15/2024 Progress Note Patient:?Tati CARVALHO Provider:?Addie Brizuela DPM :1940???Age:83 Y???Sex:Female D ate:04/15/2024 Address:[address] [place] [id number] Pcp:Feli Rm Subjective: * Chief Complaints: * ???Painful nail(s) aggravate d by shoes causing difficulty standing/walking * HPI: ???Painful Nails:?Pt States Last PCP Visit:?Date:?03/27/2024 * Medical History:? * Surgical History:?hysterecto my 1997oral surgery 11/2013 * Hospitalization/Major Diagno stic Procedure:?[facility] for pneumonia 10/04/2015C- Trouble breathing/pressure in [...] walking, occasional. ?Marital status: . 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 * Medications:?TakingCitracal + D iron Synthroid [...] use of a nail nipper and/or dremel-type facing grinder, to a more viable healthy nail plate or bed tissue 6-10. Silver nitrate used for any petechial bleeding as necessary. Definitive antifungal treatment options have been reviewed and discussed with the patient. The patient chooses, no pharmaceutical tx - 95070.? * Procedure Codes:?31978 DEBRI DE NAIL, 6 OR MORE * Follow Up:?3 Months * Images: * Sign off status: Completed true * Provider:?Addie Brizuela DPM Date:?06/15/2023 Generated for Aaron craig/Niall/Carleen on:?10/16/2024 01:59 PM EDT History and Physical Notes * [...]
== END 2024-10-16 14:56 | disposition home or self-care (01) ==
LOC: HO.HMCH 13:57
PROVIDERS: PCP Internal Medicine; Visit Provider Internal Medicine
DX: J47.9 Bronchiectasis, uncomplicated (principal); J43.1 Panlobular emphysema

== ENCOUNTER → 2024-10-16 13:57 | Outpatient (BNVA) | payer MEDICARE, OTHER, SELFPAY | PROVIDERS: PCP Internal Medicine; Visit Provider Internal Medicine ==

== ENCOUNTER 2024-11-02 13:19 | Outpatient (AMB) | payer MEDICARE, OTHER, SELFPAY ==
--- NOTE | 2024-11-02 13:40 | AM.OFFVISNUR ---
Intake Visit Reasons: b12 Allergies codeine [CODEINE] Allergy (Unknown, Verified 10/16/24 14:08) GI UPSET levofloxacin [From LEVAQUIN] Allergy (Unknown, Verified 10/16/24 14:08) STOMACH UPSET pneumococcal vaccine Allergy (Unknown, Verified 10/16/24 14:08) unknown shellfish derived [SHELLFISH DERIVED] Allergy (Unknown, Verified 10/16/24 14:08) RASH Office Meds cyanocobalamin (vitamin B-12) 1,000 mcg/mL injection solution Performing Provider: Feli Rm MD [facility] Administered by: Edita Cha RN on 11/02/24 13:40 Dose Route Admin Location Dispensed Lot Number Expiration Date [facility] Voice Network Administrator 1,000 mcg IM 1 mL [id number] 12/23/25 74116-646-29 [employer] Assessment & Plan Assessment & Plan Orders: Orders AMB Vitamin B12 Injection Patient Supplied Today E53.8 - Deficiency of other specified B group vitamins Medications: New cyanocobalamin (vitamin B-12) 1,000 mcg IM ONCE 1 mL 0RF E53.8 - Deficiency of other specified B group vitamins Coding
--- OUTSIDE RECORDS SUMMARY | 2024-11-02 15:02 | XMS_ITS | Patient Health Record ---
Author Organization [facility] Address [address] [place] [address] Care Team Providers Care Shirt Marker Name Role Phone Feli Rm Primary Care Provider Addie Martinez Unavailable [phone] Pieter Riddle Unavailable [phone] Allergies Allergen (clinical drug ingredient) Drug/Non Drug [...] W/U Status Risk Notes Problem Viral wart (04594649) Other viral warts (B07.8) Active confirmed Problem Primary osteoarthriti s, right ankle and foot (M19.071) Active confirmed Problem Acquired hammer toe of right foot (1322233162594 105) Other hammer toe(s) (acquired), right foot (M20.41) Active confirmed Problem Acquired hammer toe of left foot (4573946816849 103) Other hammer toe(s) (acquired), left foot (M20.42) Active confirmed Vital Signs Blood pressure diastolic 80 mm Hg 04/15/2024 Height 5 ft 2 in in 04/15/2024 Blood pressure systolic 120 mm Hg 04/15/2024 Weight 114 lbs 04/15/2024 BMI 20.85 kg/m2 04/15/2024 Procedures Procedure Date Ordered Date Performed Result Body Sit e 16800-HHBKRWJ NAIL, 6 OR MORE 04/15/2024 N/A Encounters Encounter Location Date Provider Diagnosis [address] [address] 01/13/2024 Pieter Riddle Tinea unguium B35.1 ; Pain in right toe(s) M79.674 ; Pain in left toe(s) M79.675 ; Other viral warts B07.8 ; Pain in left foot M79.672 ; Pain in right foot M79.671 and Other hammer toe(s) (acquired), left foot M20.[address] [address] 04/15/2024 Addie Brizuela Onychomycosis B35.1 ; Pain in right toe(s) M79.674 and Pain in left toe(s) M79.[address] [address] 11/11/[address] [address] 12/10/[address] [address] 09/03/2024 Addie Brizuela Assessments Encounter Date Diagnosis [...] Treatment Pending Test Test Name Order Date 97233-EWUNSWO NAIL, 6 OR MORE 04/15/2024 96498-MKCTGFE NAIL, 1-5 03/10/2018 59590-BXXPQXX NAIL, -5 02/20/2016 38080-ZPZVVCG NAIL, -5 05/14/2016 77700-USKBLCU NAIL, -5 07/23/2016 55016-LKZPYWV NAIL, -5 12/31/2016 53438-SKSJUCS NAIL, -03/25/2017 41554-HNAMEHX NAIL, -5 06/17/2017 96843-BXIVLNR NAIL, -5 09/23/2017 07370-IVJIUOA NAIL, -5 12/11/2017 39163-YXYPBWH NAIL, -5 08/15/2015 59925-WKXGGTM NAIL, -5 11/14/2015 72067-Aztj Destruction, -11/14/2015 61485-Yvwp Destruction, -05/16/2015 42984-Oodo Destruction, -14 08/15/2015 28851-Dhdk Destruction, -14 12/13/2014 01234-Vdvy Destruction, -14 02/24/2015 59964-Pxht Destruction, -12/17/2013 98377-Anyx Destruction, -03/04/2014 64270-Xtuz Destruction, 06-0905/10/2014 14667-Dtjo Destruction, 06-0907/26/2014 62745-Ockk Destruction, 06-0910/04/2014 05291-Xlja Destruction, 06-0902/05/2011 02276-Pqlf Destruction, 06-0907/09/2011 12185-Qvqk Destruction, 06-0912/03/2011 83102-Omqm Destruction, 06-0905/15/2012 79620-Tdum Destruction, 06-0908/11/2012 60105-Xojr Destruction, 06-0911/13/2012 66572-Jhds Destruction, 06-0902/09/2013 53715-Dyam Destruction, 06-0905/04/2013 29357-Loqv Destruction, 06-0908/03/2013 88572-Uyoy Destruction, 06-0910/08/2013 50562-Ertz Destruction, 06-0912/11/2017 06421-Udap Destruction, 06-0909/23/2017 57063-Bmbv Destruction, 06-0906/17/2017 36947-Dyvw Destruction, 06-0903/25/2017 16054-Xdga Destruction, 06-0912/31/2016 05686-Hobd Destruction, 06-0907/23/2016 24224-Qvso Destruction, 06-0905/14/2016 27435-Bkod Destruction, 06-0902/20/2016 56116-Xbwq Destruction, 06-0903/10/2018 50978-Spsydbsq Plate 02/05/2011 73362-Abvjmybf Plate 12/03/2011 24640-Pvghwugj Plate 07/09/2011 62335- Debride <25 sq cm 05/15/2012 10113- Debride <25 sq cm 08/11/2012 57173- Debride <25 sq cm 11/13/2012 62849- Debride <25 sq cm 12/17/2013 00987- Debride <25 sq cm 10/08/2013 41930- Debride <25 sq cm 05/04/2013 12179- Debride <25 sq cm 02/09/2013 27110- Debride <25 sq cm 10/04/2014 29876- Debride <25 sq cm 07/26/2014 61161- Debride <25 sq cm 03/04/2014 03384- Debride <25 sq cm 05/10/2014 40158- Debride <25 sq cm 02/24/2015 41053- Debride <25 sq cm 12/13/2014 Insurance Providers Payer Name Payer Address Payer Phone Subscriber Number Group Number Insured Name Patient Relationship to Insured Coverage Start Date Coverage End Date Medicare National Govt Sv[employer] [address] [place] [address] [id number] Maia Tati Self - patient is the insured [address] [place] [phone] [id number] Tait Carvalho Self - patient is the insured [...]
== END 2024-11-02 13:36 | disposition home or self-care (01) ==
LOC: HO.HMCH 13:20
PROVIDERS: PCP Internal Medicine; Visit Provider Internal Medicine
DX: E53.8 Deficiency of other specified B group vitamins (principal)

== ENCOUNTER → 2024-11-02 13:19 | Outpatient (BNVA) | payer MEDICARE, OTHER, SELFPAY | PROVIDERS: PCP Internal Medicine; Visit Provider Internal Medicine | DX: E53.8 Deficiency of other specified B group vitamins (principal) | CPT/HCPCS: 96372; J3420 ==

== ENCOUNTER 2024-11-30 13:20 | Outpatient (AMB) | payer MEDICARE, OTHER, SELFPAY ==
--- NOTE | 2024-11-30 13:30 | AM.OFFVISNUR ---
Intake Visit Reasons: B12 Shot Allergies codeine (CODEINE) Allergy (Unknown, Verified 10/16/24 14:08) GI UPSET levofloxacin (From LEVAQUIN) Allergy (Unknown, Verified 10/16/24 14:08) STOMACH UPSET pneumococcal vaccine Allergy (Unknown, Verified 10/16/24 14:08) unknown shellfish derived (SHELLFISH DERIVED) Allergy (Unknown, Verified 10/16/24 14:08) RASH Office Meds cyanocobalamin (vitamin B-12) 1,000 mcg/mL injection solution Performing Provider: Feli Rm MD [facility] Administered by: Gabi Atkins LPN on 11/30/24 13:30 Dose Route Admin Location Dispensed Lot Number Expiration Date [facility] Dietetic Technician Registered 1,000 mcg IM left deltoid 1 mL [id number] 03/26/27 48877-145-50 [employer] Total Dispensed Waste 1 mL 0 % Assessment & Plan Assessment & Plan Orders: Orders AMB Vitamin B12 Injection Patient Supplied Today E53.8 - Deficiency of other specified B group vitamins Coding
--- OUTSIDE RECORDS SUMMARY | 2024-11-30 13:44 | XMS_ITS | Patient Health Record ---
Author Organization [facility] Address [address] [place] [address] Care Team Providers Care Dental Scheduler Name Role Phone Feli Rm Primary Care Provider Addie Martinez Unavailable [phone] Pieter Riddle Unavailable [phone] Allergies Allergen (clinical drug ingredient) Drug/Non Drug [...] day; Duration: 30 day(s) Active iron Active Voltaren 1 [...] W/U Status Risk Notes Problem Viral wart (14351200) Other viral warts (B07.8) Active confirmed Problem Localized, primary osteoarthritis of the ankle and/or foot (491438453) Primary osteoarthrit is, right ankle and foot (M19.071) Active confirmed Problem Acquired hammer toe of right foot (0893080399469666) Other hammer toe(s) (acquired), right foot (M20.41) Active confirmed Problem Acquired hammer toe of left foot (7996619419663604) Other hammer toe(s) (acquired), left foot (M20.42) Active confirmed Vital Signs Blood pressure diastolic 80 mm Hg 04/15/2024 Height 5 ft 2 in in 04/15/2024 Blood pressure systolic 120 mm Hg 04/15/2024 Weight 114 lbs 04/15/2024 BMI 20.85 kg/m2 04/15/2024 Procedures Procedure Date Ordered Date Performed Result Body Sit e 17442-DOEWGDO NAIL, 6 OR MORE 04/15/2024 N/A Encounters Encounter Location Date Provider Diagnosis [address] [address] 01/13/2024 Pieter Riddle Tinea unguium B35.1 ; Pain in right toe(s) M79.674 ; Pain in left toe(s) M79.675 ; Other viral warts B07.8 ; Pain in left foot M79.672 ; Pain in right foot M79.671 and Other hammer toe(s) (acquired), left foot M20.[address] [address] 04/15/2024 Addie Brizuela Onychomycosis B35.1 ; Pain in right toe(s) M79.674 and Pain in left toe(s) M79.[address] [address] 12/10/2023 Pieter Riddle [address] [address] 09/03/2024 Addie Brizuela Assessments Encounter Date Diagnosis [...] Treatment Pending Test Test Name Order Date 34365-UCYLNYP NAIL, 6 OR MORE 04/15/2024 82665-BAZSWRP NAIL, 1-5 03/10/2018 71746-EGQDGRD NAIL, -5 02/20/2016 46387-OHASSTO NAIL, -5 05/14/2016 99973-POMJMWJ NAIL, -5 07/23/2016 40156-ODFWELM NAIL, -5 12/31/2016 70888-UEXVISW NAIL, -5 03/25/2017 44278-PHZGTOL NAIL, -5 06/17/2017 25531-LCTEXSJ NAIL, -5 09/23/2017 89306-LXJGDDO NAIL, -5 12/11/2017 16035-PBZFOGY NAIL, -5 08/15/2015 65345-IZGMGCO NAIL, -5 11/14/2015 25827-Quqv Destruction, -14 11/14/2015 09757-Sxdy Destruction, -05/16/2015 40551-Stuq Destruction, -08/15/2015 85269-Aurd Destruction, -12/13/2014 90918-Kuyr Destruction, -14 02/24/2015 26981-Lthd Destruction, -12/17/2013 78766-Zexa Destruction, -03/04/2014 88623-Zlgf Destruction, 06-0905/10/2014 26075-Efnv Destruction, 06-0907/26/2014 04705-Trqp Destruction, 06-0910/04/2014 74968-Pxse Destruction, 06-0902/05/2011 05082-Oiny Destruction, 06-0907/09/2011 00125-Vutk Destruction, 06-0912/03/2011 21795-Mkpp Destruction, 06-0905/15/2012 78171-Mljn Destruction, 06-0908/11/2012 01992-Hhas Destruction, 06-0911/13/2012 54055-Ysjh Destruction, 06-0902/09/2013 72600-Gmjm Destruction, 06-0905/04/2013 52095-Ahew Destruction, 06-0908/03/2013 92983-Frwi Destruction, 06-0910/08/2013 42947-Khuq Destruction, 06-0912/11/2017 14595-Jzpz Destruction, 06-0909/23/2017 51510-Rbyg Destruction, 06-0906/17/2017 96522-Hhvp Destruction, 06-0903/25/2017 30233-Uyrd Destruction, 06-0912/31/2016 11007-Rrhq Destruction, 06-0907/23/2016 40177-Kedm Destruction, 06-0905/14/2016 54653-Xhck Destruction, 06-0902/20/2016 45021-Kssx Destruction, 06-0903/10/2018 53157-Njtxwpab Plate 02/05/2011 38775-Epbibjgf Plate 12/03/2011 19072-Yiwpodmd Plate 07/09/2011 27371- Debride <25 sq cm 05/15/2012 86227- Debride <25 sq cm 08/11/2012 10143- Debride <25 sq cm 11/13/2012 83521- Debride <25 sq cm 12/17/2013 50402- Debride <25 sq cm 10/08/2013 22964- Debride <25 sq cm 05/04/2013 54431- Debride <25 sq cm 02/09/2013 00465- Debride <25 sq cm 10/04/2014 57098- Debride <25 sq cm 07/26/2014 25224- Debride <25 sq cm 03/04/2014 87334- Debride <25 sq cm 05/10/2014 10055- Debride <25 sq cm 02/24/2015 73142- Debride <25 sq cm 12/13/2014 Insurance Providers Payer Name Payer Address Payer Phone Subscriber Number Group Number Insured Name Patient Relationship to Insured Coverage Start Date Coverage End Date Medicare National Govt Svcs Inc [address] [place] [address] [id number] Tati Carvalho Self - patient is the insured 4 [address] [place] [phone] [id number] Tati Carvalho Self - patient is the insured Medical (General) History Medical History History ICD Code thyroid disorder measles anemia Perenial Pneumonia Lung condition Surgical History Surgery Date(Month/Year) hysterectomy 1996 oral surgery 11/2013 Hospitalization History Reason Date(Month/Year) [facility]- pneumonia- given antiboitcs 202 2 [facility]- Trouble breathing/press ure in head test done results pneumonia sinus infection 09/2020 C for pneumonia 10/04/2015
--- OUTSIDE RECORDS SUMMARY | 2024-11-30 13:44 | XMS_ITS | Patient Health Record ---
Author Organization [facility] Address [address] [place] [address] Care Team Providers Care Clerical Clerk Name Role Phone Hakeem Will Jr [phone] Reason For Referral No Information Plan Of Treatment No Information
== END 2024-11-30 13:31 | disposition home or self-care (01) ==
LOC: HO.HMCH 13:21
PROVIDERS: PCP Internal Medicine; Visit Provider Internal Medicine
DX: E53.8 Deficiency of other specified B group vitamins (principal)

== ENCOUNTER → 2024-11-30 13:20 | Outpatient (BNVA) | payer MEDICARE, OTHER, SELFPAY | PROVIDERS: PCP Internal Medicine; Visit Provider Internal Medicine | DX: E53.8 Deficiency of other specified B group vitamins (principal) | CPT/HCPCS: 96372; J3420 ==

== ENCOUNTER 2024-12-18 10:32 | Outpatient (REF) | payer MEDICARE, OTHER, SELFPAY ==
--- OUTSIDE RECORDS SUMMARY | 2024-12-18 10:43 | XMS_ITS | Patient Health Record ---
Author Organization [facility] Address [address] [place] [address] Care Team Providers Care Staff Anesthetist Name Role Phone Hakeem Will Jr [phone] Reason For Referral No Information Plan Of Treatment No Information
--- OUTSIDE RECORDS SUMMARY | 2024-12-18 10:43 | XMS_ITS | Patient Health Record ---
Author Organization [facility] Address [address] [place] [address] Care Team Providers Care Machine Operator Replanter Name Role Phone Feli Rm Primary Care Provider Addie Martinez Unavailable [phone] Pieter Riddle Unavailable [phone] Allergies Allergen (clinical drug ingredient) Drug/Non Drug [...] W/U Status Risk Notes Problem Viral wart (18300321) Other viral warts (B07.8) Active confirmed Problem Localized, primary osteoarthritis of the ankle and/or foot (395250552) Primary osteoarthrit is, right ankle and foot (M19.071) Active confirmed Problem Acquired hammer toe of right foot (0124475494619594) Other hammer toe(s) (acquired), right foot (M20.41) Active confirmed Problem Acquired hammer toe of left foot (4825482320628355) Other hammer toe(s) (acquired), left foot (M20.42) Active confirmed Vital Signs Blood pressure diastolic 80 mm Hg 04/15/2024 Height 5 ft 2 in in 04/15/2024 Blood pressure systolic 120 mm Hg 04/15/2024 Weight 114 lbs 04/15/2024 BMI 20.85 kg/m2 04/15/2024 Procedures Procedure Date Ordered Date Performed Result Body Sit e 80058-OBQCPQG NAIL, 6 OR MORE 04/15/2024 N/A Encounters Encounter Location Date Provider Diagnosis [address] [address] 01/13/2024 Pieter Riddle Tinea unguium B35.1 ; Pain in right toe(s) M79.674 ; Pain in left toe(s) M79.675 ; Other viral warts B07.8 ; Pain in left foot M79.672 ; Pain in right foot M79.671 and Other hammer toe(s) (acquired), left foot M20.[address] [address] 04/15/2024 Addie Brizuela Onychomycosis B35.1 ; Pain in right toe(s) M79.674 and Pain in left toe(s) M79.[address] [address] 09/03/2024 Addie Brizuela Assessments Encounter Date Diagnosis [...] Treatment Pending Test Test Name Order Date 16489-UHKNROU NAIL, 6 OR MORE 04/15/2024 79052-JUKPYOW NAIL, 1-5 03/10/2018 49971-FUPLSFS NAIL, 1-5 02/20/2016 70653-VRDFAEW NAIL, 1-5 05/14/2016 94228-SZMZDZH NAIL, 1-5 07/23/2016 05744-RAMDSAH NAIL, 1-5 12/31/2016 83653-LKSCCJQ NAIL, 1-5 03/25/2017 55700-VUGREAY NAIL, 1-5 06/17/2017 54998-PECDLKS NAIL, -5 09/23/2017 97601-BIQBJDZ NAIL, 1-5 12/11/2017 07913-YOLRPMO NAIL, 1-5 08/15/2015 97216-GYQDZHC NAIL, 1-5 11/14/2015 53651-Ohgm Destruction, -14 11/14/2015 16785-Frmn Destruction, -14 05/16/2015 73449-Mcwo Destruction, -14 08/15/2015 32571-Qady Destruction, -14 12/13/2014 19447-Kbmm Destruction, -14 02/24/2015 41069-Qxwh Destruction, -14 12/17/2013 00855-Ewiu Destruction, -14 03/04/2014 84704-Muhm Destruction, -14 05/10/2014 66076-Japg Destruction, -14 07/26/2014 88916-Noxh Destruction, -14 10/04/2014 80722-Qhij Destruction, 06-0902/05/2011 45234-Hybk Destruction, 06-0907/09/2011 66020-Jodt Destruction, 06-0912/03/2011 98989-Jmlg Destruction, 06-0905/15/2012 69046-Tfqs Destruction, 06-0908/11/2012 01419-Awii Destruction, 06-0911/13/2012 37099-Rljh Destruction, 06-0902/09/2013 50272-Uwgg Destruction, 06-0905/04/2013 70606-Lrkv Destruction, 06-0908/03/2013 37230-Spuv Destruction, 06-0910/08/2013 66424-Biat Destruction, 06-0912/11/2017 74963-Mjch Destruction, 06-0909/23/2017 56038-Lrrm Destruction, 06-0906/17/2017 00953-Ynrf Destruction, 06-0903/25/2017 93048-Spmi Destruction, 06-0912/31/2016 30025-Fuje Destruction, 06-0907/23/2016 22316-Qlgc Destruction, 06-0905/14/2016 68685-Cjed Destruction, 06-0902/20/2016 39230-Eole Destruction, 06-0903/10/2018 63750-Ufungioz Plate 02/05/2011 57205-Uaqglyem Plate 12/03/2011 80627-Lzyuollt Plate 07/09/2011 73558- Debride <25 sq cm 05/15/2012 60881- Debride <25 sq cm 08/11/2012 00353- Debride <25 sq cm 11/13/2012 34015- Debride <25 sq cm 12/17/2013 95806- Debride <25 sq cm 10/08/2013 73697- Debride <25 sq cm 05/04/2013 40936- Debride <25 sq cm 02/09/2013 75221- Debride <25 sq cm 10/04/2014 28429- Debride <25 sq cm 07/26/2014 15797- Debride <25 sq cm 03/04/2014 90640- Debride <25 sq cm 05/10/2014 78512- Debride <25 sq cm 02/24/2015 55976- Debride <25 sq cm 12/13/2014 Insurance Providers Payer Name Payer Address Payer Phone Subscriber Number Group Number Insured Name Patient Relationship to Insured Coverage Start Date Coverage End Date Medicare National Gov[employer] Sv[employer] [address] [place] [address] [id number] Tati Carvalho Self - patient is the insured 4 [employer] [place] [address] [place] [address] [id number] Tati Carvalho Self - patient is the [...]
[2024-12-18 10:49] LABS: MANUAL DIFF FLAG NO
[2024-12-18 11:15] LABS: Hematocrit 33.0 % (37.0-47.0); Hemoglobin 10.6 g/dl (12.0-16.0); Imm Gran Abs Auto 0.03 X10*3/uL (0.00-0.03); Imm Gran Pct Auto 0.3 % (0.0-0.4); Lymphocytes Absolute Auto 0.9 X10*3/uL (1.2-4.9); Mean Corpuscular HGB Conc 32.1 g/dl (31.0-35.0); Mean Corpuscular Hemoglobin 28.2 pg (27.0-33.0); Mean Corpuscular Volume 87.8 fL (80.0-98.0); NRBC Abs Auto 0.000 X10*3/uL (0.0-0.012); NRBC Pct Auto 0.0 /100WBC (0.0-0.2); Platelet Count 372 X10*3/uL (160-400); Red Blood Count 3.76 X10*6/uL (4.20-5.50); White Blood Count 8.7 X10*3/uL (4.8-10.8)
[2024-12-18 11:36] LABS: Appearance Urine Clear; Glucose Urine UA Negative (Negative); PH 7.5 (5.0-9.0); Specific Gravity - Urine 1.010 (1.005-1.025); UMIC TRIGGER UACC YES
[2024-12-18 11:52] LABS: UACC Culture Trigger YES
[2024-12-18 11:59] LABS: Alanine Aminotransferase 22 U/L (0-31); Albumin Level 4.1 g/dL (3.5-5.0); Alkaline Phosphatase 96 U/L (39-117); Anion Gap 12 (12-20); Aspartate Amino Transferase 35 U/L (5-31); Blood Urea Nitrogen 9 mg/dL (9-16); Calcium 9.0 mg/dL (8.4-10.2); Carbon Dioxide 25 mmol/L (22-29); Chloride 105 mmol/L (96-108); Cholesterol 184 mg/dL (<200); Estimated Glomerular Filt Rate > 60; HDL Cholesterol 67 mg/dL (>40); Magnesium 2.1 mg/dL (1.6-2.6); Potassium 3.9 mmol/L (3.3-5.1); Sodium 138 mmol/L (135-145); Total Protein 7.1 g/dL (6.5-8.0); Triglycerides 81 mg/dL (<150)
[2024-12-18 12:19] LABS: Ferritin 33 ng/mL (10-250); Free T4 (Free Thyroxine) 1.48 ng/dL (0.71-1.85); Thyroid Stimulating Hormone 0.26 uIU/mL (0.32-4.0)
[2024-12-18 12:21] LABS: Folate 10.7 ng/mL (> or = 4.0); Vitamin B12 673 pg/mL (200-900)
== END 2024-12-18 10:33 | disposition home or self-care (01) ==
LOC: HO.LAB 10:32
PROVIDERS: PCP Internal Medicine; Visit Provider Internal Medicine
DX: R30.0 Dysuria (principal); N39.0 Urinary tract infection, site not specified; R41.0 Disorientation, unspecified; E78.00 Pure hypercholesterolemia, unspecified
CPT/HCPCS: 36415; 80053; 80061; 81001; 82306; 82607; 82728; 82746; 83735; 84439; 84443; 85025; 87086

== ENCOUNTER 2024-12-28 13:27 | Outpatient (AMB) | payer MEDICARE, OTHER, SELFPAY ==
--- NOTE | 2024-12-28 13:36 | AM.OFFVISNUR ---
Intake Visit Reasons: B12 Shot Allergies codeine (CODEINE) Allergy (Unknown, Verified 10/16/24 14:08) GI UPSET levofloxacin (From LEVAQUIN) Allergy (Unknown, Verified 10/16/24 14:08) STOMACH UPSET pneumococcal vaccine Allergy (Unknown, Verified 10/16/24 14:08) unknown shellfish derived (SHELLFISH DERIVED) Allergy (Unknown, Verified 10/16/24 14:08) RASH Office Meds cyanocobalamin (vitamin B-12) 1,000 mcg/mL injection solution Performing Provider: Feli Rm MD Performing [facility]: [facility] Administered by: Edita Cha RN on 12/28/24 13:36 Dose Route Admin Location Dispensed Lot Number Expiration Date [facility] [place] [employer] 1,000 mcg IM 1 mL [id number] 03/25/26 99068-668-77 [employer] Total Dispensed Waste 1 mL 0 % Assessment & Plan Assessment & Plan Orders: Orders AMB Vitamin B12 Injection Patient Supplied Today E53.8 - Deficiency of other specified B group vitamins Coding
--- OUTSIDE RECORDS SUMMARY | 2024-12-28 13:43 | XMS_ITS | Patient Health Record ---
Author Organization [facility] Address [address] [place] [address] Care Team Providers Care Technical Spec Name Role Phone Feli Rm Primary Care Provider Addie Martinez Unavailable [phone] Pieter Riddle Unavailable [phone] Allergies Allergen (clinical drug ingredient) Drug/Non Drug [...] W/U Status Risk Notes Problem Viral wart (42370173) Other viral warts (B07.8) Active confirmed Problem Localized, primary osteoarthritis of the ankle and/or foot (940367810) Primary osteoarthrit is, right ankle and foot (M19.071) Active confirmed Problem Acquired hammer toe of right foot (3849171625280027) Other hammer toe(s) (acquired), right foot (M20.41) Active confirmed Problem Acquired hammer toe of left foot (0068360239442596) Other hammer toe(s) (acquired), left foot (M20.42) Active confirmed Vital Signs Blood pressure diastolic 80 mm Hg 04/15/2024 Height 5 ft 2 in in 04/15/2024 Blood pressure systolic 120 mm Hg 04/15/2024 Weight 114 lbs 04/15/2024 BMI 20.85 kg/m2 04/15/2024 Procedures Procedure Date Ordered Date Performed Result Body Sit e 76544-LGTAIKW NAIL, 6 OR MORE 04/15/2024 N/A Encounters Encounter Location Date Provider Diagnosis [address] [address] 01/13/2024 Pieter Riddle Tinea unguium B35.1 ; Pain in right toe(s) M79.674 ; Pain in left toe(s) M79.675 ; Other viral warts B07.8 ; Pain in left foot M79.672 ; Pain in right foot M79.671 and Other hammer toe(s) (acquired), left foot M20.[address] [address] 04/15/2024 Addie Brizuela Onychomycosis B35.1 ; Pain in right toe(s) M79.674 and Pain in left toe(s) M79.[address] [address] 09/03/2024 Addie Brizuela Assessments Encounter Date Diagnosis [...] Treatment Pending Test Test Name Order Date 46859-GWBMIWP NAIL, 6 OR MORE 04/15/2024 39906-ZZYVCPL NAIL, 1-5 03/10/2018 61324-RMUPANC NAIL, 1-5 02/20/2016 53952-KACIIXS NAIL, 1-5 05/14/2016 63573-VMCDDFR NAIL, 1-5 07/23/2016 71745-LHWHBCQ NAIL, 1-5 12/31/2016 63326-EMMATBJ NAIL, 1-5 03/25/2017 30619-UQHEYSD NAIL, 1-5 06/17/2017 65533-PYNSTDO NAIL, -5 09/23/2017 56296-UWLIBBR NAIL, 1-5 12/11/2017 95106-ZHSVKHP NAIL, 1-5 08/15/2015 01731-PNOIOEQ NAIL, 1-5 11/14/2015 65418-Mpqr Destruction, -14 11/14/2015 85012-Bsek Destruction, -14 05/16/2015 31095-Ayrf Destruction, -14 08/15/2015 30594-Kipc Destruction, -14 12/13/2014 10617-Eybd Destruction, -14 02/24/2015 68589-Rmcd Destruction, -14 12/17/2013 91575-Etxn Destruction, -14 03/04/2014 58651-Wpfu Destruction, -14 05/10/2014 38116-Vvwp Destruction, -14 07/26/2014 25799-Wfic Destruction, -14 10/04/2014 12521-Jbht Destruction, 06-0902/05/2011 63739-Awdw Destruction, 06-0907/09/2011 31235-Xsre Destruction, 06-0912/03/2011 29064-Stce Destruction, 06-0905/15/2012 86057-Yjls Destruction, 06-0908/11/2012 32493-Mwyg Destruction, 06-0911/13/2012 59024-Abxg Destruction, 06-0902/09/2013 63063-Sfhe Destruction, 06-0905/04/2013 73132-Ovhv Destruction, 06-0908/03/2013 66341-Szxw Destruction, 06-0910/08/2013 78825-Qthg Destruction, 06-0912/11/2017 15821-Echr Destruction, 06-0909/23/2017 76332-Vgku Destruction, 06-0906/17/2017 95322-Nchx Destruction, 06-0903/25/2017 81107-Shfg Destruction, 06-0912/31/2016 29962-Majj Destruction, 06-0907/23/2016 12187-Xzxq Destruction, 06-0905/14/2016 31592-Hmdi Destruction, 06-0902/20/2016 73899-Axef Destruction, 06-0903/10/2018 81745-Pmefijmh Plate 02/05/2011 65482-Bowkvcik Plate 12/03/2011 67797-Cbyedqqs Plate 07/09/2011 46237- Debride <25 sq cm 05/15/2012 75414- Debride <25 sq cm 08/11/2012 00649- Debride <25 sq cm 11/13/2012 30289- Debride <25 sq cm 12/17/2013 52409- Debride <25 sq cm 10/08/2013 44580- Debride <25 sq cm 05/04/2013 92775- Debride <25 sq cm 02/09/2013 78312- Debride <25 sq cm 10/04/2014 90069- Debride <25 sq cm 07/26/2014 87148- Debride <25 sq cm 03/04/2014 68530- Debride <25 sq cm 05/10/2014 78650- Debride <25 sq cm 02/24/2015 06930- Debride <25 sq cm 12/13/2014 Insurance Providers Payer Name Payer Address Payer Phone Subscriber Number Group Number Insured Name Patient Relationship to Insured Coverage Start Date Coverage End Date Medicare National Govt Svcs Inc [address] [place] [address] [id number] Tati Carvalho Self - patient is the insured [address] [employer] [place] [address] [place] [phone] [id number] Tati Carvalho Self - patient is the [...]
--- OUTSIDE RECORDS SUMMARY | 2024-12-28 13:43 | XMS_ITS | Patient Health Record ---
Author Organization [facility] Address [address] [place] [address] Care Team Providers Care Construction Carpenters Helper Name Role Phone Hakeem Will Jr [phone] Reason For Referral No Information Plan Of Treatment No Information
== END 2024-12-28 13:34 | disposition home or self-care (01) ==
LOC: HO.HMCH 13:27
PROVIDERS: PCP Internal Medicine; Visit Provider Internal Medicine
DX: E53.8 Deficiency of other specified B group vitamins (principal)

== ENCOUNTER → 2024-12-28 13:27 | Outpatient (BNVA) | payer MEDICARE, OTHER, SELFPAY | PROVIDERS: PCP Internal Medicine; Visit Provider Internal Medicine | DX: E53.8 Deficiency of other specified B group vitamins (principal) | CPT/HCPCS: 96372; J3420 ==

== ENCOUNTER 2025-01-04 14:05 | Outpatient (AMB) | payer MEDICARE, OTHER, SELFPAY ==
--- NOTE | 2025-01-04 14:12 | MHC.PC.OV ---
Vital Signs 01/04/25 14:13 Height 5 ft 2 in Weight 114 lb 2 oz BMI 20.9 BP 120/70 Blood Pressure Location Lt brachial Position Sitting Pulse 59 Pulse Source Pulse Oximeter Temp 96.6 F L Temp Source Temporal Artery Scan Pulse Oximetry (%) 99 Oxygen Delivery Method Room Air Intake Visit Reasons: hypothyroid, Bronchiectasis Intake Note: Patient is here to follow up on Hypothyroid, Bronchitises. Lens Block Gauger Required: No Sand Shoveler: Present Accompanied by: Daughter Inlaw Allergies codeine (CODEINE) Allergy (Unknown, Verified 01/04/25 14:13) GI UPSET levofloxacin (From LEVAQUIN) Allergy (Unknown, Verified 01/04/25 14:13) STOMACH UPSET pneumococcal vaccine Allergy (Unknown, Verified 01/04/25 14:13) unknown shellfish derived (SHELLFISH DERIVED) Allergy (Unknown, Verified 01/04/25 14:13) RASH Tobacco use date assessed: 01/04/25 Fall risk assessment: No Falls in past year Last assessed Fall Risk: 01/04/25 Dental Screening Dental Screen Date: 07/24/24 [facility] Medical History (Updated 12/16/24 @ 16:13 by Feli Rm MD) Confusion UTI (urinary tract infection) Dysuria Osteopenia Contact dermatitis and eczema Sinus congestion Costochondritis LLQ pain Epigastric pain Cognitive impairment Cough Blood pressure elevated without history of HTN Screening for breast cancer Post-menopausal Pneumonia Viral upper respiratory tract infection with cough Encounter for subsequent annual wellness visit (AWV) in Medicare patient Chest pain SOB (shortness of breath) Headache Colonoscopy refused COPD (chronic obstructive pulmonary disease) Recurrent sinus infections Breast asymmetry Uterine cancer Bronchiectasis Pernicious anemia Peripheral neuropathy Lumbar degenerative disc disease Hypercholesterolemia Vitamin D deficiency Pulmonary nodule Hypothyroid Surgical History History of total abdominal hysterectomy and bilateral salpingo-oophorectomy History of lumpectomy of right breast History of appendectomy Family History Father CVD (cardiovascular disease) Mother Cancer Social History Housing: House Alcohol intake: never Patient Tobacco Use Status: Never used Tobacco Tobacco use type: Cigarette e-Cigarette/Vaping Use: Never Used Second Hand Smoke Exposure: No service: No Current occupational status: unemployed Cognitive needs: No Hearing needs: No Vision needs: Yes (reading glasses) Questionnaire PHQ-9 Over the last 2 weeks, how often have you been bothered by any of the following problems? 1. Little interest or pleasure in doing things: nearly every day 2. Feeling down, depressed, or hopeless: nearly every day 3. Trouble falling or staying asleep, or sleeping too much: nearly every day 4. Feeling tired or having little energy: nearly every day 5. Poor appetite or overeating: more than half the days 6. Feeling bad about yourself - or that you are a failure or have let yourself or your family down: more than half the days 7. Trouble concentrating on things, such as reading the newspaper or watching television: nearly every day 8. Moving or speaking so slowly that other people could have noticed. Or the opposite - being so fidgety or restless that you have been moving around a lot more than usual: nearly every day 9. Thoughts that you would be better off or of hurting yourself in some way: not at all Total score: 22 Depression Screening Interpretation: Positive Depression Screening Done: Yes Source: Developed by Drs. Lobo Lopez, Lucie Mckinley, Nima Holland and colleagues, with an educational kourtney from [employer]. Thrive Questionnaire Date Thrive assessed: 01/04/25 I am a: Parent/Caregiver What is your living situation today?: I choose not to answer this question Within the past 12 months, did the food you bought not last and you didn't have the money to get more?: I choose not to answer this question Within the past 12 months, did you worry whether your food would run out before you got money to buy more?: I choose not to answer this question Do you have trouble paying for medicines?: No Do you have trouble getting transportation to medical appointments?: No Do you have trouble paying your heating and electricity bill?: I choose not to answer this question Do you have trouble taking care of your child, family member or friend?: Yes Do you have trouble with day-to-day activities such as bathing, preparing meals, shopping, managing finances, etc.?: I choose not to answer this question Are you currently unemployed and looking for a job?: I choose not to answer this question Are you interested in more education?: I choose not to answer this question Please select the resources that you would like help with: None Currently or been in a relationship where the following occur: I choose not to answer THRIVE Score: 0 AUDIT C Alcohol Use Questionnaire (AUDIT-C) 1. How often do you have a drink containing alcohol?: Never Total Score: 0 DANIEL-7 AMB Questionnaire DANIEL-7 Date DANIEL - 7 assessed: 07/24/24 Source: Developed by Drs. Lobo Lopez, Lucie Mckinley, Nima Holland and colleagues, with an educational kourteny from [employer]. Physical exam (Primary Care) Vital Signs: Last Vital Signs Temp 96.6 F L 01/04/25 14:13 Pulse 59 01/04/25 14:13 BP 120/70 01/04/25 14:13 Pulse Ox 99 01/04/25 14:13 Oxygen Delivery Method Room Air 01/04/25 14:13 BMI result Body Mass Index 20.9 Tobacco/Smoking Status: Tobacco use Status Tobacco use date assessed 01/04/25 01/04/25 14:25 Patient Tobacco Use Status Never used Tobacco 01/04/25 14:25 Tobacco use type Cigarette 01/04/25 14:25 e-Cigarette/Vaping Use Never Used 01/04/25 14:25 PHQ-9: PHQ-9 Score PHQ-9: Total score 22 01/04/25 14:40 Depression Screening Interpretation: Positive Thrive Assessment: Date of Thrive Assessment Date Thrive assessed 01/04/25 01/04/25 14:25 Currently or been in a relationship where the following occur: I choose not to answer Const General: alert; No acute distress Eyes Conjunctivae: conjunctivae normal Resp Auscultation: clear to auscultation bilaterally Cardio Rate: regular rate Rhythm: regular rhythm GI Inspection: Yes normal to inspection Extrem General: Yes normal to inspection and No edema Coding Level of Care Code Est Pt Level 4 (36191) Complex EM visit Add On G2211 Diagnoses Hypertension I10 Hypercholesterolemia E78.00 Acquired hypothyroidism E03.9 Hypothyroidism type: acquired Osteoporosis M81.0 Pernicious anemia D51.0 Dementia with Lewy bodies G31.83; F02.80 Bronchiectasis without complication J47.9 Bronchiectasis type: uncomplicated Assessment & Plan Assessment & Plan (1) Hypertension: Code(s): I10 - Essential (primary) hypertension Category: Medical Plan: Patient's blood pressure has been stable without any medication (2) Hypercholesterolemia: Code(s): E78.00 - Pure hypercholesterolemia, unspecified Category: Medical Plan: Avoid fried foods, chicken skin, eggs, butter margarine, pastries and meat. Be it pork or beef they have a lot of cholesterol LDL goal of less than 130 and triglyceride of less than 150 (3) Hypothyroid: Code(s): E03.9 - Hypothyroidism, unspecified Category: Medical Qualifiers: Hypothyroidism type: acquired Qualified Code(s): E03.9 - Hypothyroidism, unspecified Plan: Continue with thyroid medication but adjustment has been done (4) Osteoporosis: Comment: November Code(s): M81.0 - Age-related osteoporosis without current pathological fracture Category: Medical Plan: Discussed about repeating bone density (5) Pernicious anemia: Code(s): D51.0 - Vitamin B12 deficiency anemia due to intrinsic factor deficiency Category: Medical Plan: Continue to receive vitamin B12 (6) Dementia with Lewy bodies: Comment: Dr. Badillo May 2024 Code(s): G31.83 - Neurocognitive disorder with Lewy bodies; F02.80 - Dementia in other diseases classified elsewhere, unspecified severity, without behavioral disturbance, psychotic disturbance, mood disturbance, and anxiety Category: Medical Plan: Supportive treatment and patient does see neurology. (7) Bronchiectasis: Comment: MILD, CHRONIC BRONCHIECTASIS IN RT MIDDLE LOBE AND LINGULA ( DAIN ) . Code(s): J47.9 - Bronchiectasis, uncomplicated Category: Medical Qualifiers: Bronchiectasis type: uncomplicated Qualified Code(s): J47.9 - Bronchiectasis, uncomplicated Plan: Continuing with Pulmonary medications albuterol as needed Plan History of Present Illness The patient is an 84-year-old female presenting for a follow-up visit. She has a history of hypothyroidism, which has required adjustments in her medication due to elevated thyroid levels. The patient has been instructed to skip her thyroid medication on Sundays and will have her thyroid levels retested in a month. The patient also has hypercholesterolemia, with recent lab results showing an LDL of 101 mg/dL, which is within the target range. The goal is to maintain an LDL of less than 130 mg/dL and triglycerides of less than 150 mg/dL. Pernicious anemia is another chronic condition, with the patient continuing to receive vitamin B12 supplementation. Her last blood work in November revealed chronic anemia, but electrolytes, renal function, and blood sugar levels were normal. The patient has Chronic Obstructive Pulmonary Disease (COPD) with bronchiectasis, and she uses albuterol as needed for her breathing difficulties. She reports experiencing heavy breathing, particularly due to allergies, and has been advised to use her albuterol inhaler when necessary. Osteoporosis is managed with calcium and vitamin D supplementation, and a repeat bone density test has been discussed. The patient has lumbar degenerative disc disease and generalized anxiety disorder, for which she is taking Lexapro and gabapentin. Her anxiety is exacerbated by personal safety concerns, as she reports threats from her , contributing to her anxiety and sleep disturbances. Dementia with Lewy bodies is another significant condition, with the patient experiencing hallucinations and anxiety related to her condition. She is under the care of a neurologist and has been prescribed mirtazapine to help manage her symptoms. Health Maintenance - Bone density screening discussed for osteoporosis management - Vitamin B12 supplementation for pernicious anemia - Calcium and vitamin D supplementation for osteoporosis Social History - Housing: Currently staying with family due to personal safety concerns - Family status: Reports threats from , contributing to anxiety - Nutritional intake: Family ensures regular meals, including breakfast and dinner Review of Systems - Respiratory: Reports heavy breathing, particularly due to allergies - Neurological: Reports hallucinations and anxiety related to dementia - Psychiatric: Reports anxiety exacerbated by personal safety concerns Physical Exam Results - Labs: LDL cholesterol 101 mg/dL, normal electrolytes, normal renal function, normal blood sugar, chronic anemia Plan The patient's hypothyroidism management involves continuing her current medication regimen with an adjustment to skip doses on Sundays due to elevated thyroid levels. A follow-up thyroid function test is planned in a month to reassess her levels. For hypercholesterolemia, the patient's LDL cholesterol is currently well-controlled at 101 mg/dL, and the goal is to maintain it below 130 mg/dL. No changes to her cholesterol management plan are necessary at this time. The patient will continue vitamin supplementation for pernicious anemia, and her chronic anemia will be monitored through regular blood work. For COPD with bronchiectasis, the patient is advised to use albuterol as needed for breathing difficulties, particularly during allergy flare-ups. Osteoporosis management includes calcium and vitamin D supplementation, with a repeat bone density test planned to monitor her condition. The patient's anxiety and dementia with Lewy bodies are being managed with Lexapro, gabapentin, and mirtazapine. Her anxiety is exacerbated by personal safety concerns, and she is advised to continue her current medications and follow up with her neurologist. Patient was informed and verbally consented to the use of an ambient scribe for clinic note documentation during this visit. Discussion Notes During the visit, we discussed the management of the patient's hypothyroidism, including the adjustment to skip doses on Sundays and the plan for follow-up thyroid testing in a month. We reviewed her cholesterol management, noting that her LDL is well-controlled, and no changes are needed at this time. The importance of continuing vitamin B12 supplementation for pernicious anemia was emphasized, along with monitoring her anemia through regular blood work. For her COPD, we advised using albuterol as needed, especially during allergy flare-ups. We also discussed osteoporosis management, including calcium and vitamin D supplementation and the plan for a repeat bone density test. The patient's anxiety and dementia with Lewy bodies were addressed, with a focus on continuing her current medications and following up with her neurologist. Patient Instructions - Continue taking thyroid medication as prescribed, skipping doses on Sundays. - Use albuterol inhaler as needed for breathing difficulties. - Continue vitamin B12 supplementation for anemia. - Take calcium and vitamin D supplements for bone health. - Follow up with neurologist as scheduled. - Monitor thyroid levels with a follow-up test in a month. Medications: Changed From mirtazapine 7.5 mg PO BEDTIME 30 tabs 0RF To mirtazapine 15 mg PO BEDTIME 30 tabs 0RF Refilled sennosides-docusate sodium 8.6-50 mg (Senna Plus) 2 tab-caps (2 x 8.6-50 mg) PO BEDTIME 180 caps 2RF K59.00 - Constipation, unspecified
[2025-01-04 14:13] VITALS: BP 120/70; PULSE 59; TEMP 35.9; O2SAT 99; BMI 20.9
--- OUTSIDE RECORDS SUMMARY | 2025-01-04 14:33 | XMS_ITS | Patient Health Record ---
[facility] Address [address] [place] [address] Care Team Providers Care Drapery Hanger Name Role Phone Feli Rm Primary Care Provider Addie Martinez Unavailable [phone] Pieter Riddle Unavailable [phone] Allergies Allergen (clinical drug ingredient) Drug/Non Drug [...] W/U Status Risk Notes Problem Viral wart (00517503) Other viral warts (B07.8) Active confirmed Problem Localized, primary osteoarthritis of the ankle and/or foot (460044815) Primary osteoarthrit is, right ankle and foot (M19.071) Active confirmed Problem Acquired hammer toe of right foot (4902419080425155) Other hammer toe(s) (acquired), right foot (M20.41) Active confirmed Problem Acquired hammer toe of left foot (9639748900356767) Other hammer toe(s) (acquired), left foot (M20.42) Active confirmed Vital Signs Blood pressure diastolic 80 mm Hg 04/15/2024 Height 5 ft 2 in in 04/15/2024 Blood pressure systolic 120 mm Hg 04/15/2024 Weight 114 lbs 04/15/2024 BMI 20.85 kg/m2 04/15/2024 Procedures Procedure Date Ordered Date Performed Result Body Sit e 23935-QWTTRUX NAIL, 6 OR MORE 04/15/2024 N/A Encounters Encounter Location Date Provider Diagnosis [address] [address] 01/13/2024 Pieter Riddle Tinea unguium B35.1 ; Pain in right toe(s) M79.674 ; Pain in left toe(s) M79.675 ; Other viral warts B07.8 ; Pain in left foot M79.672 ; Pain in right foot M79.671 and Other hammer toe(s) (acquired), left foot M20.[address] [address] 04/15/2024 Addie Brizuela Onychomycosis B35.1 ; Pain in right toe(s) M79.674 and Pain in left toe(s) M79.[address] [address] 09/03/2024 Addie Brizuela Assessments Encounter Date Diagnosis [...] Treatment Pending Test Test Name Order Date 02642-XHFJSAF NAIL, 6 OR MORE 04/15/2024 71609-EJDMDZK NAIL, 1-5 03/10/2018 19325-VMGBIZX NAIL, 1-5 02/20/2016 63303-OMOJEHK NAIL, 1-5 05/14/2016 46888-FYDUCWB NAIL, 1-5 07/23/2016 13707-BLCEBWU NAIL, 1-5 12/31/2016 00406-OYYMKPA NAIL, 1-5 03/25/2017 93162-SIVUHWK NAIL, 1-5 06/17/2017 11124-XWXIVQT NAIL, -5 09/23/2017 61659-IXWKRUS NAIL, 1-5 12/11/2017 24170-XGJNDQL NAIL, 1-5 08/15/2015 56331-NQJOEZB NAIL, 1-5 11/14/2015 37939-Pfao Destruction, -14 11/14/2015 30633-Uqeh Destruction, -14 05/16/2015 25674-Mzkw Destruction, -14 08/15/2015 49037-Gxmt Destruction, -14 12/13/2014 33695-Gcrh Destruction, -14 02/24/2015 22177-Ibvc Destruction, -14 12/17/2013 87098-Smbc Destruction, -14 03/04/2014 51015-Knry Destruction, -14 05/10/2014 44007-Xtcs Destruction, -14 07/26/2014 57858-Pnea Destruction, -14 10/04/2014 91444-Pykw Destruction, 06-0902/05/2011 11390-Noyd Destruction, 06-0907/09/2011 00496-Figu Destruction, 06-0912/03/2011 02441-Enqw Destruction, 06-0905/15/2012 76114-Qpll Destruction, 06-0908/11/2012 89649-Swwe Destruction, 06-0911/13/2012 64139-Airc Destruction, 06-0902/09/2013 94537-Qpjm Destruction, 06-0905/04/2013 60313-Ysat Destruction, 06-0908/03/2013 54033-Qcyt Destruction, 06-0910/08/2013 20145-Ezgl Destruction, 06-0912/11/2017 18307-Hbuy Destruction, 06-0909/23/2017 53055-Wcqv Destruction, 06-0906/17/2017 35486-Ribk Destruction, 06-0903/25/2017 44811-Qnui Destruction, 06-0912/31/2016 75962-Xxzq Destruction, 06-0907/23/2016 02695-Ewqq Destruction, 06-0905/14/2016 56098-Czye Destruction, 06-0902/20/2016 59515-Zcft Destruction, 06-0903/10/2018 76117-Mwbyrigi Plate 02/05/2011 53404-Cgxrdchw Plate 12/03/2011 33553-Voibaqmw Plate 07/09/2011 24055- Debride <25 sq cm 05/15/2012 92453- Debride <25 sq cm 08/11/2012 29492- Debride <25 sq cm 11/13/2012 22343- Debride <25 sq cm 12/17/2013 42081- Debride <25 sq cm 10/08/2013 47938- Debride <25 sq cm 05/04/2013 73912- Debride <25 sq cm 02/09/2013 21374- Debride <25 sq cm 10/04/2014 91418- Debride <25 sq cm 07/26/2014 67236- Debride <25 sq cm 03/04/2014 98695- Debride <25 sq cm 05/10/2014 57738- Debride <25 sq cm 02/24/2015 87589- Debride <25 sq cm 12/13/2014 Insurance Providers Payer Name Payer Address Payer Phone Subscriber Number Group Number Insured Name Patient Relationship to Insured Coverage Start Date Coverage End Date Medicare National [employer] [address] [place] [address] [id number] Tati Carvalho Self - patient is the insured [address] [place] [address] [place] [address] [id number] Tati Carvalho Self - patient is the [...]
--- OUTSIDE RECORDS SUMMARY | 2025-01-04 14:34 | XMS_ITS | Patient Health Record ---
[facility] Address [address] [place] [address] Care Team Providers Care Sound Assistant Name Role Phone Hakeem Will Jr Reason For Referral No Information Plan Of Treatment No Information
== END 2025-01-04 14:58 | disposition home or self-care (01) ==
LOC: HO.HMCH 14:05
PROVIDERS: PCP Internal Medicine; Visit Provider Internal Medicine
DX: I10 Essential (primary) hypertension (principal); E78.00 Pure hypercholesterolemia, unspecified; E03.9 Hypothyroidism, unspecified; M81.0 Age-related osteoporosis without current pathological fracture; D51.0 Vitamin B12 deficiency anemia due to intrinsic factor deficiency; G31.83 Neurocognitive disorder with Lewy bodies; F02.80 Dementia in other diseases classified elsewhere, unspecified severity, without behavioral disturbance, psychotic disturbance, mood disturbance, and anxiety; J47.9 Bronchiectasis, uncomplicated

== ENCOUNTER → 2025-01-04 14:05 | Outpatient (BNVA) | payer MEDICARE, OTHER, SELFPAY | PROVIDERS: PCP Internal Medicine; Visit Provider Internal Medicine | DX: I10 Essential (primary) hypertension (principal); E78.00 Pure hypercholesterolemia, unspecified; E03.9 Hypothyroidism, unspecified; M81.0 Age-related osteoporosis without current pathological fracture; D51.0 Vitamin B12 deficiency anemia due to intrinsic factor deficiency; G31.83 Neurocognitive disorder with Lewy bodies; F02.80 Dementia in other diseases classified elsewhere, unspecified severity, without behavioral disturbance, psychotic disturbance, mood disturbance, and anxiety; J47.9 Bronchiectasis, uncomplicated | CPT/HCPCS: 99212 ==

== ENCOUNTER 2025-01-18 15:52 | Outpatient (AMB) | payer MEDICARE, OTHER, SELFPAY ==
--- OUTSIDE RECORDS SUMMARY | 2024-09-03 09:45 | XMS_ITS ---
Author Organization [facility] Address [address] [place] [address] Care Team Providers Care Dye Tub Tender Name Role Phone Feli Rm Primary Care Provider Addie Martinez [phone] Medications Medication SIG (Take, Route, Fr equency, [...] g Encounters Encounter Location Date Provider Diagnosis [address] [address] 09/03/2024 Addie Brizuela Plan Of Treatment No Information Progress Notes * Tati CARVALHO ADOB: [birth year] (84 yo F)Acc No.[id number]:09/03/2024 Progress Note Patient: Tati MURPHY Provider: Bhupinder Brizuela DPM :1940 A ge:83 Y S ex:Female Date:09/03/2024 Address:[address] [place] [address] Pcp:Feli Rm Subjective: * Chief Complaints: * [...] 09/03/2024 Generated for Aaron craig/Niall/Carleen on: 0 01/18/2025 05:47 PM EDT
--- NOTE | 2025-01-18 16:06 | MHC.OFFVIS ---
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 She is presenting with management of chronic pain and anxiety. The patient utilizes gabapentin for her pain management, taking it less frequently due to a reduced need. She reports improvement with this regimen, without extreme dependency on the medication. The patient also has a history of generalized anxiety disorder, for which she is treated with Lexapro; she takes this medication daily in the morning. She reports a reduction of anxiety symptoms under the current treatment plan. The patient has experienced sleep disturbances in the past, with episodes of elusiveness, although she reports that her sleep has improved somewhat, indicating a decrease in occurrence. No new complaints or major issues with sleep were brought up. [facility] Medical History (Updated 01/18/25 @ 16:08 by Wero Badillo MD) Confusion UTI (urinary tract infection) Dysuria Osteopenia Contact dermatitis and eczema Sinus congestion Costochondritis LLQ pain Epigastric pain Cognitive impairment Cough Blood pressure elevated without history of HTN Screening for breast cancer Post-menopausal Pneumonia Viral upper respiratory tract infection with cough Encounter for subsequent annual wellness visit (AWV) in Medicare patient Chest pain SOB (shortness of breath) Headache Colonoscopy refused COPD (chronic obstructive pulmonary disease) Recurrent sinus infections Breast asymmetry Uterine cancer Bronchiectasis Pernicious anemia Peripheral neuropathy Lumbar degenerative disc disease Hypercholesterolemia Vitamin D deficiency Pulmonary nodule Hypothyroid Surgical History History of total abdominal hysterectomy and bilateral salpingo-oophorectomy History of lumpectomy of right breast History of appendectomy Family History Father CVD (cardiovascular disease) Mother Cancer Social History Housing: House Alcohol intake: never Patient Tobacco Use Status: Never used Tobacco Tobacco use type: Cigarette e-Cigarette/Vaping Use: Never Used Second Hand Smoke Exposure: No service: No Current occupational status: unemployed Cognitive needs: No Hearing needs: No Vision needs: Yes (reading glasses) Review of Systems Const Details: - Neurologic: Reports sleep disturbance but improved; reports feeling lost and quizzical in the past, but no current acute issues highlighted. - Psychiatric: Reports mood as generally good; denies anger or significant mood disturbances; anxiety reported but improved under current treatment. Physical Exam Neuro Other: Mental Status: Alert and oriented to person, place, and time. Normal attention. Normal spontaneous speech, fluency, and comprehension. Cranial Nerves: CN II: Visual pérez full to confrontation, visual acuity intact. CN III, IV, : Pupils equal, round, reactive to light and accommodation. Extraocular movements are normal. CN V: Facial sensation is normal. CN VII: Facial movements symmetrical. CN VIII: Hearing intact to bedside conversation is normal. CN IX, X: Palate elevates symmetrically. CN XI: Shoulder shrug and head turn symmetrical. CN XII: Tongue midline without atrophy or fasciculations. Extrapyramidal: Full facial expressions and blinking. No rigidity. Movements are appropriate with no tremor or abnormality. Speech: Normal; no dysarthria or tremor. Assessment & Plan Assessment & Plan (1) Dementia with Lewy bodies: Code(s): G31.83 - Neurocognitive disorder with Lewy bodies; F02.80 - Dementia in other diseases classified elsewhere, unspecified severity, without behavioral disturbance, psychotic disturbance, mood disturbance, and anxiety Category: Medical Qualifiers: Dementia severity: moderate Dementia behavioral or psychological symptom: with other behavioral disturbance Qualified Code(s): G31.83 - Neurocognitive disorder with Lewy bodies; F02.B18 - Dementia in other diseases classified elsewhere, moderate, with other behavioral disturbance (2) Fibromyalgia: Code(s): M79.7 - Fibromyalgia Category: Medical Plan Impression: a: Dementia probably Lewy body type b: Anxiety c: Body pain Rec; a: Escitaloprim 5mg in am b: Gabapentin 100mg one at night Medications: Refilled gabapentin 100 mg PO BEDTIME 90 caps 1RF escitalopram oxalate (Lexapro) 5 mg PO DAILY 90 tabs 1RF F02.80 - Dementia in other diseases classified elsewhere, unspecified severity, without behavioral disturbance, psychotic disturbance, mood disturbance, and anxiety, G31.83 - Neurocognitive disorder with Lewy bodies Coding Level of Care Code Est Pt Level 4 (51070) Diagnoses Moderate Lewy body dementia with other behavioral disturbance G31.83; F02.B18 Dementia severity: moderate Dementia behavioral or psychological symptom: with other behavioral disturbance Fibromyalgia M79.7
--- OUTSIDE RECORDS SUMMARY | 2025-01-18 17:47 | XMS_ITS | Patient Health Record ---
[facility] Address [address] [place] [address] Care Team Providers Care Artist Representative Name Role Phone Hakeem Will Jr [phone] Reason For Referral No Information Plan Of Treatment No Information
--- OUTSIDE RECORDS SUMMARY | 2025-01-18 17:47 | XMS_ITS | Patient Health Record ---
Author Organization [facility] Address [address] [place] [address] Care Team Providers Care Staffing Program Manager Name Role Phone Feli Rm Primary Care Provider Addie Martinez Unavailable [phone] Allergies Allergen (clinical drug ingredient) Drug/Non Drug [...] W/U Status Risk Notes Problem Viral wart (24146370) Other viral warts (B07.8) Active confirmed Problem Localized, primary osteoarthritis of the ankle and/or foot (615975382) Primary osteoarthrit is, right ankle and foot (M19.071) Active confirmed Problem Acquired hammer toe of right foot (1903157356000665) Other hammer toe(s) (acquired), right foot (M20.41) Active confirmed Problem Acquired hammer toe of left foot (4568803452749571) Other hammer toe(s) (acquired), left foot (M20.42) Active confirmed Vital Signs Blood pressure diastolic 80 mm Hg 04/15/2024 Height 5 ft 2 in in 04/15/2024 Blood pressure systolic 120 mm Hg 04/15/2024 Weight 114 lbs 04/15/2024 BMI 20.85 kg/m2 04/15/2024 Procedures Procedure Date Ordered Date Performed Result Body Sit e 09686-REISUQQ NAIL, 6 OR MORE 04/15/2024 N/A Encounters Encounter Location Date Provider Diagnosis [facility] [address] 04/15/2024 Addie Brizuela Onychomycosis B35.1 ; Pain in right toe(s) M79.674 and Pain in left toe(s) M79.[address] [facility] [address] 09/03/2024 Addie Brizuela Assessments Encounter Date Diagnosis (ICD Code) Assessment Notes Treatment Notes Treatment Clinical Notes Section Notes 04/15/2024 Pain in right toe(s) (ICD-10 - M79.674) 04/15/2024 Onychomycosis (ICD-10 - B35.1) 04/15/2024 Pain in left toe(s) (ICD-10 - M79.675) Plan Of Treatment Pending Test Test Name Order Date 73174-KRAHJVT NAIL, 6 OR MORE 04/15/2024 57468-XGECPMM NAIL, 1-03/10/2018 87413-GRNJPZQ NAIL, -09/23/2017 05686-HQVXHXM NAIL, -12/11/2017 98906-XNOXIFW NAIL, -07/23/2016 24717-KTXJMCG NAIL, -12/31/2016 86182-YCZYSIR NAIL, -03/25/2017 54579-QSTJOID NAIL, 05-3106/17/2017 74874-SJSODCH NAIL, 05-3108/15/2015 85937-HOPIYRO NAIL, 05-3111/14/2015 18448-ZOPYAAJ NAIL, 05-3102/20/2016 62731-MTRUUAX NAIL, 05-3105/14/2016 54978-Sanb Destruction, 06-0905/14/2016 99285-Deuz Destruction, 06-0902/20/2016 17552-Bems Destruction, 06-0911/14/2015 98077-Eety Destruction, 06-0905/16/2015 14792-Tsej Destruction, 06-0908/15/2015 49179-Dzkk Destruction, 06-0908/03/2013 08830-Icao Destruction, 06-0907/26/2014 50284-Orlj Destruction, 06-0910/04/2014 34475-Dvur Destruction, 06-0912/13/2014 58922-Hwzd Destruction, 06-0902/24/2015 64438-Gzif Destruction, 06-0902/05/2011 79641-Njel Destruction, 06-0907/09/2011 15060-Pdlk Destruction, 06-0912/03/2011 21068-Mgox Destruction, 06-0905/15/2012 03139-Rrum Destruction, 06-0908/11/2012 50747-Geud Destruction, 06-0911/13/2012 38257-Zicx Destruction, 06-0902/09/2013 41264-Niyh Destruction, 06-0905/04/2013 19525-Xvzw Destruction, 06-0910/08/2013 48082-Fngu Destruction, 06-0903/04/2014 47669-Hdeg Destruction, 06-0906/17/2017 76115-Wfkd Destruction, 06-0903/25/2017 76588-Yyay Destruction, 06-0912/31/2016 39337-Cdqx Destruction, 06-0907/23/2016 64903-Qpbr Destruction, 06-0912/11/2017 98217-Mqfr Destruction, 06-0909/23/2017 39805-Bzxd Destruction, 06-0903/10/2018 81413-Btkx Destruction, 06-0905/10/2014 92555-Idfz Destruction, 06-0912/17/2013 12158-Xwgsibex Plate 02/05/2011 94518-Acyxoxsu Plate 12/03/2011 18277-Fvuxavfb Plate 07/09/2011 85036- Debride <25 sq cm 05/15/2012 05786- Debride <25 sq cm 08/11/2012 34903- Debride <25 sq cm 11/13/2012 46101- Debride <25 sq cm 03/04/2014 82172- Debride <25 sq cm 07/26/2014 38740- Debride <25 sq cm 05/04/2013 48700- Debride <25 sq cm 02/09/2013 45021- Debride <25 sq cm 02/24/2015 64471- Debride <25 sq cm 12/13/2014 30958- Debride <25 sq cm 10/04/2014 32856- Debride <25 sq cm 10/08/2013 93091- Debride <25 sq cm 12/17/2013 14615- Debride <25 sq cm 05/10/2014 Insurance Providers Payer Name Payer Address Payer Phone Subscriber Number Group Number Insured Name Patient Relationship to Insured Coverage Start Date Coverage End Date Medicare National [employer] [address] [place] [address] [id number] Tati Carvalho Self - patient is the insured [address] [employer] [place] [address] [place] [address] [phone] [id number] Tati Carvalho Self - patient is the [...]
== END 2025-01-18 16:17 | disposition home or self-care (01) ==
LOC: HO.HSM 15:53
PROVIDERS: PCP Internal Medicine; Referring Provider Internal Medicine; Visit Provider Psychiatry & Neurology Neurology
DX: G31.83 Neurocognitive disorder with Lewy bodies (principal); F02.B18 Dementia in other diseases classified elsewhere, moderate, with other behavioral disturbance; M79.7 Fibromyalgia
CPT/HCPCS: 99214

== ENCOUNTER → 2025-01-18 15:52 | Outpatient (BNVA) | payer MEDICARE, OTHER, SELFPAY | PROVIDERS: PCP Internal Medicine; Referring Provider Internal Medicine; Visit Provider Psychiatry & Neurology Neurology | DX: G31.83 Neurocognitive disorder with Lewy bodies (principal); F02.B18 Dementia in other diseases classified elsewhere, moderate, with other behavioral disturbance; M79.7 Fibromyalgia | CPT/HCPCS: 99212 ==

== ENCOUNTER 2025-01-21 11:17 | Outpatient (REF) | payer MEDICARE, OTHER, SELFPAY ==
--- OUTSIDE RECORDS SUMMARY | 2024-09-03 09:45 | XMS_ITS ---
Author Organization [facility] Address [address] [place] [address] Care Team Providers Care Sewer Pipe Layer Name Role Phone Feli Rm Primary Care Provider Addie Martinez [phone] Medications Medication SIG (Take, Route, Fr equency, [...] g Encounters Encounter Location Date Provider Diagnosis [address] [address] 09/03/2024 Addie Brizuela Plan Of Treatment No Information Progress Notes * Tati CARVALHO ADOB: [birth year] (84 yo F)Acc No.[id number]:09/03/2024 Progress Note Patient: Tati MURPHY Provider: Bhupinder Brizuela DPM :1940 A ge:83 Y S ex:Female Date:09/03/2024 Address:[address] [place] [address] Pcp:Feli Rm Subjective: * Chief Complaints: * [...] 0 09/03/2024 Generated for Aaron craig/Niall/Carleen on: 0 01/21/2025 12:37 PM EDT
[2025-01-21 11:41] LABS: MANUAL DIFF FLAG NO
[2025-01-21 12:27] LABS: Hematocrit 34.1 % (37.0-47.0); Hemoglobin 10.8 g/dl (12.0-16.0); Imm Gran Abs Auto 0.03 X10*3/uL (0.00-0.03); Imm Gran Pct Auto 0.3 % (0.0-0.4); Lymphocytes Absolute Auto 1.1 X10*3/uL (1.2-4.9); Mean Corpuscular HGB Conc 31.7 g/dl (31.0-35.0); Mean Corpuscular Hemoglobin 28.2 pg (27.0-33.0); Mean Corpuscular Volume 89.0 fL (80.0-98.0); NRBC Abs Auto 0.000 X10*3/uL (0.0-0.012); NRBC Pct Auto 0.0 /100WBC (0.0-0.2); Platelet Count 339 X10*3/uL (160-400); Red Blood Count 3.83 X10*6/uL (4.20-5.50); White Blood Count 8.7 X10*3/uL (4.8-10.8)
--- OUTSIDE RECORDS SUMMARY | 2025-01-21 12:37 | XMS_ITS | Patient Health Record ---
Author Organization [facility] Address [address] [place] [address] Care Team Providers Care Chainsaw Mechanic Name Role Phone Hakeem Will Jr Reason For Referral No Information Plan Of Treatment No Information
--- OUTSIDE RECORDS SUMMARY | 2025-01-21 12:37 | XMS_ITS | Patient Health Record ---
Author Organization [facility] Address [address] [place] [address] Care Team Providers Care Automobile Rental Agent Name Role Phone Feli Rm Primary Care Provider Addie Martinez Unavailable [phone] Allergies Allergen (clinical drug ingredient) Drug/Non Drug [...] W/U Status Risk Notes Problem Viral wart (91831302) Other viral warts (B07.8) Active confirmed Problem Localized, primary osteoarthritis of the ankle and/or foot (154643075) Primary osteoarthrit is, right ankle and foot (M19.071) Active confirmed Problem Acquired hammer toe of right foot (9606687011904741) Other hammer toe(s) (acquired), right foot (M20.41) Active confirmed Problem Acquired hammer toe of left foot (4636580701836692) Other hammer toe(s) (acquired), left foot (M20.42) Active confirmed Vital Signs Blood pressure diastolic 80 mm Hg 04/15/2024 Height 5 ft 2 in in 04/15/2024 Blood pressure systolic 120 mm Hg 04/15/2024 Weight 114 lbs 04/15/2024 BMI 20.85 kg/m2 04/15/2024 Procedures Procedure Date Ordered Date Performed Result Body Sit e 80659-CKZUJEH NAIL, 6 OR MORE 04/15/2024 N/A Encounters Encounter Location Date Provider Diagnosis [facility] [address] 04/15/2024 Addie Brizuela Onychomycosis B35.1 ; Pain in right toe(s) M79.674 and Pain in left toe(s) M79.[address] [facility] [address] 09/03/2024 Addie Brizuela Assessments Encounter Date Diagnosis (ICD Code) Assessment Notes Treatment Notes Treatment Clinical Notes Section Notes 04/15/2024 Pain in right toe(s) (ICD-10 - M79.674) 04/15/2024 Onychomycosis (ICD-10 - B35.1) 04/15/2024 Pain in left toe(s) (ICD-10 - M79.675) Plan Of Treatment Pending Test Test Name Order Date 98144-NMLIKAU NAIL, 6 OR MORE 04/15/2024 80138-TIEGACP NAIL, 1-5 03/10/2018 58227-YCENSAH NAIL, -02/20/2016 74241-VRGRBZH NAIL, -05/14/2016 75487-SJYDKTQ NAIL, -07/23/2016 68934-LUFOFQJ NAIL, -12/31/2016 94595-CCOLGBL NAIL, -03/25/2017 08062-SAFYPVC NAIL, 05-3106/17/2017 60776-LJFJMMG NAIL, 05-3109/23/2017 16002-ZIJNRQH NAIL, 05-3112/11/2017 48469-WZHWRBS NAIL, 05-3108/15/2015 34874-EQQQIAB NAIL, 05-3111/14/2015 24268-Dtmm Destruction, 06-0911/14/2015 28621-Nbas Destruction, 06-0905/16/2015 41839-Ddfg Destruction, 06-0908/15/2015 58754-Bddi Destruction, 06-0912/13/2014 70562-Yxlh Destruction, 06-0902/24/2015 82803-Dmel Destruction, 06-0912/17/2013 75074-Ffus Destruction, 06-0903/04/2014 96892-Dlif Destruction, 06-0905/10/2014 86163-Jnvw Destruction, 06-0907/26/2014 71894-Evpk Destruction, 06-0910/04/2014 38427-Crdp Destruction, 06-0902/05/2011 93103-Vtjw Destruction, 06-0907/09/2011 98675-Lkov Destruction, 06-0912/03/2011 65797-Bwjb Destruction, 06-0905/15/2012 02833-Cvyn Destruction, 06-0908/11/2012 93677-Axrk Destruction, 06-0911/13/2012 54972-Isvc Destruction, 06-0902/09/2013 64438-Blto Destruction, 06-0905/04/2013 87247-Wlhv Destruction, 06-0908/03/2013 73000-Scgg Destruction, 06-0910/08/2013 73121-Kxsq Destruction, 06-0912/11/2017 42760-Lewa Destruction, 06-0909/23/2017 72776-Pzag Destruction, 06-0906/17/2017 55539-Gahv Destruction, 06-0903/25/2017 23742-Gypn Destruction, 06-0912/31/2016 37267-Gwsc Destruction, 06-0907/23/2016 34384-Hclj Destruction, 06-0905/14/2016 08856-Hkkm Destruction, 06-0902/20/2016 20436-Pzol Destruction, 06-0903/10/2018 66016-Cejftevz Plate 02/05/2011 30313-Btqzhkxq Plate 12/03/2011 26440-Jzfupaeg Plate 07/09/2011 22616- Debride <25 sq cm 05/15/2012 08851- Debride <25 sq cm 08/11/2012 30186- Debride <25 sq cm 11/13/2012 20799- Debride <25 sq cm 12/17/2013 39082- Debride <25 sq cm 10/08/2013 96478- Debride <25 sq cm 05/04/2013 58873- Debride <25 sq cm 02/09/2013 47634- Debride <25 sq cm 10/04/2014 00069- Debride <25 sq cm 07/26/2014 48241- Debride <25 sq cm 03/04/2014 57311- Debride <25 sq cm 05/10/2014 44405- Debride <25 sq cm 02/24/2015 94310- Debride <25 sq cm 12/13/2014 Insurance Providers Payer Name Payer Address Payer Phone Subscriber Number Group Number Insured Name Patient Relationship to Insured Coverage Start Date Coverage End Date Medicare National [employer] Sv[employer] [address] [place] [address] [id number] Tati Carvalho Self - patient is the insured [address] [place] [address] [place] [address] [id number] Tati Carvalho Self - patient is the [...]
[2025-01-21 12:48] LABS: Appearance Urine Clear; Glucose Urine UA Negative (Negative); PH 6.0 (5.0-9.0); Specific Gravity - Urine 1.015 (1.005-1.025); UMIC TRIGGER UACC YES
[2025-01-21 12:54] LABS: UACC Culture Trigger YES
[2025-01-21 13:04] LABS: Alanine Aminotransferase 17 U/L (0-31); Albumin Level 4.0 g/dL (3.5-5.0); Alkaline Phosphatase 87 U/L (39-117); Anion Gap 13 (12-20); Aspartate Amino Transferase 31 U/L (5-31); Blood Urea Nitrogen 12 mg/dL (9-16); Calcium 9.3 mg/dL (8.4-10.2); Carbon Dioxide 26 mmol/L (22-29); Chloride 104 mmol/L (96-108); Estimated Glomerular Filt Rate > 60; Potassium 4.6 mmol/L (3.3-5.1); Sodium 138 mmol/L (135-145); Total Protein 7.1 g/dL (6.5-8.0)
[2025-01-21 13:20] LABS: Free T4 (Free Thyroxine) 1.28 ng/dL (0.71-1.85); Thyroid Stimulating Hormone 0.22 uIU/mL (0.32-4.0)
== END 2025-01-21 11:18 | disposition home or self-care (01) ==
LOC: HO.LAB 11:17
PROVIDERS: PCP Internal Medicine; Visit Provider Internal Medicine
DX: G31.83 Neurocognitive disorder with Lewy bodies (principal); F02.80 Dementia in other diseases classified elsewhere, unspecified severity, without behavioral disturbance, psychotic disturbance, mood disturbance, and anxiety; N39.0 Urinary tract infection, site not specified; R30.0 Dysuria; R41.0 Disorientation, unspecified
CPT/HCPCS: 36415; 80053; 81001; 84439; 84443; 85025; 87086

== ENCOUNTER 2025-02-01 13:33 | Outpatient (AMB) | payer MEDICARE, OTHER, SELFPAY ==
--- OUTSIDE RECORDS SUMMARY | 2023-11-11 08:30 | XMS_ITS ---
Author Organization [facility] Address [address] [place] [address] Care Team Providers Care Bath Mixer Name Role Phone Feli Rm Primary Care Provider Addie Martinez Unavailable [phone] Pieter Riddle Unavailable [phone] REASON FOR VISIT Painful thick toenails which are aggrevated by shoes and causes difficulty standing/walking, Wart(s), PCP -04/18 Encounters Encounter Location Date Provider Diagnosis [facility] [address] [place] [address] 11/11/2023 Pieter Riddle Tinea unguium B35.1 ; Pain in right toe(s) M79.674 ; Pain in left toe(s) M79.675 ; Other viral warts B07.8 ; Pain in left foot M79.672 ; Pain in right foot M79.671 and Other hammer toe(s) (acquired), left foot M20.42 Assessments Encounter Date Diagnosis (ICD Code) Assessment Notes Treatment Notes Treatment Clinical Notes Section Notes 11/11/2023 Tinea unguium (ICD-10 - B35.1) 11/11/2023 Pain in right toe(s) (ICD-10 - M79.674) 11/11/2023 Pain in left toe(s) (ICD-10 - M79.675) 11/11/2023 Other viral warts (ICD-10 - B07.8) 11/11/2023 Pain in left foot (ICD-10 - M79.672) 11/11/2023 Pain in right foot (ICD-10 - M79.671) 11/11/2023 Other hammer toe(s) (acquired), left foot (ICD-10 - M20.42) Plan Of Treatment Next Appt Details Follow Up: 3 Months, Reason: Procedure Notes * Category Sub-Category Detail Notes Wart Treatment Procedure Verrucae(s) were debrided to pin-point bleeding margins with sterile surgical blade (48861), silver nitrate chemocautery applied Debride Nails 1-5 Procedure: Nail debrideme nt performed extensively to reduce/remove overall nail length and girth, subungual debris, and necrotic tissue, by manual and electrical means by use of a nail nipper and/or dremel, to more viable healthy nail plate or bed tissue 1-5. Silver nitrate used for any petechial bleeding as necessary. Patient chooses, no pharmaceutical tx (83134) Progress Notes * Tati CARVALHO ADOB: [birth year] (84 yo F)Acc No.[id number]:11/11/2023 Progress Note Patient: Tati MURPHY Provider: Raysa Riddle DPM :1940 A ge:83 Y S ex:Female Date:11/11/2023 Address:[address] [place] [id number] Pcp:Feli Rm Subjective: * Chief Complaints: * 1 . Painful thick toenails which are aggrevated by shoes and causes difficulty standing/walking. 2. Wart(s). 3. PCP -04/18. * HPI: P ainful Nails: Pt States Last PCP Visit: D ate: 1 05/27/2022 T oe pain: Nature: a danay, tenderness. Location: 4 th toe, Left foot, 2nd toe, Right foot. Duration: s everal months. Onset/Cause: g radual. Course: p rogressive. Aggravated by: s hoes, standing/walking. * ROS: G eneral/Constitutional: Nausea d enies. V omiting d enies. H nirali Thirst d enies. L oss appetite d enies. C hills d enies. F atigue d enies.?Fever d enies. N ight Sweats d enies. U nexplained weight loss d enies. U nexplained weight gain d enies. H EENTM: Dentures d enies. D izziness d enies. G lasses/contacts d enies. R etinopathy d enies. B lurred/double vision d enies. T MJ?denies. D ischarge/drainage d enies. I mplants d enies. S ore throat d enies. D ental implants d enies. H casey of hearing d enies. D ifficulty chewing/swallowing/speaking d enies. N ose bleeds d enies. S ore mouth d enies. ? R espiratory: On Oxygen d enies. P neumonia/pleurisy a dmits.?Bronchitis d enies. E mphysema d enies. C oughing d enies. C ough blood?denies. S hortness of breath d enies. W heezing d enies. C ardiovascular: Pacemaker d enies. M COOKING TEACHER d enies. W PW d enies. C HF d enies. H eart attack d enies. S eptal defect d enies. R apid beat d enies. C hest pain d enies. A trial Fib. d enies. M urmur/Palpitations d enies. G astrointestinal: Hemorrhoids d enies. S tomach/Abdominal pain d enies. D ark blood stool d enies. I rritable bowel d enies. C onstipation d enies. D iarrhea d enies. H ematology: Swelling d enies. C lots d enies. V aricose Veins d enies. B ruising d enies. B leeding problem d enies. G enitourinary: Blood urine d enies. F requent/Painfu/urination/bladder control d enies. K idney stones d enies. I nfection (UTI) d enies. N ephropathy d enies. s ex trans dis (STD) d enies. P rostate d enies. M usculoskeletal: Hammertoes d enies. B unions d enies. B ack Pain d enies. M uscle Cramps/ Resting d enies. M uscle cramps / walking d enies.?Generalized aches and pains d enies. W eakness d enies. I nteg.: He d enies. S cars d enies. C orns/calluses?denies. I ngrown nails d enies. P ainful nails d enies. O pen Sores d enies. R ashes d enies. N eurologic: Difficulty sleeping d enies. B rain disorder d enies. N umbness d enies. B alance trouble d enies. C onfusion d enies. F ainting/blackouts d enies. T ingling d enies. T remors d enies. * Medical History: Objective: * Vitals: * Examination: G eneral Examination: GENERAL APPEARANCE: p leasant, alert, well nourished, well developed, well hydrated, with good attention to hygene/body habitus, and in no acute distress. ORIENTED: p erson,place, and time. N ails: NAILS are: Elongated, overgrown, dystrophic, lytic, greater than 3mm thick, discolored and friable with crumbly malodorous subungual debris, with pain on palpation, 1-5 Left foot, T6. N eurological: SENSORY: N eurological exam reveals intact sensorium, pain sensation normal, vibration sensation intact, pinprick sensation is normal in the lower extremities, Pt denies, anesthesia, burning, paresthesia, tingling, B/L. BABINSKI REFLEX: a bsent. V ascular: DP PULSES (B): 1/4, B/L. PT PULSES (B): 1/4, B/L. TROPHIC CONDITION-TEXTURE/ELASTICITY/TURGOR/HAIR GROWTH (B):?normal, B/L. PIGMENTATION: n ormal, B/L. EDEMA (C): n o edema, B/L. TELANGECTASIA: a bsent. VARICOSITIES: a bsent. D ermatologic: SKIN FINDINGS: S kin exam reveals Keratotic lesion(s) located at, Dorsal, Lateral, DIPJ, T9, PIPJ, T3, SUB MTH (s), 5, B/L, Medial, DIPJ, T6. VERRUCA: R eveals a Single , multi-loculated , mosaically patterned, round, raised, flat- topped, petechial bleeding papulae(s), with cauliflower appearance and interrruption of skin lines, pain to lateral compression, and size estimated at __2-3__ mm diameter, plantar hallux left. O rthopedic: MUSCLE STRENGTH: 5 /5 all groups in a symmetrical fashion , B/L. GAIT ABNORMALITY: p ronated, abducted, B/L. DIGITAL DEFORMITIES: D igital contracture, PIPJ, 2-5 B/L, incompl-reducable to push-up test, no over, nor underlapping. Assessment: * Assessment: 1. T inea unguium - B35.1 (Primary) 2 . P ain in right toe(s) - M79.674? 3. P ain in left toe(s) - M79.675 4 . O ther viral warts - B07.8 5 . P ain in left foot - M79.672 6 . P ain in right foot - M79.671 7 . O ther hammer toe(s) (acquired), left foot - M20.42 ? Plan: * Treatment: * Procedures: D ebride Nails 1-5: Procedure: N ail debridement performed extensively to reduce/remove overall nail length and girth, subungual debris, and necrotic tissue, by manual and electrical means by use of a nail nipper and/or dremel, to more viable healthy nail plate or bed tissue 1-5. Silver nitrate used for any petechial bleeding as necessary. Patient chooses, no pharmaceutical tx ([id number]). W art Treatment: Procedure V errucae(s) were debrided to pin-point bleeding margins with sterile surgical blade ([id number]), silver nitrate chemocautery applied. * Procedure Codes: 1 1720 DEBRIDE NAIL, 1-5, Modifiers: XS , 60314 Wart Destruction, 1-14, Modifiers: XS * Follow Up: 3 Months * Images: * The named appointment provid er may or may not be the originator of this progress note, and it is not deemed complete until electronically signed by the appointment provider. Sign off status: Pending * Provider: Raysa Riddle DPM Date: 0 11/11/2023 Generated for Jacquelini ng/Fafloresitag/eTransmitting on: 0 02/01/2025 03:47 PM EDT History and Physical Notes * HPI (History of Present Illness) Category Sub-Category Detail Notes Category Not es Toe pain Nature: aching, tenderness Location: 4th toe, Left foot, 2nd toe, Right foot Duration: several months Onset/Cause: gradual Course: progressive Aggravated by: shoes, standing/walk ing Painful Nails Pt States Last PCP Visit: Date:: 03/27/2023 Examination Category Sub-Category Detail Notes Category Not es Neurological SENSORY: Neurological exa m reveals intact sensorium, pain sensation normal, vibration sensation intact, pinprick sensation is normal in the lower extremities, Pt denies, anesthesia, burning, paresthesia, tingling, B/L BABINSKI REFLEX: absent Dermatologic SKIN FINDINGS: Skin exam reveal s Keratotic lesion(s) located at, Dorsal, Lateral, DIPJ, T9, PIPJ, T3, SUB MTH (s), 5, B/L, Medial, DIPJ, T6 VERRUCA: Reveals a Single , m ulti-loculated , mosaically patterned, round, raised, flat-topped, petechial bleeding papulae(s), with cauliflower appearance and interrruption of skin lines, pain to lateral compression, and size estimated at __2-3__ mm diameter, plantar hallux left Orthopedic GAIT ABNORMALITY: pronated, abducted, B/L DIGITAL DEFORMITIES: Digital contracture , PIPJ, 2-5 B/L, incompl-reducable to push-up test, no over, nor underlapping MUSCLE STRENGTH: 5/5 all groups in a symmetrical fashion , B/L General Examination GENERAL APPEARANCE: pleasant , alert, well nourished, well developed, well hydrated, with good attention to hygene/body habitus, and in no acute distress ORIENTED: person,place, and ti me Vascular DP PULSES (B): 1/4, B/L PT PULSES (B): 1/4, B/L TROPHIC CONDITION-TEXTURE/ELASTICITY/TUR GOR/HAIR GROWTH (B): normal, B/L EDEMA (C): no edema, B/L TELANGECTASIA: absent VARICOSITIES: absent PIGMENTATION: normal, B/L Nails NAILS are: Elongated, overg rown, dystrophic, lytic, greater than 3mm thick, discolored and friable with crumbly malodorous subungual debris, with pain on palpation, 1-5 Left foot, T6
--- OUTSIDE RECORDS SUMMARY | 2023-12-11 04:30 | XMS_ITS ---
Author Organization [facility] Address [address] [place] [address] Care Team Providers Care Stationary Engineer Supervisor Name Role Phone Feli Rm Primary Care Provider Addie Martinez Unavailable [phone] Pieter Riddle Unavailable [phone] REASON FOR VISIT Painful thick toenails which are aggrevated by shoes and causes difficulty standing/walking, Wart(s), PCP -04/18 Encounters Encounter Location Date Provider Diagnosis [facility] [address] [place] [address] 12/11/2023 Pieter Riddle Tinea unguium B35.1 ; Pain [...] pin-point bleeding margins with sterile surgical blade (90949), silver nitrate chemocautery applied Debride Nails 1-5 Procedure: Nail debrideme nt performed extensively to reduce/remove overall nail length and girth, subungual debris, and necrotic tissue, by manual and electrical means by use of a nail nipper and/or dremel, to more viable healthy nail plate or bed tissue 1-5. Silver nitrate used for any petechial bleeding as necessary. Patient chooses, no pharmaceutical tx (33849) Progress Notes * Tati CARVALHO ADOB: [birth year] (84 yo F)Acc No.[id number]:12/11/2023 Progress Note Patient: Tati MURPHY Provider: Raysa Riddle DPM :1940 A ge:83 Y S ex:Female Date:12/11/2023 Address:[address] [place] [phone] Pcp:Feli Rm Subjective: * Chief Complaints: * [...] enies. C ardiovascular: Pacemaker d enies. M KILN OPERATOR d enies. W PW d enies. C [...] as necessary. Patient chooses, no pharmaceutical tx (80012). W art Treatment: Procedure V errucae(s) were debrided to pin-point bleeding margins with sterile surgical blade (77218), silver nitrate chemocautery applied. * Procedure Codes: 1 1720 DEBRIDE NAIL, 1-5, Modifiers: XS , 77413 Wart Destruction, 1-14, Modifiers: XS * Follow Up: 3 Months * Images: * The named appointment provid er may or may not be the originator of this progress note, and it is not deemed complete until electronically signed by the appointment provider. Sign off status: Pending * Provider: Raysa Riddle DPM Date: 0 12/11/2023 Generated for Jacquelini ng/Faxing/eTransmitting on: 0 02/01/2025 03:47 PM EDT History [...]
--- OUTSIDE RECORDS SUMMARY | 2024-09-03 09:45 | XMS_ITS ---
Author Organization [facility] Address [address] [place] [address] Care Team Providers Care Formwork Carpenter Name Role Phone Feli Rm Primary Care Provider Addie Martinez [phone] Medications Medication SIG (Take, Route, Fr equency, [...] g Encounters Encounter Location Date Provider Diagnosis [address] [address] 09/03/2024 Addie Brizuela Plan Of Treatment No Information Progress Notes * Tati CARVALHO ADOB: [birth year] (84 yo F)Acc No.[id number]:09/03/2024 Progress Note Patient: Tati MURPHY Provider: Bhupinder Brizuela DPM :1940 A ge:83 Y S ex:Female Date:09/03/2024 Address:[address] [place] [address] Pcp:Feli Rm Subjective: * Chief Complaints: * [...] 09/03/2024 Generated for Aaron craig/Niall/Carleen on: 0 02/01/2025 03:47 PM EDT
--- NOTE | 2025-02-01 13:42 | MHC.PC.OV ---
Vital Signs 02/01/25 13:44 02/01/25 14:04 Height 5 ft 2 in Weight 114 lb BMI 20.8 BP 140/90 H 130/80 Blood Pressure Location Lt brachial Lt brachial Position Sitting Sitting Pulse 55 Pulse Source Pulse Oximeter Temp 97.3 F Temp Source Temporal Artery Scan Pulse Oximetry (%) 95 Oxygen Delivery Method Room Air Intake Visit Reasons: Bronchiectasis Intake Note: Patient is here to follow up on Bronchiectasis. Addiction Medicine Physician Required: No Business Office Specialist: Present Accompanied by: Daughter Allergies codeine (CODEINE) Allergy (Unknown, Verified 02/01/25 13:54) GI UPSET levofloxacin (From LEVAQUIN) Allergy (Unknown, Verified 02/01/25 13:54) STOMACH UPSET pneumococcal vaccine Allergy (Unknown, Verified 02/01/25 13:54) unknown shellfish derived (SHELLFISH DERIVED) Allergy (Unknown, Verified 02/01/25 13:54) RASH Medication List - Last Reconciled 02/01/25 by Karoline Hutson MD albuterol sulfate 90 mcg/actuation 2 puffs inhalation Q4-6H PRN bisacodyl (Dulcolax (bisacodyl)) 5 mg PO BEDTIME 2 days calcium citrate-vitamin D3 315 mg-6.25 mcg (250 unit) (Citracal + Vitamin D Maximum) 1 tab PO BID clotrimazole-betamethasone 1-0.05 % 1 appl topical BID 2 weeks cyanocobalamin (vitamin B-12) 1,000 mcg IM Q4W 90 days escitalopram oxalate (Lexapro) 5 mg PO DAILY fexofenadine (Arielle Allergy) 180 mg PO DAILY gabapentin 100 mg PO BEDTIME iron,carbonyl-vitamin C 65 mg iron- 125 mg (Vitron-C) 1 tab PO BID levothyroxine 75 mcg PO DAILY 90 days loratadine (Allergy Relief (loratadine)) 10 mg PO DAILY lorazepam (Ativan) 0.5 mg (1/2 x 1 mg) PO TID PRN mirtazapine 15 mg PO BEDTIME sennosides-docusate sodium 8.6-50 mg (Senna Plus) 2 tab-caps (2 x 8.6-50 mg) PO BEDTIME Tobacco use date assessed: 02/01/25 Fall risk assessment: No Falls in past year Last assessed Fall Risk: 02/01/25 Dental Screening Dental Screen Date: 07/24/24 HPI HPI Comments History of Present Illness Details The patient is an 84-year-old female presenting with a follow-up on her existing medical conditions. She has a history of normocytic anemia, which has been a persistent issue. Her hypothyroidism is currently being managed, with a recent adjustment in her medication dosage due to a low TSH level. Chronic idiopathic constipation is being managed with senna, and it remains stable. The patient experiences memory loss and is under the care of neurology for this condition. Anxiety is present but stable with the use of Lexapro. She has a diagnosis of Chronic Obstructive Pulmonary Disease (COPD) and bronchiectasis, both of which are monitored by pulmonology. 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 [facility] Medical History Confusion UTI (urinary tract infection) Dysuria Osteopenia Contact dermatitis and eczema Sinus congestion Costochondritis LLQ pain Epigastric pain Cognitive impairment Cough Blood pressure elevated without history of HTN Screening for breast cancer Post-menopausal Pneumonia Viral upper respiratory tract infection with cough Encounter for subsequent annual wellness visit (AWV) in Medicare patient Chest pain SOB (shortness of breath) Headache Colonoscopy refused COPD (chronic obstructive pulmonary disease) Recurrent sinus infections Breast asymmetry Uterine cancer Bronchiectasis Pernicious anemia Peripheral neuropathy Lumbar degenerative disc disease Hypercholesterolemia Vitamin D deficiency Pulmonary nodule Hypothyroid Surgical History History of total abdominal hysterectomy and bilateral salpingo-oophorectomy History of lumpectomy of right breast History of appendectomy Family History Father CVD (cardiovascular disease) Mother Cancer Social History Housing: House Alcohol intake: never Patient Tobacco Use Status: Never used Tobacco Tobacco use type: Cigarette e-Cigarette/Vaping Use: Never Used Second Hand Smoke Exposure: No service: No Current occupational status: unemployed Cognitive needs: No Hearing needs: No Vision needs: Yes (reading glasses) Questionnaire Thrive Questionnaire Date Thrive assessed: 01/04/25 I am a: Parent/Caregiver What is your living situation today?: I choose not to answer this question Within the past 12 months, did the food you bought not last and you didn't have the money to get more?: I choose not to answer this question Within the past 12 months, did you worry whether your food would run out before you got money to buy more?: I choose not to answer this question Do you have trouble paying for medicines?: No Do you have trouble getting transportation to medical appointments?: No Do you have trouble paying your heating and electricity bill?: I choose not to answer this question Do you have trouble taking care of your child, family member or friend?: Yes Do you have trouble with day-to-day activities such as bathing, preparing meals, shopping, managing finances, etc.?: I choose not to answer this question Are you currently unemployed and looking for a job?: I choose not to answer this question Are you interested in more education?: I choose not to answer this question Please select the resources that you would like help with: None Currently or been in a relationship where the following occur: I choose not to answer THRIVE Score: 0 DANIEL-7 AMB Questionnaire DANIEL-7 Date DANIEL - 7 assessed: 07/24/24 Source: Developed by Drs. Lobo Lopez, Lucie Mckinley, Nima Holland and colleagues, with an educational kourtney from [employer] Review of Systems Const All systems reviewed & are unremarkable except as noted in HPI and below Card Denies chest pain at rest, Denies chest pain with activity, Denies edema, Denies irregular heart rhythm, Denies claudication, Denies dyspnea, Denies dyspnea on exertion, Denies orthopnea, Denies paroxysmal nocturnal dyspnea and Denies slow heart rate Resp Denies cough, Denies dyspnea and Denies dyspnea on exertion GI Denies abdominal pain, Denies change in bowel habits, Denies excessive flatus, Denies nausea and Denies vomiting Denies urinary incontinence, Denies urinary hesitancy and Denies urinary urgency Neuro Denies lack of coordination Physical exam (Primary Care) Vital Signs: Last Vital Signs Temp 97.3 F 02/01/25 13:44 Pulse 55 02/01/25 13:44 BP 130/80 02/01/25 14:04 Pulse Ox 95 02/01/25 13:44 Oxygen Delivery Method Room Air 02/01/25 13:44 BMI result Body Mass Index 20.8 Tobacco/Smoking Status: Tobacco use Status Tobacco use date assessed 02/01/25 02/01/25 13:49 Patient Tobacco Use Status Never used Tobacco 02/01/25 13:49 Tobacco use type Cigarette 02/01/25 13:49 e-Cigarette/Vaping Use Never Used 02/01/25 13:49 Thrive Assessment: Date of Thrive Assessment Date Thrive assessed 01/04/25 02/01/25 13:49 Currently or been in a relationship where the following occur: I choose not to answer Resp Effort & Inspection: normal respiratory effort Auscultation: clear to auscultation bilaterally Cardio Jugular venous distension: no JVD Rate: regular rate Rhythm: regular rhythm Heart sounds: S1 normal heart sound present and S2 normal heart sound present Extrem General: Yes full ROM Office Meds cyanocobalamin (vitamin B-12) 1,000 mcg/mL injection solution Performing Provider: Karoline Hutson MD Performing Location: [facility] Administered by: Gabi Atkins LPN on 02/01/25 13:53 Dose Route Admin Location Dispensed Lot Number Expiration Date FORMERLY NAMED [facility] Proofer 1,000 mcg IM left deltoid 1 mL [id number] 03/26/26 42611-750-04 [employer] Total Dispensed Waste 1 mL 0 % Coding Level of Care Code Est Pt Level 4 (07078) Complex EM visit Add On G2211 Diagnoses Pernicious anemia D51.0 Generalized anxiety disorder F41.1 Acquired hypothyroidism E03.9 Hypothyroidism type: acquired 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 SHE HAS BEEN STARTED ON ESCITALOPRAM 5 MG A DAY AND SHE CLAIMS TO BE FEELING BETTER. Code(s): F41.1 - Generalized anxiety disorder Category: Medical (3) Hypothyroid: Code(s): E03.9 - Hypothyroidism, unspecified Category: Medical Qualifiers: Hypothyroidism type: acquired Qualified Code(s): E03.9 - Hypothyroidism, unspecified (4) Dementia with Lewy bodies: Code(s): G31.83 - Neurocognitive disorder with Lewy bodies; F02.80 - Dementia in other diseases classified elsewhere, unspecified severity, without behavioral disturbance, psychotic disturbance, mood disturbance, and anxiety Category: Medical Qualifiers: Dementia severity: moderate Dementia behavioral or psychological symptom: with other behavioral disturbance Qualified Code(s): G31.83 - Neurocognitive disorder with Lewy bodies; F02.B18 - Dementia in other diseases classified elsewhere, moderate, with other behavioral disturbance (5) Bronchiectasis: Comment: MILD, CHRONIC BRONCHIECTASIS IN RT MIDDLE LOBE AND LINGULA ( DAIN ) . Code(s): J47.9 - Bronchiectasis, uncomplicated Category: Medical Qualifiers: Bronchiectasis type: uncomplicated Qualified Code(s): J47.9 - Bronchiectasis, uncomplicated (6) COPD (chronic obstructive pulmonary disease): Comment: HAS VERY MILD DEGREE OF OBSTRUCTIVE AIRWAY DISORDER, LAST PFT IN 2009, PATIENT HAS DECLINED TO HAVE ANY MORE PULMONARY FUNCTION TESTS. CLINICALLY SHE HAS VERY MILD OBSTRUCTIVE AIRWAY DISORDER. Code(s): J44.9 - Chronic obstructive pulmonary disease, unspecified Category: Medical Qualifiers: COPD type: emphysema Emphysema type: panlobular Qualified Code(s): J43.1 - Panlobular emphysema Plan Plan 1. Vitamin B12 deficiency anemia due to intrinsic factor deficiency D51.0 The patient's normocytic anemia is being monitored, with no new interventions discussed during this visit. 2. Hypothyroidism, unspecified E03.9 The patient's hypothyroidism management includes a recent decrease in medication dosage due to a low TSH level, with plans to repeat TSH testing in 6 weeks. 3. Chronic idiopathic constipation K59.04 Chronic idiopathic constipation is stable with the use of senna, and no changes in management were discussed. 4. Anxiety disorder, unspecified F41.9 Anxiety is stable with Lexapro, and no changes in management were discussed. 5. Chronic obstructive pulmonary disease, unspecified J44.9 HCC 111 COPD is being monitored by pulmonology, with no new interventions discussed during this visit. 6. Bronchiectasis, uncomplicated J47.9 HCC 112 Bronchiectasis is being followed by pulmonology, with no new interventions discussed during this visit. 7. Neurocognitive disorder with Lewy bodies G31.83 HCC 52 Dementia with Lewy bodies is being managed by neurology, with no new interventions discussed during this visit. Orders: Orders AMB Vitamin B12 Injection Patient Supplied Today D51.0 - Vitamin B12 deficiency anemia due to intrinsic factor deficiency
[2025-02-01 13:44] VITALS: BP 140/90; PULSE 55; TEMP 36.3; O2SAT 95; BMI 20.8
[2025-02-01 14:04] VITALS: BP 130/80
--- OUTSIDE RECORDS SUMMARY | 2025-02-01 15:47 | XMS_ITS | Patient Health Record ---
Author Organization [facility] Address [address] [place] [address] Care Team Providers Care Consultant Internship Name Role Phone Feli Rm Primary Care Provider Addie Martinez Unavailable [phone] Allergies Allergen (clinical drug ingredient) Drug/Non Drug [...] W/U Status Risk Notes Problem Viral wart (83664654) Other viral warts (B07.8) Active confirmed Problem Localized, primary osteoarthritis of the ankle and/or foot (315261280) Primary osteoarthrit is, right ankle and foot (M19.071) Active confirmed Problem Acquired hammer toe of right foot (2341204128875746) Other hammer toe(s) (acquired), right foot (M20.41) Active confirmed Problem Acquired hammer toe of left foot (5747550297408873) Other hammer toe(s) (acquired), left foot (M20.42) Active confirmed Vital Signs Blood pressure diastolic 80 mm Hg 04/15/2024 Height 5 ft 2 in in 04/15/2024 Blood pressure systolic 120 mm Hg 04/15/2024 Weight 114 lbs 04/15/2024 BMI 20.85 kg/m2 04/15/2024 Procedures Procedure Date Ordered Date Performed Result Body Sit e 03032-GPEDKCG NAIL, 6 OR MORE 04/15/2024 N/A Encounters Encounter Location Date Provider Diagnosis [facility] [address] 04/15/2024 Addie Brizuela Onychomycosis B35.1 ; Pain in right toe(s) M79.674 and Pain in left toe(s) M79.[address] [facility] [address] 09/03/2024 Addie Brizuela Assessments Encounter Date Diagnosis (ICD Code) Assessment Notes Treatment Notes Treatment Clinical Notes Section Notes 04/15/2024 Pain in right toe(s) (ICD-10 - M79.674) 04/15/2024 Onychomycosis (ICD-10 - B35.1) 04/15/2024 Pain in left toe(s) (ICD-10 - M79.675) Plan Of Treatment Pending Test Test Name Order Date 25863-DRYGIQP NAIL, 6 OR MORE 04/15/2024 54169-TFELZQE NAIL, 1-5 03/10/2018 28374-YCMOXBL NAIL, -02/20/2016 74187-MLZLHGT NAIL, -05/14/2016 95040-KNUBXPI NAIL, -07/23/2016 65936-MCHHYPW NAIL, -12/31/2016 56696-GRTYYVT NAIL, -03/25/2017 73197-ALADJNO NAIL, 05-3106/17/2017 82481-HOMGEUC NAIL, 05-3109/23/2017 39198-OQTZPRF NAIL, 05-3112/11/2017 92116-KIPTCWS NAIL, 05-3108/15/2015 93858-KBFVHLW NAIL, 05-3111/14/2015 52516-Lftg Destruction, 06-0911/14/2015 58660-Ohws Destruction, 06-0905/16/2015 87644-Rgox Destruction, 06-0908/15/2015 32816-Qjae Destruction, 06-0912/13/2014 88767-Udis Destruction, 06-0902/24/2015 18299-Yovc Destruction, 06-0912/17/2013 66504-Akfd Destruction, 06-0903/04/2014 01019-Xxct Destruction, 06-0905/10/2014 26122-Ntpk Destruction, 06-0907/26/2014 82173-Yurl Destruction, 06-0910/04/2014 02045-Xnuo Destruction, 06-0902/05/2011 32140-Mdiy Destruction, 06-0907/09/2011 80394-Rspm Destruction, 06-0912/03/2011 26753-Oyrk Destruction, 06-0905/15/2012 49415-Vski Destruction, 06-0908/11/2012 21080-Gfjo Destruction, 06-0911/13/2012 04134-Unbj Destruction, 06-0902/09/2013 72357-Ecnp Destruction, 06-0905/04/2013 39217-Srfo Destruction, 06-0908/03/2013 66572-Vdkq Destruction, 06-0910/08/2013 78280-Cjwl Destruction, 06-0912/11/2017 10243-Mwgz Destruction, 06-0909/23/2017 63392-Mdar Destruction, 06-0906/17/2017 06976-Jmvr Destruction, 06-0903/25/2017 37726-Gnkv Destruction, 06-0912/31/2016 73253-Wyky Destruction, 06-0907/23/2016 22773-Wdqd Destruction, 06-0905/14/2016 46220-Dsse Destruction, 06-0902/20/2016 19798-Zhce Destruction, 06-0903/10/2018 54832-Zmcryxav Plate 02/05/2011 98415-Pnrvoffv Plate 12/03/2011 34038-Gvuynvqe Plate 07/09/2011 03065- Debride <25 sq cm 05/15/2012 02766- Debride <25 sq cm 08/11/2012 51834- Debride <25 sq cm 11/13/2012 86478- Debride <25 sq cm 12/17/2013 84693- Debride <25 sq cm 10/08/2013 21424- Debride <25 sq cm 05/04/2013 17101- Debride <25 sq cm 02/09/2013 28055- Debride <25 sq cm 10/04/2014 43106- Debride <25 sq cm 07/26/2014 23596- Debride <25 sq cm 03/04/2014 14995- Debride <25 sq cm 05/10/2014 68897- Debride <25 sq cm 02/24/2015 00298- Debride <25 sq cm 12/13/2014 Insurance Providers Payer Name Payer Address Payer Phone Subscriber Number Group Number Insured Name Patient Relationship to Insured Coverage Start Date Coverage End Date Medicare National Govt Sv[employer] Inc [address] [facility] [address] [id number] Tati Carvalho Self - patient is the insured [address] [place] [address] [id number] Tati Carvalho Self - patient is the [...]
--- OUTSIDE RECORDS SUMMARY | 2025-02-01 15:48 | XMS_ITS | Patient Health Record ---
Author Organization [facility] Address [address] [place] [address] Care Team Providers Care Washing Machine Loader And Puller Name Role Phone aHkeem Will Jr Reason For Referral No Information Plan Of Treatment No Information
== END 2025-02-01 14:04 | disposition home or self-care (01) ==
PROVIDERS: PCP Internal Medicine; Visit Provider Internal Medicine
DX: J47.9 Bronchiectasis, uncomplicated (principal); G31.83 Neurocognitive disorder with Lewy bodies; F02.B18 Dementia in other diseases classified elsewhere, moderate, with other behavioral disturbance; J43.1 Panlobular emphysema; D51.0 Vitamin B12 deficiency anemia due to intrinsic factor deficiency; F41.1 Generalized anxiety disorder; E03.9 Hypothyroidism, unspecified

== ENCOUNTER → 2025-02-01 13:33 | Outpatient (BNVA) | payer MEDICARE, OTHER, SELFPAY | PROVIDERS: PCP Internal Medicine; Visit Provider Internal Medicine | DX: D51.0 Vitamin B12 deficiency anemia due to intrinsic factor deficiency (principal); F41.1 Generalized anxiety disorder; E03.9 Hypothyroidism, unspecified; D64.9 Anemia, unspecified; K59.04 Chronic idiopathic constipation; F41.9 Anxiety disorder, unspecified; G31.83 Neurocognitive disorder with Lewy bodies; F02.80 Dementia in other diseases classified elsewhere, unspecified severity, without behavioral disturbance, psychotic disturbance, mood disturbance, and anxiety; F02.B18 Dementia in other diseases classified elsewhere, moderate, with other behavioral disturbance; J47.9 Bronchiectasis, uncomplicated; J43.1 Panlobular emphysema | CPT/HCPCS: 96372; 99212; J3420 ==

== ENCOUNTER 2025-03-01 13:26 | Outpatient (REF) | payer MEDICARE, OTHER, SELFPAY ==
[2025-03-01 15:51] LABS: Free T4 (Free Thyroxine) 1.16 ng/dL (0.71-1.85); Thyroid Stimulating Hormone 1.07 uIU/mL (0.32-4.0)
== END 2025-03-01 13:27 | disposition home or self-care (01) ==
LOC: HO.LAB 13:26
PROVIDERS: PCP Internal Medicine; Visit Provider Internal Medicine
DX: E03.9 Hypothyroidism, unspecified (principal)
CPT/HCPCS: 36415; 84439; 84443; 96372; J3420

== ENCOUNTER 2025-03-01 13:26 | Outpatient (AMB) | payer MEDICARE, OTHER, SELFPAY ==
--- OUTSIDE RECORDS SUMMARY | 2023-11-11 08:30 | XMS_ITS ---
Author Organization [facility] Address [address] [place] [address] Care Team Providers Care Commissary Worker Name Role Phone Feli Rm Primary Care Provider Addie Martinez Unavailable [phone] Pieter Mcadams Unavailable [phone] REASON FOR VISIT Painful thick toenails which are aggrevated by shoes and causes difficulty standing/walking, Wart(s), PCP -04/18 Encounters Encounter Location Date Provider Diagnosis [facility] [address] [place] [address] 11/11/2023 Pieter Mcadams Tinea unguium B35.1 ; Pain in right [...] pin-point bleeding margins with sterile surgical blade (46448), silver nitrate chemocautery applied Debride Nails 1-5 Procedure: Nail debrideme nt performed extensively to reduce/remove overall nail length and girth, subungual debris, and necrotic tissue, by manual and electrical means by use of a nail nipper and/or dremel, to more viable healthy nail plate or bed tissue 1-5. Silver nitrate used for any petechial bleeding as necessary. Patient chooses, no pharmaceutical tx (12728) Progress Notes * Tati CARVALHO ADOB: [birth year] (84 yo F)Acc No.[id number]:11/11/2023 Progress Note Patient: Tati MURPHY Provider: Raysa Riddle DPM :1940 A ge:83 Y S ex:Female Date:11/11/2023 Address:[address] [place] [id number] Pcp:Feli Rm Subjective: * Chief Complaints: * [...] enies. C ardiovascular: Pacemaker d enies. M FIRING PIN GAUGER d enies. W PW d enies. C [...] as necessary. Patient chooses, no pharmaceutical tx (67300). W art Treatment: Procedure V errucae(s) were debrided to pin-point bleeding margins with sterile surgical blade (96404), silver nitrate chemocautery applied. * Procedure Codes: 1 1720 DEBRIDE NAIL, 1-5, Modifiers: XS , 81061 Wart Destruction, 1-14, Modifiers: XS * Follow Up: 3 Months * Images: * The named appointment provid er may or may not be the originator of this progress note, and it is not deemed complete until electronically signed by the appointment provider. Sign off status: Pending * Provider: Raysa Riddle DPM Date: 0 11/11/2023 Generated for Jacquelini rafa/Niall/eTransmitting on: 1 03:48 PM EDT History and Physical Notes * [...] and ti me Vascular DP PULSES (B): 05/30, B/L PT PULSES (B): 05/30, B/L TROPHIC CONDITION-TEXTURE/ELASTICITY/TUR GOR/HAIR GROWTH (B): normal, B/L EDEMA (C): no edema, B/L TELANGECTASIA: absent VARICOSITIES: absent PIGMENTATION: normal, B/L Nails NAILS are: Elongated, overg rown, dystrophic, lytic, greater than 3mm thick, discolored and friable with crumbly malodorous subungual debris, with pain on palpation, 1-5 Left foot, T6
--- OUTSIDE RECORDS SUMMARY | 2023-12-11 04:30 | XMS_ITS ---
Author Organization [facility] Address [address] [place] [address] Care Team Providers Care Therapist Respiratory Name Role Phone Feli Rm Primary Care Provider Addie Martinez Unavailable [phone] Pieter Mcadams Unavailable [phone] REASON FOR VISIT Painful thick toenails which are aggrevated by shoes and causes difficulty standing/walking, Wart(s), PCP -04/18 Encounters Encounter Location Date Provider Diagnosis [facility] [address] [place] [address] 12/11/2023 Pieter Mcadams Tinea unguium B35.1 ; [...] pin-point bleeding margins with sterile surgical blade (38265), silver nitrate chemocautery applied Debride Nails 1-5 Procedure: Nail debrideme nt performed extensively to reduce/remove overall nail length and girth, subungual debris, and necrotic tissue, by manual and electrical means by use of a nail nipper and/or dremel, to more viable healthy nail plate or bed tissue 1-5. Silver nitrate used for any petechial bleeding as necessary. Patient chooses, no pharmaceutical tx (75824) Progress Notes * Tati CARVALHO ADOB: [birth year] (84 yo F)Acc No.[id number]:12/11/2023 Progress Note Patient: Tati MURPHY Provider: Raysa Riddle DPM :1940 A ge:83 Y S ex:Female Date:12/11/2023 Address:[address] [place] [phone] Pcp:Feli Rm Subjective: * Chief Complaints: * [...] enies. C ardiovascular: Pacemaker d enies. M DIRECTOR ORACLE d enies. W PW d enies. C [...] as necessary. Patient chooses, no pharmaceutical tx (58229). W art Treatment: Procedure V errucae(s) were debrided to pin-point bleeding margins with sterile surgical blade (59492), silver nitrate chemocautery applied. * Procedure Codes: 1 1720 DEBRIDE NAIL, 1-5, Modifiers: XS , 57673 Wart Destruction, 1-14, Modifiers: XS * Follow Up: 3 Months * Images: * The named appointment provid er may or may not be the originator of this progress note, and it is not deemed complete until electronically signed by the appointment provider. Sign off status: Pending * Provider: Raysa Riddle DPM Date: 0 12/11/2023 Generated for Jacquelini rafa/Niall/eTransmitting on: 1 03:48 [...]
--- OUTSIDE RECORDS SUMMARY | 2024-09-03 09:45 | XMS_ITS ---
Author Organization [facility] Address [address] [place] [address] Care Team Providers Care Trust Officer Name Role Phone Feli Rm Primary Care Provider Addie Martinez [phone] Medications Medication SIG (Take, Route, Fr equency, [...] g Encounters Encounter Location Date Provider Diagnosis [address] [address] 09/03/2024 Addie Brizuela Plan Of Treatment No Information Progress Notes * Tati CARVALHO ADOB: [birth year] (84 yo F)Acc No.[id number]:09/03/2024 Progress Note Patient: Tati MURPHY Provider: Bhupinder Brizuela DPM :1940 A ge:83 Y S ex:Female Date:09/03/2024 Address:[address] [place] [address] Pcp:Feli Rm Subjective: * Chief Complaints: * [...] DPM Date: 0 09/03/2024 Generated for Aaron craig/Niall/Carleen on: 03:48 PM EDT
--- NOTE | 2025-03-01 13:34 | AM.OFFVISNUR ---
Intake Visit Reasons: B12 Shot Allergies codeine (CODEINE) Allergy (Unknown, Verified 02/01/25 13:54) GI UPSET levofloxacin (From LEVAQUIN) Allergy (Unknown, Verified 02/01/25 13:54) STOMACH UPSET pneumococcal vaccine Allergy (Unknown, Verified 02/01/25 13:54) unknown shellfish derived (SHELLFISH DERIVED) Allergy (Unknown, Verified 02/01/25 13:54) RASH Office Meds cyanocobalamin (vitamin B-12) 1,000 mcg/mL injection solution Performing Provider: Feli Rm MD Performing Location[facility] [place] [facility] Administered by: Gabi Atkins LPN on 03/01/25 13:34 Dose Route Admin Location Dispensed Lot Number Expiration Date [facility] Direct Response Consultant 1,000 mcg IM left deltoid 1 mL [id number] 03/26/26 64739-667-00 [employer] Total Dispensed Waste 1 mL 0 % Assessment & Plan Assessment & Plan Orders: Orders AMB Vitamin B12 Injection Patient Supplied Today E53.8 - Deficiency of other specified B group vitamins Coding
--- OUTSIDE RECORDS SUMMARY | 2025-03-01 15:48 | XMS_ITS | Patient Health Record ---
Author Organization [facility] Address [address] [place] [address] Care Team Providers Care Multi Operation Machine Operator Name Role Phone Feli Rm Primary Care Provider Addie Martinez Unavailable [phone] Allergies Allergen (clinical drug ingredient) Drug/Non Drug [...] W/U Status Risk Notes Problem Viral wart (12760223) Other viral warts (B07.8) Active confirmed Problem Localized, primary osteoarthritis of the ankle and/or foot (139588838) Primary osteoarthrit is, right ankle and foot (M19.071) Active confirmed Problem Acquired hammer toe of right foot (7791958839349471) Other hammer toe(s) (acquired), right foot (M20.41) Active confirmed Problem Acquired hammer toe of left foot (5087855047829006) Other hammer toe(s) (acquired), left foot (M20.42) Active confirmed Vital Signs Blood pressure diastolic 80 mm Hg 04/15/2024 Height 5 ft 2 in in 04/15/2024 Blood pressure systolic 120 mm Hg 04/15/2024 Weight 114 lbs 04/15/2024 BMI 20.85 kg/m2 04/15/2024 Procedures Procedure Date Ordered Date Performed Result Body Sit e 43539-AFRZTVT NAIL, 6 OR MORE 04/15/2024 N/A Encounters Encounter Location Date Provider Diagnosis [facility] [address] 04/15/2024 Addie Brizuela Onychomycosis B35.1 ; Pain in right toe(s) M79.674 and Pain in left toe(s) M79.[address] [facility] [address] 09/03/2024 Addie Brizuela Assessments Encounter Date Diagnosis (ICD Code) Assessment Notes Treatment Notes Treatment Clinical Notes Section Notes 04/15/2024 Pain in right toe(s) (ICD-10 - M79.674) 04/15/2024 Onychomycosis (ICD-10 - B35.1) 04/15/2024 Pain in left toe(s) (ICD-10 - M79.675) Plan Of Treatment Pending Test Test Name Order Date 85030-QSFCPCH NAIL, 6 OR MORE 04/15/2024 09797-PFJPKPI NAIL, 1-09/23/2017 32141-ILLZRJV NAIL, -03/25/2017 68812-CMPQZYF NAIL, -06/17/2017 62481-WGDTTPU NAIL, -07/23/2016 01021-SFGHKLZ NAIL, -03/10/2018 53637-AFQNGXW NAIL, -12/11/2017 76114-MPRUMHR NAIL, 05-3108/15/2015 55223-NHQFJQC NAIL, 05-3111/14/2015 87370-JRPEZYQ NAIL, 05-3105/14/2016 70104-IRHWCNR NAIL, 05-3102/20/2016 52848-TFJMQRK NAIL, 05-3112/31/2016 63393-Qdjl Destruction, 06-0912/31/2016 95703-Mtsv Destruction, 06-0912/13/2014 20863-Wsyc Destruction, 06-0902/20/2016 95098-Nkhu Destruction, 06-0905/16/2015 02144-Bebm Destruction, 06-0902/24/2015 08626-Oqfj Destruction, 06-0910/04/2014 19845-Wcri Destruction, 06-0907/26/2014 00193-Xihy Destruction, 06-0905/10/2014 90851-Xhnq Destruction, 06-0903/04/2014 39568-Ccyb Destruction, 06-0905/04/2013 58077-Wqob Destruction, 06-0905/14/2016 21341-Zsot Destruction, 06-0911/14/2015 94283-Qbvf Destruction, 06-0910/08/2013 02410-Fznz Destruction, 06-0912/17/2013 83658-Fduu Destruction, 06-0908/15/2015 01123-Szyh Destruction, 06-0902/05/2011 04571-Wtba Destruction, 06-0908/11/2012 60164-Kixr Destruction, 06-0911/13/2012 45295-Ubaf Destruction, 06-0902/09/2013 94751-Ecgx Destruction, 06-0908/03/2013 42162-Gszu Destruction, 06-0912/11/2017 13617-Tqtx Destruction, 06-0903/10/2018 20791-Kusa Destruction, 06-0907/23/2016 51620-Kcxt Destruction, 06-0906/17/2017 15806-Wjbj Destruction, 06-0903/25/2017 48031-Dyub Destruction, 06-0909/23/2017 23146-Zwps Destruction, 06-0905/15/2012 19368-Gtwi Destruction, 06-0912/03/2011 98020-Aqxn Destruction, 06-0907/09/2011 94662-Zhxekoxc Plate 07/09/2011 72008-Usozsqdm Plate 12/03/2011 12822-Mpmxarto Plate 02/05/2011 60728- Debride <25 sq cm 10/08/2013 05017- Debride <25 sq cm 02/09/2013 51822- Debride <25 sq cm 08/11/2012 01381- Debride <25 sq cm 11/13/2012 64164- Debride <25 sq cm 12/17/2013 67658- Debride <25 sq cm 05/04/2013 10836- Debride <25 sq cm 05/15/2012 42899- Debride <25 sq cm 03/04/2014 47171- Debride <25 sq cm 05/10/2014 19379- Debride <25 sq cm 10/04/2014 05665- Debride <25 sq cm 07/26/2014 56704- Debride <25 sq cm 02/24/2015 00327- Debride <25 sq cm 12/13/2014 Insurance Providers Payer Name Payer Address Payer Phone Subscriber Number Group Number Insured Name Patient Relationship to Insured Coverage Start Date Coverage End Date Medicare National Govt Svcs Inc [address] [place] [address] [id number] Tati Carvalho Self - patient is the insured [address] [place] [address] [place] [address] [id number] Tati Carvalho Self - patient is the [...]
--- OUTSIDE RECORDS SUMMARY | 2025-03-01 15:49 | XMS_ITS | Patient Health Record ---
Author Organization [facility] Address [address] [place] [address] Care Team Providers Care Advertising Associate Name Role Phone Hakeem Will Jr Reason For Referral No Information Plan Of Treatment No Information
== END 2025-03-01 13:35 | disposition home or self-care (01) ==
LOC: HO.HMCH 13:27
PROVIDERS: PCP Internal Medicine; Visit Provider Internal Medicine
DX: E53.8 Deficiency of other specified B group vitamins (principal)

== ENCOUNTER 2025-04-05 13:07 | Outpatient (AMB) | payer MEDICARE, OTHER, SELFPAY ==
--- NOTE | 2025-04-05 13:40 | AM.OFFVISNUR ---
Intake Visit Reasons: B12 Shot Allergies codeine (CODEINE) Allergy (Unknown, Verified 02/01/25 13:54) GI UPSET levofloxacin (From LEVAQUIN) Allergy (Unknown, Verified 02/01/25 13:54) STOMACH UPSET pneumococcal vaccine Allergy (Unknown, Verified 02/01/25 13:54) unknown shellfish derived (SHELLFISH DERIVED) Allergy (Unknown, Verified 02/01/25 13:54) RASH Office Procedures Flu Questionnaire Does the patient have a severe egg allergy?: No Does the patient have severe life threatening allergies?: No Does the patient have a fever or illness today?: No Has the patient ever had Guillain-Chester Syndrome?: No Has the patient ever had any past reaction to a flu shot?: No Office Meds cyanocobalamin (vitamin B-12) 1,000 mcg/mL injection solution Performing Provider: Feli Rm MD Performing Location: [facility] Administered by: Gabi Atkins LPN on 04/05/25 13:40 Dose Route Admin Location Dispensed Lot Number Expiration Date [facility] [employer]er 1,000 mcg IM right deltoid 1 mL [id number] 10/23/25 41892-084-86 [employer] Total Dispensed Waste 1 mL 0 % Immunizations Fluarix [id number] (PF) 45 mcg (15 mcg x 3)/0.5 mL IM syringe Performing Provider: Feli Rm MD Performing Location[place] [facility] Administered by: Gabi Atkins LPN on 04/05/25 13:40 Dose Route Admin Location Dispensed Lot Number Expiration Date [facility] [employer]er 0.5 mL IM Left Deltoid 0.5 mL [id number] 11/23/25 72791-426-39 [employer] VIS Given Date VIS Provided VIS Publication Date 04/05/25 Single Vaccine 24 Eligibility Eligibility Date Funding Source Not [facility] Eligible 04/05/25 Private Assessment & Plan Assessment & Plan Orders: Orders Influenza [id number] Immunization Today Z23 - Encounter for immunization AMB Vitamin B12 Injection Patient Supplied Today E53.8 - Deficiency of other specified B group vitamins Coding
== END 2025-04-05 13:25 | disposition home or self-care (01) ==
LOC: HO.HMCH 13:08
PROVIDERS: PCP Internal Medicine; Visit Provider Internal Medicine
DX: E53.8 Deficiency of other specified B group vitamins (principal); Z23 Encounter for immunization

== ENCOUNTER → 2025-04-05 13:07 | Outpatient (BNVA) | payer MEDICARE, OTHER, SELFPAY | PROVIDERS: PCP Internal Medicine; Visit Provider Internal Medicine | DX: E53.8 Deficiency of other specified B group vitamins (principal); Z23 Encounter for immunization | CPT/HCPCS: 90471; 90656; 96372; J3420 ==

== ENCOUNTER 2025-04-19 14:39 | Outpatient (AMB) | payer MEDICARE, OTHER, SELFPAY ==
[2025-04-19 15:46] VITALS: BP 150/78; RESP 18; BMI 21.5
--- NOTE | 2025-04-19 15:46 | A.OFFPC_ITS ---
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 Required: No Accompanied by: Self / Same As Patient Allergies codeine (CODEINE) Allergy (Unknown, Verified 04/19/25 15:49) GI UPSET levofloxacin (From LEVAQUIN) Allergy (Unknown, Verified 04/19/25 15:49) STOMACH UPSET pneumococcal vaccine Allergy (Unknown, Verified 04/19/25 15:49) unknown shellfish derived (SHELLFISH DERIVED) Allergy (Unknown, Verified 04/19/25 15:49) RASH Medication List - Last Reconciled 04/19/25 by Feli Rm MD albuterol sulfate 90 mcg/actuation 2 puffs inhalation Q4-6H PRN bisacodyl (Dulcolax (bisacodyl)) 5 mg PO BEDTIME 2 days calcium citrate-vitamin D3 315 mg-6.25 mcg (250 unit) (Citracal + Vitamin D Maximum) 1 tab PO BID clotrimazole-betamethasone 1-0.05 % 1 appl topical BID 2 weeks cyanocobalamin (vitamin B-12) 1,000 mcg IM Q4W 90 days escitalopram oxalate (Lexapro) 5 mg PO DAILY fexofenadine (Arielle Allergy) 180 mg PO DAILY gabapentin 100 mg PO BEDTIME iron,carbonyl-vitamin C 65 mg iron- 125 mg (Vitron-C) 1 tab PO BID levothyroxine 75 mcg PO DAILY 90 days loratadine (Allergy Relief (loratadine)) 10 mg PO DAILY lorazepam (Ativan) 0.5 mg (1/2 x 1 mg) PO TID PRN mirtazapine 15 mg PO BEDTIME sennosides-docusate sodium 8.6-50 mg (Senna Plus) 2 tab-caps (2 x 8.6-50 mg) PO BEDTIME Tobacco use date assessed: 04/19/25 Fall risk assessment: 1 Fall in past year Last assessed Fall Risk: 04/19/25 Dental Screening Dental Screen Date: 04/19/25 Did you have a dental visit in the last 12 months?: No Did you have a dental problem in the last 6 months where you did not have access to dental care?: No Was dental information given to patient?: No HPI 3 months dementia HPI Details RLQ pain, and also has dysuria HPI Comments History of Present Illness Details History of Present Illness The patient is an 84-year-old individual presenting for a follow-up visit and was last seen in December 2024. The patient has a past medical history of hypothyroidism, hypercholesterolemia, bronchiectasis, COPD, osteoporosis with the last bone density scan in December 2022, lumbar degenerative disc disease, hypertension, and dementia with Lewy bodies. Review of last blood work from January 21 shows stable anemia with a hemoglobin of 10.8 and hematocrit of 34.1, which has been present for about a year. Electrolytes, renal function, blood sugar, and liver function were normal at that time. The patient's last cholesterol test was in November 2024 with an LDL of 101, and thyroid function was normal when tested in February. The patient reports a new complaint of intermittent, sharp pain in the abdomen that has been occurring for a while, but does not last long. The patient denies associated nausea, vomiting, or fever. The patient also recently developed dysuria, described as a burning sensation during urination for the last couple of days. The patient is not currently on medication for hypertension. The patient has an albuterol inhaler and uses it daily, though denies experiencing shortness of breath. The patient receives vitamin B12 supplementation. Health Maintenance - Bone Density Screening: The patient's last bone density scan was in 2022. - A new bone density scan was recommende d and agreed to by the patient to monitor for progression. - Mammogram: It was discussed that guide lines for mammograms change after age 75, and it is the patient's choice whether to continue screening every two years. - Vaccinations: The patient has received the flu shot, RSV, and pneumonia vaccinations. - The patient's tetanus shot is due (las t one in 2010), but the patient declined it. - Diet: A low-fat diet was recommended, particularly if the abdominal pain is related to the gallbladder. - Hydration: The patient was advised to increase water intake from one 14-ounce bottle to three to four bottles per day. - Physical Activity: A sedentary lifesty le was noted. - The patient was strongly encouraged to remain active by walking around the house to maintain mobility and prevent complications such as blood clots and pressure ulcers. Social History - Living Situation: The patient lives wi th the patient's son Ronaldo. - Functional Status: The patient has a s edentary lifestyle, sitting for most of the day, and cannot be left alone. - Caregiver Support: The family is seeki ng additional in-home help through [employer] and has been advised to contact [facility] for potential services to provide companionship and encourage mobility. - Nutritional Intake: The patient report s drinking approximately 14 ounces of water per day. Results - CBC (January 21): Hemoglobin 10.8 g/dL and hematocrit 34.1%, indicating stable anemia. - Platelet and white blood cell counts w ere normal. - CMP (January 21): Electrolytes, renal f unction, blood sugar, and liver function were normal. - Lipid Panel (November 2024): LDL was 101 m g/dL. - TSH (February): Normal. [facility] Medical History (Updated 04/19/25 @ 16:11 by Feli Rm MD) RUQ abdominal pain Confusion UTI (urinary tract infection) Dysuria Osteopenia Contact dermatitis and eczema Sinus congestion Costochondritis LLQ pain Epigastric pain Cognitive impairment Cough Blood pressure elevated without history of HTN Screening for breast cancer Post-menopausal Pneumonia Viral upper respiratory tract infection with cough Encounter for subsequent annual wellness visit (AWV) in Medicare patient Chest pain SOB (shortness of breath) Headache Colonoscopy refused COPD (chronic obstructive pulmonary disease) Recurrent sinus infections Breast asymmetry Uterine cancer Bronchiectasis Pernicious anemia Peripheral neuropathy Lumbar degenerative disc disease Hypercholesterolemia Vitamin D deficiency Pulmonary nodule Hypothyroid Surgical History History of total abdominal hysterectomy and bilateral salpingo-oophorectomy History of lumpectomy of right breast History of appendectomy Family History Father CVD (cardiovascular disease) Mother Cancer Social History Housing: House Alcohol intake: never Patient Tobacco Use Status: Never used Tobacco Tobacco use type: Cigarette e-Cigarette/Vaping Use: Never Used Second Hand Smoke Exposure: No service: No Current occupational status: unemployed Cognitive needs: No Hearing needs: No Vision needs: Yes (reading glasses) Questionnaire Thrive Questionnaire Date Thrive assessed: 01/04/25 I am a: Parent/Caregiver What is your living situation today?: I choose not to answer this question Within the past 12 months, did the food you bought not last and you didn't have the money to get more?: I choose not to answer this question Within the past 12 months, did you worry whether your food would run out before you got money to buy more?: I choose not to answer this question Do you have trouble paying for medicines?: No Do you have trouble getting transportation to medical appointments?: No Do you have trouble paying your heating and electricity bill?: I choose not to answer this question Do you have trouble taking care of your child, family member or friend?: Yes Do you have trouble with day-to-day activities such as bathing, preparing meals, shopping, managing finances, etc.?: I choose not to answer this question Are you currently unemployed and looking for a job?: I choose not to answer this question Are you interested in more education?: I choose not to answer this question Please select the resources that you would like help with: None Currently or been in a relationship where the following occur: I choose not to answer THRIVE Score: 0 DANIEL-7 AMB Questionnaire DANIEL-7 Date DANIEL - 7 assessed: 07/24/24 Source: Developed by Drs. Lobo Lopez, Lucie Mckinley, Nima Holland and colleagues, with an educational kourtney from [employer]. Review of Systems Narrative Review of Systems - Constitutional: Denies fever. - Respiratory: Denies dyspnea. - Gastrointestinal: Reports intermittent, sharp abdominal pain. - Denies nausea and vomiting. - Genitourinary: Reports dysuria for the past few days. - Musculoskeletal: Reports neck pain attributed to poor ergonomics. Physical exam (Primary Care) Vital Signs: Last Vital Signs Resp 18 04/19/25 15:46 BP 140/70 H 04/19/25 16:03 Oxygen Delivery Method Room Air 04/19/25 15:46 BMI result Body Mass Index 21.5 Tobacco/Smoking Status: Tobacco use Status Tobacco use date assessed 04/19/25 04/19/25 15:54 Patient Tobacco Use Status Never used Tobacco 04/19/25 15:54 Tobacco use type Cigarette 04/19/25 15:54 e-Cigarette/Vaping Use Never Used 04/19/25 15:54 Thrive Assessment: Date of Thrive Assessment Date Thrive assessed 01/04/25 04/19/25 15:54 Currently or been in a relationship where the following occur: I choose not to answer Narrative Physical Exam - Vitals: Blood pressure measured 140/80 mmHg in one arm and 142/70 mmHg in the other. - Cardiovascular: Regular rate and rhythm noted on auscultation. - Pulmonary: Lungs auscultated posteriorly. - Abdomen: Soft, non-tender to palpation throughout, including the area of reported pain. Const General: alert; No acute distress Eyes Conjunctivae: conjunctivae normal Resp Auscultation: clear to auscultation bilaterally Cardio Rate: regular rate Rhythm: regular rhythm GI Inspection: Yes normal to inspection Extrem General: Yes normal to inspection and No edema Results AMB Urinalysis, Automated UA Leukoctes 1 Bart/uL Last Edit by Abdon Gomez [facility] on 04/19/25 16:39 UA Nitrite Negative Last Edit by Abdon Gomez [facility] on 04/19/25 16:39 UA Urobilinogen 0 mg/dL Last Edit by Abdon Gomez [facility] on 04/19/25 16:39 UA Protein 0 mg/dL Last Edit by Abdon Gomez [facility] on 04/19/25 16:39 UA pH 6.0 Last Edit by Abdon Gomez [facility] on 04/19/25 16:39 UA Blood 0 Moises/uL Last Edit by Abdon Gomez [facility] on 04/19/25 16:39 UA Specific [place] 1.010 Last Edit by Abdon Gomez [facility] on 04/19/25 16: 39 UA Ketone Negative Last Edit by Abdon Gomez [facility] on 04/19/25 16:39 UA Bilirubin 0 mg/dL Last Edit by Abdon Gomez [facility] on 04/19/25 16:39 UA Glucose 0 mg/dL Last Edit by Abdon Gomez [facility] on 04/19/25 16:39 Results Reviewed Results Reviewed: Laboratory Last Values Urine pH (Auto) 6.0 04/19/25 16:24 Specific [place] (Auto) 1.010 04/19/25 16:24 Urine Protein (Auto) 0 mg/dL 04/19/25 16:24 Glucose (UA)(Auto) 0 mg/dL 04/19/25 16:24 Urine Ketones (Auto) Negative 04/19/25 16:24 Urine Blood (Auto) 0 Moises/uL 04/19/25 16:24 Urine Nitrite (Auto) Negative 04/19/25 16:24 Urine Bilirubin (Auto) 0 mg/dL 04/19/25 16:24 Urine Urobilinogen (Auto) 0 mg/dL 04/19/25 16:24 Leukocyte Esterase (Auto) 1 Bart/uL L* 04/19/25 16:24 Coding Level of Care Code Complex visit Add On G2211 Diagnoses Hypertension I10 Hypercholesterolemia E78.00 Acquired hypothyroidism E03.9 Hypothyroidism type: acquired Pernicious anemia D51.0 Moderate Lewy body dementia with other behavioral disturbance G31.83; F02.B18 Dementia behavioral or psychological symptom: with other behavioral disturbance Dementia severity: moderate Panlobular emphysema J43.1 COPD type: emphysema Emphysema type: panlobular Generalized anxiety disorder F41.1 RUQ abdominal pain R10.11 Assessment & Plan Assessment & Plan (1) Hypertension: Code(s): I10 - Essential (primary) hypertension Category: Medical Plan: Continue with blood pressure medication. Decrease salt intake and exercise patient is presently not on blood pressure medication (2) Hypercholesterolemia: Code(s): E78.00 - Pure hypercholesterolemia, unspecified Category: Medical Plan: Avoid fried foods, chicken skin, eggs, butter margarine, pastries and meat. Be it pork or beef they have a lot of cholesterol LDL goal of less than 130 and triglyceride of less than 150 (3) Hypothyroid: Code(s): E03.9 - Hypothyroidism, unspecified Category: Medical Qualifiers: Hypothyroidism type: acquired Qualified Code(s): E03.9 - Hypothyroidism, unspecified Plan: Continue with thyroid medication (4) Pernicious anemia: Code(s): D51.0 - Vitamin B12 deficiency anemia due to intrinsic factor deficiency Category: Medical Plan: Continue with vitamin B12 (5) Dementia with Lewy bodies: Code(s): G31.83 - Neurocognitive disorder with Lewy bodies; F02.80 - Dementia in other diseases classified elsewhere, unspecified severity, without behavioral disturbance, psychotic disturbance, mood disturbance, and anxiety Category: Medical Qualifiers: Dementia behavioral or psychological symptom: with other behavioral disturbance Dementia severity: moderate Qualified Code(s): G31.83 - Neurocognitive disorder with Lewy bodies; F02.B18 - Dementia in other diseases classified elsewhere, moderate, with other behavioral disturbance Plan: Supportive treatment (6) COPD (chronic obstructive pulmonary disease): Comment: HAS VERY MILD DEGREE OF OBSTRUCTIVE AIRWAY DISORDER, LAST PFT IN 2009, PATIENT HAS DECLINED TO HAVE ANY MORE PULMONARY FUNCTION TESTS. CLINICALLY SHE HAS VERY MILD OBSTRUCTIVE AIRWAY DISORDER. Code(s): J44.9 - Chronic obstructive pulmonary disease, unspecified Category: Medical Qualifiers: COPD type: emphysema Emphysema type: panlobular Qualified Code(s): J43.1 - Panlobular emphysema Plan: Continue with albuterol inhaler as needed (7) Generalized anxiety disorder: Comment: NOTED ABOVE IN HPI SHE DOES HAVE ANXIETY SYNDROME AND RECENTLY DIAGNOSED TO HAVE MILD DEMENTIA. SHE HAS BEEN STARTED ON ESCITALOPRAM 5 MG A DAY AND SHE CLAIMS TO BE FEELING BETTER. Code(s): F41.1 - Generalized anxiety disorder Category: Medical (8) RUQ abdominal pain: Code(s): R10.11 - Right upper quadrant pain Category: Medical Plan Plan Patient was informed and verbally consented to the use of an ambient scribe for clinic note documentation during this visit. 1. Abdominal Pain The patient presents with intermittent sharp abdominal pain with a non-tender abdominal exam. There is no acute surgical concern at this time. An abdominal ultrasound will be ordered to evaluate the liver and gallbladder for potential etiologies like cholelithiasis. The patient was advised to follow a low-fat diet, as gallbladder issues can be exacerbated by fatty foods. 2. Dysuria The patient reports a recent onset of burning with urination. A urinalysis will be collected in the office today to evaluate for a urinary tract infection. 3. Hypertension The patient's blood pressure is borderline elevated, and the patient is not on any antihypertensive medication. The plan is to monitor blood pressure, with consideration for initiating medication if systolic readings are consistently above 140 mmHg or diastolic readings are above 90 mmHg. 4. Osteoporosis The patient has a history of osteoporosis, with the last bone density scan performed in 2022. A request for a new bone density scan will be placed to assess for progression and guide future management, to which the patient agreed. 5. Chronic Obstructive Pulmonary Disease The patient reports using the albuterol inhaler daily despite denying shortness of breath. The patient was educated that albuterol is a rescue inhaler to be used only as needed for symptoms and that frequent use would suggest the need for a controller medication. The plan is to continue albuterol as needed. 6. Chronic Conditions Management Management for chronic conditions including hypothyroidism, hypercholesterolemia, and chronic anemia will continue as previously established. The patient will continue thyroid medication and vitamin B12. The goal for LDL cholesterol remains less than 130 mg/dL and triglycerides less than 150 mg/dL. 7. Sedentary Lifestyle The patient's sedentary lifestyle was discussed as a significant concern. The patient was strongly encouraged to increase physical activity, such as walking around the house, to maintain mobility and prevent complications. Options for in-home support services through agencies like [facility] were discussed with the family. Discussion Notes I reviewed the patient's past medical history and recent lab work, noting that the chronic conditions, including anemia, hypothyroidism, and hypercholesterolemia, appear stable. We discussed the new complaint of intermittent, sharp abdominal pain. I explained that while the physical exam was reassuring and did not suggest an immediate surgical issue, I am ordering an abdominal ultrasound to evaluate for underlying causes such as gallstones. I advised a low-fat diet, as this can help if the gallbladder is involved. Regarding the recent onset of burning with urination, I have ordered a urinalysis to be done today to check for a urinary tract infection. We discussed the borderline elevated blood pressure readings. For now, we will monitor it without starting new medication, but I will consider treatment if it remains consistently high. In terms of health maintenance, the patient agreed to undergo a new bone density scan to monitor for osteoporosis progression. We discussed mammogram guidelines and the patient's option to continue screening. The patient declined the recommended tetanus vaccine after I explained its purpose. I strongly emphasized the importance of staying physically active to prevent deconditioning, pressure sores, and blood clots associated with a sedentary lifestyle. I advised the family to contact [facility] to explore options for in-home support to help encourage mobility. I also advised the patient to increase daily water intake. Patient Instructions - Please provide a urine sample before you leave the office today so we can check for an infection. - We have ordered an ultrasound of your belly. - The scheduling department will call you to set up this appointment. - We have also ordered a bone density scan to check on your bone strength. - You will receive a call to schedule this as well. - Only use your albuterol inhaler if you are feeling short of breath. - You do not need to use it every day. - It is very important that you stay active and move around. - Try to walk around your house often to keep your muscles strong and prevent problems like blood clots. - Drink more water throughout the day. - Aim for about three to four 14-ounce bottles daily. - Try to eat foods that are low in fat. - We discussed having your family contact [facility] to see if they can provide someone to help at home. Orders: Orders US abdomen complete Today R10.11 - Right upper quadrant pain, R79.89 - Other specified abnormal findings of blood chemistry AMB Urinalysis Automated Today R10.11 - Right upper quadrant pain, Z13.9 - Encounter for screening, unspecified XR DEXA axial skeleton Today M81.0 - Age-related osteoporosis without current pathological fracture Medications: New nitrofurantoin monohyd/m-cryst 100 mg (Macrobid) must administer with a meal/food 100 mg PO Q12H 10 caps 0RF 5 days
[2025-04-19 16:03] VITALS: BP 140/70
== END 2025-04-19 16:33 | disposition home or self-care (01) ==
LOC: HO.HMCH 14:40
PROVIDERS: PCP Internal Medicine; Visit Provider Internal Medicine
DX: I10 Essential (primary) hypertension (principal); E78.00 Pure hypercholesterolemia, unspecified; E03.9 Hypothyroidism, unspecified; D51.0 Vitamin B12 deficiency anemia due to intrinsic factor deficiency; G31.83 Neurocognitive disorder with Lewy bodies; F02.B18 Dementia in other diseases classified elsewhere, moderate, with other behavioral disturbance; J43.1 Panlobular emphysema; F41.1 Generalized anxiety disorder; R10.11 Right upper quadrant pain; Z13.9 Encounter for screening, unspecified

== ENCOUNTER → 2025-04-19 14:39 | Outpatient (BNVA) | payer MEDICARE, OTHER, SELFPAY | PROVIDERS: PCP Internal Medicine; Visit Provider Internal Medicine | DX: I10 Essential (primary) hypertension (principal); E78.00 Pure hypercholesterolemia, unspecified; E03.9 Hypothyroidism, unspecified; D51.0 Vitamin B12 deficiency anemia due to intrinsic factor deficiency; G31.83 Neurocognitive disorder with Lewy bodies; F02.818 Dementia in other diseases classified elsewhere, unspecified severity, with other behavioral disturbance; J43.1 Panlobular emphysema; F41.1 Generalized anxiety disorder; R10.11 Right upper quadrant pain | CPT/HCPCS: 81003; 99212 ==

== ENCOUNTER 2025-05-03 13:12 | Outpatient (AMB) | payer MEDICARE, OTHER, SELFPAY ==
--- NOTE | 2025-05-03 13:24 | MHC.PC.OV ---
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: No Accompanied by: Self / Same As Patient Allergies codeine (CODEINE) Allergy (Unknown, Verified 05/03/25 13:25) GI UPSET levofloxacin (From LEVAQUIN) Allergy (Unknown, Verified 05/03/25 13:25) STOMACH UPSET pneumococcal vaccine Allergy (Unknown, Verified 05/03/25 13:25) unknown shellfish derived (SHELLFISH DERIVED) Allergy (Unknown, Verified 05/03/25 13:25) RASH Tobacco use date assessed: 05/03/25 Fall risk assessment: No Falls in past year Last assessed Fall Risk: 05/03/25 Dental Screening Dental Screen Date: 05/03/25 Did you have a dental visit in the last 12 months?: Yes Did you have a dental problem in the last 6 months where you did not have access to dental care?: No PFSH Medical History RUQ abdominal pain Confusion UTI (urinary tract infection) Dysuria Osteopenia Contact dermatitis and eczema Sinus congestion Costochondritis LLQ pain Epigastric pain Cognitive impairment Cough Blood pressure elevated without history of HTN Screening for breast cancer Post-menopausal Pneumonia Viral upper respiratory tract infection with cough Encounter for subsequent annual wellness visit (AWV) in Medicare patient Chest pain SOB (shortness of breath) Headache Colonoscopy refused COPD (chronic obstructive pulmonary disease) Recurrent sinus infections Breast asymmetry Uterine cancer Bronchiectasis Pernicious anemia Peripheral neuropathy Lumbar degenerative disc disease Hypercholesterolemia Vitamin D deficiency Pulmonary nodule Hypothyroid Surgical History History of total abdominal hysterectomy and bilateral salpingo-oophorectomy History of lumpectomy of right breast History of appendectomy Family History Father CVD (cardiovascular disease) Mother Cancer Social History Housing: House Alcohol intake: never Patient Tobacco Use Status: Never used Tobacco Tobacco use type: Cigarette e-Cigarette/Vaping Use: Never Used Second Hand Smoke Exposure: No service: No Current occupational status: unemployed Cognitive needs: No Hearing needs: No Vision needs: Yes (reading glasses) Questionnaire Thrive Questionnaire Date Thrive assessed: 01/04/25 I am a: Parent/Caregiver What is your living situation today?: I choose not to answer this question Within the past 12 months, did the food you bought not last and you didn't have the money to get more?: I choose not to answer this question Within the past 12 months, did you worry whether your food would run out before you got money to buy more?: I choose not to answer this question Do you have trouble paying for medicines?: No Do you have trouble getting transportation to medical appointments?: No Do you have trouble paying your heating and electricity bill?: I choose not to answer this question Do you have trouble taking care of your child, family member or friend?: Yes Do you have trouble with day-to-day activities such as bathing, preparing meals, shopping, managing finances, etc.?: I choose not to answer this question Are you currently unemployed and looking for a job?: I choose not to answer this question Are you interested in more education?: I choose not to answer this question Please select the resources that you would like help with: None Currently or been in a relationship where the following occur: I choose not to answer THRIVE Score: 0 DANIEL-7 AMB Questionnaire DANIEL-7 Date DANIEL - 7 assessed: 07/24/24 Source: Developed by Drs. Lobo Lopez, Lucie Mckinley, Nima Holland and colleagues, with an educational kourtney from [employer] Physical exam (Primary Care) Tobacco/Smoking Status: Tobacco use Status Tobacco use date assessed 04/19/25 05/03/25 13:24 Patient Tobacco Use Status Never used Tobacco 05/03/25 13:24 Tobacco use type Cigarette 05/03/25 13:24 e-Cigarette/Vaping Use Never Used 05/03/25 13:24 Thrive Assessment: Date of Thrive Assessment Date Thrive assessed 01/04/25 05/03/25 13:24 Currently or been in a relationship where the following occur: I choose not to answer Office Meds cyanocobalamin (vitamin B-12) 1,000 mcg/mL injection solution Performing Provider: Feli Rm MD [facility] Administered by: Edita Cha RN on 05/03/25 13:26 Dose Route Admin Location Dispensed Lot Number Expiration Date ND D[place]ge P[employer]eman 1,000 mcg IM left deltoid 1 mL [id number] 10/23/25 91805-453-29 Discrete Sport Total Dispensed Waste 1 mL 0 % Coding Diagnoses B12 deficiency E53.8 Assessment & Plan Assessment & Plan (1) B12 deficiency: Code(s): E53.8 - Deficiency of other specified B group vitamins Category: Medical Orders: Orders AMB Vitamin B12 Injection Patient Supplied Today E53.8 - Deficiency of other specified B group vitamins
== END 2025-05-03 13:26 | disposition home or self-care (01) ==
LOC: HO.HMCH 13:13
PROVIDERS: PCP Internal Medicine; Visit Provider Internal Medicine
DX: E53.8 Deficiency of other specified B group vitamins (principal)

== ENCOUNTER → 2025-05-03 13:12 | Outpatient (BNVA) | payer MEDICARE, OTHER, SELFPAY | PROVIDERS: PCP Internal Medicine; Visit Provider Internal Medicine | DX: E53.8 Deficiency of other specified B group vitamins (principal) | CPT/HCPCS: 96372; 99212; J3420 ==

== ENCOUNTER 2025-05-24 09:57 | Outpatient (REF) | payer MEDICARE, OTHER, SELFPAY ==
--- OUTSIDE RECORDS SUMMARY | 2023-12-11 03:30 | XMS_ITS ---
Author Organization [facility] Address [address] [place] [address] Care Team Providers Care Piped Buttonhole Machine Operator Name Role Phone Feli Rm Primary Care Provider Addie Martinez Unavailable [phone] Pieter Mcadams Unavailable [phone] REASON FOR VISIT Painful thick toenails which are aggrevated by shoes and causes difficulty standing/walking, Wart(s), PCP -04/18 Encounters Encounter Location Date Provider Diagnosis [facility] [address] [place] [address] 12/11/2023 Pieter Mcadams Tinea unguium B35.1 ; Pain in right toe(s) M79.674 ; Pain in left toe(s) M79.675 ; Other viral warts B07.8 ; Pain in left foot M79.672 ; Pain in right foot M79.671 and Other hammer toe(s) (acquired), left foot M20.42 Assessments Encounter Date Diagnosis (ICD Code) Assessment Notes Treatment Notes Treatment Clinical Notes Section Notes 12/11/2023 Tinea unguium (ICD-10 - B35.1) 12/11/2023 Pain in right toe(s) (ICD-10 - M79.674) 12/11/2023 Pain in left toe(s) (ICD-10 - M79.675) 12/11/2023 Other viral warts (ICD-10 - B07.8) 12/11/2023 Pain in left foot (ICD-10 - M79.672) 12/11/2023 Pain in right foot (ICD-10 - M79.671) 12/11/2023 Other hammer toe(s) (acquired), left foot (ICD-10 - M20.42) Plan Of Treatment Next Appt Details Follow Up: 3 Months, Reason: Procedure Notes * Category Sub-Category Detail Notes Wart Treatment Procedure Verrucae(s) were debrided to pin-point bleeding margins with sterile surgical blade (74325), silver nitrate chemocautery applied Debride Nails 1-5 Procedure: Nail debrideme nt performed extensively to reduce/remove overall nail length and girth, subungual debris, and necrotic tissue, by manual and electrical means by use of a nail nipper and/or dremel, to more viable healthy nail plate or bed tissue 1-5. Silver nitrate used for any petechial bleeding as necessary. Patient chooses, no pharmaceutical tx (33771) Progress Notes * Tati CARVALHO ADOB: [birth year] (84 yo F)Acc No.[id number]:12/11/2023 Progress Note Patient: Tati MURPHY Provider: Raysa Riddle DPM :1940 A ge:83 Y S ex:Female Date:12/11/2023 Address:[address] [place] [phone] Pcp:Feli Rm Subjective: * Chief Complaints: * [...] enies. C ardiovascular: Pacemaker d enies. M CHARTERED ACCOUNTANT d enies. W PW d enies. C [...] as necessary. Patient chooses, no pharmaceutical tx (66540). W art Treatment: Procedure V errucae(s) were debrided to pin-point bleeding margins with sterile surgical blade (22292), silver nitrate chemocautery applied. * Procedure Codes: 1 1720 DEBRIDE NAIL, 1-5, Modifiers: XS , 80199 Wart Destruction, 1-14, Modifiers: XS * Follow Up: 3 Months * Images: * The named appointment provid er may or may not be the originator of this progress note, and it is not deemed complete until electronically signed by the appointment provider. Sign off status: Pending * Provider: Raysa Riddle DPM Date: 0 12/11/2023 Generated for Jacquelini rafa/Niall/eTransmitting on: 1 10:53 AM EST History and Physical Notes * HPI (History [...]
--- OUTSIDE RECORDS SUMMARY | 2024-09-03 08:45 | XMS_ITS ---
Author Organization [facility] Address [address] [place] [address] Care Team Providers Care Hybrid Tester Name Role Phone Feli Rm Primary Care Provider Addie Martinez [phone] Medications Medication SIG (Take, Route, Fr equency, Duration) Notes Start Date End Date Status Synthroid 175 MCG 1 tablet every morni ng on an empty stomach Orally Once a day; Duration: 30 day(s) Active iron Active Vitamin B-12 Active Citracal + D Active Gabapentin PRN Not-Takin g Voltaren 1 % as directed Externally 01/13/2024 Active Antibiotic Not-Takin g Encounters Encounter Location Date Provider Diagnosis [address] [address] 09/03/2024 Addie Brizuela Plan Of Treatment No Information Progress Notes * Tati CARVALHO ADOB: [birth year] (84 yo F)Acc No.[id number]:09/03/2024 Progress Note Patient: Tati MURPHY Provider: Bhupinder Brizuela DPM :1940 A ge:83 Y S ex:Female Date:09/03/2024 Address:[address] [place] [address] Pcp:Feli Rm Subjective: * Chief Complaints: * * Medical History: * Medications: T aking Citracal + D , Taking iron , Taking Synthroid 175 MCG Tablet 1 tablet every morning on an empty stomach Orally Once a day , Taking Vitamin B-12 , Taking Voltaren 1 % Gel as directed Externally , Not-Taking/PRN Antibiotic , Not-Taking/PRN Gabapentin , Notes to Pharmacist: PRN Objective: * Vitals: Assessment: Plan: * Treatment: * Images: * The named appointment provid er may or may not be the originator of this progress note, and it is not deemed complete until electronically signed by the appointment provider. Sign off status: Pending * Provider: Bhupinder Brizuela DPM Date: 0 09/03/2024 Generated for Aaron craig/Niall/Brownitting on: 1 10:53 AM EST
--- NOTE | ~2025-05-24 | MM_ITS ---
EXAMINATION: DXA BONE DENSITY AXIAL HISTORY: M81.0 - Age-related osteoporosis without current pathological fracture TECHNIQUE: [employer] Dual energy absorptiometry (DEXA) of the lumbar spine, total left hip, and femoral neck was performed. COMPARISON: Comparison is made with the prior examination dated 01/01/2023. FINDINGS: The bone mineral density of the lumbar spine is 0.696 g/cm2, corresponding to a T-score of -4.2, and a Z-score of -2.0. This is indicative of osteoporosis. This represents a BMD change of -23.2% compared to the prior exam. This is statistically significant. The bone mineral density of the left total hip is 0.515 g/cm2, corresponding to a T-score of -3.9, and a Z-score of -1.5. This is indicative of osteoporosis. This represents a BMD change of -11.8% compared to the prior exam. This is statistically significant. The bone mineral density of the left femoral neck is 0.486 g/cm2, corresponding to a T-score of -4.0, and a Z-score of -1.4. This is indicative of osteoporosis. This represents a BMD change of -12.3% compared to the prior exam. MM/XR DEXA axial skeleton IMPRESSION: Based on bone mineral density, and according to World Health Organization (WHO) criteria, the diagnosis is consistent with osteoporosis. Statistically, 68% of repeat scans fall within 1 SD (+/- 0.010 g/cm2 for AP spine L1-L4) and 1 SD (+/- 0.012 g/cm2 for femur total) FRAX is a trademark of the [employer] [employer], a World Health Organization (WHO) Collaborating Center. Electronically signed by: Lobo Wakefield MD 05/24/2025 10:34 AM [facility]
--- OUTSIDE RECORDS SUMMARY | 2025-05-24 10:53 | XMS_ITS | Patient Health Record ---
Author Organization [facility] Address [address] [place] [address] Care Team Providers Care Promotions Associate Name Role Phone Feli Rm Primary Care Provider Addie Martinez Unavailable [phone] Allergies Allergen (clinical drug ingredient) Drug/Non Drug [...] W/U Status Risk Notes Problem Viral wart (06519331) Other viral warts (B07.8) Active confirmed Problem Localized, primary osteoarthritis of the ankle and/or foot (086126185) Primary osteoarthrit is, right ankle and foot (M19.071) Active confirmed Problem Acquired hammer toe of right foot (6730910305065357) Other hammer toe(s) (acquired), right foot (M20.41) Active confirmed Problem Acquired hammer toe of left foot (0989099727762898) Other hammer toe(s) (acquired), left foot (M20.42) Active confirmed Encounters Encounter Location Date Provider Diagnosis [facility] [address] [place] [address] 09/03/2024 Addie Brizuela Plan Of Treatment Pending Test Test Name Order Date [id number] NAIL, 6 OR MORE 04/15/2024 22800-KEBPFQU NAIL, -03/10/2018 [id number] NAIL, -02/20/2016 75441-NIJKASA NAIL, -05/14/2016 85874-OZCWIQV NAIL, -07/23/2016 90270-KRAXJUH NAIL, -12/31/2016 24313-LEEJPBO NAIL, -03/25/2017 49525-MFRYHRW NAIL, -06/17/2017 28239-BIGNUZT NAIL, -09/23/2017 40339-CZLWCVT NAIL, -12/11/2017 63863-XCJOBNM NAIL, -08/15/2015 09977-IIRZUYI NAIL, -11/14/2015 96696-Deog Destruction, 06-0911/14/2015 75762-Kjae Destruction, 06-0905/16/2015 03791-Bile Destruction, -08/15/2015 79528-Hpkv Destruction, -12/13/2014 29478-Txbs Destruction, 06-0902/24/2015 43612-Jgbv Destruction, 06-0912/17/2013 34764-Oxte Destruction, 06-0903/04/2014 77791-Mjvv Destruction, 06-0905/10/2014 17877-Nhav Destruction, -14 07/26/2014 89050-Upkx Destruction, 06-0910/04/2014 88735-Dsho Destruction, -02/05/2011 64114-Nneu Destruction, 06-0907/09/2011 19235-Vfka Destruction, 06-0912/03/2011 24003-Uhje Destruction, 06-0905/15/2012 30899-Ltyk Destruction, 06-0908/11/2012 43509-Qxxt Destruction, 06-0911/13/2012 69513-Onsj Destruction, 06-0902/09/2013 42978-Dfpo Destruction, 06-0905/04/2013 80302-Ilcy Destruction, 06-0908/03/2013 63260-Gohs Destruction, 06-0910/08/2013 61238-Tsjd Destruction, 06-0912/11/2017 20536-Trbk Destruction, 06-0909/23/2017 63562-Vudc Destruction, 06-0906/17/2017 90240-Pfif Destruction, 06-0903/25/2017 57390-Zpag Destruction, 06-0912/31/2016 38499-Hdsl Destruction, 06-0907/23/2016 57397-Keni Destruction, 06-0905/14/2016 21916-Wyim Destruction, 06-0902/20/2016 13687-Lplc Destruction, 06-0903/10/2018 92288-Isullgbu Plate 02/05/2011 53670-Cozcboge Plate 12/03/2011 48478-Cvmlaymd Plate 07/09/2011 19036- Debride <25 sq cm 05/15/2012 89830- Debride <25 sq cm 08/11/2012 68877- Debride <25 sq cm 11/13/2012 49108- Debride <25 sq cm 12/17/2013 35024- Debride <25 sq cm 10/08/2013 53539- Debride <25 sq cm 05/04/2013 42980- Debride <25 sq cm 02/09/2013 08075- Debride <25 sq cm 10/04/2014 45247- Debride <25 sq cm 07/26/2014 56398- Debride <25 sq cm 03/04/2014 52644- Debride <25 sq cm 05/10/2014 76178- Debride <25 sq cm 02/24/2015 19080- Debride <25 sq cm 12/13/2014 Insurance Providers Payer Name Payer Address Payer Phone Subscriber Number Group Number Insured Name Patient Relationship to Insured Coverage Start Date Coverage End Date Medicare National Govt 2can [facility] [address] [place] [address] [id number] Tati Carvalho Self - patient is the insured [address] [address] [place] [id number] [phone] [id number] Tati Carvalho Self - patient is the [...]
--- OUTSIDE RECORDS SUMMARY | 2025-05-24 10:53 | XMS_ITS | Patient Health Record ---
Author Organization [facility] Address [address] [place] [id number] Care Team Providers Care Leaf Binner Name Role Phone Hakeem Will Jr Reason For Referral No Information Plan Of Treatment No Information
== END 2025-05-24 09:58 ==
LOC: HO.MAMMO 09:57
PROVIDERS: PCP Internal Medicine; Visit Provider Internal Medicine
DX: M81.0 Age-related osteoporosis without current pathological fracture (principal)
CPT/HCPCS: 77080

== ENCOUNTER → 2025-05-24 10:15 | Outpatient (BNV) | payer MEDICARE, OTHER, SELFPAY | PROVIDERS: PCP Internal Medicine; Visit Provider Radiology Diagnostic Radiology | DX: E28.39 Other primary ovarian failure (principal) | CPT/HCPCS: 77080 ==